=== PATIENT | male | born 1965 | race Caucasian/White ===

== ENCOUNTER 2019-02-26 11:35 | Inpatient (IN) | payer MEDICAID ==
[2019-02-26 14:38] LABS: ABS Basophils 0.1 10^3/ul (0-0.2); ABS Lymphocytes 0.2 10^3/ul (1.0-4.8); ABS Monocytes 0.3 10^3/ul (0-0.8); ABS Neutrophils 17.6 10^3/ul (1.5-7.7); Eosinophil % 0.1 %; Hematocrit 50 % (42-52); Hemoglobin 16.7 g/dL (14.0-18.0); Mean Corpuscular HGB Conc 33 g/dL (31-36); Mean Corpuscular Hemoglobin 31 pg (27-31); Mean Corpuscular Volume 92 fL (80-94); Mean Platelet Volume 8.4 fL (7.4-10.4); Platelet Count 423 10^3/uL (150-450); Red Blood Count 5.45 10^6 /uL (4.18-5.48); Red Cell Distribution Width 14 % (10-15); White Blood Count 18.1 10^3/uL (3.5-10.8)
--- NOTE | 2019-02-26 14:52 | ED ---
Complex/Multi-Sys Presentation - HPI Summary HPI Summary: 53 year old M presenting to [facility] accompanied by female friend with a chief complaint of thrush and epigastric pain for several weeks. The patient rates the pain 8/10 in severity. Symptoms aggravated by food. Symptoms alleviated by marijuana. Patient reports recent weight loss and decreased food intake. Patient denies chest pain, shortness of breath. Reports hx HIV for which patient has not taken medications for 1 year. Patient states that the last time he had HIV checks was 2 years ago. Patient used to live in [place] where he was being seen at a clinic then he moved to [place] where he was prescribed sativa but patient states it makes him feel depressed. Patient states he now lives in a tent in [facility]. Female friend states that she received a text from patient saying "I'm dying" so female friend booked a motel room for patient. Patient uses marijuana, which relieves his pain, last used a few days ago. - History Of Current Complaint Chief Complaint: EDGeneral Hx Obtained From: Patient, Other: - female friend Onset/Duration: Lasting Weeks, Still Present Timing: Constant Severity Currently: Severe Aggravating Factor(s): food intake Alleviating Factor(s): marijuana Associated Signs And Symptoms: Positive: Other - recent weight loss and decreased food intake; NEGATIVE: chest pain, shortness of breath - Allergies/Home Medications Allergies/Adverse Reactions: Allergies Allergy/AdvReac Type Severity Reaction Status Date / Time No Known Allergies Allergy Verified 02/26/19 11:46 Home Medications: Home Medications Efavirenz/Emtricitab/Tenof(NF) [Atripla(NF)] 1 tab PO DAILY 02/26/19 [History Confirmed 02/26/19] PMH/Surg Hx/FS Hx/Imm Hx Previously Healthy: No Respiratory History: Reports: Hx Pneumonia - Surgical History Surgery Procedure, Year, and Place: n/a Infectious Disease History: Yes Infectious Disease History: Reports: Hx Human Immunodeficiency Virus (HIV) Denies: Traveled Outside the [place] in Last 30 Days - Social History Alcohol Use: None Hx Substance Use: Yes Substance Use Type: Reports: Marijuana Hx Tobacco Use: No Smoking Status (MU): Never Smoked Tobacco Review of Systems Positive: Other - thrush Negative: Chest Pain Negative: Shortness Of Breath Positive: Other - epigastric pain, recent weight loss, decreased food intake All Other Systems Reviewed And Are Negative: Yes Physical Exam - Summary Physical Exam Summary: GENERAL: Patient is a well-developed and nourished M who is lying comfortable in the stretcher. Patient is not in any acute respiratory distress. HEAD AND FACE: Normocephalic EYES: PERRLA, EOMI x 2. EARS: Hearing grossly intact. MOUTH: Thrush on his tongue that is erythematous NECK: Supple, trachea is midline, no adenopathy, no JVD, no carotid bruit. CHEST: Symmetric, no tenderness at palpation LUNGS: Rhonchi bilaterally CVS: Regular rate and rhythm, S1 and S2 present, no murmurs or gallops appreciated. ABDOMEN: Soft, non-tender. Bowel sounds are normal. No abnormal abdominal pulsations. EXTREMITIES: Full ROM in all major joints, no edema, no cyanosis or clubbing. NEURO: Alert and oriented x 3. No acute neurological deficits. Speech is normal and follows commands. SKIN: Dry and warm Triage Information Reviewed: Yes Vital Signs On Initial Exam: Initial Vitals Temp Pulse Resp BP Pulse Ox 98.1 F 110 16 117/80 97 02/26/19 11:42 02/26/19 11:42 02/26/19 11:42 02/26/19 11:42 02/26/19 11:42 Vital Signs Reviewed: Yes Diagnostics - Vital Signs Vital Signs Temp Pulse Resp BP Pulse Ox 02/26/19 13:47 98.4 F 87 24 119/82 98 02/26/19 11:42 98.1 F 110 16 117/80 97 - Laboratory Lab Results: Lab Results 02/26/19 Range/Units 14:22 WBC 18.1 H (3.5-10.8) 10^3/uL RBC 5.45 (4.18-5.48) 10^6 /uL Hgb 16.7 (14.0-18.0) g/dL Hct 50 (42-52) % MCV 92 (80-94) fL MCH 31 (27-31) pg MCHC 33 (31-36) g/dL RDW 14 (10-15) % Plt Count 423 (150-450) 10^3/uL MPV 8.4 (7.4-10.4) fL Neut % (Auto) 97.0 % Lymph % (Auto) 1.0 % Eagle % (Auto) 1.4 % Eos % (Auto) 0.1 % Baso % (Auto) 0.5 % Absolute Neuts (auto) 17.6 H (1.5-7.7) 10^3/ul Absolute Lymphs (auto) 0.2 L (1.0-4.8) 10^3/ul Absolute Monos (auto) 0.3 (0-0.8) 10^3/ul Absolute Eos (auto) 0.0 (0-0.6) 10^3/ul Absolute Basos (auto) 0.1 (0-0.2) 10^3/ul Absolute Nucleated RBC 0.0 10^3/ul Nucleated RBC % 0.0 Result Diagrams: 02/28/19 05:21 02/28/19 05:21 Lab Statement: Any lab studies that have been ordered have been reviewed, and results considered in the medical decision making process. - Radiology CXR Radiology Interpretation Completed By: Radiologist Summary of Radiographic Findings: NO ACTIVE CARDIOPULMONARY DISEASE IS NOTED. ED physician has reviewed this report. - EKG 1504 Cardiac Rate: NL - 88 BPM EKG Rhythm: Sinus Rhythm Summary of EKG Findings: Normal sinus rhythm 88 BPM, normal axis, normal intervals. Complex Multi-Symp Course/Dx Course Of Treatment: 53 year old M presenting to [facility] accompanied by female friend with a chief complaint of thrush, epigastric pain, recent weight loss, decreased food intake for several weeks. Reports hx HIV for which patient has not taken medications for 1 year. PE findings: rhonchi bilaterally, thrush on his tongue that is erythematous. Labs without any significant abnormalities except for 18.1, absolute neuts 176., absolute lymphs 0.2, sodium 134, carbon dioxide 18, anion gap 12, BUN 48, creatinine 1.27, BUN/Creatinine ratio 37.8, glucose 122, alkaline phosphatase 121, INR 1.10, APTT 40.9, B-natriuretic peptide 181, troponin 0.08, c-reactive protein 136.41. EKG shows normal sinus rhythm 88 BPM, normal axis, normal intervals. CXR shows, per radiologist: NO ACTIVE CARDIOPULMONARY DISEASE IS NOTED. In ED course, patient was given 1 L normal saline IV fluids, GI cocktail, Zofran 4 mg IV. Case discussed with hospitalist, Dr. Yanez, who agrees to admit patient. I discussed results with patient. The patient agrees with this plan. - Diagnoses Provider Diagnoses: Tongue thrust, Chest pain - Physician Notifications Discussed Care Of Patient With: Francia Yanez Time Discussed With Above Provider: 15:50 Instructed by Provider To: Other - Dr. Yanez, hospitalist, agrees to admit patient. Discharge - Sign-Out/Discharge Documenting (check all that apply): Patient Departure - Admit Patient Received Moderate/Deep Sedation with Procedure: No - Discharge Plan Condition: Stable Disposition: ADMITTED TO [facility] - Billing Disposition and Condition Condition: STABLE Disposition: Admitted to [facility] - Attestation Statements Document Initiated by Scribe: Yes Documenting Scribe: Bella Wei Provider For Whom Scribe is Documenting (Include Credential): Breanna House MD Scribe Attestation: Bella Nolan, edithed for Breanna House MD on 02/28/19 at 0808. Scribe Documentation Reviewed: Yes Provider Attestation: The documentation as recorded by the scribBella bermudez accurately reflects the service I personally performed and the decisions made by Breanna tuttle MD Status of Scribe Document: Viewed
[2019-02-26] MEDS ORDERED: Nystatin SUSPENSION* 100000 UNITS/ML 5 ML UDC PO ONE (14:59)
[2019-02-26] MEDS ORDERED: NS 0.9% 1000 ML** 1,000 ML IV ONE (14:59)
[2019-02-26] MEDS ORDERED: Ondansetron INJ* 2 MG/ML VIAL IV ONE (15:00)
[2019-02-26 15:03] LABS: ALT 31 U/L (7-52); AST 22 U/L (13-39); Albumin 3.8 g/dL (3.2-5.2); Albumin/Globulin Ratio 1.1 (1-3); Alkaline Phosphatase 121 U/L (34-104); Anion Gap 12 mmol/L (2-11); BUN/Creatinine Ratio 37.8 (8-20); Blood Urea Nitrogen 48 mg/dL (6-24); CO2 Carbon Dioxide 18 mmol/L (22-32); Calcium 9.3 mg/dL (8.6-10.3); Chloride 104 mmol/L (101-111); EGFR African American 71.8 (>60); EGFR Non-African American 59.3 (>60); Globulin 3.4 g/dL (2-4); Glucose 122 mg/dL (70-100); Sodium 134 mmol/L (135-145); Total Protein 7.2 g/dL (6.4-8.9)
[2019-02-26] MEDS ORDERED: Lidocaine 2% VISCOUS* 15 ML UDC PO ONE (15:05)
[2019-02-26] MEDS ORDERED: Al Hydrox/Mg Hydrox/Simet LIQ* 30 ML UDC PO ONE (15:07)
[2019-02-26 15:36] LABS: Activated Partial Thrombo Time 40.9 seconds (26.0-38.0); INR 1.1 (0.82-1.09)
[2019-02-26 15:52] LABS: Troponin I 0.08 ng/mL (<0.04)
[2019-02-26 16:26] LABS: CRP High Sensitivity 136.41 mg/L (<2.00)
[2019-02-26] MEDS ORDERED: Loperamide LIQ* 2 MG/10 ML UDC PO ONE (17:13)
[2019-02-26] MEDS ORDERED: Fluconazole 400 MG IVPREMIX(*) 400 MG/200 ML BAG IVPB ONE (18:02)
--- NOTE | 2019-02-26 18:30 | HP ---
<Audrey Peralta - Last Filed: 02/26/19 18:51> History of Present Illness - History of Present Illness Reason for Visit: Extreme pain on mouth and stomach History of Present Illness: 53 M with history of HIV, Cryptococcus meningitis s/p MISSILE MECHANIC shunt, presented to ED with severe oral and stomach pain. Patient is a poor historian and refused to talk too much due to lack of energy. He was diagnosed as HIV at 2009, receiving treatment from [facility] till 2017, he stopped all his HIV medication 1.5 years ago because he didn't have car to go to clinic. He started to have severe oral and stomach pain 2 weeks ago, he had difficulty eating solid food due to this severe pain. Also he had watery diarrhea around same time, he needs to go to restroom every 5-10 mins, he complained of burning pain on his rectal area. He lost 30 pounds in the past 2 weeks. He was staying in a tent in a friend's property, a female friend sent him to ED today as he called and said "he is going to soon." He denied fever and chills, denied cough, denied abdominal pain. - Past Medical History Past Medical History: HIV diagnosed in 2009, history of cryptococcus meningitis s/p MISSILE MECHANIC shunt. - Past Surgical History Past Surgical History: NA - Past Family History Past Family History: Mother has diabetes.Lost contact with family. - Past Social History Past Social History: Patient stayed in [place] for 1.5 years, he stayed in a tent since then. He claimed he lost his car so he couldn't go to clinic, he refused to talk more about himself. No smoker, uses marijuana, no alcohol use, no substance use. Review of Systems - Review of Systems Constitutional: Positive: Weakness, Malaise, Other - weight loss 30 pounds in the past 2 weeks Eyes: Negative: Pain, Vision Change, Conjunctivae Inflammation, Eyelid Inflammation, Redness, Other ENT: Positive: Mouth Pain, Throat Pain, Other - oral thrush Respiratory: Negative: Cough, Dry, Shortness of Breath, Hemoptysis, SOB with Excertion, Pleuritic Pain, Sputum, Wheezing Cardiovascular: Negative: Chest Pain, Palpitations, Orthopnea, Paroxysmal Noc. Dyspnea, Edema, Light Headedness, Other Gastrointestinal: Positive: Diarrhea Genitourinary: Negative: Dysuria, Frequency, Incontinence, Hematuria, Retention , Other Musculoskeletal: Negative: Neck Pain, Shoulder Pain, Arm Pain, Back Pain, Hand Pain, Leg Pain, Foot Pain, Other Skin: Positive: Rash - noted scattered erythematous patches over all body Neurological: Positive: Weakness - Medications/Allergies Allergies/Adverse Reactions: Allergies Allergy/AdvReac Type Severity Reaction Status Date / Time No Known Allergies Allergy Verified 02/26/19 11:46 Medications: Current Medications Not taking any medication Exam Vital Signs: Vital Signs (72 hours) 02/26/19 02/26/19 02/26/19 11:42 13:47 14:42 Temperature 98.1 F 98.4 F Pulse Rate 110 87 82 Respiratory 16 24 Rate Blood Pressure 117/80 119/82 126/89 (mmHg) O2 Sat by Pulse 97 98 97 Oximetry 02/26/19 14:43 Temperature Pulse Rate 95 Respiratory Rate Blood Pressure (mmHg) O2 Sat by Pulse 96 Oximetry Exam: Cachexic looking Skin: macular erythematous rashes over whole body HEENT: oral thrush and ulcers with background erythema over the whole mouth Lung: rhonchis bilaterally Abdomen: soft, non tender Extremity: full ROM Neuro: alert, oriented x3, no neurological deficit noted Assessment/Plan - Assessment/Plan Assessment: This is a 53 y/o M with history of AIDS and prev cryptococcus meningitis s/p MISSILE MECHANIC shunt, presented to ED with severe oral and esophageal pain, and severe watery diarrhea after stopping HIV med for 1.5 years. Esophagitis due to joseph is top consideration, CMV, HSV is also highly likely. Diarrhea in the setting of untreated AIDS could be parasite infection such as cryptosporidum, microsporidium, also C.diff, CMV, common enteric bacterias are all possible. He also had severe malnutrition and mild MARY due to poor oral intake. Plan: 1. Stomatitis and Esophagitis - definitely joseph with oral thrush present - still need to look for other pathogen such as HSV, CMV - bld cs, fungal cs - start IV fluconazole due to severe oral ulcer and thrush, 400mg first dose, 200mg daily subsequently - lidocaine for pain control, nystatin tropical - consider endoscopy to get diagnosis when symptoms improve 2. Diarrhea - in the setting of untreated HIV with watery diarrhea, parasitic causes such as cryposporidium is most likely, C.diff and other bacterial causes, viral also possibe - IV hydration - send stool c/s, c.diff, o&P, rotavirus, c.diff, cryptosporidium antigen - [facility] topical for anal pain 3. Severe Malnutrition - start feeding - watch electrolytes closely to avoid refeeding syndrome - put on telemetry 4. MARY with metabolic acidosis - due to poor oral intake and ongoing diarrhea - hydration for now 5. Mildly elevated trop I likely demand - ECG NSR - trend trop - CXR normal 6. AIDS - HIV CD4/CD8, RNA titer sent - consult ID for further treatment 7. DVT prophylaxis - ambulating, low risk - no need prophylaxis Attestation Documenting Resident: Audrey Peralta Supervising Physician: Araseli Godinez Attestation: This service has been performed in part by a resident under the direction of a teaching physician.I, Araseli Godinez, performed the service, or was physically present during the critical, or cooper portions of the service, furnished by the resident. I participated in the management of the patient. <Araseli Godinez - Last Filed: 02/26/19 21:32> History of Present Illness - History of Present Illness Reason for Visit: Extreme pain on mouth Review of Systems - Medications/Allergies Medications: Current Medications Sodium Chloride (Ns 0.9% 1000 Ml) 1,000 mls @ 125 mls/hr IV PER RATE [facility] Last Admin: 02/26/19 20:05 Dose: 125 mls/hr Fluconazole/Sodium Chloride (Diflucan 200 Mg Ivpremix(*)) 200 mg in 100 mls @ 100 mls/hr IVPB Q24H [facility] Lidocaine (Xylocaine 2% Viscous*) 15 ml SWISH SPIT Q4H PRN PRN Reason: SORE THROAT Last Admin: 02/26/19 18:58 Dose: 15 ml Loperamide HCl (Imodium Cap*) 2 mg PO .SEE DIRECTIONS PRN PRN Reason: DIARRHEA Nystatin (Nystatin Suspension*) 200,000 units PO QID [facility] Last Admin: 02/26/19 20:27 Dose: 200,000 units Exam Vital Signs: Vital Signs (72 hours) 02/26/19 02/26/19 02/26/19 11:42 13:47 14:42 Temperature 98.1 F 98.4 F Pulse Rate 110 87 82 Respiratory 16 24 Rate Blood Pressure 117/80 119/82 126/89 (mmHg) O2 Sat by Pulse 97 98 97 Oximetry 02/26/19 02/26/19 14:43 18:54 Temperature 98.1 F Pulse Rate 95 73 Respiratory 16 Rate Blood Pressure 120/71 (mmHg) O2 Sat by Pulse 96 95 Oximetry Attestation Attending/Supervising Physician Comment: Mr. 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 He explains that the virus was undetectable until 1.5 years ago, when he "lost everything" in [facility] and moved to [place] where a friend has allowed him to stay in a tent. He has been without a car and therefore without access to medications. He had been on truvada for a while and most recently atripla. He found an old bottle recently and started taking them six days ago. He presented to the ED in the care of his friend Becky with several weeks of mouth pain, inability to take food, and profuse diarrhea. Remainder of HPI as above. On exam, he is alert and nontoxic appearing but chronically very ill appearing with profound temporal wasting and ribs visible through his chest. His oral mucosa is covered in ulcerations and plaques, as is his palate and pharynx. He has no lymphadenopathy. Lungs are clear. RRR, no murmurs. Abd is soft, nontender, nondistended, normal bowel sounds. He has a faint blanching macular rash all over that he attributes to bug bites. Labs, EKG, and xray personally reviewed by me. # Stomatitis/esophagitis joseph vs. hsv. vs. cmv vs. aphthous start fluconazole IV topical lidocaine may need endocsopy if not responding quickly advance diet as tolerated check fungal blood cultures # Diarrhea prone to any type of bacterial, viral, parasitic diarrhea send stool culture, o/p, cmv, cryptosporidium volume/electrolyte replacement # HIV/AIDS he has not had a cd4 checked in 1.5 years and does not remember what it was then will check cd4 and consult [facility] for recommendations about resuming HAART may also need cmv/pcp ppx pending cd4 # MARY the differential for this is broad in HIV, but given his profuse diarrhea and inability to tolerate po I am suspicious for prerenal IVF # nstemi ekg without ishcemia; no chest pain trend trops, tele # homelessness this places him at greater risk for opportunistic infections will consult social work
[2019-02-26] MEDS: Lidocaine 2% VISCOUS* 15 ML UDC SWISH SPIT PRN (18:58)
[2019-02-26] MEDS ORDERED: Witch Hazel PAD* JAR TOPICAL ONE (19:19)
[2019-02-26] MEDS: NS 0.9% 1000 ML** 1,000 ML IV SCH (20:05)
[2019-02-26 20:10] LABS: HIV 4th Generation Reflexed (Negative)
[2019-02-26] MEDS: Nystatin SUSPENSION* 100000 UNITS/ML 5 ML UDC PO SCH (20:27)
[2019-02-26] MEDS: Loperamide CAP* 2 MG PO PRN (22:05)
[2019-02-27] MEDS: Lidocaine 2% VISCOUS* 15 ML UDC SWISH SPIT PRN ×5 (03:36→21:10)
[2019-02-27] MEDS: Loperamide CAP* 2 MG PO PRN ×4 (03:37→23:53)
[2019-02-27 06:01] LABS: ABS Lymphocytes 0.2 10^3/ul (1.0-4.8); ABS Monocytes 0.3 10^3/ul (0-0.8); ABS Neutrophils 15.9 10^3/ul (1.5-7.7); Hematocrit 41 % (42-52); Hemoglobin 13.7 g/dL (14.0-18.0); Mean Corpuscular HGB Conc 33 g/dL (31-36); Mean Corpuscular Hemoglobin 30 pg (27-31); Mean Corpuscular Volume 91 fL (80-94); Mean Platelet Volume 8.6 fL (7.4-10.4); Platelet Count 330 10^3/uL (150-450); Red Cell Distribution Width 14 % (10-15); White Blood Count 16.4 10^3/uL (3.5-10.8)
[2019-02-27 06:24] LABS: Albumin 2.8 g/dL (3.2-5.2); Calcium 8.2 mg/dL (8.6-10.3); EGFR African American 61.1 (>60); EGFR Non-African American 50.5 (>60); Globulin 2.8 g/dL (2-4); Potassium 3.7 mmol/L (3.5-5.0); Total Bilirubin 0.2 mg/dL (0.2-1.0); Total Protein 5.6 g/dL (6.4-8.9)
[2019-02-27] MEDS ORDERED: Sodium Bicarbonate (ANTACID)* 650 MG TAB PO ONE (07:28)
--- NOTE | 2019-02-27 07:30 | PN ---
<Audrey Peralta - Last Filed: 02/27/19 14:17> Subjective Date of Service: 02/27/19 Interval History: Pt felt his pain is improving, and his diarrhea better now. Labs: metabolic acidosis with bicarb 13. Objective Active Medications: Sodium Chloride (Ns 0.9% 1000 Ml) 1,000 mls @ 125 mls/hr IV PER RATE [facility] Last Admin: 02/26/19 20:05 Dose: 125 mls/hr Fluconazole/Sodium Chloride (Diflucan 200 Mg Ivpremix(*)) 200 mg in 100 mls @ 100 mls/hr IVPB Q24H [facility] Lidocaine (Xylocaine 2% Viscous*) 15 ml SWISH SPIT Q4H PRN PRN Reason: SORE THROAT Last Admin: 02/27/19 03:36 Dose: 15 ml Loperamide HCl (Imodium Cap*) 2 mg PO Q3H PRN PRN Reason: DIARRHEA Last Admin: 02/27/19 03:37 Dose: 2 mg Nystatin (Nystatin Suspension*) 200,000 units PO QID [facility] Last Admin: 02/26/19 20:27 Dose: 200,000 units Sodium Bicarbonate (Sodium Bicarbonate (Antacid)*) 1,300 mg PO ONCE ONE Stop: 02/27/19 07:29 Vital Signs - 8 hr 02/27/19 02/27/19 02/27/19 03:25 03:37 06:12 Temperature 97.8 F Pulse Rate 63 Respiratory 22 16 16 Rate Blood Pressure 122/74 (mmHg) O2 Sat by Pulse 98 Oximetry Oxygen Devices in Use Now: None Exam: Well, not in distress Skin: rashes on upper arms, abdomen; [employer] shunt seen on abdomen Heart: S1S2 normal. Lung: clear Abdomen: soft non tender LL: no swelling Result Diagrams: 02/27/19 05:28 02/27/19 05:28 Additional Lab and Data: Lab Results 02/26/19 Range/Units 14:22 WBC 18.1 H (3.5-10.8) 10^3/uL RBC 5.45 (4.18-5.48) 10^6 /uL Hgb 16.7 (14.0-18.0) g/dL Hct 50 (42-52) % MCV 92 (80-94) fL MCH 31 (27-31) pg MCHC 33 (31-36) g/dL RDW 14 (10-15) % Plt Count 423 (150-450) 10^3/uL MPV 8.4 (7.4-10.4) fL Neut % (Auto) 97.0 % Lymph % (Auto) 1.0 % Barron % (Auto) 1.4 % Eos % (Auto) 0.1 % Baso % (Auto) 0.5 % Absolute Neuts (auto) 17.6 H (1.5-7.7) 10^3/ul Absolute Lymphs (auto) 0.2 L (1.0-4.8) 10^3/ul Absolute Monos (auto) 0.3 (0-0.8) 10^3/ul Absolute Eos (auto) 0.0 (0-0.6) 10^3/ul Absolute Basos (auto) 0.1 (0-0.2) 10^3/ul Absolute Nucleated RBC 0.0 10^3/ul Nucleated RBC % 0.0 Assess/Plan/Problems-Billing Assessment: - Patient Problems (1) AIDS Current Visit: Yes Status: Acute Comment: Diagnosed with HIV 2000 Was on treatment, stopped HIV med 1.5 years old CD4 count pending ID consult today (2) Esophagitis Current Visit: Yes Status: Acute Code(s): K20.9 - ESOPHAGITIS, UNSPECIFIED SNOMED Code(s): 84904931 Comment: - etiology: joseph likely, HSV, CMV - start IV fluconazole, oral nystatin - IV morphine for pain control (3) Diarrhea Current Visit: Yes Status: Acute Code(s): R19.7 - DIARRHEA, UNSPECIFIED SNOMED Code(s): 88254477 Comment: - possible etiology: cyrptosporidum, microsporidium, bacterial - a/w metabolic acidosis - start Iv hydration (4) Malnutrition Current Visit: Yes Status: Acute Code(s): E46 - UNSPECIFIED PROTEIN-CALORIE MALNUTRITION SNOMED Code(s): 66387557 Comment: - poor oral intake due to esophagitis - start liquid diet, watch electrolyte disturbance Status and Disposition: Inpatient Medicine Attestation Documenting Resident: Audrey Peralta Supervising Physician: Araseli Godinez Attestation: This service has been performed in part by a resident under the direction of a teaching physician.I, Araseli Godinez, performed the service, or was physically present during the critical, or cooper portions of the service, furnished by the resident. I participated in the management of the patient. <Araseli Godinez - Last Filed: 02/27/19 17:47> Objective Active Medications: Acetaminophen (Tylenol Adult Liq*) 650 mg PO Q6H PRN PRN Reason: PAIN - MODERATE Emtricitabine/Tenofovir (Truvada 200/300 Mg*) 1 tab PO DAILY@1800 [facility]; Protocol Last Admin: 02/27/19 17:34 Dose: 1 tab Hydromorphone HCl (Dilaudid Inj*) 0.5 mg IV SLOW PU Q6H PRN PRN Reason: PAIN - MODERATE Sodium Chloride (Ns 0.9% 1000 Ml) 1,000 mls @ 125 mls/hr IV PER RATE [facility] Last Admin: 02/27/19 11:16 Dose: 125 mls/hr Fluconazole/Sodium Chloride (Diflucan 200 Mg Ivpremix(*)) 200 mg in 100 mls @ 100 mls/hr IVPB Q24H [facility] Lidocaine (Xylocaine 2% Viscous*) 15 ml SWISH SPIT Q4H PRN PRN Reason: SORE THROAT Last Admin: 02/27/19 17:35 Dose: 15 ml Loperamide HCl (Imodium Cap*) 2 mg PO Q3H PRN PRN Reason: DIARRHEA Last Admin: 02/27/19 17:34 Dose: 2 mg Nystatin (Nystatin Suspension*) 200,000 units PO QID [facility] Last Admin: 02/27/19 16:19 Dose: 200,000 units Raltegravir (Isentress*) 400 mg PO BID [facility]; Protocol Trimethoprim/Sulfamethoxazole (Bactrim Ss 400/80 Tab*) 1 tab PO DAILY [facility] Witch Destiny (Tucks*) 1 pad TOPICAL DAILY [facility] Last Admin: 02/27/19 12:42 Dose: Not Given Vital Signs - 8 hr 02/27/19 02/27/19 02/27/19 10:09 11:30 12:40 Temperature Pulse Rate Respiratory 18 16 16 Rate Blood Pressure (mmHg) O2 Sat by Pulse Oximetry 02/27/19 02/27/19 02/27/19 14:46 17:34 17:35 Temperature 97.7 F Pulse Rate 74 Respiratory 18 18 18 Rate Blood Pressure 117/62 (mmHg) O2 Sat by Pulse 100 Oximetry - Nutrition: Malnutrition Diagnosis/Plan Malnutrition Assessment by Registered Dietitian: Malnutrition Assessment Clinical Characteristics Chronic,Severe Malnutrition Assessment: Severe muscle wasting - Temporal muscle Criteria Severe fat pad wasting - Orbital fat pad, Buccal fat pad Inadequate Oral Intake - Limited access to food x1.5 mos. - Anticipate meeting <75% nutrient needs >1 mo. Unintentional Wt Loss - Reported noticeable wt loss x1.5 mos. - Wt hx limited; Anticipate >5% wt loss x1 mo. Malnutrition Assessment: Nutritional Supplementals/Nourishments - Per pt Interventions request, will send [place] Ensure Enlive ( 350kcal, 20g prot) x2 at B, X3 at L, and X2 at D to optimize kcal/prot intake for wt gain; will continue to monitor acceptance. Anticipate pt intake will improve w/ resolution of painful chewing/swallowing; will adjust Ensure provisions as indicated. GI Related - Recommend continuing antidiarrheals PRN; will monitor GI s/sx for impact on intake. Malnutrition Assessment: Goals 1) Pt will tolerate least restrictive diet textures w/o difficulty chewing/swallowing 2) Adequate po intake to replete lean body mass and hydration status 3) Improve fluid/electrolyte balance w/ adequate po intake 4) Maintain bowel regularity w/ adequate po intake w/o exacerbation of diarrhea or development of constipation Result Diagrams: 02/27/19 05:28 02/27/19 05:28 Assess/Plan/Problems-Billing Assessment: Attestation Attending/Supervising Physician Comment: 53 yo man with AIDS off of HAART for 1.5 years presenting with diarrhea, throat pain, odynophagia. #esophagitis most likely joseph; ddx includes hsv, cmv improving on iv fluconazole encourage po as tolerated #diarrhea differential is broad; work up sent may be viremia vs. opportunistic infection #AIDS/HIV truvada started today by dr. dozier #rash check lyme/tick panel today #MARY continue IVF resuscitation
[2019-02-27] MEDS: Nystatin SUSPENSION* 100000 UNITS/ML 5 ML UDC PO SCH ×4 (08:10→21:10)
[2019-02-27] MEDS ORDERED: Witch Hazel PAD* JAR TOPICAL SCH (09:00)
[2019-02-27] MEDS ORDERED: Acetaminophen ADULT LIQ* 650 MG/20.3 ML UDC PO PRN (09:17)
[2019-02-27] MEDS ORDERED: Morphine 4 MG/ML VIAL (1 ml) 4 MG/ML VIAL IV PRN (10:44)
[2019-02-27] MEDS: NS 0.9% 1000 ML** 1,000 ML IV SCH ×2 (11:16→19:20)
[2019-02-27] MEDS: Witch Hazel PAD* JAR TOPICAL SCH (12:42)
[2019-02-27] MEDS ORDERED: Sulfamethox/Trimethoprim SS 400/80* TAB PO ONE (13:41)
[2019-02-27] MEDS ORDERED: diPHENhydraMINE IV* 50 MG/ML 1 ml VIAL (BENADRYL) SLOW PUSH ONE (16:26)
--- NOTE | 2019-02-27 16:31 | CONS ---
CONSULTATION REPORT: DATE OF CONSULT: 02/27/19 REQUESTING PHYSICIAN: Dr. Yanez. CONSULTING SERVICE: Infectious Disease. REASON FOR CONSULTATION: AIDS, diarrhea, thrush. IMPRESSION: 1. Longstanding HIV, off of medications for about 2 years, now with 30-pound weight loss, profuse diarrhea, thrush, esophageal candidiasis. His workup for diarrhea is pending including cryptosporidium, Giardia negative. Stool culture is pending. CMV colitis is possibility. As noted in Dr. Yanez's note, uncontrolled HIV viremia is also on the differential. 2. Oral and esophageal candidiasis. 3. Longstanding HIV, off of antivirals. 4. Elevated creatinine, do not have his baseline, but he is prerenal and likely has an acute kidney injury given his minuscule muscle mass. 5. Non-gap acidosis could be due to diarrhea. 6. History of cryptococcal meningitis, hydrocephalus and a SLIMER shunt. 7. History of Pneumocystis pneumonia. RECOMMENDATIONS: Continue fluconazole 200 mg IV daily, we will change it to p.o. once his GI symptoms have decreased a bit. We will add Bactrim single strength tablet daily for Pneumocystis prophylaxis. We will send a HIV genotype and start Truvada and raltegravir while awaiting those results. We will send a CMV PCR from the blood. We will send an acid-fast blood culture for disseminated mycobacterial infection due to MAC. HISTORY OF PRESENT ILLNESS: This is a 53-year-old male with longstanding HIV who has been out of the area and back to the area, has been homeless, staying with a friend. 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 Has had thrush but not shingles. He had been on treatment over the years including Combivir and Sustiva and then Truvada and Sustiva and then took Truvada by itself a while as he could not tolerate Sustiva with no psychiatric side effects. He has been off treatment for about 2 plus years for various reasons. He was doing okay until few months ago, started to have weight loss which accelerated over the last couple of months. He started to have profuse watery diarrhea up to couple times an hour in the last few days without abdominal pain. He has had thrush and pain with swallowing which is progressed to the point that he cannot eat anything. He came to the hospital yesterday with a white count of 18,000, creatinine 1.2, CRP 136. He has had no fevers here. He had a Giardia and cryptosporidium antigen that were negative. Stool culture was pending. A C. diff test was negative. He has had some rash on his legs and arms which he attributes to living in a tent. It is not itchy or painful. It has been there a couple of months. PAST MEDICAL HISTORY: 1. HIV. 2. Pneumocystis pneumonia. 3. Cryptococcal meningitis, SLIMER shunt. MEDICATIONS: 1. Tylenol. 2. Fluconazole 200 mg IV daily. 3. Viscous lidocaine. 4. Nystatin swish and spit. 5. Witch-pushpa. ALLERGIES: No known drug allergies. FAMILY HISTORY: No recurrent infections he knows of. SOCIAL HISTORY: He has been homeless, lived in [facility]. Currently nonsmoker. Not using injection drugs. REVIEW OF SYSTEMS: All negative except as noted above to the 14-point review. PHYSICAL EXAM: Vital Signs: Temperature 36.3, heart rate 70, respiratory rate 20, blood pressure 115/70, oxygen saturation 100% on room air. In general, he is awake, not in distress. Neurologic: He is oriented x3. Follows all commands. Moves all extremities. HEENT: There is no conjunctival hemorrhage. Oropharynx without lesions. Neck is supple without mass. Heart is regular rate and rhythm without murmurs, rubs, or gallops. Lungs: There are no decreased breath sounds or wheeze, rale, or rhonchi. Abdomen: Soft, nontender , nondistended. There is a SLIMER shunt from the abdomen up through the neck and cranium is without erythema or tenderness. Skin: There are a number of round erythematous blanching patches on his upper and lower extremities. Musculoskeletal: There is no spine tenderness to palpation, no joint synovitis. There is cachexia. DIAGNOSTIC STUDIES/LAB DATA: White blood cell count 16, hemoglobin 13, MCV 90, platelets 330. Creatinine 1.4, potassium 3.7, protein 5.6. Please see impression and recommendations as outlined above. Thank you for asking me to see Mr. Mcrae in consultation. [id number]/[facility] #: [id number] PABLO
[2019-02-27 16:54] LABS: 4/8 H/S Ratio 0.3 (>=0.9); CD3 135 cells/mcL (550-2202); CD4 31 cells/mcL (365-1437); CD8 110 cells/mcL (117-846)
[2019-02-27] MEDS: Tenofovir/Emtricitab 200/300 * TAB PO SCH (17:34)
[2019-02-27] MEDS ORDERED: HYDROmorphone INJ1* 1 MG/ML SYRINGE IV SLOW PU PRN (17:41)
[2019-02-27] MEDS ORDERED: Meperidine SYRINGE* 50 MG/ML IV SCH (18:00)
[2019-02-27] MEDS: Raltegravir* 400 MG TAB PO SCH (21:10)
[2019-02-27] MEDS: Fluconazole 200 MG IVPREMIX(*) 200 MG/100 ML BAG IVPB SCH (21:10)
[2019-02-28 06:49] LABS: ABS Lymphocytes 0.1 10^3/ul (1.0-4.8); ABS Monocytes 0.2 10^3/ul (0-0.8); ABS Neutrophils 12.9 10^3/ul (1.5-7.7); Eosinophil % 0.1 %; Hematocrit 38 % (42-52); Hemoglobin 13.2 g/dL (14.0-18.0); Lymphocyte % 1.1 %; Mean Corpuscular HGB Conc 35 g/dL (31-36); Mean Corpuscular Hemoglobin 31 pg (27-31); Mean Corpuscular Volume 90 fL (80-94); Mean Platelet Volume 8.8 fL (7.4-10.4); Nucleated Red Blood Cells % 0.1; Platelet Count 267 10^3/uL (150-450); Red Blood Count 4.22 10^6 /uL (4.18-5.48); Red Cell Distribution Width 14 % (10-15); White Blood Count 13.3 10^3/uL (3.5-10.8)
[2019-02-28 06:53] LABS: Calcium 7.9 mg/dL (8.6-10.3); EGFR African American 122.4 (>60); EGFR Non-African American 101.1 (>60); Magnesium 1.8 mg/dL (1.9-2.7); Potassium 3.4 mmol/L (3.5-5.0)
--- NOTE | 2019-02-28 07:00 | PN ---
<Audrey Peralta - Last Filed: 02/28/19 11:46> Subjective Date of Service: 02/28/19 Interval History: No events overnight. No fever, odynophagia and diarrhea sx improved. Able to take liquid ensure. Noted pt refused to talk to social security specialist for enrolling in AIDS program. Will leave disposition issue to Saturday. Objective Active Medications: Acetaminophen (Tylenol Adult Liq*) 650 mg PO Q6H PRN PRN Reason: PAIN - MODERATE Emtricitabine/Tenofovir (Truvada 200/300 Mg*) 1 tab PO DAILY@1800 [facility]; Protocol Last Admin: 02/27/19 17:34 Dose: 1 tab Hydromorphone HCl (Dilaudid Inj1s*) 0.5 mg IV SLOW PU Q6H PRN PRN Reason: PAIN - MODERATE Last Admin: 02/27/19 18:07 Dose: 0.5 mg Fluconazole/Sodium Chloride (Diflucan 200 Mg Ivpremix(*)) 200 mg in 100 mls @ 100 mls/hr IVPB Q24H [facility] Last Admin: 02/27/19 21:10 Dose: 100 mls/hr Sodium Chloride (Ns 0.9% 1000 Ml) 1,000 mls @ 175 mls/hr IV PER RATE [facility] Last Admin: 02/27/19 19:20 Dose: 175 mls/hr Lidocaine (Xylocaine 2% Viscous*) 15 ml SWISH SPIT Q4H PRN PRN Reason: SORE THROAT Last Admin: 02/27/19 21:10 Dose: 15 ml Loperamide HCl (Imodium Cap*) 2 mg PO Q3H PRN PRN Reason: DIARRHEA Last Admin: 02/27/19 23:53 Dose: 2 mg Nystatin (Nystatin Suspension*) 200,000 units PO QID [facility] Last Admin: 02/27/19 21:10 Dose: 200,000 units Raltegravir (Isentress*) 400 mg PO BID [facility]; Protocol Last Admin: 02/27/19 21:10 Dose: 400 mg Trimethoprim/Sulfamethoxazole (Bactrim Ss 400/80 Tab*) 1 tab PO DAILY [facility] Witch Destiny (Tucks*) 1 pad TOPICAL DAILY [facility] Last Admin: 02/27/19 12:42 Dose: Not Given Vital Signs - 8 hr 02/27/19 02/27/19 02/28/19 23:15 23:53 03:15 Temperature 98.3 F 98.3 F Pulse Rate 80 89 Respiratory 22 16 20 Rate Blood Pressure 114/58 113/60 (mmHg) O2 Sat by Pulse 99 97 Oximetry 02/28/19 06:14 Temperature Pulse Rate Respiratory 14 Rate Blood Pressure (mmHg) O2 Sat by Pulse Oximetry Oxygen Devices in Use Now: None Exam: Cachexic looking Skin: Erythematous Rashes over whole body subsiding Heart: normal S1S2 Lung: clear Abdomen: soft non tender LL: no swelling. - Nutrition: Malnutrition Diagnosis/Plan Malnutrition Assessment by Registered Dietitian: Malnutrition Assessment Clinical Characteristics Chronic,Severe Malnutrition Assessment: Severe muscle wasting - Temporal muscle Criteria Severe fat pad wasting - Orbital fat pad, Buccal fat pad Inadequate Oral Intake - Limited access to food x1.5 mos. - Anticipate meeting <75% nutrient needs >1 mo. Unintentional Wt Loss - Reported noticeable wt loss x1.5 mos. - Wt hx limited; Anticipate >5% wt loss x1 mo. Malnutrition Assessment: Nutritional Supplementals/Nourishments - Per pt Interventions request, will send [place] Ensure Enlive ( 350kcal, 20g prot) x2 at B, X3 at L, and X2 at D to optimize kcal/prot intake for wt gain; will continue to monitor acceptance. Anticipate pt intake will improve w/ resolution of painful chewing/swallowing; will adjust Ensure provisions as indicated. GI Related - Recommend continuing antidiarrheals PRN; will monitor GI s/sx for impact on intake. Malnutrition Assessment: Goals 1) Pt will tolerate least restrictive diet textures w/o difficulty chewing/swallowing 2) Adequate po intake to replete lean body mass and hydration status 3) Improve fluid/electrolyte balance w/ adequate po intake 4) Maintain bowel regularity w/ adequate po intake w/o exacerbation of diarrhea or development of constipation Result Diagrams: 02/28/19 05:21 02/28/19 05:21 Additional Lab and Data: Lab Results 02/26/19 Range/Units 14:22 WBC 18.1 H (3.5-10.8) 10^3/uL RBC 5.45 (4.18-5.48) 10^6 /uL Hgb 16.7 (14.0-18.0) g/dL Hct 50 (42-52) % MCV 92 (80-94) fL MCH 31 (27-31) pg MCHC 33 (31-36) g/dL RDW 14 (10-15) % Plt Count 423 (150-450) 10^3/uL MPV 8.4 (7.4-10.4) fL Neut % (Auto) 97.0 % Lymph % (Auto) 1.0 % Ray % (Auto) 1.4 % Eos % (Auto) 0.1 % Baso % (Auto) 0.5 % Absolute Neuts (auto) 17.6 H (1.5-7.7) 10^3/ul Absolute Lymphs (auto) 0.2 L (1.0-4.8) 10^3/ul Absolute Monos (auto) 0.3 (0-0.8) 10^3/ul Absolute Eos (auto) 0.0 (0-0.6) 10^3/ul Absolute Basos (auto) 0.1 (0-0.2) 10^3/ul Absolute Nucleated RBC 0.0 10^3/ul Nucleated RBC % 0.0 Assess/Plan/Problems-Billing Assessment: 53 yo man with AIDS off of HAART for 1.5 years presenting with diarrhea, mouth pain, odynophagia. - Patient Problems (1) AIDS Current Visit: Yes Status: Acute Comment: Diagnosed with HIV 2000, off HAART 1.5 years ago CD4 count 31 started raltegravir, tenofovir/emtricitab for treatment after ID consult, also bactrim for prophylaxis pending HIV genotype (2) Esophagitis Current Visit: Yes Status: Acute Code(s): K20.9 - ESOPHAGITIS, UNSPECIFIED SNOMED Code(s): 06580178 Comment: - etiology: joseph likely, HSV, CMV - start IV fluconazole, oral nystatin - IV dilaudid, oxycodone for pain control - consider OGD if sx not better next week (3) Diarrhea Current Visit: Yes Status: Acute Code(s): R19.7 - DIARRHEA, UNSPECIFIED SNOMED Code(s): 09369605 Comment: - can be HIV replication related symptoms, possible infective etiology: cyrptosporidum, microsporidium, bacterial with pending results - a/w metabolic acidosis, resolving - start Iv hydration - watch sx over weekend, if not improving, refer GI for colonoscopy next week (4) Malnutrition Current Visit: Yes Status: Acute Code(s): E46 - UNSPECIFIED PROTEIN-CALORIE MALNUTRITION SNOMED Code(s): 52160864 Comment: - poor oral intake for 1 month due to esophagitis - start liquid diet, watch electrolyte disturbance - referred to systems spec, suggested ensure for now Status and Disposition: Inpatient Medicine Dispo issue: homeless. aged or disabled care worker will work on it on Saturday. Attestation Documenting Resident: Audrey Peralta Supervising Physician: Araseli Godinez Attestation: This service has been performed in part by a resident under the direction of a teaching physician.I, Araseli Godinez, performed the service, or was physically present during the critical, or cooper portions of the service, furnished by the resident. I participated in the management of the patient. <Araseli Godinez - Last Filed: 02/28/19 14:49> Objective Active Medications: Acetaminophen (Tylenol Adult Liq*) 650 mg PO Q6H PRN PRN Reason: PAIN - MODERATE Emtricitabine/Tenofovir (Truvada 200/300 Mg*) 1 tab PO DAILY@1800 [facility]; Protocol Last Admin: 02/27/19 17:34 Dose: 1 tab Fluconazole/Sodium Chloride (Diflucan 200 Mg Ivpremix(*)) 200 mg in 100 mls @ 100 mls/hr IVPB Q24H [facility] Last Admin: 02/27/19 21:10 Dose: 100 mls/hr Sodium Chloride (Ns 0.9% 1000 Ml) 1,000 mls @ 175 mls/hr IV PER RATE [facility] Last Admin: 02/27/19 19:20 Dose: 175 mls/hr Lidocaine (Xylocaine 2% Viscous*) 15 ml SWISH SPIT Q4H PRN PRN Reason: SORE THROAT Last Admin: 02/28/19 08:24 Dose: 15 ml Loperamide HCl (Imodium Cap*) 2 mg PO Q3H PRN PRN Reason: DIARRHEA Last Admin: 02/28/19 13:43 Dose: 2 mg Nystatin (Nystatin Suspension*) 200,000 units PO QID [facility] Last Admin: 02/28/19 13:43 Dose: 200,000 units Oxycodone HCl (Roxycodone Tab*) 5 mg PO Q6H PRN PRN Reason: PAIN - SEVERE Last Admin: 02/28/19 10:27 Dose: 5 mg Raltegravir (Isentress*) 400 mg PO BID [facility]; Protocol Last Admin: 02/28/19 08:23 Dose: 400 mg Trimethoprim/Sulfamethoxazole (Bactrim Ss 400/80 Tab*) 1 tab PO DAILY [facility] Last Admin: 02/28/19 08:23 Dose: 1 tab Witch Destiny (Tucks*) 1 pad TOPICAL DAILY [facility] Last Admin: 02/28/19 08:28 Dose: Not Given Vital Signs - 8 hr 02/28/19 02/28/19 02/28/19 07:15 08:00 08:23 Temperature 97.9 F Pulse Rate 80 Respiratory 16 16 18 Rate Blood Pressure 106/65 (mmHg) O2 Sat by Pulse 99 Oximetry 02/28/19 02/28/19 02/28/19 10:23 10:27 11:25 Temperature 97.8 F Pulse Rate 106 Respiratory 18 18 16 Rate Blood Pressure 107/72 (mmHg) O2 Sat by Pulse 100 Oximetry 02/28/19 02/28/19 12:27 13:43 Temperature Pulse Rate Respiratory 18 18 Rate Blood Pressure (mmHg) O2 Sat by Pulse Oximetry - Nutrition: Malnutrition Diagnosis/Plan Malnutrition Assessment by Registered Dietitian: Malnutrition Assessment Clinical Characteristics Chronic,Severe Malnutrition Assessment: Severe muscle wasting - Temporal muscle Criteria Severe fat pad wasting - Orbital fat pad, Buccal fat pad Inadequate Oral Intake - Limited access to food x1.5 mos. - Anticipate meeting <75% nutrient needs >1 mo. Unintentional Wt Loss - Reported noticeable wt loss x1.5 mos. - Wt hx limited; Anticipate >5% wt loss x1 mo. Malnutrition Assessment: Nutritional Supplementals/Nourishments - Per pt Interventions request, will send [place] Ensure Enlive ( 350kcal, 20g prot) x2 at B, X3 at L, and X2 at D to optimize kcal/prot intake for wt gain; will continue to monitor acceptance. Anticipate pt intake will improve w/ resolution of painful chewing/swallowing; will adjust Ensure provisions as indicated. GI Related - Recommend continuing antidiarrheals PRN; will monitor GI s/sx for impact on intake. Malnutrition Assessment: Goals 1) Pt will tolerate least restrictive diet textures w/o difficulty chewing/swallowing 2) Adequate po intake to replete lean body mass and hydration status 3) Improve fluid/electrolyte balance w/ adequate po intake 4) Maintain bowel regularity w/ adequate po intake w/o exacerbation of diarrhea or development of constipation Result Diagrams: 02/28/19 05:21 02/28/19 05:21 Assess/Plan/Problems-Billing Assessment: Attestation Attending/Supervising Physician Comment: Mr. Mcrae has more energy than he has recently and he is pleased with that, but has a towel over his head when I enter the room and complains that there are mosquitos in his room. On exam, I agree with Dr. Peralta's exam with the addition of his oral mucosa which has white patches and is erythematous. A/P This is a 53 year old man with history of HIV/AIDS who has been off HAART x 1.5 years and presented with inability to swallow # esophagitis, improving on iv fluconazole is taking some other pills, may be able to convert to PO soon no indication for EGD at this time # diarrhea stool studies are unremarkable thus far; a few still pending may be related to hiv viremia lytes okay; hydration status improving # MARY improved after aggressive hydration # malnutrition nutrition following # HIV/AIDS started on truvada/raltegravir + tmp/smx yesterday # homelessness social work met with him and discussed options for him but he declined talking with her will need a plan for discharge; he has a friend Becky who is helping him he has somewhat grandiose plans hoping to purchase a truck and drive to [place] but it is unclear to me whether this is realistic for him
[2019-02-28] MEDS: Loperamide CAP* 2 MG PO PRN ×3 (08:23→18:50)
[2019-02-28] MEDS: Sulfamethox/Trimethoprim SS 400/80* TAB PO SCH (08:23)
[2019-02-28] MEDS: Raltegravir* 400 MG TAB PO SCH ×2 (08:23→20:03)
[2019-02-28] MEDS: Nystatin SUSPENSION* 100000 UNITS/ML 5 ML UDC PO SCH ×4 (08:24→20:02)
[2019-02-28] MEDS: Lidocaine 2% VISCOUS* 15 ML UDC SWISH SPIT PRN (08:24)
[2019-02-28] MEDS: Witch Hazel PAD* JAR TOPICAL SCH (08:28)
[2019-02-28] MEDS ORDERED: Potassium Chloride* LIQUID 20 MEQ/15 ML UDC PO ONE (10:04)
[2019-02-28] MEDS: oxyCODONE TAB* 5 MG TAB PO PRN (10:27)
[2019-02-28] MEDS ORDERED: Magnesium Oxide TAB* 400 MG PO ONE (18:02)
[2019-02-28] MEDS: Tenofovir/Emtricitab 200/300 * TAB PO SCH (18:50)
[2019-02-28] MEDS: NS 0.9% 1000 ML** 1,000 ML IV SCH (18:53)
[2019-02-28] MEDS: Fluconazole 200 MG IVPREMIX(*) 200 MG/100 ML BAG IVPB SCH (20:04)
[2019-03-01] MEDS: Loperamide CAP* 2 MG PO PRN (01:26)
[2019-03-01] MEDS: oxyCODONE TAB* 5 MG TAB PO PRN ×2 (01:26→13:26)
[2019-03-01] MEDS: Lidocaine 2% VISCOUS* 15 ML UDC SWISH SPIT PRN (06:44)
[2019-03-01 07:04] LABS: BUN/Creatinine Ratio 39.3 (8-20); Calcium 7.9 mg/dL (8.6-10.3); EGFR African American 115.7 (>60); EGFR Non-African American 95.6 (>60); Magnesium 1.9 mg/dL (1.9-2.7); Phosphorus 2.9 mg/dL (2.5-5.0); Potassium 3.8 mmol/L (3.5-5.0)
[2019-03-01 07:28] LABS: ABS Lymphocytes 0.1 10^3/ul (1.0-4.8); ABS Monocytes 0.1 10^3/ul (0-0.8); ABS Neutrophils 7.8 10^3/ul (1.5-7.7); Eosinophil % 0.4 %; Hematocrit 36 % (42-52); Hemoglobin 12.4 g/dL (14.0-18.0); Lymphocyte % 1.8 %; Mean Corpuscular HGB Conc 35 g/dL (31-36); Mean Corpuscular Hemoglobin 32 pg (27-31); Mean Corpuscular Volume 91 fL (80-94); Mean Platelet Volume 8.8 fL (7.4-10.4); Nucleated Red Blood Cells % 0.1; Platelet Count 231 10^3/uL (150-450); Red Blood Count 3.92 10^6 /uL (4.18-5.48); Red Cell Distribution Width 14 % (10-15); White Blood Count 8.1 10^3/uL (3.5-10.8)
[2019-03-01] MEDS: NS 0.9% 1000 ML** 1,000 ML IV SCH (08:16)
[2019-03-01] MEDS: Raltegravir* 400 MG TAB PO SCH ×2 (08:17→20:45)
[2019-03-01] MEDS: Sulfamethox/Trimethoprim SS 400/80* TAB PO SCH (08:17)
[2019-03-01] MEDS: Nystatin SUSPENSION* 100000 UNITS/ML 5 ML UDC PO SCH ×4 (08:17→20:45)
[2019-03-01] MEDS: Witch Hazel PAD* JAR TOPICAL SCH (08:21)
--- NOTE | 2019-03-01 10:47 | PN ---
Subjective Date of Service: 03/01/19 Interval History: Mustapha is feeling good today. He still has odynophagia and hasn't been able to eat solid foods. He is doing well with shakes, soups, drinks, etc. He has no other complaints. Overall he feels he is getting much better. Objective Active Medications: Acetaminophen (Tylenol Adult Liq*) 650 mg PO Q6H PRN PRN Reason: PAIN - MODERATE Emtricitabine/Tenofovir (Truvada 200/300 Mg*) 1 tab PO DAILY@1800 [facility]; Protocol Last Admin: 02/28/19 18:50 Dose: 1 tab Fluconazole/Sodium Chloride (Diflucan 200 Mg Ivpremix(*)) 200 mg in 100 mls @ 100 mls/hr IVPB Q24H [facility] Last Admin: 02/28/19 20:04 Dose: 100 mls/hr Sodium Chloride (Ns 0.9% 1000 Ml) 1,000 mls @ 175 mls/hr IV PER RATE [facility] Last Admin: 03/01/19 08:16 Dose: 175 mls/hr Lidocaine (Xylocaine 2% Viscous*) 15 ml SWISH SPIT Q4H PRN PRN Reason: SORE THROAT Last Admin: 03/01/19 06:44 Dose: 15 ml Loperamide HCl (Imodium Cap*) 2 mg PO Q3H PRN PRN Reason: DIARRHEA Last Admin: 03/01/19 01:26 Dose: 2 mg Nystatin (Nystatin Suspension*) 200,000 units PO QID [facility] Last Admin: 03/01/19 08:17 Dose: 200,000 units Oxycodone HCl (Roxycodone Tab*) 5 mg PO Q6H PRN PRN Reason: PAIN - SEVERE Last Admin: 03/01/19 01:26 Dose: 5 mg Raltegravir (Isentress*) 400 mg PO BID [facility]; Protocol Last Admin: 03/01/19 08:17 Dose: 400 mg Trimethoprim/Sulfamethoxazole (Bactrim Ss 400/80 Tab*) 1 tab PO DAILY [facility] Last Admin: 03/01/19 08:17 Dose: 1 tab Witch Destiny (Tucks*) 1 pad TOPICAL DAILY [facility] Last Admin: 03/01/19 08:21 Dose: Not Given Vital Signs - 8 hr 03/01/19 03/01/19 03/01/19 03:15 03:24 07:12 Temperature 98.0 F Pulse Rate 74 Respiratory 15 15 18 Rate Blood Pressure 99/50 (mmHg) O2 Sat by Pulse 97 Oximetry 03/01/19 07:15 Temperature Pulse Rate 82 Respiratory 16 Rate Blood Pressure 90/44 (mmHg) O2 Sat by Pulse 98 Oximetry Oxygen Devices in Use Now: None Appearance: alert, thin, nontoxic Eyes: No Scleral Icterus Ears/Nose/Mouth/Throat: - - erythematous tongue, palate, and pharynx with white patches Neck: NL Appearance and Movements; NL JVP Respiratory: Symmetrical Chest Expansion and Respiratory Effort, Clear to Auscultation Cardiovascular: NL Sounds; No Murmurs; No JVD, RRR Abdominal: NL Sounds; No Tenderness; No Distention Lymphatic: No Cervical Adenopathy Extremities: No Edema Skin: - - TIN ASSORTER shunt is palpable over chest and abdomen Neurological: Alert and Oriented x 3 - Nutrition: Malnutrition Diagnosis/Plan Malnutrition Assessment by Registered Dietitian: Malnutrition Assessment Clinical Characteristics Chronic,Severe Malnutrition Assessment: Severe muscle wasting - Temporal muscle Criteria Severe fat pad wasting - Orbital fat pad, Buccal fat pad Inadequate Oral Intake - Limited access to food x1.5 mos. - Anticipate meeting <75% nutrient needs >1 mo. Unintentional Wt Loss - Reported noticeable wt loss x1.5 mos. - Wt hx limited; Anticipate >5% wt loss x1 mo. Malnutrition Assessment: Nutritional Supplementals/Nourishments - Per pt Interventions request, will send [place] Ensure Enlive ( 350kcal, 20g prot) x2 at B, X3 at L, and X2 at D to optimize kcal/prot intake for wt gain; will continue to monitor acceptance. Anticipate pt intake will improve w/ resolution of painful chewing/swallowing; will adjust Ensure provisions as indicated. GI Related - Recommend continuing antidiarrheals PRN; will monitor GI s/sx for impact on intake. Malnutrition Assessment: Goals 1) Pt will tolerate least restrictive diet textures w/o difficulty chewing/swallowing 2) Adequate po intake to replete lean body mass and hydration status 3) Improve fluid/electrolyte balance w/ adequate po intake 4) Maintain bowel regularity w/ adequate po intake w/o exacerbation of diarrhea or development of constipation Result Diagrams: 03/01/19 06:17 03/01/19 06:17 Additional Lab and Data: Lab Results 02/26/19 Range/Units 14:22 WBC 18.1 H (3.5-10.8) 10^3/uL RBC 5.45 (4.18-5.48) 10^6 /uL Hgb 16.7 (14.0-18.0) g/dL Hct 50 (42-52) % MCV 92 (80-94) fL MCH 31 (27-31) pg MCHC 33 (31-36) g/dL RDW 14 (10-15) % Plt Count 423 (150-450) 10^3/uL MPV 8.4 (7.4-10.4) fL Neut % (Auto) 97.0 % Lymph % (Auto) 1.0 % [place] % (Auto) 1.4 % Eos % (Auto) 0.1 % Baso % (Auto) 0.5 % Absolute Neuts (auto) 17.6 H (1.5-7.7) 10^3/ul Absolute Lymphs (auto) 0.2 L (1.0-4.8) 10^3/ul Absolute Monos (auto) 0.3 (0-0.8) 10^3/ul Absolute Eos (auto) 0.0 (0-0.6) 10^3/ul Absolute Basos (auto) 0.1 (0-0.2) 10^3/ul Absolute Nucleated RBC 0.0 10^3/ul Nucleated RBC % 0.0 Microbiology and Other Data: Microbiology 02/26/19 16:55 Aerobic Blood Culture - Preliminary Blood Venous No Growth Day 2 Anaerobic Blood Culture - Preliminary No Growth Day 2 02/26/19 15:16 Aerobic Blood Culture - Preliminary Blood Venous No Growth Day 2 Anaerobic Blood Culture - Preliminary No Growth Day 2 02/26/19 17:36 Stool Culture - Final Stool Stool Gross Appearance - Final Shiga Toxin I & II - Final Negative Shiga Toxin 1 & 2 C. difficile DNA Amplification - Final 027 Presumptive NEGATIVE Toxigenic C.diff NEGATIVE Cryptosporidium/Giardia - Final Neg Cryptosporidium/Giardia Rotavirus Antigen - Final Negative Rotavirus Assess/Plan/Problems-Billing Assessment: Mr. Mcrae is 53 year old man with history of HIV/AIDS (h/o cryptococcal meningitis and also pcp pneumonia remotely) who presented to the ED with inability to eat on 02/26 after being off HAART for 1.5 years and is found to have stomatitis and presumed esophagitis - Patient Problems (1) Esophagitis Current Visit: Yes Status: Acute Code(s): K20.9 - ESOPHAGITIS, UNSPECIFIED SNOMED Code(s): 48039750 Comment: most likely joseph and improving on IV fluconazole, though still unable to tolerate solid foods ddx also includes hsv, cmv and could consider EGD but will hold off for now since he continues to improve daily on fluconazole pain control with lidocaine will DC IVF today to be sure he can maintain adequate PO hydration in anticipation of discharge soon (2) MARY (acute kidney injury) Current Visit: Yes Status: Acute Code(s): N17.9 - ACUTE KIDNEY FAILURE, UNSPECIFIED SNOMED Code(s): 97862798 Comment: resolved with IVF (3) AIDS Current Visit: Yes Status: Acute Comment: Diagnosed with HIV 2000, off HAART 1.5 years ago CD4 count 31 started raltegravir, tenofovir/emtricitab for treatment after ID consult, also bactrim for PCP prophylaxis pending HIV genotype will need ID follow up; he is not sure where he is going after discharge ([facility]?) (4) Diarrhea Current Visit: Yes Status: Acute Code(s): R19.7 - DIARRHEA, UNSPECIFIED SNOMED Code(s): 16249907 Comment: improving and stool studies are negative thus far may have been hiv viremia (5) Malnutrition Current Visit: Yes Status: Acute Code(s): E46 - UNSPECIFIED PROTEIN-CALORIE MALNUTRITION SNOMED Code(s): 07997633 Comment: nutrition consulted; tolerating ensure well follow lytes Status and Disposition: Social work attempted to discuss plans with him on Saturday but he did not want to talk at that time His friend Becky is helping him. He is not sure where he will go when he leaves, nor whether he will be able to afford his medicines He tells me various plans including purchasing a truck and driving to [place] , going back to [place] though he has nowhere to stay there, etc; and I am not clear which of these plans are most realistic for him, but we will await SW input tomorrow and also his friend Becky is coming back from [place] tomorrow and will assist.
[2019-03-01] MEDS: Tenofovir/Emtricitab 200/300 * TAB PO SCH (17:34)
[2019-03-01] MEDS: Fluconazole 200 MG IVPREMIX(*) 200 MG/100 ML BAG IVPB SCH (20:45)
[2019-03-02 06:07] LABS: ABS Lymphocytes 0.2 10^3/ul (1.0-4.8); ABS Monocytes 0.2 10^3/ul (0-0.8); ABS Neutrophils 8.6 10^3/ul (1.5-7.7); Eosinophil % 0.2 %; Hematocrit 40 % (42-52); Hemoglobin 13.4 g/dL (14.0-18.0); Lymphocyte % 1.7 %; Mean Corpuscular HGB Conc 33 g/dL (31-36); Mean Corpuscular Hemoglobin 31 pg (27-31); Mean Corpuscular Volume 92 fL (80-94); Mean Platelet Volume 9.1 fL (7.4-10.4); Platelet Count 237 10^3/uL (150-450); Red Blood Count 4.34 10^6 /uL (4.18-5.48); Red Cell Distribution Width 15 % (10-15)
[2019-03-02 06:32] LABS: Calcium 8.4 mg/dL (8.6-10.3); EGFR African American 83.8 (>60); EGFR Non-African American 69.3 (>60); Potassium 4.3 mmol/L (3.5-5.0)
[2019-03-02] MEDS: Lidocaine 2% VISCOUS* 15 ML UDC SWISH SPIT PRN (08:37)
[2019-03-02] MEDS: Sulfamethox/Trimethoprim SS 400/80* TAB PO SCH (08:39)
[2019-03-02] MEDS: Raltegravir* 400 MG TAB PO SCH ×2 (08:40→20:55)
[2019-03-02] MEDS: Nystatin SUSPENSION* 100000 UNITS/ML 5 ML UDC PO SCH ×4 (08:40→20:54)
[2019-03-02] MEDS ORDERED: NS 0.9% 1000 ML** 1,000 ML IV SCH (09:00)
[2019-03-02] MEDS: Witch Hazel PAD* JAR TOPICAL SCH (12:17)
[2019-03-02 12:23] LABS: HIV-1 Ab Differentiation,P Positive (Negative); HIV-2 Ab Differentiation,P Negative (Negative)
--- NOTE | 2019-03-02 16:05 | PN ---
<Jc Harris - Last Filed: 03/02/19 16:15> Subjective Date of Service: 03/02/19 Interval History: Patient feels his symptom are improving now. He still has pain during swallowing but is tolerating liquid diet like ensure and yogurt. His bowel movement is improving and is less frequent than yesterday. No any lightheadedness, feeling of passing out. His blood pressure was in the range of 80-90/45-55 mm Hg. Objective Active Medications: Acetaminophen (Tylenol Adult Liq*) 650 mg PO Q6H PRN PRN Reason: PAIN - MODERATE Emtricitabine/Tenofovir (Truvada 200/300 Mg*) 1 tab PO DAILY@1800 ON LICENSE OF [facility]; Protocol Last Admin: 03/01/19 17:34 Dose: 1 tab Fluconazole/Sodium Chloride (Diflucan 200 Mg Ivpremix(*)) 200 mg in 100 mls @ 100 mls/hr IVPB Q24H ON LICENSE OF [facility] Last Admin: 03/01/19 20:45 Dose: 100 mls/hr Sodium Chloride (Ns 0.9% 1000 Ml) 1,000 mls @ 175 mls/hr IV PER RATE ON LICENSE OF [facility] Last Admin: 03/02/19 10:21 Dose: 175 mls/hr Lidocaine (Xylocaine 2% Viscous*) 15 ml SWISH SPIT Q4H PRN PRN Reason: SORE THROAT Last Admin: 03/02/19 08:37 Dose: 15 ml Loperamide HCl (Imodium Cap*) 2 mg PO Q3H PRN PRN Reason: DIARRHEA Last Admin: 03/01/19 01:26 Dose: 2 mg Nystatin (Nystatin Suspension*) 200,000 units PO QID ON LICENSE OF [facility] Last Admin: 03/02/19 08:40 Dose: 200,000 units Oxycodone HCl (Roxycodone Tab*) 5 mg PO Q6H PRN PRN Reason: PAIN - SEVERE Last Admin: 03/01/19 13:26 Dose: 5 mg Raltegravir (Isentress*) 400 mg PO BID ON LICENSE OF [facility]; Protocol Last Admin: 03/02/19 08:40 Dose: 400 mg Trimethoprim/Sulfamethoxazole (Bactrim Ss 400/80 Tab*) 1 tab PO DAILY ON LICENSE OF [facility] Last Admin: 03/02/19 08:39 Dose: 1 tab Witch Destiny (Tucks*) 1 pad TOPICAL DAILY ON LICENSE OF [facility] Last Admin: 03/02/19 12:17 Dose: Not Given Vital Signs - 8 hr 03/02/19 03/02/19 08:36 11:05 Temperature 97.7 F Pulse Rate 74 Respiratory 20 Rate Blood Pressure 80/50 80/48 (mmHg) O2 Sat by Pulse 97 Oximetry Oxygen Devices in Use Now: None Exam: Patient is lying on a bed. HEENT: Oral ulcers present on soft palate and posterior pharynx. Chest: Clear Heart: Normal S1/S2 heard Abdomen: Scaphoid in shape, nontender. Normal bowel sound heard. Extremity: No any swelling and wounds Neuro: alert, conscious and oriented - Nutrition: Malnutrition Diagnosis/Plan Malnutrition Assessment by Registered Dietitian: Malnutrition Assessment Clinical Characteristics Chronic,Severe Malnutrition Assessment: Severe muscle wasting - Temporal muscle Criteria Severe fat pad wasting - Orbital fat pad, Buccal fat pad Inadequate Oral Intake - Limited access to food x1.5 mos. - Anticipate meeting <75% nutrient needs >1 mo. Unintentional Wt Loss - Reported noticeable wt loss x1.5 mos. - Wt hx limited; Anticipate >5% wt loss x1 mo. Malnutrition Assessment: Nutritional Supplementals/Nourishments - Per pt Interventions request, will send [place] Ensure Enlive ( 350kcal, 20g prot) x2 at B, X3 at L, and X2 at D to optimize kcal/prot intake for wt gain; will continue to monitor acceptance. Anticipate pt intake will improve w/ resolution of painful chewing/swallowing; will adjust Ensure provisions as indicated. GI Related - Recommend continuing antidiarrheals PRN; will monitor GI s/sx for impact on intake. Malnutrition Assessment: Goals 1) Pt will tolerate least restrictive diet textures w/o difficulty chewing/swallowing 2) Adequate po intake to replete lean body mass and hydration status 3) Improve fluid/electrolyte balance w/ adequate po intake 4) Maintain bowel regularity w/ adequate po intake w/o exacerbation of diarrhea or development of constipation Result Diagrams: 03/02/19 05:29 03/02/19 05:29 Additional Lab and Data: Lab Results 02/26/19 Range/Units 14:22 WBC 18.1 H (3.5-10.8) 10^3/uL RBC 5.45 (4.18-5.48) 10^6 /uL Hgb 16.7 (14.0-18.0) g/dL Hct 50 (42-52) % MCV 92 (80-94) fL MCH 31 (27-31) pg MCHC 33 (31-36) g/dL RDW 14 (10-15) % Plt Count 423 (150-450) 10^3/uL MPV 8.4 (7.4-10.4) fL Neut % (Auto) 97.0 % Lymph % (Auto) 1.0 % [place] % (Auto) 1.4 % Eos % (Auto) 0.1 % Baso % (Auto) 0.5 % Absolute Neuts (auto) 17.6 H (1.5-7.7) 10^3/ul Absolute Lymphs (auto) 0.2 L (1.0-4.8) 10^3/ul Absolute Monos (auto) 0.3 (0-0.8) 10^3/ul Absolute Eos (auto) 0.0 (0-0.6) 10^3/ul Absolute Basos (auto) 0.1 (0-0.2) 10^3/ul Absolute Nucleated RBC 0.0 10^3/ul Nucleated RBC % 0.0 Microbiology and Other Data: Microbiology 02/26/19 16:55 Aerobic Blood Culture - Preliminary Blood Venous No Growth Day 2 Anaerobic Blood Culture - Preliminary No Growth Day 2 02/26/19 15:16 Aerobic Blood Culture - Preliminary Blood Venous No Growth Day 2 Anaerobic Blood Culture - Preliminary No Growth Day 2 02/26/19 17:36 Stool Culture - Final Stool Stool Gross Appearance - Final Shiga Toxin I & II - Final Negative Shiga Toxin 1 & 2 C. difficile DNA Amplification - Final 027 Presumptive NEGATIVE Toxigenic C.diff NEGATIVE Cryptosporidium/Giardia - Final Neg Cryptosporidium/Giardia Rotavirus Antigen - Final Negative Rotavirus Assess/Plan/Problems-Billing Assessment: Mr. Mcrae is 53 year old man with history of HIV/AIDS (h/o cryptococcal meningitis and also pcp pneumonia remotely) who presented to the ED with diarrhea and inability to eat on 02/26 after being off HAART for 1.5 years and is found to have stomatitis and presumed esophagitis - Patient Problems (1) AIDS Current Visit: Yes Status: Acute Comment: Diagnosed with HIV 2000, off HAART 1.5 years ago CD4 count 31 started raltegravir, tenofovir/emtricitab for treatment after ID consult, also bactrim for PCP prophylaxis HIV 1 genotype will need ID follow up lay out worker working on disposition of patient (2) MARY (acute kidney injury) Current Visit: Yes Status: Acute Code(s): N17.9 - ACUTE KIDNEY FAILURE, UNSPECIFIED SNOMED Code(s): 61702254 Comment: resolved with IVF (3) Diarrhea Current Visit: Yes Status: Acute Code(s): R19.7 - DIARRHEA, UNSPECIFIED SNOMED Code(s): 55775589 Comment: improving and stool studies are negative thus far may have been hiv viremia (4) Hypotension Current Visit: Yes Status: Acute Comment: probabaly due to inadequate intake and dehydation. Started on iv fluids Monitor BP regularly (5) Esophagitis Current Visit: Yes Status: Acute Code(s): K20.9 - ESOPHAGITIS, UNSPECIFIED SNOMED Code(s): 52726966 Comment: most likely joseph and improving on IV fluconazole, though still unable to tolerate solid foods ddx also includes hsv, cmv and could consider EGD but will hold off for now since he continues to improve daily on fluconazole pain control with lidocaine (6) Malnutrition Current Visit: Yes Status: Acute Code(s): E46 - UNSPECIFIED PROTEIN-CALORIE MALNUTRITION SNOMED Code(s): 37375261 Comment: nutrition consulted; tolerating ensure well follow lytes (7) DVT prophylaxis Current Visit: Yes Status: Acute Code(s): Z29.9 - ENCOUNTER FOR PROPHYLACTIC MEASURES, UNSPECIFIED SNOMED Code(s): 849538908 Comment: encourage ambulation (8) Full code status Current Visit: Yes Status: Acute Code(s): Z78.9 - OTHER SPECIFIED HEALTH STATUS SNOMED Code(s): 221879351 Status and Disposition: lay out worker are figuring out on disposition of patient. His friend Becky is helping him. He is not sure where he will go when he leaves, nor whether he will be able to afford his medicines Working on insurance for medication. Attending: Mustapha Colmenares Attestation Documenting Resident: Jc Harris Supervising Physician: Mustapha Colmenares Attestation: This service has been performed in part by a resident under the direction of a teaching physician.I, Mustapha Colmenares, performed the service, or was physically present during the critical, or cooper portions of the service, furnished by the resident. I participated in the management of the patient. <Mustapha Colmenares - Last Filed: 03/02/19 18:09> Objective Active Medications: Acetaminophen (Tylenol Adult Liq*) 650 mg PO Q6H PRN PRN Reason: PAIN - MODERATE Emtricitabine/Tenofovir (Truvada 200/300 Mg*) 1 tab PO DAILY@1800 [facility]; Protocol Last Admin: 03/02/19 17:40 Dose: 1 tab Fluconazole/Sodium Chloride (Diflucan 200 Mg Ivpremix(*)) 200 mg in 100 mls @ 100 mls/hr IVPB Q24H ON LICENSE OF [facility] Last Admin: 03/01/19 20:45 Dose: 100 mls/hr Sodium Chloride (Ns 0.9% 1000 Ml) 1,000 mls @ 175 mls/hr IV PER RATE ON LICENSE OF [facility] Stop: 03/03/19 14:43 Last Admin: 03/02/19 10:21 Dose: 175 mls/hr Lidocaine (Xylocaine 2% Viscous*) 15 ml SWISH SPIT Q4H PRN PRN Reason: SORE THROAT Last Admin: 03/02/19 08:37 Dose: 15 ml Loperamide HCl (Imodium Cap*) 2 mg PO Q3H PRN PRN Reason: DIARRHEA Last Admin: 03/01/19 01:26 Dose: 2 mg Nystatin (Nystatin Suspension*) 200,000 units PO QID ON LICENSE OF [facility] Last Admin: 03/02/19 17:41 Dose: 200,000 units Oxycodone HCl (Roxycodone Tab*) 5 mg PO Q6H PRN PRN Reason: PAIN - SEVERE Last Admin: 03/01/19 13:26 Dose: 5 mg Raltegravir (Isentress*) 400 mg PO BID ON LICENSE OF [facility]; Protocol Last Admin: 03/02/19 08:40 Dose: 400 mg Trimethoprim/Sulfamethoxazole (Bactrim Ss 400/80 Tab*) 1 tab PO DAILY ON LICENSE OF [facility] Last Admin: 03/02/19 08:39 Dose: 1 tab Witch Destiny (Tucks*) 1 pad TOPICAL DAILY ON LICENSE OF [facility] Last Admin: 03/02/19 12:17 Dose: Not Given Vital Signs - 8 hr 03/02/19 03/02/19 11:05 15:15 Temperature 97.7 F 98.1 F Pulse Rate 74 80 Respiratory 20 18 Rate Blood Pressure 80/48 90/49 (mmHg) O2 Sat by Pulse 97 100 Oximetry - Nutrition: Malnutrition Diagnosis/Plan Malnutrition Assessment by Registered Dietitian: Malnutrition Assessment Clinical Characteristics Chronic,Severe Malnutrition Assessment: Severe muscle wasting - Temporal muscle Criteria Severe fat pad wasting - Orbital fat pad, Buccal fat pad Inadequate Oral Intake - Limited access to food x1.5 mos. - Anticipate meeting <75% nutrient needs >1 mo. Unintentional Wt Loss - Reported noticeable wt loss x1.5 mos. - Wt hx limited; Anticipate >5% wt loss x1 mo. Malnutrition Assessment: Nutritional Supplementals/Nourishments - Per pt Interventions request, will send [place] Ensure Enlive ( 350kcal, 20g prot) x2 at B, X3 at L, and X2 at D to optimize kcal/prot intake for wt gain; will continue to monitor acceptance. Anticipate pt intake will improve w/ resolution of painful chewing/swallowing; will adjust Ensure provisions as indicated. GI Related - Recommend continuing antidiarrheals PRN; will monitor GI s/sx for impact on intake. Malnutrition Assessment: Goals 1) Pt will tolerate least restrictive diet textures w/o difficulty chewing/swallowing 2) Adequate po intake to replete lean body mass and hydration status 3) Improve fluid/electrolyte balance w/ adequate po intake 4) Maintain bowel regularity w/ adequate po intake w/o exacerbation of diarrhea or development of constipation Result Diagrams: 03/02/19 05:29 03/02/19 05:29 Assess/Plan/Problems-Billing Assessment: Attestation Attending/Supervising Physician Comment: HIV/AIDS with suspected joseph esophagitis Now on HAART Improving on fluconazole Stool more formed Unclear where medications on discharge will come from. Working with SW to identify resources to help with adherence prior to discharge
[2019-03-02] MEDS: Tenofovir/Emtricitab 200/300 * TAB PO SCH (17:40)
[2019-03-02] MEDS: Fluconazole 200 MG IVPREMIX(*) 200 MG/100 ML BAG IVPB SCH (20:55)
[2019-03-03 06:14] LABS: ABS Lymphocytes 0.3 10^3/ul (1.0-4.8); ABS Monocytes 0.2 10^3/ul (0-0.8); ABS Neutrophils 8.4 10^3/ul (1.5-7.7); Eosinophil % 0.4 %; Hematocrit 34 % (42-52); Hemoglobin 11.7 g/dL (14.0-18.0); Lymphocyte % 3.1 %; Mean Corpuscular HGB Conc 34 g/dL (31-36); Mean Corpuscular Hemoglobin 31 pg (27-31); Mean Corpuscular Volume 91 fL (80-94); Nucleated Red Blood Cells % 0.2; Platelet Count 238 10^3/uL (150-450); Red Blood Count 3.78 10^6 /uL (4.18-5.48); Red Cell Distribution Width 15 % (10-15); White Blood Count 8.9 10^3/uL (3.5-10.8)
[2019-03-03 06:31] LABS: BUN/Creatinine Ratio 33.7 (8-20); Calcium 7.8 mg/dL (8.6-10.3); EGFR African American 104.1 (>60); EGFR Non-African American 86.1 (>60); Potassium 4.3 mmol/L (3.5-5.0)
[2019-03-03] MEDS: Witch Hazel PAD* JAR TOPICAL SCH (09:48)
[2019-03-03] MEDS: Lidocaine 2% VISCOUS* 15 ML UDC SWISH SPIT PRN ×2 (10:43→23:21)
[2019-03-03] MEDS: Sulfamethox/Trimethoprim SS 400/80* TAB PO SCH (10:44)
[2019-03-03] MEDS: Nystatin SUSPENSION* 100000 UNITS/ML 5 ML UDC PO SCH ×4 (10:44→23:10)
[2019-03-03] MEDS: Raltegravir* 400 MG TAB PO SCH ×2 (10:46→23:10)
[2019-03-03] MEDS: Ibuprofen TAB* 400 MG PO PRN ×2 (12:47→18:35)
[2019-03-03] MEDS: oxyCODONE TAB* 5 MG TAB PO PRN ×2 (12:47→19:41)
--- NOTE | 2019-03-03 17:15 | PN ---
Subjective Date of Service: 03/03/19 Interval History: Patient feels his throat pain is better today but still has some pain while swallowing. Had one episode of bowel movement, more formed than yesterday. Nurse noticed empty bottle of ibuprofen on his bedside. On inquiry patient reports of taking ibuprofen for his throat pain. Ibuprofen added as needed. Today is blood pressure is >90/60 mm Hg. Waiting for insurance approval and disposition decision. Objective Active Medications: Acetaminophen (Tylenol Adult Liq*) 650 mg PO Q6H PRN PRN Reason: PAIN - MODERATE Emtricitabine/Tenofovir (Truvada 200/300 Mg*) 1 tab PO DAILY@1800 [facility]; Protocol Last Admin: 03/02/19 17:40 Dose: 1 tab Fluconazole/Sodium Chloride (Diflucan 200 Mg Ivpremix(*)) 200 mg in 100 mls @ 100 mls/hr IVPB Q24H [facility] Last Admin: 03/02/19 20:55 Dose: 100 mls/hr Ibuprofen (Motrin Tab*) 400 mg PO Q6H PRN PRN Reason: PAIN - MODERATE Last Admin: 03/03/19 12:47 Dose: 400 mg Lidocaine (Xylocaine 2% Viscous*) 15 ml SWISH SPIT Q4H PRN PRN Reason: SORE THROAT Last Admin: 03/03/19 10:43 Dose: 15 ml Loperamide HCl (Imodium Cap*) 2 mg PO Q3H PRN PRN Reason: DIARRHEA Last Admin: 03/01/19 01:26 Dose: 2 mg Nystatin (Nystatin Suspension*) 200,000 units PO QID [facility] Last Admin: 03/03/19 16:12 Dose: Not Given Oxycodone HCl (Roxycodone Tab*) 5 mg PO Q6H PRN PRN Reason: PAIN - SEVERE Last Admin: 03/03/19 12:47 Dose: 5 mg Raltegravir (Isentress*) 400 mg PO BID [facility]; Protocol Last Admin: 03/03/19 10:46 Dose: 400 mg Trimethoprim/Sulfamethoxazole (Bactrim Ss 400/80 Tab*) 1 tab PO DAILY [facility] Last Admin: 03/03/19 10:44 Dose: 1 tab Witch Destiny (Tucks*) 1 pad TOPICAL DAILY [facility] Last Admin: 03/03/19 09:48 Dose: Not Given Vital Signs - 8 hr 03/03/19 03/03/19 03/03/19 11:10 12:47 14:47 Temperature 98.1 F Pulse Rate 69 Respiratory 16 16 Rate Blood Pressure 98/50 (mmHg) O2 Sat by Pulse 98 Oximetry Oxygen Devices in Use Now: None Exam: Patient is lying on a bed. HEENT: Oral ulcers present on soft palate and posterior pharynx. Chest: Clear Heart: Normal S1/S2 heard Abdomen: Scaphoid in shape, nontender. Normal bowel sound heard. Extremity: No any swelling and wounds Neuro: alert, conscious and oriented - Nutrition: Malnutrition Diagnosis/Plan Malnutrition Assessment by Registered Dietitian: Malnutrition Assessment Clinical Characteristics Chronic,Severe Malnutrition Assessment: Severe muscle wasting - Temporal muscle Criteria Severe fat pad wasting - Orbital fat pad, Buccal fat pad Inadequate Oral Intake - Limited access to food x1.5 mos. - Anticipate meeting <75% nutrient needs >1 mo. Unintentional Wt Loss - Reported noticeable wt loss x1.5 mos. - Wt hx limited; Anticipate >5% wt loss x1 mo. Malnutrition Assessment: Nutritional Supplementals/Nourishments - Per pt Interventions request, will send [place] Ensure Enlive ( 350kcal, 20g prot) x2 at B, X3 at L, and X2 at D to optimize kcal/prot intake for wt gain; will continue to monitor acceptance. Anticipate pt intake will improve w/ resolution of painful chewing/swallowing; will adjust Ensure provisions as indicated. GI Related - Recommend continuing antidiarrheals PRN; will monitor GI s/sx for impact on intake. Malnutrition Assessment: Goals 1) Pt will tolerate least restrictive diet textures w/o difficulty chewing/swallowing 2) Adequate po intake to replete lean body mass and hydration status 3) Improve fluid/electrolyte balance w/ adequate po intake 4) Maintain bowel regularity w/ adequate po intake w/o exacerbation of diarrhea or development of constipation Result Diagrams: 03/03/19 05:58 03/03/19 05:53 Additional Lab and Data: Lab Results 02/26/19 Range/Units 14:22 WBC 18.1 H (3.5-10.8) 10^3/uL RBC 5.45 (4.18-5.48) 10^6 /uL Hgb 16.7 (14.0-18.0) g/dL Hct 50 (42-52) % MCV 92 (80-94) fL MCH 31 (27-31) pg MCHC 33 (31-36) g/dL RDW 14 (10-15) % Plt Count 423 (150-450) 10^3/uL MPV 8.4 (7.4-10.4) fL Neut % (Auto) 97.0 % Lymph % (Auto) 1.0 % [place] % (Auto) 1.4 % Eos % (Auto) 0.1 % Baso % (Auto) 0.5 % Absolute Neuts (auto) 17.6 H (1.5-7.7) 10^3/ul Absolute Lymphs (auto) 0.2 L (1.0-4.8) 10^3/ul Absolute Monos (auto) 0.3 (0-0.8) 10^3/ul Absolute Eos (auto) 0.0 (0-0.6) 10^3/ul Absolute Basos (auto) 0.1 (0-0.2) 10^3/ul Absolute Nucleated RBC 0.0 10^3/ul Nucleated RBC % 0.0 Microbiology and Other Data: Microbiology 02/26/19 16:55 Aerobic Blood Culture - Preliminary Blood Venous No Growth Day 2 Anaerobic Blood Culture - Preliminary No Growth Day 2 02/26/19 15:16 Aerobic Blood Culture - Preliminary Blood Venous No Growth Day 2 Anaerobic Blood Culture - Preliminary No Growth Day 2 02/26/19 17:36 Stool Culture - Final Stool Stool Gross Appearance - Final Shiga Toxin I & II - Final Negative Shiga Toxin 1 & 2 C. difficile DNA Amplification - Final 027 Presumptive NEGATIVE Toxigenic C.diff NEGATIVE Cryptosporidium/Giardia - Final Neg Cryptosporidium/Giardia Rotavirus Antigen - Final Negative Rotavirus Assess/Plan/Problems-Billing Assessment: Mr. Mcrae is 53 year old man with history of HIV/AIDS (h/o cryptococcal meningitis and also pcp pneumonia remotely) who presented to the ED with diarrhea and inability to eat on 02/26 after being off HAART for 1.5 years and is found to have stomatitis and presumed candidal esophagitis; on iv fluconazole and on HAART. - Patient Problems (1) AIDS Current Visit: Yes Status: Acute Comment: Diagnosed with HIV 2000, off HAART 1.5 years ago CD4 count 31 started raltegravir, tenofovir/emtricitab for treatment after ID consult, also bactrim for PCP prophylaxis HIV 1 genotype will need ID follow up social contact worker working on disposition of patient (2) MARY (acute kidney injury) Current Visit: Yes Status: Acute Code(s): N17.9 - ACUTE KIDNEY FAILURE, UNSPECIFIED SNOMED Code(s): 40855399 Comment: resolved with IVF (3) Diarrhea Current Visit: Yes Status: Acute Code(s): R19.7 - DIARRHEA, UNSPECIFIED SNOMED Code(s): 57084300 Comment: improving and stool studies are negative thus far may have been hiv viremia (4) Hypotension Current Visit: Yes Status: Acute Comment: probabaly due to inadequate intake and dehydation. Started on iv fluids. today bp is normal. Monitor BP regularly (5) Esophagitis Current Visit: Yes Status: Acute Code(s): K20.9 - ESOPHAGITIS, UNSPECIFIED SNOMED Code(s): 30040703 Comment: most likely joseph and improving on IV fluconazole, though still unable to tolerate solid foods ddx also includes hsv, cmv and could consider EGD but will hold off for now since he continues to improve daily on fluconazole pain control with lidocaine (6) Malnutrition Current Visit: Yes Status: Acute Code(s): E46 - UNSPECIFIED PROTEIN-CALORIE MALNUTRITION SNOMED Code(s): 98143849 Comment: nutrition consulted; tolerating ensure well follow lytes (7) DVT prophylaxis Current Visit: Yes Status: Acute Code(s): Z29.9 - ENCOUNTER FOR PROPHYLACTIC MEASURES, UNSPECIFIED SNOMED Code(s): 290000007 Comment: encourage ambulation (8) Full code status Current Visit: Yes Status: Acute Code(s): Z78.9 - OTHER SPECIFIED HEALTH STATUS SNOMED Code(s): 246579006 Status and Disposition: social contact worker are figuring out on disposition of patient. His friend Becky is helping him. He is not sure where he will go when he leaves, nor whether he will be able to afford his medicines Working on insurance for medication. Attestation Documenting Resident: Jc Harris Supervising Physician: Mustapha Colmenares Attending/Supervising Physician Comment: Pain on swallowing continue to improve Tolerating grapes, chocolate, bananas today Mucositis in posterior pharynx still present Disposition still pending ability to secure medications as outpatient Medically stable likely in next 24-48 hrs Attestation: This service has been performed in part by a resident under the direction of a teaching physician.I, Mustapha Colmenares, performed the service, or was physically present during the critical, or cooper portions of the service, furnished by the resident. I participated in the management of the patient.
[2019-03-03] MEDS: Tenofovir/Emtricitab 200/300 * TAB PO SCH (18:35)
[2019-03-03] MEDS: Fluconazole 200 MG IVPREMIX(*) 200 MG/100 ML BAG IVPB SCH (20:46)
[2019-03-03] MEDS ORDERED: Fluconazole 100 MG TAB* TAB PO ONE (21:00)
[2019-03-04] MEDS ORDERED: Sodium Chloride TAB* 1 GM PO ONE (03:30)
[2019-03-04] MEDS: Ibuprofen TAB* 400 MG PO PRN ×2 (04:04→16:48)
[2019-03-04 06:52] LABS: BUN/Creatinine Ratio 46.3 (8-20); Calcium 7.9 mg/dL (8.6-10.3); EGFR African American 150.1 (>60); EGFR Non-African American 124.1 (>60)
[2019-03-04] MEDS: Lidocaine 2% VISCOUS* 15 ML UDC SWISH SPIT PRN (09:04)
[2019-03-04] MEDS: Nystatin SUSPENSION* 100000 UNITS/ML 5 ML UDC PO SCH ×4 (09:05→23:28)
[2019-03-04] MEDS: Raltegravir* 400 MG TAB PO SCH ×2 (09:05→23:28)
[2019-03-04] MEDS: Sulfamethox/Trimethoprim SS 400/80* TAB PO SCH (09:05)
[2019-03-04] MEDS: Witch Hazel PAD* JAR TOPICAL SCH (09:05)
--- NOTE | 2019-03-04 10:23 | PN ---
Progress Note - Progress Note Date of Service: 03/04/19 SOAP: Subjective: CC: AIDS, diarrhea, and thrush HPI: Mr. Mcrae is a 53 yo male with PMH significant for HIV, hx pneumocystis PNA, and hx cryptococcal meningitis; who presented to the hospital with complaints of difficulty swallowing. Denies fever, chills, nausea, vomiting, or diarrhea ( no BM for 1-2 days). Objective: Vital Signs - 8 hr 03/04/19 03/04/19 03/04/19 02:50 05:15 07:15 Temperature 98 F 98.3 F Pulse Rate 78 76 Respiratory 16 16 Rate Blood Pressure 80/48 120/97 88/50 (mmHg) O2 Sat by Pulse 96 96 Oximetry Physical Exam General: NAD, laying in bed Neurological: Alert and Oriented x3 HEENT: Ulcers in posterior pharynx Cardiovascular: Heart rate regular, no murmur Respiratory: Lung sounds clear bilateral Abdominal: Bowel sounds present; ABD soft, non tender and non distended Skin: No rash Laboratory Results - last 24 hr 02/28/19 03/04/19 05:21 06:18 Sodium 141 Potassium 4.0 Chloride 114 H Carbon Dioxide 24 Anion Gap 3 BUN 31 H Creatinine 0.67 Est GFR ( Amer) 150.1 Est GFR (Non-Af Amer) 124.1 BUN/Creatinine Ratio 46.3 H Glucose 102 H Calcium 7.9 L CMV Qnt PCR IU/mL Undetected Microbiology 02/26/19 16:55 Aerobic Blood Culture - Final Blood Venous No Growth Day 5 Anaerobic Blood Culture - Final No Growth Day 5 02/26/19 15:16 Aerobic Blood Culture - Final Blood Venous No Growth Day 5 Anaerobic Blood Culture - Final No Growth Day 5 02/26/19 17:36 Stool Culture - Final Stool Stool Gross Appearance - Final Shiga Toxin I & II - Final Negative Shiga Toxin 1 & 2 C. difficile DNA Amplification - Final 027 Presumptive NEGATIVE Toxigenic C.diff NEGATIVE Cryptosporidium/Giardia - Final Neg Cryptosporidium/Giardia Rotavirus Antigen - Final Negative Rotavirus Assessment: 1. HIV/AIDS. CD4 count is 31. Off medications for about 2 years. HIV genotype still pending. Acid fast blood culture to eval for disseminated mycobacterial infection d/t MAC pending. 2. Oral and esophageal candidiasis. Continues to have discomfort in his throat and is eating soft foods. Able to swallow pills ok. 3. Diarrhea. Resolved. Negative cryptosporidium/giardia. Negative rotavirus. C. diff negative. Negative shiga toxin 1&2. CMV negative. 4. MARY. Resolved 5. Hx cryptococcal meningitis. S/P PLAY WRITER shunt. 6. Hx pneumocystis PNA. Plan: Continue fluconazole 200 mg PO daily. Continue Bactrim SS once daily for pneumocystis prophylaxis. Continue Truvada and raltegravir. He can followup with ID outpatient for management of his AIDS.
[2019-03-04] MEDS ORDERED: NS 0.9% 1000 ML** 1,000 ML IV ONE (11:58)
[2019-03-04] MEDS ORDERED: NS 0.9% 1000 ML** 1,000 ML IV SCH (14:45)
[2019-03-04] MEDS: Tenofovir/Emtricitab 200/300 * TAB PO SCH (16:48)
--- NOTE | 2019-03-04 18:48 | PN ---
Progress Note - Progress Note Date of Service: 03/04/19 Note: This service has been performed in part by a resident under the direction of a teaching physician.I, Mustapha Colmenares, performed the service, or was physically present during the critical, or cooper portions of the service, furnished by the resident. I participated in the management of the patient. Agree with assessment and plan as outlined in Dr. Harris's note from today unless otherwise indicated here. Diarrhea and oodynophagia improving Was refusing IV placement and IVF but eventually agreed. Initiation of IVF notable for BP improvement Capacity eval by this author indicated pt with capacity to refuse recommended therapy at the time of his initial refusal. c/w fluconazole, bactrim ppx, and HAART Dispo pending identification of reliable source for outpatient medications
--- NOTE | 2019-03-04 19:30 | PN ---
Subjective Date of Service: 03/04/19 Interval History: Anita is improving today in terms of odynophagia and diarrhea. No any fresh complaint. 1 BM. BP low; 80/50; refused iv line initially but finally agreed. BP increased afte iv fluids. Continue iv fluid. Objective Active Medications: Acetaminophen (Tylenol Adult Liq*) 650 mg PO Q6H PRN PRN Reason: PAIN - MODERATE Emtricitabine/Tenofovir (Truvada 200/300 Mg*) 1 tab PO DAILY@1800 [facility]; Protocol Last Admin: 03/04/19 16:48 Dose: 1 tab Fluconazole/Sodium Chloride (Diflucan 200 Mg Ivpremix(*)) 200 mg in 100 mls @ 100 mls/hr IVPB Q24H [facility] Last Admin: 03/03/19 20:46 Dose: Not Given Sodium Chloride (Ns 0.9% 1000 Ml) 1,000 mls @ 250 mls/hr IV PER RATE [facility] Last Admin: 03/04/19 15:50 Dose: 250 mls/hr Ibuprofen (Motrin Tab*) 400 mg PO Q6H PRN PRN Reason: PAIN - MODERATE Last Admin: 03/04/19 16:48 Dose: 400 mg Lidocaine (Xylocaine 2% Viscous*) 15 ml SWISH SPIT Q4H PRN PRN Reason: SORE THROAT Last Admin: 03/04/19 09:04 Dose: 15 ml Loperamide HCl (Imodium Cap*) 2 mg PO Q3H PRN PRN Reason: DIARRHEA Last Admin: 03/01/19 01:26 Dose: 2 mg Nystatin (Nystatin Suspension*) 200,000 units PO QID [facility] Last Admin: 03/04/19 16:48 Dose: 200,000 units Oxycodone HCl (Roxycodone Tab*) 5 mg PO Q6H PRN PRN Reason: PAIN - SEVERE Last Admin: 03/03/19 19:41 Dose: 5 mg Raltegravir (Isentress*) 400 mg PO BID [facility]; Protocol Last Admin: 03/04/19 09:05 Dose: 400 mg Trimethoprim/Sulfamethoxazole (Bactrim Ss 400/80 Tab*) 1 tab PO DAILY [facility] Last Admin: 03/04/19 09:05 Dose: 1 tab Witch Destiny (Tucks*) 1 pad TOPICAL DAILY [facility] Last Admin: 03/04/19 09:05 Dose: Not Given Vital Signs - 8 hr 03/04/19 03/04/19 03/04/19 11:30 13:30 15:15 Pulse Rate 71 Blood Pressure 90/54 86/58 108/92 (mmHg) O2 Sat by Pulse 98 Oximetry Oxygen Devices in Use Now: None Exam: Patient is lying on a bed. HEENT: Oral ulcers present on soft palate and posterior pharynx. Chest: Clear Heart: Normal S1/S2 heard Abdomen: Scaphoid in shape, nontender. Normal bowel sound heard. Extremity: No any swelling and wounds Neuro: alert, conscious and oriented - Nutrition: Malnutrition Diagnosis/Plan Malnutrition Assessment by Registered Dietitian: Malnutrition Assessment Clinical Characteristics Chronic,Severe Malnutrition Assessment: Severe muscle wasting - Temporal muscle Criteria Severe fat pad wasting - Orbital fat pad, Buccal fat pad Inadequate Oral Intake - Limited access to food x1.5 mos. - Anticipate meeting <75% nutrient needs >1 mo. Unintentional Wt Loss - Reported noticeable wt loss x1.5 mos. - Wt hx limited; Anticipate >5% wt loss x1 mo. Malnutrition Assessment: Nutritional Supplementals/Nourishments - Per pt Interventions request, will send Quentin Ensure Enlive ( 350kcal, 20g prot) x2 at B, X3 at L, and X2 at D to optimize kcal/prot intake for wt gain; will continue to monitor acceptance. Anticipate pt intake will improve w/ resolution of painful chewing/swallowing; will adjust Ensure provisions as indicated. GI Related - Recommend continuing antidiarrheals PRN; will monitor GI s/sx for impact on intake. Malnutrition Assessment: Goals 1) Pt will tolerate least restrictive diet textures w/o difficulty chewing/swallowing 2) Adequate po intake to replete lean body mass and hydration status 3) Improve fluid/electrolyte balance w/ adequate po intake 4) Maintain bowel regularity w/ adequate po intake w/o exacerbation of diarrhea or development of constipation Result Diagrams: 03/03/19 05:58 03/05/19 06:53 Additional Lab and Data: Lab Results 02/26/19 Range/Units 14:22 WBC 18.1 H (3.5-10.8) 10^3/uL RBC 5.45 (4.18-5.48) 10^6 /uL Hgb 16.7 (14.0-18.0) g/dL Hct 50 (42-52) % MCV 92 (80-94) fL MCH 31 (27-31) pg MCHC 33 (31-36) g/dL RDW 14 (10-15) % Plt Count 423 (150-450) 10^3/uL MPV 8.4 (7.4-10.4) fL Neut % (Auto) 97.0 % Lymph % (Auto) 1.0 % [place] % (Auto) 1.4 % Eos % (Auto) 0.1 % Baso % (Auto) 0.5 % Absolute Neuts (auto) 17.6 H (1.5-7.7) 10^3/ul Absolute Lymphs (auto) 0.2 L (1.0-4.8) 10^3/ul Absolute Monos (auto) 0.3 (0-0.8) 10^3/ul Absolute Eos (auto) 0.0 (0-0.6) 10^3/ul Absolute Basos (auto) 0.1 (0-0.2) 10^3/ul Absolute Nucleated RBC 0.0 10^3/ul Nucleated RBC % 0.0 Microbiology and Other Data: Microbiology 02/26/19 16:55 Aerobic Blood Culture - Preliminary Blood Venous No Growth Day 2 Anaerobic Blood Culture - Preliminary No Growth Day 2 02/26/19 15:16 Aerobic Blood Culture - Preliminary Blood Venous No Growth Day 2 Anaerobic Blood Culture - Preliminary No Growth Day 2 02/26/19 17:36 Stool Culture - Final Stool Stool Gross Appearance - Final Shiga Toxin I & II - Final Negative Shiga Toxin 1 & 2 C. difficile DNA Amplification - Final 027 Presumptive NEGATIVE Toxigenic C.diff NEGATIVE Cryptosporidium/Giardia - Final Neg Cryptosporidium/Giardia Rotavirus Antigen - Final Negative Rotavirus Assess/Plan/Problems-Billing Assessment: Mr. Mcrae is 53 year old man with history of HIV/AIDS (h/o cryptococcal meningitis and also pcp pneumonia remotely) who presented to the ED with diarrhea and inability to eat on 02/26 after being off HAART for 1.5 years and is found to have stomatitis and presumed candidal esophagitis; on iv fluconazole and on HAART. Hypotensive; iv fluid given - Patient Problems (1) AIDS Current Visit: Yes Status: Acute Comment: Diagnosed with HIV 2000, off HAART 1.5 years ago CD4 count 31 started raltegravir, tenofovir/emtricitab for treatment after ID consult, also bactrim for PCP prophylaxis HIV 1 genotype will need ID follow up qualified for medicaid; will d/c saturday (2) MARY (acute kidney injury) Current Visit: Yes Status: Acute Code(s): N17.9 - ACUTE KIDNEY FAILURE, UNSPECIFIED SNOMED Code(s): 36464561 Comment: resolved with IVF (3) Diarrhea Current Visit: Yes Status: Acute Code(s): R19.7 - DIARRHEA, UNSPECIFIED SNOMED Code(s): 25676611 Comment: improving and stool studies are negative thus far may have been hiv viremia (4) Hypotension Current Visit: Yes Status: Acute Comment: probabaly due to inadequate intake and dehydation BP improved today. Emcourage oral intake Monitor BP regularly (5) Esophagitis Current Visit: Yes Status: Acute Code(s): K20.9 - ESOPHAGITIS, UNSPECIFIED SNOMED Code(s): 13216898 Comment: most likely joseph and improving on IV fluconazole, though still unable to tolerate solid foods ddx also includes hsv, cmv and could consider EGD but will hold off for now since he continues to improve daily on fluconazole (day 9) pain control with lidocaine (6) Malnutrition Current Visit: Yes Status: Acute Code(s): E46 - UNSPECIFIED PROTEIN-CALORIE MALNUTRITION SNOMED Code(s): 70912472 Comment: nutrition consulted; tolerating ensure well (7) DVT prophylaxis Current Visit: Yes Status: Acute Code(s): Z29.9 - ENCOUNTER FOR PROPHYLACTIC MEASURES, UNSPECIFIED SNOMED Code(s): 094940090 Comment: encourage ambulation (8) Full code status Current Visit: Yes Status: Acute Code(s): Z78.9 - OTHER SPECIFIED HEALTH STATUS SNOMED Code(s): 970993780 Status and Disposition: 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 His friend Becky is helping him. He is not sure where he will go when he leaves, nor whether he will be able to afford his medicines Working on insurance for medication. Attending: Mustapha Colmenares Attestation Documenting Resident: Jc Harris Supervising Physician: Mustapha Colmenares Attending/Supervising Physician Comment: Please see the additional note from today by this author for additional details and corrections to this documentation Attestation: This service has been performed in part by a resident under the direction of a teaching physician.I, Mustapha Colmenares, performed the service, or was physically present during the critical, or cooper portions of the service, furnished by the resident. I participated in the management of the patient.
[2019-03-04] MEDS: Fluconazole 200 MG IVPREMIX(*) 200 MG/100 ML BAG IVPB SCH (23:29)
[2019-03-04] MEDS ORDERED: Fluconazole 100 MG TAB* TAB PO ONE (23:30)
[2019-03-04] MEDS: oxyCODONE TAB* 5 MG TAB PO PRN (23:39)
[2019-03-05 07:32] LABS: BUN/Creatinine Ratio 43.3 (8-20); Calcium 7.3 mg/dL (8.6-10.3); EGFR African American 170.5 (>60); EGFR Non-African American 140.9 (>60)
[2019-03-05] MEDS: Nystatin SUSPENSION* 100000 UNITS/ML 5 ML UDC PO SCH ×4 (11:29→20:08)
[2019-03-05] MEDS: Raltegravir* 400 MG TAB PO SCH ×2 (11:29→20:12)
[2019-03-05] MEDS: Sulfamethox/Trimethoprim SS 400/80* TAB PO SCH (11:29)
[2019-03-05] MEDS: Witch Hazel PAD* JAR TOPICAL SCH (11:32)
[2019-03-05 13:13] LABS: Atazanavir w/Ritonavir SUSC; Darunavir w/Ritonavir SUSC; Fosamprenavir w/Ritonavir SUSC; HIV-1 Genotype Drug Resistance INTERP; Indinavir w/Ritonavir SUSC; Lopinavir w/Ritonavir SUSC; Saquinavir w/Ritonavir SUSC; Tipranavir w/Ritonavir SUSC
[2019-03-05] MEDS: Lidocaine 2% VISCOUS* 15 ML UDC SWISH SPIT PRN ×2 (13:28→20:09)
--- NOTE | 2019-03-05 17:20 | PN ---
Subjective Date of Service: 03/05/19 Interval History: Patient is unable to tolerate solid food but tolerating soft food like banana. Feels improving. Diarrhea improving. Says he want to leave from here. BP 90/60; encouraged po intake. If bp <90/60 needs IVF. Waiting for approval from insurance and for place to go. Objective Active Medications: Acetaminophen (Tylenol Adult Liq*) 650 mg PO Q6H PRN PRN Reason: PAIN - MODERATE Emtricitabine/Tenofovir (Truvada 200/300 Mg*) 1 tab PO DAILY@1800 [facility]; Protocol Last Admin: 03/04/19 16:48 Dose: 1 tab Fluconazole/Sodium Chloride (Diflucan 200 Mg Ivpremix(*)) 200 mg in 100 mls @ 100 mls/hr IVPB Q24H [facility] Last Admin: 03/04/19 23:29 Dose: Not Given Sodium Chloride (Ns 0.9% 1000 Ml) 1,000 mls @ 250 mls/hr IV PER RATE [facility] Last Admin: 03/04/19 15:50 Dose: 250 mls/hr Ibuprofen (Motrin Tab*) 400 mg PO Q6H PRN PRN Reason: PAIN - MODERATE Last Admin: 03/04/19 16:48 Dose: 400 mg Lidocaine (Xylocaine 2% Viscous*) 15 ml SWISH SPIT Q4H PRN PRN Reason: SORE THROAT Last Admin: 03/05/19 13:28 Dose: 15 ml Loperamide HCl (Imodium Cap*) 2 mg PO Q3H PRN PRN Reason: DIARRHEA Last Admin: 03/01/19 01:26 Dose: 2 mg Nystatin (Nystatin Suspension*) 200,000 units PO QID [facility] Last Admin: 03/05/19 13:27 Dose: 200,000 units Oxycodone HCl (Roxycodone Tab*) 5 mg PO Q6H PRN PRN Reason: PAIN - SEVERE Last Admin: 03/04/19 23:39 Dose: 5 mg Raltegravir (Isentress*) 400 mg PO BID [facility]; Protocol Last Admin: 03/05/19 11:29 Dose: 400 mg Trimethoprim/Sulfamethoxazole (Bactrim Ss 400/80 Tab*) 1 tab PO DAILY [facility] Last Admin: 03/05/19 11:29 Dose: 1 tab Witch Destiny (Tucks*) 1 pad TOPICAL DAILY [facility] Last Admin: 03/05/19 11:32 Dose: Not Given Vital Signs - 8 hr 03/05/19 12:12 Temperature 97.2 F Pulse Rate 71 Respiratory 16 Rate Blood Pressure 91/55 (mmHg) O2 Sat by Pulse 98 Oximetry Oxygen Devices in Use Now: None Exam: Patient is lying on a bed. HEENT: Oral ulcers present on soft palate and posterior pharynx. Chest: Clear Heart: Normal S1/S2 heard Abdomen: Scaphoid in shape, nontender. Normal bowel sound heard. Extremity: No any swelling and wounds Neuro: alert, conscious and oriented - Nutrition: Malnutrition Diagnosis/Plan Malnutrition Assessment by Registered Dietitian: Malnutrition Assessment Clinical Characteristics Chronic,Severe Malnutrition Assessment: Severe muscle wasting - Temporal muscle Criteria Severe fat pad wasting - Orbital fat pad, Buccal fat pad Inadequate Oral Intake - Limited access to food x1.5 mos. - Anticipate meeting <75% nutrient needs >1 mo. Unintentional Wt Loss - Reported noticeable wt loss x1.5 mos. - Wt hx limited; Anticipate >5% wt loss x1 mo. Malnutrition Assessment: Nutritional Supplementals/Nourishments - Per pt Interventions request, will send [place] Ensure Enlive ( 350kcal, 20g prot) x2 at B, X3 at L, and X2 at D to optimize kcal/prot intake for wt gain; will continue to monitor acceptance. Anticipate pt intake will improve w/ resolution of painful chewing/swallowing; will adjust Ensure provisions as indicated. GI Related - Recommend continuing antidiarrheals PRN; will monitor GI s/sx for impact on intake. Malnutrition Assessment: Goals 1) Pt will tolerate least restrictive diet textures w/o difficulty chewing/swallowing 2) Adequate po intake to replete lean body mass and hydration status 3) Improve fluid/electrolyte balance w/ adequate po intake 4) Maintain bowel regularity w/ adequate po intake w/o exacerbation of diarrhea or development of constipation Result Diagrams: 03/03/19 05:58 03/05/19 06:53 Additional Lab and Data: Lab Results 02/26/19 Range/Units 14:22 WBC 18.1 H (3.5-10.8) 10^3/uL RBC 5.45 (4.18-5.48) 10^6 /uL Hgb 16.7 (14.0-18.0) g/dL Hct 50 (42-52) % MCV 92 (80-94) fL MCH 31 (27-31) pg MCHC 33 (31-36) g/dL RDW 14 (10-15) % Plt Count 423 (150-450) 10^3/uL MPV 8.4 (7.4-10.4) fL Neut % (Auto) 97.0 % Lymph % (Auto) 1.0 % [place] % (Auto) 1.4 % Eos % (Auto) 0.1 % Baso % (Auto) 0.5 % Absolute Neuts (auto) 17.6 H (1.5-7.7) 10^3/ul Absolute Lymphs (auto) 0.2 L (1.0-4.8) 10^3/ul Absolute Monos (auto) 0.3 (0-0.8) 10^3/ul Absolute Eos (auto) 0.0 (0-0.6) 10^3/ul Absolute Basos (auto) 0.1 (0-0.2) 10^3/ul Absolute Nucleated RBC 0.0 10^3/ul Nucleated RBC % 0.0 Microbiology and Other Data: Microbiology 02/26/19 16:55 Aerobic Blood Culture - Preliminary Blood Venous No Growth Day 2 Anaerobic Blood Culture - Preliminary No Growth Day 2 02/26/19 15:16 Aerobic Blood Culture - Preliminary Blood Venous No Growth Day 2 Anaerobic Blood Culture - Preliminary No Growth Day 2 02/26/19 17:36 Stool Culture - Final Stool Stool Gross Appearance - Final Shiga Toxin I & II - Final Negative Shiga Toxin 1 & 2 C. difficile DNA Amplification - Final 027 Presumptive NEGATIVE Toxigenic C.diff NEGATIVE Cryptosporidium/Giardia - Final Neg Cryptosporidium/Giardia Rotavirus Antigen - Final Negative Rotavirus Assess/Plan/Problems-Billing Assessment: Mr. Mcrae is 53 year old man with history of HIV/AIDS (h/o cryptococcal meningitis and also pcp pneumonia remotely) who presented to the ED with diarrhea and inability to eat on 02/26 after being off HAART for 1.5 years and is found to have stomatitis and presumed candidal esophagitis; on iv fluconazole and on HAART. 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 IV fluid given Monitor BP regularly (5) Esophagitis Current Visit: Yes Status: Acute Code(s): K20.9 - ESOPHAGITIS, UNSPECIFIED SNOMED Code(s): 02719857 Comment: most likely joseph and improving on IV fluconazole, though still unable to tolerate solid foods ddx also includes hsv, cmv and could consider EGD but will hold off for now since he continues to improve daily on fluconazole pain control with lidocaine (6) Malnutrition Current Visit: Yes Status: Acute Code(s): E46 - UNSPECIFIED PROTEIN-CALORIE MALNUTRITION SNOMED Code(s): 21829008 Comment: nutrition consulted; tolerating ensure well follow lytes (7) DVT prophylaxis Current Visit: Yes Status: Acute Code(s): Z29.9 - ENCOUNTER FOR PROPHYLACTIC MEASURES, UNSPECIFIED SNOMED Code(s): 872696016 Comment: encourage ambulation (8) Full code status Current Visit: Yes Status: Acute Code(s): Z78.9 - OTHER SPECIFIED HEALTH STATUS SNOMED Code(s): 283416315 Status and Disposition: 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 His friend Becky is helping him. Working on insurance for medication. Attending: Mustapha Colmenares Attestation Documenting Resident: Jc Harris Supervising Physician: Mustapha Colmenares Attending/Supervising Physician Comment: Agree with A&P as outlined here. Patiet declining interventions including IVF and IV medications He still retains capacity Many bottles of different drinks (ensure, water, smoothies) on table, tolerating foods and fluids well, diarrhea resolved Dispo pending insurance or source of outpatient medications including HAART and bactrim for ppx Attestation: This service has been performed in part by a resident under the direction of a teaching physician.I, Mustapha Colmenares, performed the service, or was physically present during the critical, or cooper portions of the service, furnished by the resident. I participated in the management of the patient.
[2019-03-05] MEDS: Tenofovir/Emtricitab 200/300 * TAB PO SCH (18:06)
[2019-03-05] MEDS: Fluconazole 200 MG IVPREMIX(*) 200 MG/100 ML BAG IVPB SCH (19:34)
[2019-03-05] MEDS: Ibuprofen TAB* 400 MG PO PRN (20:14)
[2019-03-05] MEDS: oxyCODONE TAB* 5 MG TAB PO PRN (20:14)
[2019-03-06] MEDS: Ibuprofen TAB* 400 MG PO PRN ×2 (04:40→18:25)
[2019-03-06] MEDS: oxyCODONE TAB* 5 MG TAB PO PRN ×3 (04:40→22:06)
[2019-03-06] MEDS: Lidocaine 2% VISCOUS* 15 ML UDC SWISH SPIT PRN ×2 (09:23→13:40)
[2019-03-06] MEDS: Raltegravir* 400 MG TAB PO SCH ×2 (09:23→22:06)
[2019-03-06] MEDS: Fluconazole 100 MG TAB* TAB PO SCH ×2 (09:23→09:27)
[2019-03-06] MEDS: Sulfamethox/Trimethoprim SS 400/80* TAB PO SCH (09:23)
[2019-03-06] MEDS: Nystatin SUSPENSION* 100000 UNITS/ML 5 ML UDC PO SCH ×4 (09:23→22:05)
[2019-03-06] MEDS: Witch Hazel PAD* JAR TOPICAL SCH (09:27)
--- NOTE | 2019-03-06 15:01 | PN ---
Subjective Date of Service: 03/06/19 Interval History: Patient feels that he is improving in terms of his pain and diarrhea. He is tolerating soft food because of the oral ulcers. Says he wants to go out from here. Refusing IV line. Fluconazole changed to oral. BP 122/55 today. Encouraged po intake. Qualified for medicaid. Objective Active Medications: Acetaminophen (Tylenol Adult Liq*) 650 mg PO Q6H PRN PRN Reason: PAIN - MODERATE Emtricitabine/Tenofovir (Truvada 200/300 Mg*) 1 tab PO DAILY@1800 [facility]; Protocol Last Admin: 03/05/19 18:06 Dose: 1 tab Fluconazole (Diflucan 100 Mg Tab*) 100 mg PO DAILY [facility] Last Admin: 03/06/19 09:27 Dose: Not Given Sodium Chloride (Ns 0.9% 1000 Ml) 1,000 mls @ 250 mls/hr IV PER RATE [facility] Last Admin: 03/04/19 15:50 Dose: 250 mls/hr Ibuprofen (Motrin Tab*) 400 mg PO Q6H PRN PRN Reason: PAIN - MODERATE Last Admin: 03/06/19 04:40 Dose: 400 mg Lidocaine (Xylocaine 2% Viscous*) 15 ml SWISH SPIT Q4H PRN PRN Reason: SORE THROAT Last Admin: 03/06/19 13:40 Dose: 15 ml Loperamide HCl (Imodium Cap*) 2 mg PO Q3H PRN PRN Reason: DIARRHEA Last Admin: 03/01/19 01:26 Dose: 2 mg Nystatin (Nystatin Suspension*) 200,000 units PO QID [facility] Last Admin: 03/06/19 13:40 Dose: 200,000 units Oxycodone HCl (Roxycodone Tab*) 5 mg PO Q6H PRN PRN Reason: PAIN - SEVERE Last Admin: 03/06/19 04:40 Dose: 5 mg Raltegravir (Isentress*) 400 mg PO BID [facility]; Protocol Last Admin: 03/06/19 09:23 Dose: 400 mg Trimethoprim/Sulfamethoxazole (Bactrim Ss 400/80 Tab*) 1 tab PO DAILY [facility] Last Admin: 03/06/19 09:23 Dose: 1 tab Witch Destiny (Tucks*) 1 pad TOPICAL DAILY [facility] Last Admin: 03/06/19 09:27 Dose: Not Given Vital Signs - 8 hr 03/06/19 03/06/19 03/06/19 07:14 07:50 08:00 Temperature 97.6 F Pulse Rate 76 Respiratory 18 16 16 Rate Blood Pressure 107/68 (mmHg) O2 Sat by Pulse 100 Oximetry Oxygen Devices in Use Now: None Exam: Patient is lying on a bed. HEENT: Oral ulcers present on soft palate and posterior pharynx. Chest: Clear Heart: Normal S1/S2 heard Abdomen: Scaphoid in shape, nontender. Normal bowel sound heard. Extremity: No any swelling and wounds Neuro: alert, conscious and oriented - Nutrition: Malnutrition Diagnosis/Plan Malnutrition Assessment by Registered Dietitian: Malnutrition Assessment Clinical Characteristics Chronic,Severe Malnutrition Assessment: Severe muscle wasting - Temporal muscle Criteria Severe fat pad wasting - Orbital fat pad, Buccal fat pad Inadequate Oral Intake - Limited access to food x1.5 mos. - Anticipate meeting <75% nutrient needs >1 mo. Unintentional Wt Loss - Reported noticeable wt loss x1.5 mos. - Wt hx limited; Anticipate >5% wt loss x1 mo. Malnutrition Assessment: Nutritional Supplementals/Nourishments - Per pt Interventions request, will send [place] Ensure Enlive ( 350kcal, 20g prot) x2 at B, X3 at L, and X2 at D to optimize kcal/prot intake for wt gain; will continue to monitor acceptance. Anticipate pt intake will improve w/ resolution of painful chewing/swallowing; will adjust Ensure provisions as indicated. GI Related - Recommend continuing antidiarrheals PRN; will monitor GI s/sx for impact on intake. Malnutrition Assessment: Goals 1) Pt will tolerate least restrictive diet textures w/o difficulty chewing/swallowing 2) Adequate po intake to replete lean body mass and hydration status 3) Improve fluid/electrolyte balance w/ adequate po intake 4) Maintain bowel regularity w/ adequate po intake w/o exacerbation of diarrhea or development of constipation Result Diagrams: 03/03/19 05:58 03/05/19 06:53 Additional Lab and Data: Lab Results 02/26/19 Range/Units 14:22 WBC 18.1 H (3.5-10.8) 10^3/uL RBC 5.45 (4.18-5.48) 10^6 /uL Hgb 16.7 (14.0-18.0) g/dL Hct 50 (42-52) % MCV 92 (80-94) fL MCH 31 (27-31) pg MCHC 33 (31-36) g/dL RDW 14 (10-15) % Plt Count 423 (150-450) 10^3/uL MPV 8.4 (7.4-10.4) fL Neut % (Auto) 97.0 % Lymph % (Auto) 1.0 % [place] % (Auto) 1.4 % Eos % (Auto) 0.1 % Baso % (Auto) 0.5 % Absolute Neuts (auto) 17.6 H (1.5-7.7) 10^3/ul Absolute Lymphs (auto) 0.2 L (1.0-4.8) 10^3/ul Absolute Monos (auto) 0.3 (0-0.8) 10^3/ul Absolute Eos (auto) 0.0 (0-0.6) 10^3/ul Absolute Basos (auto) 0.1 (0-0.2) 10^3/ul Absolute Nucleated RBC 0.0 10^3/ul Nucleated RBC % 0.0 Microbiology and Other Data: Microbiology 02/26/19 16:55 Aerobic Blood Culture - Preliminary Blood Venous No Growth Day 2 Anaerobic Blood Culture - Preliminary No Growth Day 2 02/26/19 15:16 Aerobic Blood Culture - Preliminary Blood Venous No Growth Day 2 Anaerobic Blood Culture - Preliminary No Growth Day 2 02/26/19 17:36 Stool Culture - Final Stool Stool Gross Appearance - Final Shiga Toxin I & II - Final Negative Shiga Toxin 1 & 2 C. difficile DNA Amplification - Final 027 Presumptive NEGATIVE Toxigenic C.diff NEGATIVE Cryptosporidium/Giardia - Final Neg Cryptosporidium/Giardia Rotavirus Antigen - Final Negative Rotavirus Assess/Plan/Problems-Billing Assessment: Mr. Mcrae is 53 year old man with history of HIV/AIDS (h/o cryptococcal meningitis and also pcp pneumonia remotely) who presented to the ED with diarrhea and inability to eat on 02/26 after being off HAART for 1.5 years and is found to have stomatitis and presumed candidal esophagitis; on oral fluconazole and on HAART. 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 Emcourage oral intake Monitor BP regularly (5) Esophagitis Current Visit: Yes Status: Acute Code(s): K20.9 - ESOPHAGITIS, UNSPECIFIED SNOMED Code(s): 16975406 Comment: most likely joseph and improving on IV fluconazole, though still unable to tolerate solid foods ddx also includes hsv, cmv and could consider EGD but will hold off for now since he continues to improve daily on fluconazole (day 8) pain control with lidocaine (6) Malnutrition Current Visit: Yes Status: Acute Code(s): E46 - UNSPECIFIED PROTEIN-CALORIE MALNUTRITION SNOMED Code(s): 51683986 Comment: nutrition consulted; tolerating ensure well follow lytes (7) DVT prophylaxis Current Visit: Yes Status: Acute Code(s): Z29.9 - ENCOUNTER FOR PROPHYLACTIC MEASURES, UNSPECIFIED SNOMED Code(s): 837744867 Comment: encourage ambulation (8) Full code status Current Visit: Yes Status: Acute Code(s): Z78.9 - OTHER SPECIFIED HEALTH STATUS SNOMED Code(s): 367362865 Status and Disposition: 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 His friend Becky is helping him. Qualified for medicaid. Waiting for placement. Attending: Mustapha Colmenares Attestation Documenting Resident: Jc Harris Supervising Physician: Mustapha Colmenares Attending/Supervising Physician Comment: Agree with note as outlined here by Dr. Harris Swallowing continues to improve. No plan for EGD Pharyngeal ulcers suspected in setting of viremia BP improved with previous fluids and oral intake IV fluconazole changed to PO as patient was refusing the IV He now has insurance but will require discharge to [facility] which cannot happen until Saturday Attestation: This service has been performed in part by a resident under the direction of a teaching physician.I, Mustapha Colmenares, performed the service, or was physically present during the critical, or cooper portions of the service, furnished by the resident. I participated in the management of the patient.
[2019-03-06] MEDS: Tenofovir/Emtricitab 200/300 * TAB PO SCH (18:22)
[2019-03-06] MEDS: Oxymetazoline 0.05% NASAL SPR* 15 ML BTL BOTH NARES SCH (22:26)
[2019-03-07] MEDS: oxyCODONE TAB* 5 MG TAB PO PRN (04:37)
[2019-03-07] MEDS: Ibuprofen TAB* 400 MG PO PRN ×3 (04:37→19:28)
[2019-03-07] MEDS: Sulfamethox/Trimethoprim SS 400/80* TAB PO SCH (10:45)
[2019-03-07] MEDS: Raltegravir* 400 MG TAB PO SCH ×2 (10:45→19:28)
[2019-03-07] MEDS: Oxymetazoline 0.05% NASAL SPR* 15 ML BTL BOTH NARES SCH ×3 (10:46→19:29)
[2019-03-07] MEDS: Fluconazole 100 MG TAB* TAB PO SCH (10:46)
[2019-03-07] MEDS: Nystatin SUSPENSION* 100000 UNITS/ML 5 ML UDC PO SCH ×4 (10:46→19:29)
[2019-03-07] MEDS: Witch Hazel PAD* JAR TOPICAL SCH (12:11)
--- NOTE | 2019-03-07 15:45 | PN ---
Subjective Date of Service: 03/07/19 Interval History: Patient feels that he is improving in terms of his pain and diarrhea. He is tolerating soft food because of the oral ulcers. tolerating oral pills BP today. Encouraged po intake. Qualified for medicaid. will be d/c saturday. Objective Active Medications: Acetaminophen (Tylenol Adult Liq*) 650 mg PO Q6H PRN PRN Reason: PAIN - MODERATE Emtricitabine/Tenofovir (Truvada 200/300 Mg*) 1 tab PO DAILY@1800 [facility]; Protocol Last Admin: 03/06/19 18:22 Dose: 1 tab Fluconazole (Diflucan 100 Mg Tab*) 100 mg PO DAILY [facility] Last Admin: 03/07/19 10:46 Dose: 100 mg Sodium Chloride (Ns 0.9% 1000 Ml) 1,000 mls @ 250 mls/hr IV PER RATE [facility] Last Admin: 03/04/19 15:50 Dose: 250 mls/hr Ibuprofen (Motrin Tab*) 400 mg PO Q6H PRN PRN Reason: PAIN - MODERATE Last Admin: 03/07/19 12:57 Dose: 400 mg Lidocaine (Xylocaine 2% Viscous*) 15 ml SWISH SPIT Q4H PRN PRN Reason: SORE THROAT Last Admin: 03/06/19 13:40 Dose: 15 ml Loperamide HCl (Imodium Cap*) 2 mg PO Q3H PRN PRN Reason: DIARRHEA Last Admin: 03/01/19 01:26 Dose: 2 mg Nystatin (Nystatin Suspension*) 200,000 units PO QID [facility] Last Admin: 03/07/19 12:56 Dose: 200,000 units Oxymetazoline HCl (Afrin 0.05% Nasal [place]*) 2 spray BOTH NARES BID [facility] Last Admin: 03/07/19 10:46 Dose: Not Given Raltegravir (Isentress*) 400 mg PO BID [facility]; Protocol Last Admin: 03/07/19 10:45 Dose: 400 mg Trimethoprim/Sulfamethoxazole (Bactrim Ss 400/80 Tab*) 1 tab PO DAILY [facility] Last Admin: 03/07/19 10:45 Dose: 1 tab Witch Destiny (Tucks*) 1 pad TOPICAL DAILY [facility] Last Admin: 03/07/19 12:11 Dose: Not Given Vital Signs - 8 hr 03/07/19 03/07/19 08:00 11:15 Temperature 97.7 F Pulse Rate 73 Respiratory 20 20 Rate Blood Pressure 96/68 (mmHg) O2 Sat by Pulse 98 Oximetry Oxygen Devices in Use Now: None Exam: Patient is lying on a bed. HEENT: Oral ulcers present on soft palate and posterior pharynx: improving Chest: Clear Heart: Normal S1/S2 heard Abdomen: Scaphoid in shape, soft, nontender. Normal bowel sound heard. Extremity: No any swelling and wounds Neuro: alert, conscious and oriented - Nutrition: Malnutrition Diagnosis/Plan Malnutrition Assessment by Registered Dietitian: Malnutrition Assessment Clinical Characteristics Chronic,Severe Malnutrition Assessment: Severe muscle wasting - Temporal muscle Criteria Severe fat pad wasting - Orbital fat pad, Buccal fat pad Inadequate Oral Intake - Limited access to food x1.5 mos. - Anticipate meeting <75% nutrient needs >1 mo. Unintentional Wt Loss - Reported noticeable wt loss x1.5 mos. - Wt hx limited; Anticipate >5% wt loss x1 mo. Malnutrition Assessment: Nutritional Supplementals/Nourishments - Per pt Interventions request, will send [place] Ensure Enlive ( 350kcal, 20g prot) x2 at B, X3 at L, and X2 at D to optimize kcal/prot intake for wt gain; will continue to monitor acceptance. Anticipate pt intake will improve w/ resolution of painful chewing/swallowing; will adjust Ensure provisions as indicated. GI Related - Recommend continuing antidiarrheals PRN; will monitor GI s/sx for impact on intake. Malnutrition Assessment: Goals 1) Pt will tolerate least restrictive diet textures w/o difficulty chewing/swallowing 2) Adequate po intake to replete lean body mass and hydration status 3) Improve fluid/electrolyte balance w/ adequate po intake 4) Maintain bowel regularity w/ adequate po intake w/o exacerbation of diarrhea or development of constipation Result Diagrams: 03/03/19 05:58 03/05/19 06:53 Additional Lab and Data: Lab Results 02/26/19 Range/Units 14:22 WBC 18.1 H (3.5-10.8) 10^3/uL RBC 5.45 (4.18-5.48) 10^6 /uL Hgb 16.7 (14.0-18.0) g/dL Hct 50 (42-52) % MCV 92 (80-94) fL MCH 31 (27-31) pg MCHC 33 (31-36) g/dL RDW 14 (10-15) % Plt Count 423 (150-450) 10^3/uL MPV 8.4 (7.4-10.4) fL Neut % (Auto) 97.0 % Lymph % (Auto) 1.0 % [place] % (Auto) 1.4 % Eos % (Auto) 0.1 % Baso % (Auto) 0.5 % Absolute Neuts (auto) 17.6 H (1.5-7.7) 10^3/ul Absolute Lymphs (auto) 0.2 L (1.0-4.8) 10^3/ul Absolute Monos (auto) 0.3 (0-0.8) 10^3/ul Absolute Eos (auto) 0.0 (0-0.6) 10^3/ul Absolute Basos (auto) 0.1 (0-0.2) 10^3/ul Absolute Nucleated RBC 0.0 10^3/ul Nucleated RBC % 0.0 Microbiology and Other Data: Microbiology 02/26/19 16:55 Aerobic Blood Culture - Preliminary Blood Venous No Growth Day 2 Anaerobic Blood Culture - Preliminary No Growth Day 2 02/26/19 15:16 Aerobic Blood Culture - Preliminary Blood Venous No Growth Day 2 Anaerobic Blood Culture - Preliminary No Growth Day 2 02/26/19 17:36 Stool Culture - Final Stool Stool Gross Appearance - Final Shiga Toxin I & II - Final Negative Shiga Toxin 1 & 2 C. difficile DNA Amplification - Final 027 Presumptive NEGATIVE Toxigenic C.diff NEGATIVE Cryptosporidium/Giardia - Final Neg Cryptosporidium/Giardia Rotavirus Antigen - Final Negative Rotavirus Assess/Plan/Problems-Billing Assessment: Mr. Mcrae is 53 year old man with history of HIV/AIDS (h/o cryptococcal meningitis and also pcp pneumonia remotely) who presented to the ED with diarrhea and inability to eat on 02/26 after being off HAART for 1.5 years and is found to have stomatitis and presumed candidal esophagitis; on oral fluconazole and on HAART. - Patient Problems (1) AIDS Current Visit: Yes Status: Acute Comment: Diagnosed with HIV 2000, off HAART 1.5 years ago CD4 count 31 started raltegravir, tenofovir/emtricitab for treatment after ID consult, also bactrim for PCP prophylaxis HIV 1 genotype will need ID follow up qualified for medicaid; will d/c saturday (2) MARY (acute kidney injury) Current Visit: Yes Status: Acute Code(s): N17.9 - ACUTE KIDNEY FAILURE, UNSPECIFIED SNOMED Code(s): 52162715 Comment: resolved with IVF (3) Diarrhea Current Visit: Yes Status: Acute Code(s): R19.7 - DIARRHEA, UNSPECIFIED SNOMED Code(s): 36692821 Comment: improving and stool studies are negative thus far may have been hiv viremia (4) Hypotension Current Visit: Yes Status: Acute Comment: probabaly due to inadequate intake and dehydation BP improved today. Emcourage oral intake Monitor BP regularly (5) Esophagitis Current Visit: Yes Status: Acute Code(s): K20.9 - ESOPHAGITIS, UNSPECIFIED SNOMED Code(s): 36161559 Comment: most likely joseph and improving on IV fluconazole, though still unable to tolerate solid foods ddx also includes hsv, cmv and could consider EGD but will hold off for now since he continues to improve daily on fluconazole (day 9) pain control with lidocaine (6) Malnutrition Current Visit: Yes Status: Acute Code(s): E46 - UNSPECIFIED PROTEIN-CALORIE MALNUTRITION SNOMED Code(s): 76342247 Comment: nutrition consulted; tolerating ensure well (7) DVT prophylaxis Current Visit: Yes Status: Acute Code(s): Z29.9 - ENCOUNTER FOR PROPHYLACTIC MEASURES, UNSPECIFIED SNOMED Code(s): 902867114 Comment: encourage ambulation (8) Full code status Current Visit: Yes Status: Acute Code(s): Z78.9 - OTHER SPECIFIED HEALTH STATUS SNOMED Code(s): 517239138 Status and Disposition: typing office worker are figuring out on disposition of patient. His friend Becky is helping him. Qualified for medicaid. D/C on saturday Attending: Mustapha Colmenares Attestation Documenting Resident: Jc Harris Supervising Physician: Mustapha Colmenares Attending/Supervising Physician Comment: Agree with assessment and plan as outlined in Dr. Harris's note from today BP 116 not 16 Continues to improve with discharge to [facility] planned for Saturday now that insurance for medications has been obtained. Attestation: This service has been performed in part by a resident under the direction of a teaching physician.I, Mustapha Colmenares, performed the service, or was physically present during the critical, or cooper portions of the service, furnished by the resident. I participated in the management of the patient.
[2019-03-07] MEDS: Tenofovir/Emtricitab 200/300 * TAB PO SCH (17:34)
[2019-03-07] MEDS: Lidocaine 2% VISCOUS* 15 ML UDC SWISH SPIT PRN (19:29)
[2019-03-07] MEDS ORDERED: Melatonin 3 MG TAB PO SCH (20:00)
[2019-03-08] MEDS: Ibuprofen TAB* 400 MG PO PRN ×3 (01:05→16:25)
[2019-03-08] MEDS: Nystatin SUSPENSION* 100000 UNITS/ML 5 ML UDC PO SCH ×2 (07:27→13:21)
[2019-03-08] MEDS: Fluconazole 100 MG TAB* TAB PO SCH (07:28)
[2019-03-08] MEDS: Sulfamethox/Trimethoprim SS 400/80* TAB PO SCH (07:28)
[2019-03-08] MEDS: Raltegravir* 400 MG TAB PO SCH ×2 (07:29→21:05)
[2019-03-08] MEDS: Oxymetazoline 0.05% NASAL SPR* 15 ML BTL BOTH NARES SCH ×2 (07:33→21:06)
[2019-03-08] MEDS: Witch Hazel PAD* JAR TOPICAL SCH (07:36)
[2019-03-08] MEDS: Loperamide CAP* 2 MG PO PRN (10:03)
[2019-03-08] MEDS: Tenofovir/Emtricitab 200/300 * TAB PO SCH (16:26)
[2019-03-08] MEDS ORDERED: Melatonin 3 MG TAB PO SCH (21:00)
--- NOTE | 2019-03-08 21:36 | DS ---
CC: Care [facility]* DISCHARGE SUMMARY: DATE OF ADMISSION: 02/26/19 DATE OF ANTICIPATED DISCHARGE: 03/09/19 PRIMARY CARE PROVIDER: None. DISPOSITION AT DISCHARGE: To [facility]. CONDITION ON DISCHARGE: Good. PRIMARY DIAGNOSES: 1. Esophageal candidiasis. 2. Acquired immune deficiency syndrome. SECONDARY DIAGNOSES: Include: 1. Acute kidney injury. 2. Diarrhea. 3. Severe malnutrition. 4. History of cryptococcal meningitis, status post ventriculoperitoneal shunt. MEDICATIONS AT DISCHARGE: Include: 1. Truvada 200/300 one tab daily. 2. Isentress 400 mg twice daily. 3. Fluconazole 200 mg daily for 10 additional days. 4. Bactrim single strength 1 tab daily for prophylaxis. PERTINENT LABORATORY DATA: HIV1 positive. RNA by PCR is 1070. CD4 count 18 on presentation. Creatinine on presentation peaked at 1.46, was 0.6 last checked on 03/06/19. White blood cell count 18,000 on presentation. CMV negative. Lyme undetected. HISTORY OF PRESENT ILLNESS AND HOSPITAL COURSE: A 53-year-old man, past medical history as outlined in the history of present illness on the day of admission including cryptococcal meningitis requiring past shunts, presented to the hospital with oral and stomach pain as well as dehydration and malnutrition. Carries a diagnosis of HIV since 2009. Stopped taking medications for approximately a year and a half ago because he had poor access to clinic with lack of a vehicle. He lost 30 pounds over the last 2 weeks, was identified with significant oropharyngeal ulcers in the setting of suspected viremia as well as esophageal candidiasis. He was treated with IV fluconazole with dramatic improvement in oropharyngeal pain as well as odynophagia. His diarrhea resolved, also cultures were negative including for Shiga, C. diff, cryptosporidium, giardia, and rotavirus. At the time of discharge, he was tolerating soft diet and multiple different foods at his bedside including chocolates and various foods including grapes which he was enjoying. There are no complications during the course of the hospital stay. His discharge was delayed in order to ensure he had access to medications upon his discharge given the advanced nature of his HIV infection. He did receive Medicaid prior to his discharge and will be able to fill his medications at [facility]. He will be discharged to [facility] on the morning of discharge. FOLLOWUP INSTRUCTIONS: At followup, please: 1. Ensure he follows up with Dr. Maldonado for further care of his advanced HIV. 2. Ensure complete resolution of odynophagia. If does not completely resolve, could consider EGD in the future. 3. No other specific labs or vitals need followup. Reasons to return to the hospital including, but not limited to, recurrent or worsening symptoms including difficulty swallowing, nausea, vomiting, chest pain , shortness of breath, loss of consciousness, near loss of consciousness, bleeding from any source, or inability to obtain or tolerate medications were discussed with the patient and he acknowledged understanding. TIME SPENT: Greater than 60 minutes was spent on the discharge of this patient , greater than half was spent [id number] with the patient. [id number]/[facility] #: [id number] PABLO
[2019-03-09] MEDS: Ibuprofen TAB* 400 MG PO PRN (03:10)
[2019-03-09] MEDS: Lidocaine 2% VISCOUS* 15 ML UDC SWISH SPIT PRN (03:16)
[2019-03-09] MEDS: Fluconazole 100 MG TAB* TAB PO SCH (07:29)
[2019-03-09] MEDS: Sulfamethox/Trimethoprim SS 400/80* TAB PO SCH (07:29)
[2019-03-09] MEDS: Raltegravir* 400 MG TAB PO SCH (07:29)
[2019-03-09] MEDS: Oxymetazoline 0.05% NASAL SPR* 15 ML BTL BOTH NARES SCH (07:29)
[2019-03-09 07:52] VITALS: BP 119/72
--- NOTE | 2019-03-09 08:55 | PN ---
Progress Note - Progress Note Date of Service: 03/09/19 SOAP: Subjective: CC: AIDS HPI: 53 year old man with HIV off treatment >1 yr with weight loss, diarrhea, pain with swallowing. Since the last time I saw him his diarrhea is less frequent, pain with swallowing is gone, no abd pain or fever. He is eating more. Feels tired. No rash. Objective: Vital Signs Temp 36.5 C 03/09/19 03:09 Pulse 78 03/09/19 07:15 Resp 18 03/09/19 07:51 BP 119/72 03/09/19 07:15 Pulse Ox 100 03/09/19 07:15 Intake & Output 03/08/19 03/09/19 03/09/19 18:59 06:59 18:59 Intake Total 237 640 Balance 237 640 Intake: Oral 237 640 Other: Estimated Void Large # Bowel Movements 0 # Voids 1 Gen:awake, no distress HEENT: thrush Heart:Regular no murmur Lungs:CTA BL Abd:+BS NTND soft Skin: no rash CD4 31 (18%) HIV VL 1500 CMV VL 0 Assessment: 1. AIDS, with low VL ?partial controller 2. Diarrhea, weight loss workup negative and improving on ART, probably due to HIV 3. Malnutrition 4. oral, esophageal candidiasis Plan: 1. continue fluconazole another week 2. continue truvada, raltegravir ; can change to TAF/FTC and Raltegravir for discharge, fu with me next week 3. continue bactrim SS daily; MAC cultures pending
--- NOTE | 2019-03-12 12:12 | DCNOTE ---
Subjective Date of Service: 03/08/19 Interval History: Addendum to discharge summary: Disposition on discharge: [place] [facility] Objective - Nutrition: Malnutrition Diagnosis/Plan Malnutrition Assessment by Registered Dietitian: Malnutrition Assessment Clinical Characteristics Chronic,Severe Malnutrition Assessment: Severe muscle wasting - Temporal muscle Criteria Severe fat pad wasting - Orbital fat pad, Buccal fat pad Inadequate Oral Intake - Limited access to food x1.5 mos. - Anticipate meeting <75% nutrient needs >1 mo. Unintentional Wt Loss - Reported noticeable wt loss x1.5 mos. - Wt hx limited; Anticipate >5% wt loss x1 mo. Malnutrition Assessment: Nutritional Supplementals/Nourishments - Per pt Interventions request, will send [place] Ensure Enlive ( 350kcal, 20g prot) x2 at B, X3 at L, and X2 at D to optimize kcal/prot intake for wt gain; will continue to monitor acceptance. Anticipate pt intake will improve w/ resolution of painful chewing/swallowing; will adjust Ensure provisions as indicated. GI Related - Recommend continuing antidiarrheals PRN; will monitor GI s/sx for impact on intake. Malnutrition Assessment: Goals 1) Pt will tolerate least restrictive diet textures w/o difficulty chewing/swallowing 2) Adequate po intake to replete lean body mass and hydration status 3) Improve fluid/electrolyte balance w/ adequate po intake 4) Maintain bowel regularity w/ adequate po intake w/o exacerbation of diarrhea or development of constipation Result Diagrams: 03/03/19 05:58 03/05/19 06:53 Additional Lab and Data: Microbiology and Other Data: Assess/Plan/Problems-Billing - Patient Problems (1) AIDS (2) MARY (acute kidney injury) (3) Diarrhea (4) Hypotension (5) Esophagitis (6) Malnutrition (7) DVT prophylaxis (8) Full code status
== END 2019-03-09 12:15 | disposition home or self-care (01) | DRG 892 ==
LOC: ED 11:35 → MEDTELE 17:57 → MED 03-01 17:25
PROVIDERS: ADMIT Internal Medicine; ATTEND Internal Medicine
DX: B20 Human immunodeficiency virus [HIV] disease (principal); E43 Unspecified severe protein-calorie malnutrition; B37.81 Candidal esophagitis; N17.9 Acute kidney failure, unspecified; B37.0 Candidal stomatitis; E87.2 Acidosis; Z68.1 Body mass index [BMI] 19.9 or less, adult; R19.7 Diarrhea, unspecified; E86.0 Dehydration; R74.8 Abnormal levels of other serum enzymes; R13.14 Dysphagia, pharyngoesophageal phase; Z59.0 Homelessness; Z83.3 Family history of diabetes mellitus; Z98.2 Presence of cerebrospinal fluid drainage device; Z87.01 Personal history of pneumonia (recurrent)
CPT/HCPCS: 36415; 71045; 80048; 80053; 83605; 83690; 83735; 83880; 84100; 84484; 85025; 85610; 85730; 86141; 86359; 86360; 86618; 86701; 86702; 87040; 87045; 87046; 87077; 87103; 87116; 87206; 87328; 87329; 87389; 87425; 87493; 87497; 87536; 87899; 87901; 93005; 99284; A9270-GY; J1170; J1200; J1450; J2270; J2405

== ENCOUNTER 2019-04-08 10:56 | Inpatient (IN) | payer MEDICAID, OTHER ==
--- OUTSIDE RECORDS SUMMARY | 2019-04-08 11:19 | XMS REPORT | Continuity of Care Document ---
:1965 External Reference #:[id number] Author Name Audrey Peralta MD (transmitted by agent of provider Elena Tamez) Address [address] [place] [address] Care Team Providers Name Role Phone Audrey Peralta MD - Student in an Care Team Information Leather Heel Breaster [phone] Organized Health Care Education/Training Program Problems Description No Information Available Social History Type Date Description Comments Sex Unknown Allergies, Adverse Reactions, Alerts Description No Information Available Medications Active Medications SIG Qnty Indications Ordering Provider Date Ergocalciferol once per week 8caps G61.1 Humaira Diop MD 03/11/2019 [id number] Capsules B-12 + Folic Acid one tablet per 30tabs G61.1 Humaira Diop MD 03/11/2019 day 2500-400mcg Tablets Dispers Ibuprofen one tablet 30tabs R52 Humaira Diop MD 03/11/2019 600mg Tablets every 6 hours History Medications Acetaminophen Extra 2 tab every 8 30tabs R52 Humaira Diop MD 03/11/2019 - Strength hours as needed 03/11/2019 500mg Tablets Immunizations Description No Information Available Vital Signs Date Vital Result Comment 03/11/2019 9:58am Weight 117.00 lb Heart Rate 79 /min BP Systolic 130 mmHg BP Diastolic 70 mmHg O2 % BldC Oximetry 97 % Results Description No Information Available Procedures Date Code Description Status 03/11/2019 94244 Admin Of Inj Completed Medical Devices Description No Information Available Encounters Type Date Location Provider Dx Diagnosis Office Visit 03/07/2019 [facility] Mustapha Holbrook, B20 Human immunodeficiency 10:11a perfecto Anderson M.D. virus [HIV] disease Hospitalists N17.9 Acute kidney failure, unspecified R19.7 Diarrhea, unspecified I95.9 Hypotension, unspecified K20.9 Esophagitis, unspecified E46 Unspecified protein-calorie malnutrition Office Visit 03/06/2019 [facility] Human immunodeficiency 10:11a perfecto Anderson M.D. virus [HIV] disease Hospitalists N17.9 Acute kidney failure, unspecified R19.7 Diarrhea, unspecified I95.9 Hypotension, unspecified K20.9 Esophagitis, unspecified E46 Unspecified protein-calorie malnutrition Office Visit 03/05/2019 [facility] Human immunodeficiency 10:10a perfecto Anderson M.D. virus [HIV] disease Hospitalists N17.9 Acute kidney failure, unspecified R19.7 Diarrhea, unspecified I95.9 Hypotension, unspecified K20.9 Esophagitis, unspecified E46 Unspecified protein-calorie malnutrition Office Visit 03/04/2019 [facility] Human immunodeficiency 10:10a perfecto Anderson M.D. virus [HIV] disease Hospitalists N17.9 Acute kidney failure, unspecified R19.7 Diarrhea, unspecified I95.9 Hypotension, unspecified K20.9 Esophagitis, unspecified E46 Unspecified protein-calorie malnutrition Office Visit 03/03/2019 [facility] Human immunodeficiency 10:10a perfecto Anderson M.D. virus [HIV] disease Hospitalists N17.9 Acute kidney failure, unspecified R19.7 Diarrhea, unspecified I95.9 Hypotension, unspecified K20.9 Esophagitis, unspecified E46 Unspecified protein-calorie malnutrition Office Visit 03/02/2019 [facility] Human immunodeficiency 10:09a perfecto Anderson M.D. virus [HIV] disease Hospitalists N17.9 Acute kidney failure, unspecified R19.7 Diarrhea, unspecified I95.9 Hypotension, unspecified K20.9 Esophagitis, unspecified E46 Unspecified protein-calorie malnutrition Office Visit 03/01/2019 10:09a [facility] Mustapha K20.9 Esophagitis, perfecto Anderson M.D. unspecified Hospitalists N17.9 Acute kidney failure, unspecified B20 Human immunodeficiency virus [HIV] disease R19.7 Diarrhea, unspecified E46 Unspecified protein-calorie malnutrition Office Visit 02/28/2019 [facility] B20 Human immunodeficiency 10:07a Assoc,perfecto Godinez DO virus [HIV] disease Hospitalists K20.9 Esophagitis, unspecified R19.7 Diarrhea, unspecified E46 Unspecified protein-calorie malnutrition Office Visit 02/27/2019 [facility] B20 Human immunodeficiency 10:06a Assoc,perfecto Godinez DO virus [HIV] disease Hospitalists K20.9 Esophagitis, unspecified R19.7 Diarrhea, unspecified E46 Unspecified protein-calorie malnutrition Office Visit 02/26/2019 10:05a [facility] K12.1 Other forms of Assoc,perfecto Godinez DO stomatitis Hospitalists K20.9 Esophagitis, unspecified R19.7 Diarrhea, unspecified E43 Unspecified severe protein-calorie malnutrition N17.9 Acute kidney failure, unspecified E87.2 Acidosis R79.89 Other specified abnormal findings of blood chemistry B20 Human immunodeficiency virus [HIV] disease Assessments Date Code Description Provider 03/11/2019 B37.81 Candidal esophagitis Audrey Peralta MD 03/11/2019 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 03/07/2019 N17.9 Acute kidney failure, unspecified Mustapha Colmenares M.D. 03/07/2019 R19.7 Diarrhea, unspecified Mustapha Colmenares M.D. 03/07/2019 I95.9 Hypotension, unspecified Mustapha Colmenares M.D. 03/07/2019 K20.9 Esophagitis, unspecified Mustapha Colmenares M.D. 03/07/2019 E46 Unspecified protein-calorie malnutrition Mustapha Colmenares M.D. 03/06/2019 B20 Human immunodeficiency virus [HIV] disease Mustapha Colmenares M.D. 03/06/2019 N17.9 Acute kidney failure, unspecified Mustapha Colmenares M.D. 03/06/2019 R19.7 Diarrhea, unspecified Mustapha Colmenares M.D. 03/06/2019 I95.9 Hypotension, unspecified Mustapha Colmenares M.D. 03/06/2019 K20.9 Esophagitis, unspecified Mustapha Colmenares M.D. 03/06/2019 E46 Unspecified protein-calorie malnutrition Mustapha Colmenares M.D. 03/05/2019 B20 Human immunodeficiency virus [HIV] disease Mustapha Colmenares M.D. 03/05/2019 N17.9 Acute kidney failure, unspecified Mustapha Colmenares M.D. 03/05/2019 R19.7 Diarrhea, unspecified Mustapha Colmenares M.D. 03/05/2019 I95.9 Hypotension, unspecified Mustapha Colmenares M.D. 03/05/2019 K20.9 Esophagitis, unspecified Mustapha Colmenares M.D. 03/05/2019 E46 Unspecified protein-calorie malnutrition Mustapha Colmenares M.D. 03/04/2019 B20 Human immunodeficiency virus [HIV] disease Mustapha Colmenares M.D. 03/04/2019 N17.9 Acute kidney failure, unspecified Mustapha Colmenares M.D. 03/04/2019 R19.7 Diarrhea, unspecified Mustapha Colmenares M.D. 03/04/2019 I95.9 Hypotension, unspecified Mustapha Colmenares M.D. 03/04/2019 K20.9 Esophagitis, unspecified Mustapha Colmenares M.D. 03/04/2019 E46 Unspecified protein-calorie malnutrition Mustapha Colmenares M.D. 03/03/2019 B20 Human immunodeficiency virus [HIV] disease Mustapha Colmenares M.D. 03/03/2019 N17.9 Acute kidney failure, unspecified Mustapha Colmenares M.D. 03/03/2019 R19.7 Diarrhea, unspecified Mustapha Colmenares M.D. 03/03/2019 I95.9 Hypotension, unspecified Mustapha Colmenares M.D. 03/03/2019 K20.9 Esophagitis, unspecified Mustapha Colmenares M.D. 03/03/2019 E46 Unspecified protein-calorie malnutrition Mustapha Colmenares M.D. 03/02/2019 B20 Human immunodeficiency virus [HIV] disease Mustapha Colmenares M.D. 03/02/2019 N17.9 Acute kidney failure, unspecified Mustapha Colmenares M.D. 03/02/2019 R19.7 Diarrhea, unspecified Mustapha Colmenares M.D. 03/02/2019 I95.9 Hypotension, unspecified Mustapha Colmenares M.D. 03/02/2019 K20.9 Esophagitis, unspecified Mustapha Colmenares M.D. 03/02/2019 E46 Unspecified protein-calorie malnutrition Mustapha Colmenares M.D. 03/01/2019 K20.9 Esophagitis, unspecified Mustapha Colmenares M.D. 03/01/2019 N17.9 Acute kidney failure, unspecified Mustapha Colmenares M.D. 03/01/2019 B20 Human immunodeficiency virus [HIV] disease Mustapha Colmenares M.D. 03/01/2019 R19.7 Diarrhea, unspecified Mustapha Colmenares M.D. 03/01/2019 E46 Unspecified protein-calorie malnutrition Mustapha Comlenares M.D. 02/28/2019 B20 Human immunodeficiency virus [HIV] disease Araseli Godinez, DO 02/28/2019 K20.9 Esophagitis, unspecified Araseli Jeradner, DO 02/28/2019 R19.7 Diarrhea, unspecified Araseli Herbert, DO 02/28/2019 E46 Unspecified protein-calorie malnutrition Araseli Godinez, DO 02/27/2019 B20 Human immunodeficiency virus [HIV] disease Araseli Godinez, DO 02/27/2019 K20.9 Esophagitis, unspecified Araseli Herbert, DO 02/27/2019 R19.7 Diarrhea, unspecified Araseli Senner, DO 02/27/2019 E46 Unspecified protein-calorie malnutrition Araseli Godinez, DO 02/26/2019 K12.1 Other forms of stomatitis Araseli Godinez, DO 02/26/2019 K20.9 Esophagitis, unspecified Araseli Senner, DO 02/26/2019 R19.7 Diarrhea, unspecified Araseli Senjuan, DO 02/26/2019 E43 Unspecified severe protein-calorie Araseli Godinez, DO malnutrition 02/26/2019 N17.9 Acute kidney failure, unspecified Araseli Herbert, DO 02/26/2019 E87.2 Acidosis Araseli Godinez, DO 02/26/2019 R79.89 Other specified abnormal findings of blood Araseli Godinez , chemistry 02/26/2019 B20 Human immunodeficiency virus [HIV] disease Araseli Godinez, Plan of Treatment Future Appointment(s):03/16/2019 2:40 pm - Gil Vides M.D. at [facility] Lhsmkvvr78/21/2019 - Audrey Peralta MDB37.81 Candidal esophagitisComments:Continue fluconazole as per IDG61.1 Serum neuropathyNew Medication:Ergocalciferol 89931 Unit - once per weekB-12 + Folic Acid 2500-400 mcg - one tablet per dayComments:Vitamin B12 given todayContinue oral vitb12, folate, VitDR52 Pain, unspecifiedNew Medication:Ibuprofen 600 mg - one tablet every 6 hoursAcetaminophen Extra Strength 500 mg - 2 tab every 8 hours as needed Functional Status Description No Information Available Mental Status Description No Information Available Referrals Description No Information Available
--- OUTSIDE RECORDS SUMMARY | 2019-04-08 11:19 | XMS REPORT | Continuity of Care Document ---
:1965 External Reference #:[id number] Author Name Gil Vides M.D. 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 [phone] Organized Health Care Education/Training Program Problems Active Problems Provider Date Human immunodeficiency virus infection Audrey Peralta MD Onset: 03/11/2019 AIDS Audrey Peralta MD Onset: 03/11/2019 Esophagitis Audrey Peralta MD Onset: 03/11/2019 Malnutrition of moderate degree (Charles: 60% to less Audrey Peralta MD Onset: 03/11 than 75% of standard weight) Social History Type Date Description Comments Sex Unknown ETOH Use Denies alcohol use Tobacco Use Start: Unknown Patient has never smoked Recreational Drug Use Denies Drug Use Smoking Status Reviewed: 04/06/19 Patient has never smoked Allergies, Adverse Reactions, Alerts Description No Known Drug Allergies Medications Active Medications SIG Qnty Indications Ordering Date Provider Descovy 1 by mouth every 30tabs Gil D. 04/01/2019 200-25mg day Bo Vides Tablets Isentress 1 by mouth twice a 60tabs Gil D. 04/01/2019 400mg Tablets day Bo Vides Pepcid take one daily as 30tabs Araseli Godinez, 03/30/2019 20mg Tablets needed for DO indigestion Acetaminophen Extra take 2 tablets 120tabs Araseli Godinez, 03/26/2019 Strength every 8 hour as DO 500mg Tablets needed. Advil PM 2 pills at night 60caps Humaira Diop MD 03/19/2019 200-25mg Capsules Ergocalciferol once per week 8caps G61.1 Humaira Diop MD 03/11/2019 [id number] Capsules B-12 + Folic Acid one tablet per day 30tabs G61.1 Humaira Diop MD 2018 2500-400mcg Tablets Dispers Truvada one tablet per day 30tabs Humaira Diop MD 200-300mg Tablets Fluconazole one tab daily Unknown 200mg Tablets Bactrim one tab daily Unknown 400-80mg Tablets History Medications Acetaminophen Extra 2 tab every 8 30tabs R52 Humaira Diop MD 03/11/2019 - Strength hours as needed 03/11/2019 500mg Tablets Ibuprofen one tablet every 30tabs R52 Humaira Diop MD 03/11/2019 - 600mg Tablets 6 hours 03/26/2019 Medications Administered in Office Medication SIG Qnty Indications Ordering Provider Date B-12 Injection Audrey Peralta MD 03/11/2019 Injection Immunizations Description No Information Available Vital Signs Date Vital Result Comment 04/06/2019 4:36pm Height 71 inches 5'11" Weight 96.38 lb Heart Rate 106 /min BP Systolic Sitting 92 mmHg BP Diastolic Sitting 60 mmHg Respiratory Rate 14 /min Body Temperature 98.1 F O2 % BldC Oximetry 97 % BMI (Body Mass Index) 13.4 kg/m2 03/16/2019 2:51pm Height 71 inches 5'11" Weight 117.00 lb Heart Rate 120 /min BP Systolic Sitting 108 mmHg BP Diastolic Sitting 70 mmHg Respiratory Rate 14 /min Body Temperature 97.6 F BMI (Body Mass Index) 16.3 kg/m2 Results Description No Information Available Procedures Date Code Description Status 03/11/2019 28843 Admin Of Inj Completed 03/11/2019 74769 Admin Of Inj Completed Medical Devices Description No Information Available Encounters Type Date Location Provider Dx Diagnosis Office Visit 03/16/2019 [facility] Gil Ruano [id number] Human immunodeficiency 2:40p Infectious Bo Vides virus [HIV] disease Diseases R63.4 Abnormal weight loss Office Visit 03/09/2019 [facility] Gil Pimentel Human immunodeficiency 6:23a For Fabio Vides M.D. virus [HIV] disease Diseases B37.81 Candidal esophagitis B37.0 Candidal stomatitis E46 Unspecified protein-calorie malnutrition Office Visit 03/08/2019 10:11a [facility] B37.81 Candidal Assocperfecto M.D. esophagitis Hospitalists B20 Human immunodeficiency virus [HIV] disease N17.9 Acute kidney failure, unspecified R19.7 Diarrhea, unspecified E43 Unspecified severe protein-calorie malnutrition Z86.61 Personal history of infections of the central nervous system Office Visit 03/07/2019 [place] [id number] Human immunodeficiency 10:11a Assocperfecto M.D. virus [HIV] disease Hospitalists N17.9 Acute kidney failure, unspecified R19.7 Diarrhea, unspecified I95.9 Hypotension, unspecified K20.9 Esophagitis, unspecified E46 Unspecified protein-calorie malnutrition Office Visit 03/06/2019 [place] [address] Human immunodeficiency 10:11a Assperfecto carias M.D. virus [HIV] disease Hospitalists N17.9 Acute kidney failure, unspecified R19.7 Diarrhea, unspecified I95.9 Hypotension, unspecified K20.9 Esophagitis, unspecified E46 Unspecified protein-calorie malnutrition Office Visit 03/05/2019 [place] [address] Human immunodeficiency 10:10a Assperfecto carias M.D. virus [HIV] disease Hospitalists N17.9 Acute kidney failure, unspecified R19.7 Diarrhea, unspecified I95.9 Hypotension, unspecified K20.9 Esophagitis, unspecified E46 Unspecified protein-calorie malnutrition Office Visit 03/04/2019 [facility] [place] [address] Human 9:24a For Infectious Barrett, MOTOR OPERATOR immunodeficiency Diseases virus [HIV] disease B37.81 Candidal esophagitis B37.0 Candidal stomatitis Office Visit 03/04/2019 [place] [address] Human immunodeficiency 10:10a Assperfecto carias M.D. virus [HIV] disease Hospitalists N17.9 Acute kidney failure, unspecified R19.7 Diarrhea, unspecified I95.9 Hypotension, unspecified K20.9 Esophagitis, unspecified E46 Unspecified protein-calorie malnutrition Office Visit 03/03/2019 [place] [address] Human immunodeficiency 10:10a Assperfecto carias M.D. virus [HIV] disease Hospitalists N17.9 Acute kidney failure, unspecified R19.7 Diarrhea, unspecified I95.9 Hypotension, unspecified K20.9 Esophagitis, unspecified E46 Unspecified protein-calorie malnutrition Office Visit 03/02/2019 [facility] B20 Human immunodeficiency 10:09a perfecto Anderson M.D. virus [HIV] disease Hospitalists N17.9 Acute kidney failure, unspecified R19.7 Diarrhea, unspecified I95.9 Hypotension, unspecified K20.9 Esophagitis, unspecified E46 Unspecified protein-calorie malnutrition Office Visit 03/01/2019 10:09a [facility] Mustapha K20.9 Esophagitis, Assperfecto carias M.D. unspecified Hospitalists N17.9 Acute kidney failure, unspecified B20 Human immunodeficiency virus [HIV] disease R19.7 Diarrhea, unspecified E46 Unspecified protein-calorie malnutrition Office Visit 02/28/2019 [facility] B20 Human immunodeficiency 10:07a perfecto Anderson DO virus [HIV] disease Hospitalists K20.9 Esophagitis, unspecified R19.7 Diarrhea, unspecified E46 Unspecified protein-calorie malnutrition [facility] immunodeficiency 8:49a For Fabio Vides M.D. virus [HIV] disease Diseases R63.4 Abnormal weight loss R19.7 Diarrhea, unspecified B37.81 Candidal esophagitis B37.0 Candidal stomatitis R79.89 Other specified abnormal findings of blood chemistry E87.2 Acidosis Office Visit 02/27/2019 [facility] B20 Human immunodeficiency 10:06a perfecto Anderson DO virus [HIV] disease Hospitalists K20.9 Esophagitis, unspecified R19.7 Diarrhea, unspecified E46 Unspecified protein-calorie malnutrition Office Visit 02/26/2019 10:05a [facility] K12.1 Other forms of perfecto Anderson DO stomatitis Hospitalists K20.9 Esophagitis, unspecified R19.7 Diarrhea, unspecified E43 Unspecified severe protein-calorie malnutrition N17.9 Acute kidney failure, unspecified E87.2 Acidosis R79.89 Other specified abnormal findings of blood chemistry B20 Human immunodeficiency virus [HIV] disease Assessments Date Code Description Provider 04/06/2019 R19.7 Diarrhea, unspecified Gil Vides M.D. 04/06/2019 B37.81 Candidal esophagitis Gil Vides M.D. 04/06/2019 R63.4 Abnormal weight loss Gil Vides M.D. 04/06/2019 B20 Human immunodeficiency virus [HIV] Gil Vides M.D. disease 03/16/2019 B20 Human immunodeficiency virus [HIV] Gil Vides M.D. disease 03/16/2019 R63.4 Abnormal weight loss Gil Vides M.D. 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 disease 03/09/2019 B37.81 Candidal esophagitis Gil Vides M.D. 03/09/2019 B37.0 Candidal stomatitis Gil Vides M.D. 03/09/2019 E46 Unspecified protein-calorie Gil Vides M.D. malnutrition 03/08/2019 B37.81 Candidal esophagitis Mustapha Colmenares M.D. 03/08/2019 B20 Human immunodeficiency virus [HIV] Mustapha Colmenares M.D. disease 03/08/2019 N17.9 Acute kidney failure, unspecified Mustapha Colmenares M.D. 03/08/2019 R19.7 Diarrhea, unspecified Mustapha Colmenares M.D. 03/08/2019 E43 Unspecified severe protein-calorie Mustapha Colmenares M.D. malnutrition 03/08/2019 Z86.61 Personal history of infections of the Mustapha Colmenares M.D. central nervous system 03/07/2019 B20 Human immunodeficiency virus [HIV] Mustapha Colmenares M.D. disease 03/07/2019 N17.9 Acute kidney failure, reginaified Mustapha Colmenares M.D. 03/07/2019 R19.7 Diarrhea, drew Colmenares M.D. 03/07/2019 I95.9 Hypotension, unspecified Mustapha Colmenares M.D. 03/07/2019 K20.9 Esophagitis, unspecified Mustapha Colmenares M.D. 03/07/2019 E46 Unspecified proteinDonnycalorie Mustapha Colmenares M.D. malnutrition 03/06/2019 B20 Human immunodeficiency virus [HIV] Mustapha Colmenares M.D. disease 03/06/2019 N17.9 Acute kidney failure, unspecified Mustapha Colmenarse M.D. 03/06/2019 R19.7 Diarrhea, unspecified Mustapha Colmenares M.D. 03/06/2019 I95.9 Hypotension, unspecified Mustapha Colmenares M.D. 03/06/2019 K20.9 Esophagitis, unspecified Mustapha Colmenares M.D. 03/06/2019 E46 Unspecified proteinDonnycalorie Mustapha Colmenares M.D. malnutrition 03/05/2019 B20 Human immunodeficiency virus [HIV] Mustapha Colmenares M.D. disease 03/05/2019 N17.9 Acute kidney failure, unspecified Mustapha Colmenares M.D. 03/05/2019 R19.7 Diarrhea, reginaified Mustapha Colmenares M.D. 03/05/2019 I95.9 Hypotension, unspecified Mustapha Colmenares M.D. 03/05/2019 K20.9 Esophagitis, reginaified Mustapha Colmenares M.D. 03/05/2019 E46 Unspecified proteinDonnycalorie Mustapha Colmenares M.D. malnutrition 03/04/2019 B20 Human immunodeficiency virus [HIV] Danita Barrett, ERLINDA disease 03/04/2019 B20 Human immunodeficiency virus [HIV] Mustapha Colmenares M.D. disease 03/04/2019 B37.81 Candidal esophagitis Danita Barrett, ERLINDA 03/04/2019 N17.9 Acute kidney failure, unspecified Mustapha Colmenares M.D. 03/04/2019 B37.0 Candidal stomatitis Danita Barrett, ERLINDA 03/04/2019 R19.7 Diarrhea, reginaified Mustapha Colmenares M.D. 03/04/2019 I95.9 Hypotension, unspecyesy Colmenares M.D. 03/04/2019 K20.9 Esophagitis, drew Colmenares M.D. 03/04/2019 E46 Unspecified proteinDonnycalorie Mustapha Colmenares M.D. malnutrition 03/03/2019 B20 Human immunodeficiency virus [HIV] Mustapha Colmenares M.D. disease 03/03/2019 N17.9 Acute kidney failure, unspecified Mustapha Colmenares M.D. 03/03/2019 R19.7 Diarrhea, unspecified Mustapha Colmenares M.D. 03/03/2019 I95.9 Hypotension, unspecified Mustapha Colmenares M.D. 03/03/2019 K20.9 Esophagitis, unspecified Mustapha Colmenares M.D. 03/03/2019 E46 Unspecified protein-calorie Mustapha Colmenares M.D. malnutrition 03/02/2019 B20 Human immunodeficiency virus [HIV] Mustapha Colmenares M.D. disease 03/02/2019 N17.9 Acute kidney failure, unspecified Mustapha Colmenares M.D. 03/02/2019 R19.7 Diarrhea, unspecified Mustapha Colmenares M.D. 03/02/2019 I95.9 Hypotension, unspecified Mustapha Colmenares M.D. 03/02/2019 K20.9 Esophagitis, unspecified Mustapha Colmenares M.D. 03/02/2019 E46 Unspecified protein-calorie Mustapha Colmenares M.D. malnutrition 03/01/2019 K20.9 Esophagitis, reginaified Mustapha Colmenares M.D. 03/01/2019 N17.9 Acute kidney failure, unspecified Mustapha Colmenares M.D. 03/01/2019 B20 Human immunodeficiency virus [HIV] Mustapha Colmenares M.D. disease 03/01/2019 R19.7 Diarrhea, unspecified Mustapha Colmenares M.D. 03/01/2019 E46 Unspecified proteinDonnycalorie Mustapha Colmenares M.D. malnutrition 02/28/2019 B20 Human immunodeficiency virus [HIV] Araseli Godinez, DO disease 02/28/2019 K20.9 Esophagitis, unspecified Araseli Godinez, DO 02/28/2019 R19.7 Diarrhea, unspecified Araseli Godinez, DO 02/28/2019 E46 Unspecified protein-calorie Araseli Godinez, DO malnutrition 02/27/2019 B20 Human immunodeficiency virus [HIV] Gil Vides M.D. disease 02/27/2019 B20 Human immunodeficiency virus [HIV] Araseli Godinez, DO disease 02/27/2019 R63.4 Abnormal weight loss Gil Vides M.D. 02/27/2019 K20.9 Esophagitis, unspecified Araseli Senner, DO 02/27/2019 R19.7 Diarrhea, unspecified Gil Vides M.D. 02/27/2019 R19.7 Diarrhea, unspecified Araseli Senner, DO 02/27/2019 B37.81 Candidal esophagitis Gil Vides M.D. 02/27/2019 E46 Unspecified protein-calorie Araseli Senner, DO malnutrition 02/27/2019 B37.0 Candidal stomatitis Gil Vides M.D. 02/27/2019 R79.89 Other specified abnormal findings of Gil Vides M.D. blood chemistry 02/27/2019 E87.2 Acidosis Gil Vides M.D. 02/26/2019 K12.1 Other forms of stomatitis Araseli Godinez, DO 02/26/2019 K20.9 Esophagitis, unspecified Araseli Senner, DO 02/26/2019 R19.7 Diarrhea, unspecified Araseli Senner, DO 02/26/2019 E43 Unspecified severe protein-calorie Araseli Senner, DO malnutrition 02/26/2019 N17.9 Acute kidney failure, unspecified Araseli Senner, DO 02/26/2019 E87.2 Acidosis Araseli Senner, DO 02/26/2019 R79.89 Other specified abnormal findings of Araseli Godinez, DO blood chemistry 02/26/2019 B20 Human immunodeficiency virus [HIV] Araseli Godinez, disease Plan of Treatment Future Appointment(s):04/08/2019 10:00 am - Audrey Peralta MD at [facility] - [address]/06/2019 - Gil Vides M.D.R19.7 Diarrhea, looxwzaxlwzU46.81 Candidal sahixzcqywgM44.4 Abnormal weight lossB20 Human immunodeficiency virus [HIV] disease Functional Status Description No Information Available Mental Status Description No Information Available Referrals Description No Information Available
[2019-04-08] MEDS ORDERED: NS 0.9% 1000 ML** 2,000 ML IV ONE (11:23)
--- NOTE | 2019-04-08 11:42 | ED ---
Complex/Multi-Sys Presentation - HPI Summary HPI Summary: 53-year-old male w/ PMH of AIDs presents with inability eat past couple weeks. He states that his thrush has been getting worse. He states he stopped his antifungal medication as he ran out. He states that he is not able to eat anything. Has been trying taking ensure. He states that his weight has been dropping especially over the past 2 weeks. He is complaining of increasing back pain. He states that pain is on his tailbone as he has no body fat to protect his spine. He states has been taking ibuprofen for the pain which has not helped. He states is unsure if wants hospice or not. he was admits on 02/26 last month for similar symptoms. he claims he is taking his antiviral meds. no chest pain or SOB currently. no abdominal pain. no urinary symptoms. - History Of Current Complaint Chief Complaint: EDGeneral Time Seen by Provider: 04/08/19 11:02 - Allergies/Home Medications Allergies/Adverse Reactions: Allergies Allergy/AdvReac Type Severity Reaction Status Date / Time No Known Allergies Allergy Verified 04/08/19 11:03 PMH/Surg Hx/FS Hx/Imm Hx Endocrine/Hematology History: Reports: Other Endocrine/Hematological Disorders - hiv Denies: Hx Anticoagulant Therapy Cardiovascular History: Denies: Hx Hypertension Respiratory History: Reports: Hx Pneumonia Sensory History: Denies: Hx Contacts or Glasses, Hx Hearing Aid Opthamlomology History: Denies: Hx Contacts or Glasses - Surgical History Surgery Procedure, Year, and Place: n/a Infectious Disease History: Yes Infectious Disease History: Reports: Hx Human Immunodeficiency Virus (HIV) Denies: Traveled Outside the [place] in Last 30 Days - Family History Known Family History: Positive: Non-Contributory - Social History Alcohol Use: None Hx Substance Use: Yes Substance Use Type: Reports: Marijuana Hx Tobacco Use: No Smoking Status (MU): Never Smoked Tobacco Review of Systems Negative: Fever Positive: Other - throat pain Negative: Chest Pain Negative: Shortness Of Breath Positive: Myalgia - back pain All Other Systems Reviewed And Are Negative: Yes Physical Exam Triage Information Reviewed: Yes Vital Signs On Initial Exam: Initial Vitals Temp Pulse Resp BP Pulse Ox 97.7 F 99 16 110/68 98 04/08/19 10:58 04/08/19 10:58 04/08/19 10:58 04/08/19 10:58 04/08/19 10:58 Vital Signs Reviewed: Yes Appearance: Positive: Thin - malnourished Skin: Positive: Warm, Dry Head/Face: Positive: Normal Head/Face Inspection Eyes: Positive: Normal, EOMI, ARMAND, Conjunctiva Clear ENT: Positive: TMs normal, Other - thrush present in mouth Neck: Positive: Supple, Nontender, No Lymphadenopathy Respiratory/Lung Sounds: Positive: Clear to Auscultation, Breath Sounds Present Cardiovascular: Positive: Normal, RRR Abdomen Description: Positive: Nontender, Soft Bowel Sounds: Positive: Present Musculoskeletal: Positive: Strength/ROM Intact - back, Other - tenderness over coccyx with small pressure sore present on area, neg SLR, good pulses, sensation grossly intact Neurological: Positive: Normal Psychiatric: Positive: Normal Diagnostics - Vital Signs Vital Signs Temp Pulse Resp BP Pulse Ox 04/08/19 10:58 97.7 F 99 16 110/68 98 - Laboratory Result Diagrams: 04/08/19 11:34 04/08/19 11:34 Lab Statement: Any lab studies that have been ordered have been reviewed, and results considered in the medical decision making process. Re-Evaluation - Re-Evaluation First Eval Re-Evaluation Time: 12:42 Comment: discussed results with patient Complex Multi-Symp Course/Dx Course Of Treatment: 52-year-old male presents with increasing weakness and inability to eat. He has thrush that has been getting worse. He claims he is taking his antiviral medications. He states that he is having increasing back pain due to the pressure on his back due to having no body fat due to the recent weight loss. No fevers. No chest pain or shortness of breath. On exam has start to a pressure ulcer on his coccyx. X-ray of back normal. Appears malnourished. White blood count slightly elevated. CRP elevated. Sodium and chloride are low. Gave fluids. thrush present in mouth. gave fluconzole IV. Case discussed with Dr. Vides who will see the patient on the floor. Dr. Grayson agrees to admit. - Diagnoses Differential Diagnoses/HQI/PQRI: Sepsis, Urinary Tract Infection, Other - malnutrition Provider Diagnoses: Malnutrition, AIDS, Oral thrush Discharge ED - Sign-Out/Discharge Documenting (check all that apply): Patient Departure - Discharge Plan Condition: Stable Disposition: ADMITTED TO [facility] Referrals: No Primary Care Phys,NOPCP [Primary Care Provider] - - Billing Disposition and Condition Condition: STABLE Disposition: Admitted to [facility]
[2019-04-08] MEDS ORDERED: Fluconazole 200 MG IVPREMIX(*) 200 MG/100 ML BAG IVPB ONE (11:43)
[2019-04-08] MEDS ORDERED: HYDROmorphone INJ* 0.5 MG/0.5 ML SYRINGE IV SLOW PU ONE (11:44)
[2019-04-08 11:46] LABS: ABS Lymphocytes 0.9 10^3/ul (1.0-4.8); ABS Monocytes 0.3 10^3/ul (0-0.8); Hematocrit 37 % (42-52); Hemoglobin 12.9 g/dL (14.0-18.0); Lymphocyte % 6.8 %; Mean Corpuscular HGB Conc 35 g/dL (31-36); Mean Corpuscular Hemoglobin 30 pg (27-31); Mean Corpuscular Volume 85 fL (80-94); Mean Platelet Volume 8.8 fL (7.4-10.4); Platelet Count 455 10^3/uL (150-450); Red Blood Count 4.36 10^6 /uL (4.18-5.48); Red Cell Distribution Width 15 % (10-15); White Blood Count 13.2 10^3/uL (3.5-10.8)
[2019-04-08 12:01] LABS: Albumin 2.6 g/dL (3.2-5.2); Albumin/Globulin Ratio 0.8 (1-3); BUN/Creatinine Ratio 50.7 (8-20); C Reactive Protein 48.95 mg/L (<8.01); EGFR African American 145.1 (>60); EGFR Non-African American 119.9 (>60); Globulin 3.1 g/dL (2-4); Magnesium 1.9 mg/dL (1.9-2.7); Potassium 3.9 mmol/L (3.5-5.0); Total Bilirubin 0.4 mg/dL (0.2-1.0); Total Protein 5.7 g/dL (6.4-8.9)
[2019-04-08] MEDS ORDERED: Lactated Ringers 1000 ML Bag* 1,000 ML IV SCH ×2 (13:00→15:00)
[2019-04-08] MEDS ORDERED: Ketorolac INJ* 30 MG/ML 1 ML VIAL IV PUSH ONE (13:43)
[2019-04-08 14:54] LABS: Phosphorus 3.6 mg/dL (2.5-5.0)
[2019-04-08] MEDS ORDERED: Tenofovir/Emtricitab 200/300 * TAB PO SCH (15:00)
[2019-04-08] MEDS ORDERED: HYDROmorphone INJ* 0.5 MG/0.5 ML SYRINGE IV SLOW PU PRN (16:42)
[2019-04-08 16:44] LABS: Urine Appearance Clear; Urine Bilirubin Negative (Negative); Urine Blood Negative (Negative); Urine Color Yellow; Urine Glucose Negative (Negative); Urine Ketones Negative (Negative); Urine Nitrite Negative (Negative); Urine Protein Negative (Negative); Urine Specific Gravity 1.018 (1.010-1.030); Urine Urobilinogen Negative (Negative)
[2019-04-08] MEDS ORDERED: Magic M W2 Ben/Maal/Nyst/Lido* 240 ML MOUTHWASH (alt formulation) SWISH SPIT SCH (17:00)
[2019-04-08] MEDS: HYDROmorphone INJ1* 1 MG/ML SYRINGE IV SLOW PU PRN ×2 (17:22→21:39)
[2019-04-08] MEDS: D5W NS 0.9% 40Meq KCL 1000 ML* 1,000 ML IV SCH (17:37)
--- NOTE | 2019-04-08 17:37 | HP ---
CC: Dr. Audrey Peralta; Dr. Gil Maldonado * ADMISSION HISTORY AND PHYSICAL: DATE OF ADMISSION: 04/08/19 PRIMARY CARE PROVIDER: Dr. Audrey Peralta. MY ATTENDING WHILE IN THE HOSPITAL: Dr. Luaren Grayson.* (DICTATED BY JESSI RIVER0 CONSULTING INFECTIOUS DISEASE SPECIALIST: Dr. Gil Maldonado. CHIEF COMPLAINT: Mouth pain, inability to maintain adequate oral intake. HISTORY OF PRESENT ILLNESS: Mr. 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 The patient was admitted to the hospital, started on fluconazole, and improved greatly. The patient was set up with Medicaid, housing, nutrition support, and was gaining weight and was sent home on 03/08/19. The patient at that time for approximately 2 weeks was doing well, gaining weight, swallowing well, but during that time he was not on his Truvada and Isentress which was prescribed for him outpatient, but was never picked up. The patient was then switched to Descovy and Isentress on 04/01/19, which he has been taking since then, but has been feeling progressively worse. The patient has been losing weight. The patient was taken off his fluconazole and since then feels that his thrush has been getting worse, and his gold frame assembler, who provides much of the history, states that even when he was on the fluconazole and his thrush improved, he was still having odynophagia and inability to swallow solid food. The patient has been taking an Ensure almost exclusively. He attempts to have 5 of them a day, but has not been able to do this particularly over the past week. The patient has not had any solid food in 6 weeks. The patient has never had endoscopy and is opposed to the idea. The patient states that he has been taking his Bactrim, but his gold frame assembler states that he is not. The patient denies fevers, chills, chest pain, shortness of breath, or cough. The patient is unable to walk more than 5 feet without feeling fatigued due to being "extremely out of shape." The patient yesterday went to the IV clinic in an attempt to get inpatient treatment for his malnutrition and states that it was just a waste of his time. The patient has followed up with Dr. Maldonado twice since he has been inpatient due to concern for severe malnutrition, recurrent thrush interfering with ability to take an adequate oral intake. We were asked to evaluate the patient for admission to the hospital. PAST MEDICAL HISTORY: HIV/AIDS, history of Pneumocystis jiroveci pneumonia, history of cryptococcal meningitis with hydrocephalus and shunting, esophageal and oral candidiasis, severe malnutrition. PAST SURGICAL HISTORY: Shunt placement. MEDICATIONS: 1. Descovy 200/25 one tab p.o. daily. 2. Raltegravir 400 mg p.o. b.i.d. 3. Pepcid 20 mg p.o. daily. 4. Tylenol 1000 mg p.o. q.8 hours as needed. 5. IBU PM 200/25 two tabs p.o. at bedtime. 6. Vitamin D 50,000 units p.o. weekly. 7. Vitamin B12/folate 2500/400 one tab p.o. daily. 8. Bactrim single strength 1 tablet p.o. daily. Of note, the patient has not been taking his Bactrim, B12, vitamin D, Tylenol, IBU PM, Pepcid. ALLERGIES: None. FAMILY HISTORY: The patient's mother with complications of diabetes. The patient's father of myocardial infarction. The patient has several estranged siblings. SOCIAL HISTORY: The patient denies smoking tobacco. The patient does not drink alcohol. The patient smokes marijuana frequently, though this has been trailing off as his appetite has been poor. The patient endorses smoking a type of marijuana called sativa, which he claims boosts his T4 count. 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 The patient endorses numerous episodes of unprotected sex with multiple women, which he believes is how he contracted HIV. The patient denies illicit drug use or any history of IV drug abuse. The patient is not and has no children. The patient's surrogate decision maker will be his friend, Becky Pena. REVIEW OF SYSTEMS: An 11-point review of systems was reviewed and was negative except as above in the HPI. PHYSICAL EXAMINATION GENERAL: The patient is a 53-year-old male who appears cachectic with severe muscle wasting and appears much older than stated age, who is sitting in the bed , in no acute distress. VITAL SIGNS: Temperature 97.7, pulse rate 99, respiratory rate 16, oxygen saturation 98% on room air, blood pressure 121/68. HEENT: Head: Normocephalic, atraumatic. Sclerae anicteric. No conjunctival injection. Nasal mucosa moist. Oral mucosa moist. No pharyngeal erythema, discharge, or exudate. NECK: Supple, nontender. No lymphadenopathy. No carotid bruits auscultated. No JVD. RESPIRATORY: Clear to auscultation bilaterally. No wheezes, rales, or rhonchi. Good air exchange bilaterally. CARDIAC: Regular rate and rhythm. No clicks, murmurs, gallops, or rubs. Pulses are 2+ in the dorsalis pedis, posterior tibialis, and radial areas. ABDOMEN: Soft, nontender, nondistended, scaphoid. Bowel sounds present and normoactive in all 4 quadrants. No hepatosplenomegaly. No abdominal bruits auscultated. No hepatojugular reflux. GENITOURINARY: No suprapubic or CVA tenderness. NEUROLOGIC: Cranial nerves II through XII intact. No focal deficits. Alert and oriented x3. PSYCHIATRIC: Pleasant and cooperative. SKIN: Clean, dry, and intact. No rash. DIAGNOSTIC STUDIES/LAB DATA: White blood cell count 13.2, hemoglobin 12.9, platelet count 455,000. Sodium 126, potassium 3.9, chloride 99, carbon dioxide 21, anion gap 6, BUN 35, creatinine 0.69, glucose 115, lactic acid 2.0, calcium 8.0. Bilirubin 0.4, AST 16, ALT 335. CRP 48.95, protein 5.7, albumin 2.6, globulin 3.1, lipase 82. Studies: Lumbar spine x-ray shows no acute fracture. ASSESSMENT AND PLAN: Impression: Mr. Mcrae is a 53-year-old male with past medical history significant for human immunodeficiency virus infection complicated by acquired immunodeficiency syndrome with a history of Pneumocystis jiroveci pneumonia and cryptococcal meningitis who was recently admitted with severe malnutrition related to oral and esophageal candidemia, who presents to the hospital with recurrent weight loss and oral esophageal candidiasis. The patient will be admitted to the hospital for nutritional support and treatment directed at controlling the complications of his acquired immunodeficiency syndrome. 1. Oral esophageal candidiasis. Start the patient on anidulafungin for this as the patient is only intermittently able to swallow related to this and has elevated liver enzymes which may be related to or exacerbated by fluconazole. The patient will be seen in consultation by Dr. Gil Maldonado who recommends considering an endoscopy in 1 to 2 days given the patient's continued odynophagia and dysphagia even when candidiasis is not significant problem. The patient may be transitioned to nystatin swish and swallow or back to fluconazole if other reason for elevated liver enzymes is identified. Gastroenterology consult may also be considered. 2. Acquired immunodeficiency syndrome. Appreciate Infectious Disease consult. Continue the patient on Truvada and assess while in the hospital. Repeat CD4 count. Hold the patient's Descovy at this time. The differential for the patient's symptoms per Dr. Maldonado may be acute immune reconstitution syndrome related to his being started on appropriate HAART finally. 3. Severe malnutrition. Encourage Ensure 5 times daily for 2000 calories, which the patient prefers as well as a full liquid diet. I will start the patient on D5 while in the hospital when phosphorus level is able to be obtained to avoid refeeding syndrome. Nutrition consult pending. Monitor weight intermittently. 4. Leukocytosis. The patient has no other signs of current disseminated infection. Check CMV levels, repeat in the morning. No need for empiric antibiotics at this time. Bactrim will be on hold. 5. DVT prophylaxis: Heparin subcu. 6. FEN: Encourage calorie rich foods and fluids as above. TIME SPENT: Approximately 60 minutes was spent on admission of this patient, 30 of which was spent [id number] with the patient obtaining history and physical and discussing treatment plan. This plan has been discussed with my attending, Dr. Lauren Grayson, and she is in agreement. JESSI RIVER [id number]/[facility] #: [id number] PABLO
[2019-04-08] MEDS: Heparin VIAL(*) 5000 UNITS/ML VIAL (FIVE THOUSAND) SUBCUT SCH ×2 (18:03→20:49)
[2019-04-08] MEDS: Magic M W2 Ben/Maal/Nyst/Lido* 240 ML MOUTHWASH (alt formulation) SWISH SWAL SCH (20:53)
[2019-04-08] MEDS: Tenofovir/Emtricitab 200/300 * TAB PO SCH (20:54)
[2019-04-08] MEDS: Raltegravir* 400 MG TAB PO SCH (20:54)
[2019-04-08] MEDS: Clotrimazole 1% CREAM* 45 GM TOPICAL SCH (21:40)
[2019-04-08] MEDS: Melatonin 3 MG TAB PO SCH (23:06)
[2019-04-09] MEDS: HYDROmorphone INJ1* 1 MG/ML SYRINGE IV SLOW PU PRN ×5 (03:17→21:55)
[2019-04-09] MEDS: D5W NS 0.9% 40Meq KCL 1000 ML* 1,000 ML IV SCH ×2 (04:20→15:10)
[2019-04-09] MEDS: Heparin VIAL(*) 5000 UNITS/ML VIAL (FIVE THOUSAND) SUBCUT SCH ×3 (05:31→21:08)
[2019-04-09 06:09] LABS: ABS Lymphocytes 0.7 10^3/ul (1.0-4.8); ABS Monocytes 0.2 10^3/ul (0-0.8); Hematocrit 33 % (42-52); Mean Corpuscular HGB Conc 34 g/dL (31-36); Mean Corpuscular Hemoglobin 29 pg (27-31); Mean Corpuscular Volume 86 fL (80-94); Mean Platelet Volume 8.7 fL (7.4-10.4); Platelet Count 421 10^3/uL (150-450); Red Blood Count 3.77 10^6 /uL (4.18-5.48); Red Cell Distribution Width 15 % (10-15)
[2019-04-09 06:34] LABS: Albumin 2.3 g/dL (3.2-5.2); Albumin/Globulin Ratio 0.9 (1-3); BUN/Creatinine Ratio 50.9 (8-20); Calcium 7.6 mg/dL (8.6-10.3); EGFR African American 180.9 (>60); EGFR Non-African American 149.5 (>60); Globulin 2.6 g/dL (2-4); Magnesium 1.9 mg/dL (1.9-2.7); Phosphorus 2.3 mg/dL (2.5-5.0); Total Bilirubin 0.3 mg/dL (0.2-1.0); Total Protein 4.9 g/dL (6.4-8.9)
[2019-04-09 06:37] LABS: Potassium 5.3 mmol/L (3.5-5.0)
[2019-04-09] MEDS ORDERED: Anidulafungin* 200 MG in NS 0.9% 250 ML* 200 ML IVPB SCH (09:00)
[2019-04-09] MEDS: Magic M W2 Ben/Maal/Nyst/Lido* 240 ML MOUTHWASH (alt formulation) SWISH SWAL SCH ×4 (09:03→21:52)
[2019-04-09] MEDS: Raltegravir* 400 MG TAB PO SCH ×2 (09:05→21:50)
[2019-04-09] MEDS: Clotrimazole 1% CREAM* 45 GM TOPICAL SCH ×2 (09:26→21:50)
--- NOTE | 2019-04-09 11:39 | CONS ---
CONSULTATION REPORT: DATE OF CONSULT: 04/09/19 REQUESTING PHYSICIAN: JESSI Fuentes. CONSULTING SERVICE: Infectious disease. REASON FOR CONSULTATION: AIDS. IMPRESSION: 1. Acquired immunodeficiency syndrome with wasting, severe oroesophageal thrush with some disruption in outpatient antiretroviral therapy since he left here about a month ago. I am not totally clear on what he was or was not taking , but he may have stopped taking the tenofovir containing drug and was just taking raltegravir by itself for about 2 weeks. 2. Transaminitis with normal liver and gallbladder imaging improving since he has been here with ALT was 379 yesterday and 289 today. Differential diagnosis includes drug-related including fluconazole, but to my understanding he had not been taking that for about 3 weeks; possible that he was, however. Other considerations of his suppressed T-cell count would be a cytomegalovirus hepatitis. 3. Diarrhea seemed to have recurred when he had disruption of his antiretroviral, could just be human immunodeficiency virus activity related. Stool culture from earlier in April 2018 was negative, as was crypto and Giardia. We can recheck those again. 4. Malnutrition and weight loss due to acquired immunodeficiency syndrome. RECOMMENDATION: 1. Truvada and Isentress, which we restarted last night. I will add an integrase inhibitor genotype along with viral load. 2. Some of his symptoms if he was still taking all his human immunodeficiency virus medicines may have been an immune reconstitution inflammatory syndrome ( IRIS); however, it seems a little bit early for that to have happened. We will keep an eye as we restart all his medications here to see if symptoms improve or worsen. If he is not improving after we get this thrush and esophageal candidiasis treated, we will consider an EGD and colonoscopy. HISTORY OF PRESENT ILLNESS: This is a 53-year-old male with longstanding HIV whom I met in early February 2019, when he was admitted here with weight loss, diarrhea, severe thrush and esophageal candidiasis that improved on fluconazole. He was started on Truvada and Isentress. He was discharged home. He was staying with a friend and then apparently became homeless for a couple of weeks and then maybe was staying at a correction, it sounds, and when I saw him in about 3 weeks ago, he was continuing to gain weight, was only able to use Ensure, which we were providing him, but was gaining weight and his diarrhea had resolved. Then when I saw him last week, his diarrhea had returned. He had stopped eating for 2 weeks. He had only been taking Isentress per his report. I had recommended he be admitted to the hospital that day, which he declined to do. He was then in [facility] 2 days ago and declined admission there. His support person convinced him to come into the hospital here yesterday. He was afebrile, hypotensive. Sodium of 126, creatinine was 0.6, ALT 379, alk phos 335. White count was 13, hemoglobin 12, platelets 455. Urinalysis unremarkable. I discussed the case with JESSI Fuentes, last night and he obtained a liver ultrasound, which was unremarkable. I recommended he restart Truvada and Isentress, which he did. There was some discussion with the patient and his support person, Becky, that they wanted a hospice evaluation. 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 They may be interested in palliative options and what other social supports there are for him in getting his medications and living situation when he leaves here. PAST MEDICAL HISTORY: 1. HIV and now AIDS. His last T-cell was 31 (18%). He had had a genotype at that time which was caba susceptible and a CMV PCR that was negative as well. 2. History of Pneumocystis pneumonia. 3. History of cryptococcal meningitis, complicated by hydrocephalus, status post [employer] shunt. ALLERGIES: No known drug allergies. MEDICATIONS: 1. Tylenol 2. Clotrimazole topical 3. Anidulafungin 200 g IV daily. 4. Heparin subcutaneous injection. 5. Melatonin. 6. Zofran. 7. Raltegravir 400 mg one-half twice a day. 8. Truvada once a day. SOCIAL HISTORY: He lives in the [facility], recently in a correction. Had lived in [place] and [place]. He is a nonsmoker. Does smoke marijuana. He has sex with women. FAMILY HISTORY: Mother is from diabetes complication. Father is from [place]. REVIEW OF SYSTEMS: All negative, except as noted above to a 14-point review. PHYSICAL EXAM: Vital Signs: Temperature 36.3, heart rate 100, respiratory rate 20, blood pressure 90/58, oxygen saturation 99% on room air. General: He is awake, not in distress. He is cachectic. Neurologic: He is oriented x3, follows all commands, moves all extremities. HEENT: There is severe thrush. Neck: Supple without mass. Lymph Nodes: There is no cervical, supraclavicular , inguinal, axillary or epitrochlear lymphadenopathy. Heart: Regular rate and rhythm without murmurs, rubs, or gallops. Lungs: Clear to auscultation bilaterally. Abdomen: Soft, nontender, nondistended. There are bowel sounds present. Skin: There is no rash or splinter hemorrhage. Musculoskeletal: No spine tenderness to palpation or joint synovitis. LAB DATA: White blood cell count 12, hemoglobin 11, platelets 421. Creatinine 0.5, AST 181, bilirubin 0.3, ALT 289, alk phos 266. Albumin 2.3. Please see impressions and recommendations outlined above. Thank you for asking me to see Mr. Mcrae in consultation. [id number]/[facility] #: [id number] MTDD
[2019-04-09] MEDS: Dronabinol CAP* 2.5 MG PO SCH ×2 (13:05→17:59)
[2019-04-09] MEDS: Pantoprazole IV* 40 MG IV SCH (13:06)
[2019-04-09 14:30] LABS: Hepatitis B Surface Antigen Negative (Negative)
[2019-04-09 14:47] LABS: Hepatitis C Antibody Negative (Negative)
--- NOTE | 2019-04-09 16:55 | CONSULT ---
Palliative / Hospice Consult Ordering Provider: Lauren Grayson - PCP-[facility] Referal Reason: Goals of care discussion/no bowel med b/c diarrhea/dilaudid - Subjective Code Status: DNR Advance Directives Location: No Advance Directives MOLST Part A Completed: Yes - on chart MOLST Part E Completed:: Yes - on chart - History or Present Illness History or Present Illness: 53yo male with HIV presents to ER with pain on swallowing and diarrhea. PMH is significant for HIV diagnosed in 1998 and cryptococcus meningitis s/p [employer] shunt. He is a non tobacco user, no etoh and uses marijuana, moved here from [facility]. Pt has no family in the area but has a friend who lives in [facility] who is helping him to coordinate his care. Studies showed L/S spine-neg, liver U/S-negative, H/H 12.9/37, BUN/Cr 35/.69, egfr 119.9, Ca 8, ast 216, alt 379 and alb 2.6. Last hospitalization 02/26-. All history is from pt, his friend Chyna and medical record. Pt is currently admitted for IV fluids, IV fluconazole for candidiasis and continuation of HIV therapy. Lab Values: Abnormal Lab Results 04/09/19 04/09/19 05:28 05:28 WBC 12.0 H RBC 3.77 L Hgb 11.0 L Hct 33 L MCV 86 MCH 29 MCHC 34 RDW 15 Plt Count 421 MPV 8.7 Neut % (Auto) 92.0 Lymph % (Auto) 6.0 [place]gs % (Auto) 2.0 Eos % (Auto) 0.0 Baso % (Auto) 0.0 Absolute Neuts (auto) 11.0 H Absolute Lymphs (auto) 0.7 L Absolute Monos (auto) 0.2 Absolute Eos (auto) 0.0 Absolute Basos (auto) 0.0 Absolute Nucleated RBC 0.0 Nucleated RBC % 0.0 Sodium 132 L Potassium 5.3 H Chloride 108 Carbon Dioxide 20 L Anion Gap 4 BUN 29 H Creatinine 0.57 L Est GFR ( Amer) 180.9 Est GFR (Non-Af Amer) 149.5 BUN/Creatinine Ratio 50.9 H Glucose 103 H Calcium 7.6 L Phosphorus 2.3 L Magnesium 1.9 Total Bilirubin 0.30 AST 181 H ALT 289 H Alkaline Phosphatase 266 H Total Protein 4.9 L Albumin 2.3 L Globulin 2.6 Albumin/Globulin Ratio 0.9 L Laboratory Last Values WBC 12.0 10^3/uL (3.5-10.8) H 04/09/19 05:28 RBC 3.77 10^6 /uL (4.18-5.48) L 04/09/19 05:28 Hgb 11.0 g/dL (14.0-18.0) L 04/09/19 05:28 Hct 33 % (42-52) L 04/09/19 05:28 MCV 86 fL (80-94) 04/09/19 05:28 MCH 29 pg (27-31) 04/09/19 05:28 MCHC 34 g/dL (31-36) 04/09/19 05:28 RDW 15 % (10-15) 04/09/19 05:28 Plt Count 421 10^3/uL (150-450) 04/09/19 05:28 MPV 8.7 fL (7.4-10.4) 04/09/19 05:28 Neut % (Auto) 92.0 % 04/09/19 05:28 Lymph % (Auto) 6.0 % 04/09/19 05:28 [place]gs % (Auto) 2.0 % 04/09/19 05:28 Eos % (Auto) 0.0 % 04/09/19 05:28 Baso % (Auto) 0.0 % 04/09/19 05:28 Absolute Neuts (auto) 11.0 10^3/ul (1.5-7.7) H 04/09/19 05:28 Absolute Lymphs (auto) 0.7 10^3/ul (1.0-4.8) L 04/09/19 05:28 Absolute Monos (auto) 0.2 10^3/ul (0-0.8) 04/09/19 05:28 Absolute Eos (auto) 0.0 10^3/ul (0-0.6) 04/09/19 05:28 Absolute Basos (auto) 0.0 10^3/ul (0-0.2) 04/09/19 05:28 Absolute Nucleated RBC 0.0 10^3/ul 04/09/19 05:28 Nucleated RBC % 0.0 04/09/19 05:28 Sodium 132 mmol/L (135-145) L 04/09/19 05:28 Potassium 5.3 mmol/L (3.5-5.0) H 04/09/19 05:28 Chloride 108 mmol/L (101-111) 04/09/19 05:28 Carbon Dioxide 20 mmol/L (22-32) L 04/09/19 05:28 Anion Gap 4 mmol/L (2-11) 04/09/19 05:28 BUN 29 mg/dL (6-24) H 04/09/19 05:28 Creatinine 0.57 mg/dL (0.67-1.17) L 04/09/19 05:28 Est GFR ( Amer) 180.9 (>60) 04/09/19 05:28 Est GFR (Non-Af Amer) 149.5 (>60) 04/09/19 05:28 BUN/Creatinine Ratio 50.9 (8-20) H 04/09/19 05:28 Glucose 103 mg/dL (70-100) H 04/09/19 05:28 Lactic Acid 2.0 mmol/L (0.5-2.0) 04/08/19 11:34 Calcium 7.6 mg/dL (8.6-10.3) L 04/09/19 05:28 Phosphorus 2.3 mg/dL (2.5-5.0) L 04/09/19 05:28 Magnesium 1.9 mg/dL (1.9-2.7) 04/09/19 05:28 Total Bilirubin 0.30 mg/dL (0.2-1.0) 04/09/19 05:28 AST 181 U/L (13-39) H 04/09/19 05:28 ALT 289 U/L (7-52) H 04/09/19 05:28 Alkaline Phosphatase 266 U/L (34-104) H 04/09/19 05:28 C-Reactive Protein 48.95 mg/L (<8.01) H 04/08/19 11:34 Total Protein 4.9 g/dL (6.4-8.9) L 04/09/19 05:28 Albumin 2.3 g/dL (3.2-5.2) L 04/09/19 05:28 Globulin 2.6 g/dL (2-4) 04/09/19 05:28 Albumin/Globulin Ratio 0.9 (1-3) L 04/09/19 05:28 Lipase 82 U/L (11.0-82.0) 04/08/19 11:34 Urine Color Yellow 04/08/19 16:25 Urine Appearance Clear 04/08/19 16:25 Urine pH 6.0 (5-9) 04/08/19 16:25 Ur Specific [place] 1.018 (1.010-1.030) 04/08/19 16:25 Urine Protein Negative (Negative) 04/08/19 16:25 Urine Ketones Negative (Negative) 04/08/19 16:25 Urine Blood Negative (Negative) 04/08/19 16:25 Urine Nitrate Negative (Negative) 04/08/19 16:25 Urine Bilirubin Negative (Negative) 04/08/19 16:25 Urine Urobilinogen Negative (Negative) 04/08/19 16:25 Ur Leukocyte Esterase Negative (Negative) 04/08/19 16:25 Urine Glucose Negative (Negative) 04/08/19 16:25 - Objective Active Medications: Acetaminophen (Tylenol Tab*) 650 mg PO Q6H PRN PRN Reason: MILD PAIN or TEMP > 100.4 Clotrimazole (Clotrimazole 1%*) 1 applic TOPICAL BID [facility] Last Admin: 04/09/19 09:26 Dose: 1 applic Diphenoxylate HCl/Atropine (Lomotil Tab*) 1 tab PO BID PRN PRN Reason: DIARRHEA Dronabinol (Marinol Cap*) 5 mg PO TID [facility] Last Admin: 04/09/19 13:05 Dose: 5 mg Emtricitabine/Tenofovir (Truvada 200/300 Mg*) 1 tab PO BEDTIME [facility]; Protocol Last Admin: 04/08/19 20:54 Dose: 1 tab Heparin Sodium (Porcine) (Heparin Vial(*)) 5,000 units SUBCUT Q8HR [facility] Last Admin: 04/09/19 13:17 Dose: Not Given Hydromorphone HCl (Dilaudid Inj1s*) 0.5 mg IV SLOW PU Q4H PRN PRN Reason: PAIN - SEVERE Last Admin: 04/09/19 13:04 Dose: 0.5 mg Potassium Chloride/Dextrose (D5w Ns 0.9% 40meq Kcl 1000 Ml*) 1,000 mls @ 100 mls/hr IV PER RATE [facility] Last Admin: 04/09/19 15:10 Dose: 100 mls/hr Anidulafungin 100 mg/ Sodium (Chloride) 130 mls @ 65 mls/hr IVPB Q24H [facility] Melatonin (Melatonin) 3 mg PO BEDTIME [facility] Last Admin: 04/08/19 23:06 Dose: Not Given Multi-Ingredient Mouthwash/Gargle (Magic M W2 Tarik/Maal/Nyst/Lido*) 5 ml SWISH SWAL QID [facility] Last Admin: 04/09/19 09:03 Dose: 5 ml Ondansetron HCl (Zofran Inj*) 4 mg IV Q6H PRN PRN Reason: NAUSEA Pantoprazole Sodium (Protonix Iv*) 40 mg IV DAILY [facility] Last Admin: 04/09/19 13:06 Dose: 40 mg Raltegravir (Isentress*) 400 mg PO BID [facility]; Protocol Last Admin: 04/09/19 09:05 Dose: 400 mg Vital Signs: Vital Signs: Temp Pulse Resp BP Pulse Ox 97.7 F 102 20 91/61 100 04/09/19 11:15 04/09/19 11:15 04/09/19 13:05 04/09/19 11:15 04/09/19 11:15 Patient Weight: Weight 45.178 kg Intake and Output: Intake & Output 04/07/19 04/08/19 04/09/19 04/10/19 06:59 06:59 06:59 06:59 Intake Total 3352 1357 Output Total 340 Balance 3012 1357 Weight 45.178 kg Intake: IV Fluids 2872 D5W NS 40 meq KCL 1022 Oral 480 1357 Output: Urine 340 Other: # Bowel Movements 1 1 Estimated Stool Amount Medium # Voids 0 ADLs: Meal Record Start: 04/08/19 14: 55 Freq: DAILY@0900,1400,1800 Status: Active Protocol: Created 04/08/19 14:55 System (Rec: 04/08/19 14:55 System [id number]) Document 04/08/19 18:00 [id number] (Rec: 04/08/19 21:16 [id number] MED-C13) Document 04/09/19 09:00 [id number] (Rec: 04/09/19 10:08 [id number] MED-C11) Document 04/09/19 14:00 [id number] (Rec: 04/09/19 15:11 [id number] MED-C09) Intake and Output Start: 04/08/19 11: 02 Freq: Status: Active Protocol: Created 04/08/19 11:02 System (Rec: 04/08/19 11:02 System [id number]) Intake and Output Start: 04/08/19 14: 55 Freq: DAILY@0600,1400,2200 Status: Active Protocol: Created 04/08/19 14:55 System (Rec: 04/08/19 14:55 System [id number]) Document 04/08/19 22:00 [id number] (Rec: 04/08/19 22:50 [id number] MED-C13) Document 04/09/19 05:28 [id number] (Rec: 04/09/19 05:29 [id number] MED-C09) Document 04/09/19 14:00 [id number] (Rec: 04/09/19 15:12 [id number] MED-C09) Head: Normal Eyes: No Scleral Icterus Neck: NL Appearance and Movements; NL JVP Cardiovascular: NL Sounds; No Murmurs; No JVD Respiratory: Clear to Auscultation Abdominal: NL Sounds; No Tenderness; No Distention Extremities: No Edema Neurological: Alert and Oriented x 3, - - Very emaciated - Assessment Assessment: 53yo male with HIV admitted with dehydration secondary to oral esophageal candidiasis, diarrhea and severe malnutrition - Plan Consult Plan (MU): Palliative Plan: Long discussion with pt and friend Chyna about goals of care. Pt wants to continue with therapy for HIV. He has had some social issues which have interfered with his therapy but things are improving. He is signed on with medicaid and has some place to live. We discussed multiple options such as going home with [facility] and [facility], [facility] for rehab or [place] [facility] which is not a good option because he would lose his apt. We also discussed hospice for down the road since he is not eligible unless he was to stop his medications. As of now the plan is to go to [facility] for rehab which was also discussed with psych social worker. Information about out patient palliative care was also given. Pt also will be followed by [facility] in [place]. KPS 60%, PPS 60% - Time On Unit Date of Evaluation: 04/09/19 Hospice Consult Time in: 13:30 Hospice Consult Time Out: 15:00 Hospice Consult Time Total: 90 > 50% of Time Spend In Counseling or Coordinating Care: Yes
--- NOTE | 2019-04-09 16:56 | PN ---
Subjective Date of Service: 04/09/19 Interval History: Patient seen and examined. Appears moderately distressed. Having diarrhea. No fever or chills. Still having difficulty swallowing and throat pain. Poor oral intake. Objective Active Medications: Acetaminophen (Tylenol Tab*) 650 mg PO Q6H PRN PRN Reason: MILD PAIN or TEMP > 100.4 Clotrimazole (Clotrimazole 1%*) 1 applic TOPICAL BID [facility] Last Admin: 04/09/19 09:26 Dose: 1 applic Diphenoxylate HCl/Atropine (Lomotil Tab*) 1 tab PO BID PRN PRN Reason: DIARRHEA Dronabinol (Marinol Cap*) 5 mg PO TID AC [facility] Last Admin: 04/09/19 13:05 Dose: 5 mg Emtricitabine/Tenofovir (Truvada 200/300 Mg*) 1 tab PO BEDTIME [facility]; Protocol Last Admin: 04/08/19 20:54 Dose: 1 tab Heparin Sodium (Porcine) (Heparin Vial(*)) 5,000 units SUBCUT Q8HR [facility] Last Admin: 04/09/19 13:17 Dose: Not Given Hydromorphone HCl (Dilaudid Inj1s*) 0.5 mg IV SLOW PU Q4H PRN PRN Reason: PAIN - SEVERE Last Admin: 04/09/19 13:04 Dose: 0.5 mg Potassium Chloride/Dextrose (D5w Ns 0.9% 40meq Kcl 1000 Ml*) 1,000 mls @ 100 mls/hr IV PER RATE [facility] Last Admin: 04/09/19 15:10 Dose: 100 mls/hr Anidulafungin 100 mg/ Sodium (Chloride) 130 mls @ 65 mls/hr IVPB Q24H [facility] Melatonin (Melatonin) 3 mg PO BEDTIME [facility] Last Admin: 04/08/19 23:06 Dose: Not Given Multi-Ingredient Mouthwash/Gargle (Magic M W2 Tarik/Maal/Nyst/Lido*) 5 ml SWISH SWAL QID [facility] Last Admin: 04/09/19 09:03 Dose: 5 ml Ondansetron HCl (Zofran Inj*) 4 mg IV Q6H PRN PRN Reason: NAUSEA Pantoprazole Sodium (Protonix Iv*) 40 mg IV DAILY [facility] Last Admin: 04/09/19 13:06 Dose: 40 mg Raltegravir (Isentress*) 400 mg PO BID [facility]; Protocol Last Admin: 04/09/19 09:05 Dose: 400 mg Vital Signs - 8 hr 04/09/19 04/09/19 04/09/19 09:02 11:15 13:04 Temperature 97.7 F Pulse Rate 102 Respiratory 18 18 20 Rate Blood Pressure 91/61 (mmHg) O2 Sat by Pulse 100 Oximetry 04/09/19 13:05 Temperature Pulse Rate Respiratory 20 Rate Blood Pressure (mmHg) O2 Sat by Pulse Oximetry Oxygen Devices in Use Now: None Appearance: alert, emaciated Eyes: No Scleral Icterus Ears/Nose/Mouth/Throat: - - dry oral mucosa Neck: Trachea Midline Respiratory: Symmetrical Chest Expansion and Respiratory Effort, Clear to Auscultation Cardiovascular: NL Sounds; No Murmurs; No JVD, RRR Abdominal: NL Sounds; No Tenderness; No Distention Extremities: No Edema, No Clubbing, Cyanosis Skin: No Rash or Ulcers Neurological: Alert and Oriented x 3 Nutrition: - - dysphagia, liquid intake only - Nutrition: Malnutrition Diagnosis/Plan Malnutrition Assessment by Registered Dietitian: Malnutrition Assessment Clinical Characteristics Chronic,Severe Malnutrition Assessment: Muscle Wasting - Temporal muscle wasting ( severe Criteria ) Fat Pad Wasting - Buccal fat pad wasting ( severe ) Inadequate Oral Intake - Pt reports poor appetite w/ odynophagia 2/2 thrush x1 mo - anticipate meeting <75% nutrient needs x1 mo Unintentional Weight Loss - Pt reports a 20lb wt loss x1 mo; current wt 99lb, prev wt 116lb x1 mo. ago - 14.6% loss x1 mo (severe) Underweight - BMI 13.9 Malnutrition Assessment: Nutritional Supplementals/Nourishments - Will Interventions continue to send [place] Ensure Enlive ( 350kcal, 20g prot/serv) x5 daily to optimize kcal/prot intake and promote wt gain; will monitor continued acceptance. GI Related - Will monitor GI s/sx for impact on intake. Labs - Will monitor labs closely given pt's risk for dumping/refeeding and make recommendations as indicated. Malnutrition Assessment: Goals 1) Pt will tolerate least restrictive dietary textures w/o further difficulty chewing/ swallowing w/ resolution of thrush 2) Adequate po intake to replete lean body mass , support wt gain and hydration status 3) Improve fluid/electrolyte balance w/ adequate po intake and repletion PRN w/o dumping/ refeeding 4) Maintain bowel regularity w/ adequate po intake and antidiarrheals PRN w/o exac of diarrhea/development of constipation Result Diagrams: 04/09/19 05:28 04/09/19 05:28 Assess/Plan/Problems-Billing Assessment: This is a 53 year old male with hx of PCP pneumocystis PNA, cryptococcus meningitis, HIV/AIDS and poor compliance with HAART therapy as an outpatient that presents with dysphagia, malnutrition and general weakness. - Patient Problems (1) Esophagitis Code(s): K20.9 - ESOPHAGITIS, UNSPECIFIED SNOMED Code(s): 23450385 Comment: - Recurrent oroesophageal thrush 2/2 progressing AIDS infection - ID consulted and following, will continue anidulafungin and antivirals (2) Severe protein-calorie malnutrition Code(s): E43 - UNSPECIFIED SEVERE PROTEIN-CALORIE MALNUTRITION SNOMED Code(s) : 342553112 Comment: - BMI 13 - Severe wasting and inability for oral intake and no solid foods 2/2 dysphagia and pain - Nutrition consulted, PT eval - GI consulted for potential EGD in a few days - Marinol ordered (3) Transaminitis Code(s): R74.0 - NONSPEC ELEV OF LEVELS OF TRANSAMNS & LACTIC ACID DEHYDRGNSE SNOMED Code(s): 147792177 Comment: - Etiology unclear - Differentials include starvation-induced hepatocyte autophagy given profound malnourished state, medication related 2/2 diflucan, or CMV infection - US liver normal - Trend LFTs (4) AIDS Comment: - Restarted on truvada and isentress - Pending Cd4 counts, HIV1 genotype - ID following (5) Diarrhea Code(s): R19.7 - DIARRHEA, UNSPECIFIED SNOMED Code(s): 15423727 Comment: - Follow stool studies, continue IVF - Recurrent, similar presentation from last month with no infective etiologies found, concern for HIV replication (6) DVT prophylaxis Code(s): Z29.9 - ENCOUNTER FOR PROPHYLACTIC MEASURES, UNSPECIFIED SNOMED Code( s): 026911129 Comment: - HSQ (7) DNR (do not resuscitate) Comment: - Palliative care and SW consults placed Status and Disposition: Inpatient. Guarded.
[2019-04-09] MEDS: Diphenoxylat/Atrop 2.5-0.025M* 1 TAB PO PRN (17:52)
[2019-04-09] MEDS: D5W 1/2 NS 1000 ML BAG* 1,000 ML IV SCH (18:56)
[2019-04-09 20:36] LABS: 4/8 H/S Ratio 0.5 (>=0.9); CD3 729 cells/mcL (550-2202); CD4 277 cells/mcL (365-1437); CD8 508 cells/mcL (117-846)
[2019-04-09] MEDS: Tenofovir/Emtricitab 200/300 * TAB PO SCH (21:49)
[2019-04-09] MEDS: Melatonin 3 MG TAB PO SCH (21:52)
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
[2019-04-10] MEDS: HYDROmorphone INJ1* 1 MG/ML SYRINGE IV SLOW PU PRN ×5 (02:22→22:48)
[2019-04-10] MEDS: Diphenoxylat/Atrop 2.5-0.025M* 1 TAB PO PRN (02:28)
[2019-04-10 04:48] LABS: INR 1.16 (0.82-1.09)
[2019-04-10 04:49] LABS: ABS Lymphocytes 0.7 10^3/ul (1.0-4.8); ABS Monocytes 0.3 10^3/ul (0-0.8); ABS Neutrophils 8.9 10^3/ul (1.5-7.7); Eosinophil % 0.1 %; Hematocrit 28 % (42-52); Hemoglobin 9.8 g/dL (14.0-18.0); Lymphocyte % 7.2 %; Mean Corpuscular HGB Conc 35 g/dL (31-36); Mean Corpuscular Hemoglobin 30 pg (27-31); Mean Corpuscular Volume 87 fL (80-94); Mean Platelet Volume 8.3 fL (7.4-10.4); Nucleated Red Blood Cells % 0.1; Platelet Count 368 10^3/uL (150-450); Red Blood Count 3.28 10^6 /uL (4.18-5.48); Red Cell Distribution Width 15 % (10-15); White Blood Count 9.9 10^3/uL (3.5-10.8)
[2019-04-10] MEDS: D5W 1/2 NS 1000 ML BAG* 1,000 ML IV SCH ×2 (04:51→16:58)
[2019-04-10] MEDS: Heparin VIAL(*) 5000 UNITS/ML VIAL (FIVE THOUSAND) SUBCUT SCH ×3 (04:58→22:19)
[2019-04-10 05:02] LABS: Albumin/Globulin Ratio 0.8 (1-3); BUN/Creatinine Ratio 37.8 (8-20); Calcium 7.2 mg/dL (8.6-10.3); EGFR African American 237.7 (>60); EGFR Non-African American 196.4 (>60); Globulin 2.5 g/dL (2-4); Potassium 3.5 mmol/L (3.5-5.0); Total Bilirubin 0.3 mg/dL (0.2-1.0); Total Protein 4.5 g/dL (6.4-8.9)
[2019-04-10] MEDS: Magic M W2 Ben/Maal/Nyst/Lido* 240 ML MOUTHWASH (alt formulation) SWISH SWAL SCH ×4 (07:33→21:54)
[2019-04-10] MEDS: Dronabinol CAP* 2.5 MG PO SCH ×3 (07:42→17:26)
[2019-04-10] MEDS: Pantoprazole IV* 40 MG IV SCH (07:42)
[2019-04-10] MEDS: Raltegravir* 400 MG TAB PO SCH ×2 (07:42→22:52)
[2019-04-10] MEDS: Clotrimazole 1% CREAM* 45 GM TOPICAL SCH ×2 (07:52→22:53)
[2019-04-10] MEDS: Anidulafungin* 100 MG in NS 0.9% 100 ML* 100 ML IVPB SCH (09:12)
--- NOTE | 2019-04-10 10:15 | PN ---
Progress Note - Progress Note Date of Service: 04/10/19 SOAP: Subjective: CC: Oroesophageal thrush and AIDS HPI: Mr. Mcrae is a 53 yo male with PMH significant for AIDS, hx pneumocystis PNA, and hx cryptococcal meningitis. States that he continues to feel unwell, reporting pain in his mouth and throat. He states that he has lost blood and is planning to have an endoscopy this AM. Objective: Vital Sign 04/09/19 23:20 Temperature 98.1 F Temperature Temporal Artery Source Scan Pulse Rate 94 Respiratory 18 Rate Blood Pressure 90/52 (mmHg) Blood Pressure 64 Mean O2 Sat by Pulse 99 Oximetry Patient on Room Yes Air Physical Exam: General: Ill appearing, laying in bed Neurological: Alert and Oriented HEENT: Oral thrush, moist MM Declined further physical assessment Laboratory Results - last 24 hr 04/08/19 04/08/19 04/10/19 11:34 11:34 04:27 WBC 9.9 RBC 3.28 L Hgb 9.8 L Hct 28 L MCV 87 MCH 30 MCHC 35 RDW 15 Plt Count 368 MPV 8.3 Neut % (Auto) 89.8 Lymph % (Auto) 7.2 [place] % (Auto) 2.8 Eos % (Auto) 0.1 Baso % (Auto) 0.1 Absolute Neuts (auto) 8.9 H Absolute Lymphs (auto) 0.7 L Absolute Monos (auto) 0.3 Absolute Eos (auto) 0.0 Absolute Basos (auto) 0.0 Absolute Nucleated RBC 0.0 Nucleated RBC % 0.1 Albumin/Globulin Ratio % CD3 Cells 92 H Absolute CD3 Count 729 % CD4 Cells 35 Absolute CD4 Count 277 L CD4/CD3 Ratio 0.5 L % CD8 Cells 64 H Absolute CD8 Count 508 Absolute CD45 Count 0.79 L Hepatitis A IgM Ab Negative Hep Bs Antigen Negative Hep B Core IgM Ab Nonreactive Hepatitis C Antibody Negative Hepatitis C Ab Index 0.07 04/10/19 04/10/19 04:27 04:27 INR (Anticoag Therapy) 1.16 H Sodium 132 L Potassium 3.5 D Chloride 111 Carbon Dioxide 19 L Anion Gap 2 BUN 17 Creatinine 0.45 L Est GFR ( Amer) 237.7 Est GFR (Non-Af Amer) 196.4 BUN/Creatinine Ratio 37.8 H Glucose 99 Calcium 7.2 L Total Bilirubin 0.30 AST 156 H ALT 251 H Alkaline Phosphatase 217 H Total Protein 4.5 L Albumin 2.0 L Globulin 2.5 Albumin/Globulin Ratio 0.8 L Assessment: 1. AIDs with wasting. CD4 count is 277, up from 31 last month. Integrase inhibitor genotype and HIV viral load pending. 2. Oroesophageal thrush. Plans for an EGD today. 3. Transaminitis. Normal imaging. 4. Severe malnutrition. Secondary to AIDs Plan: Continue Truvada and Isentress. Continue anidulafungin for now.
--- NOTE | 2019-04-10 10:48 | PN ---
Subjective Date of Service: 04/10/19 Interval History: Patient seen and examined. No acute overnight events. Patient feeling about the same. States "that's a terrible question to ask a man in my position" when asked how he is feeling today. Otherwise denies acute SOB, no chest pain, no fevers or chills. Remains with frequent diarrhea and throat pain and difficulty swallowing. Objective Active Medications: Acetaminophen (Tylenol Tab*) 650 mg PO Q6H PRN PRN Reason: MILD PAIN or TEMP > 100.4 Clotrimazole (Clotrimazole 1%*) 1 applic TOPICAL BID [facility] Last Admin: 04/10/19 07:52 Dose: Not Given Diphenoxylate HCl/Atropine (Lomotil Tab*) 1 tab PO BID PRN PRN Reason: DIARRHEA Last Admin: 04/10/19 02:28 Dose: 1 tab Dronabinol (Marinol Cap*) 5 mg PO TID AC [facility] Last Admin: 04/10/19 07:42 Dose: 5 mg Emtricitabine/Tenofovir (Truvada 200/300 Mg*) 1 tab PO BEDTIME [facility]; Protocol Last Admin: 04/09/19 21:49 Dose: 1 tab Heparin Sodium (Porcine) (Heparin Vial(*)) 5,000 units SUBCUT Q8HR [facility] Last Admin: 04/10/19 04:58 Dose: Not Given Hydromorphone HCl (Dilaudid Inj1s*) 0.5 mg IV SLOW PU Q4H PRN PRN Reason: PAIN - SEVERE Last Admin: 04/10/19 07:42 Dose: 0.5 mg Anidulafungin 100 mg/ Sodium (Chloride) 130 mls @ 65 mls/hr IVPB Q24H [facility] Last Admin: 04/10/19 09:12 Dose: 65 mls/hr Dextrose/Sodium Chloride (D5w 1/2 Ns 1000 Ml Bag*) 1,000 mls @ 100 mls/hr IV PER RATE [facility] Last Admin: 04/10/19 04:51 Dose: 100 mls/hr Melatonin (Melatonin) 3 mg PO BEDTIME [facility] Last Admin: 04/09/19 21:52 Dose: Not Given Multi-Ingredient Mouthwash/Gargle (Magic M W2 Tarik/Maal/Nyst/Lido*) 5 ml SWISH SWAL QID [facility] Last Admin: 04/10/19 07:33 Dose: 5 ml Ondansetron HCl (Zofran Inj*) 4 mg IV Q6H PRN PRN Reason: NAUSEA Pantoprazole Sodium (Protonix Iv*) 40 mg IV DAILY [facility] Last Admin: 04/10/19 07:42 Dose: 40 mg Raltegravir (Isentress*) 400 mg PO BID [facility]; Protocol Last Admin: 04/10/19 07:42 Dose: 400 mg Vital Signs - 8 hr 04/10/19 04/10/19 04/10/19 03:11 04:43 07:42 Respiratory 16 18 16 Rate Oxygen Devices in Use Now: None Appearance: alert, emaciated Eyes: PERRLA Ears/Nose/Mouth/Throat: - - dry oral mucosa Neck: NL Appearance and Movements; NL JVP, Trachea Midline Respiratory: Symmetrical Chest Expansion and Respiratory Effort, Clear to Auscultation Cardiovascular: NL Sounds; No Murmurs; No JVD, RRR Abdominal: NL Sounds; No Tenderness; No Distention Extremities: No Edema, No Clubbing, Cyanosis Skin: - - reddened sacrum Nutrition: - - tolerating liquids only, poor intake - Nutrition: Malnutrition Diagnosis/Plan Malnutrition Assessment by Registered Dietitian: Malnutrition Assessment Clinical Characteristics Chronic,Severe Malnutrition Assessment: Muscle Wasting - Temporal muscle wasting ( severe Criteria ) Fat Pad Wasting - Buccal fat pad wasting ( severe ) Inadequate Oral Intake - Pt reports poor appetite w/ odynophagia 2/2 thrush x1 mo - anticipate meeting <75% nutrient needs x1 mo Unintentional Weight Loss - Pt reports a 20lb wt loss x1 mo; current wt 99lb, prev wt 116lb x1 mo. ago - 14.6% loss x1 mo (severe) Underweight - BMI 13.9 Malnutrition Assessment: Nutritional Supplementals/Nourishments - Will Interventions continue to send [place] Ensure Enlive ( 350kcal, 20g prot/serv) x5 daily to optimize kcal/prot intake and promote wt gain; will monitor continued acceptance. GI Related - Will monitor GI s/sx for impact on intake. Labs - Will monitor labs closely given pt's risk for dumping/refeeding and make recommendations as indicated. Malnutrition Assessment: Goals 1) Pt will tolerate least restrictive dietary textures w/o further difficulty chewing/ swallowing w/ resolution of thrush 2) Adequate po intake to replete lean body mass , support wt gain and hydration status 3) Improve fluid/electrolyte balance w/ adequate po intake and repletion PRN w/o dumping/ refeeding 4) Maintain bowel regularity w/ adequate po intake and antidiarrheals PRN w/o exac of diarrhea/development of constipation Result Diagrams: 04/10/19 04:27 04/10/19 04:27 Assess/Plan/Problems-Billing Assessment: This is a 53 year old male with hx of PCP pneumocystis PNA, cryptococcus meningitis, HIV/AIDS and poor compliance with HAART therapy as an outpatient that presents with dysphagia, malnutrition and general weakness. - Patient Problems (1) Esophagitis Code(s): K20.9 - ESOPHAGITIS, UNSPECIFIED SNOMED Code(s): 28400937 Comment: - Recurrent oroesophageal thrush 2/2 progressing AIDS infection - ID consulted and following, will continue anidulafungin and antivirals - GI consulted, plan for EGD today (2) Severe protein-calorie malnutrition Code(s): E43 - UNSPECIFIED SEVERE PROTEIN-CALORIE MALNUTRITION SNOMED Code(s) : 657128619 Comment: - BMI 13 - Severe wasting and inability for oral intake and no solid foods 2/2 dysphagia and pain - Nutrition consulted, PT eval - Continue Marinol (3) Transaminitis Code(s): R74.0 - NONSPEC ELEV OF LEVELS OF TRANSAMNS & LACTIC ACID DEHYDRGNSE SNOMED Code(s): 901034198 Comment: - Etiology unclear - Differentials include starvation-induced hepatocyte autophagy given profound malnourished state, medication related 2/2 diflucan, or CMV infection - US liver normal - Trend LFTs - GI following (4) AIDS Comment: - Restarted on truvada and isentress - Pending HIV1 genotype, CD4 count 35 - ID following (5) Anemia Code(s): D64.9 - ANEMIA, UNSPECIFIED SNOMED Code(s): 238107197 Comment: - Drop in H&H from yesterday with NSAIDS prior to admission - Plan for EGD today - Continue to monitor H&H (6) Diarrhea Code(s): R19.7 - DIARRHEA, UNSPECIFIED SNOMED Code(s): 32213329 Comment: - Follow stool studies, continue IVF - Recurrent, similar presentation from last month with no infective etiologies found, concern for HIV replication (7) DVT prophylaxis Code(s): Z29.9 - ENCOUNTER FOR PROPHYLACTIC MEASURES, UNSPECIFIED SNOMED Code( s): 259663988 Comment: - HSQ (8) DNR (do not resuscitate) Comment: - Palliative care and SW consults placed Status and Disposition: Inpatient. Guarded.
[2019-04-10] MEDS ORDERED: Midazolam* 1 MG/ML 5 ML VIAL (5 MG) ONE (14:10)
[2019-04-10] MEDS ORDERED: fentaNYL* 50 MCG/ML 2 ML VIAL (100 MCG VIAL) ONE (14:10)
[2019-04-10] MEDS ORDERED: Dexamethasone IV* 4 MG/ML 1 ML (4 MG) ONE (14:11)
[2019-04-10] MEDS ORDERED: Ondansetron INJ* 2 MG/ML VIAL ONE (14:11)
[2019-04-10] MEDS ORDERED: Lidocaine 2% PF * 5 ML VIAL ONE (14:11)
[2019-04-10] MEDS ORDERED: Succinylcholine* 20 MG/ML 10 ML VIAL ONE (14:11)
[2019-04-10] MEDS ORDERED: Propofol* 10 MG/ML 20 ML BTL ONE (14:11)
[2019-04-10] MEDS ORDERED: Lactated Ringers 1000 ML Bag* 1,000 ML IV ONE (14:31)
--- NOTE | 2019-04-10 15:30 | PN ---
Progress Note - Progress Note Date of Service: 04/10/19 Note: GI Brief Note: Oropharynx, thrush on tonue Esophagus: proximal 2/3 nml no visible thrush. Distal 1/3 with erosive esophagitis and sloughing. No fresh or old blood. Bx mid and distal to r/o CMV , HSV and joseph among other things Gastric: clean based ulcer in pyloric channel, bx to r/o opportunistic conditions. Endoclip placed with good effect. Duodenum: scant blunting bx to r/o opportunistic conditions Rec: Advance diet as tolerated to full liquids, ok for soft on 04/11 if hgb stable. Monitor Hgb, Change to PPI drip given ulcer x72 hours Await bx results Transaminases improving slowly await serology for further w/u. If not improving would get liver bx +/- MRCP Femi Guajardo DO 04/10/19 [id number]
[2019-04-10] MEDS: Pantoprazole* 80 mg IN NS 80 MG/250 ML BAG IV SCH (20:29)
[2019-04-10] MEDS ORDERED: Lidocaine 2% VISCOUS* 15 ML UDC PO ONE (22:15)
[2019-04-10] MEDS: Melatonin 3 MG TAB PO SCH (22:52)
[2019-04-10] MEDS: Tenofovir/Emtricitab 200/300 * TAB PO SCH (22:52)
[2019-04-11] MEDS: HYDROmorphone INJ1* 1 MG/ML SYRINGE IV SLOW PU PRN ×5 (02:46→21:29)
--- NOTE | 2019-04-11 02:58 | PRO ---
CC: Dr. Maldonado * EGD REPORT: DATE OF PROCEDURE: 04/10/19 - ROOM #403 INDICATION FOR PROCEDURE: AIDS, acute blood loss anemia, dysphagia. PROCEDURE PERFORMED: Complete esophagogastroduodenoscopy with biopsies. MEDICATIONS GIVEN: Please see anesthesia record. DESCRIPTION OF PROCEDURE: After the EGD procedure including the risks, benefits , and alternatives with the risks not limited to perforation, surgery, missed lesions, and/or were explained to the patient, written informed consent was obtained, IV medication was given, and a bite block was placed between the teeth. The adult Olympus gastroscope was then inserted into the patient's oropharynx and into the tubular esophagus. A close inspection of the oropharynx did reveal some thrush on his tongue; however, the proximal two- thirds of the esophagus was grossly normal in appearance without any evidence of thrush or abnormality. The distal one- third had pretty severe erosive esophagitis with sloughing, definitely LA-C esophagitis. There may have been some superimposed thrush in this area. I did take biopsies of both the mid and distal esophagus to rule out joseph, CMV, and HSV among other things. The scope was advanced through the lower esophageal sphincter into the stomach. In the stomach, there was a clean-based ulcer in the pyloric channel. I placed an endoclip over this area and biopsied it with good effect. No active bleeding post. On retroflexion, a small sliding hiatal hernia was appreciated. I took a biopsy of the gastric mucosa to rule out opportunistic infections. The scope was then advanced through a widely patent pylorus into the duodenal bulb, C loop , distal duodenum. The villi were slightly blunted in the duodenum. I did take a biopsy of this again to rule out opportunistic conditions. The scope was then removed from the patient. He tolerated the procedure well. He returned to the recovery room in stable condition. IMPRESSION: 1. Complete esophagogastroduodenoscopy with biopsies. 2. 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 3. Severe erosive esophagitis in the distal esophagus with sloughing. I biopsied mid and distal to rule out CMV, HSV, and joseph. The proximal two- thirds appear to be unaffected. 4. Oral thrush. 5. Scant blunting in the duodenum, biopsied. RECOMMENDATIONS: Advance diet to full liquids. He is okay for a soft diet on 04/11/19 if hemoglobin is stable. We will place him on a PPI drip for a total of 72 hours, monitor the hemoglobin every 6 hours. Await results of biopsies. In terms of his transaminases, they are improving slowly. If they continue to improve and serology for both CMV and HSV is negative, I would not get any further workup; however, if not improving, we will get a liver biopsy plus or minus MRCP to rule out AIDS cholangiopathy among other conditions. [id number]/[facility] #: [id number] [facility] HOSPITALMohini
[2019-04-11] MEDS: Pantoprazole* 80 mg IN NS 80 MG/250 ML BAG IV SCH ×2 (04:25→16:10)
[2019-04-11] MEDS: Heparin VIAL(*) 5000 UNITS/ML VIAL (FIVE THOUSAND) SUBCUT SCH ×3 (05:40→21:31)
[2019-04-11 05:51] LABS: ABS Monocytes 0.3 10^3/ul (0-0.8); ABS Neutrophils 10.4 10^3/ul (1.5-7.7); Hematocrit 30 % (42-52); Hemoglobin 9.8 g/dL (14.0-18.0); Lymphocyte % 8.7 %; Mean Corpuscular HGB Conc 33 g/dL (31-36); Mean Corpuscular Hemoglobin 29 pg (27-31); Mean Corpuscular Volume 87 fL (80-94); Mean Platelet Volume 8.4 fL (7.4-10.4); Nucleated Red Blood Cells % 0.1; Platelet Count 381 10^3/uL (150-450); Red Blood Count 3.38 10^6 /uL (4.18-5.48); Red Cell Distribution Width 15 % (10-15); White Blood Count 11.8 10^3/uL (3.5-10.8)
[2019-04-11 06:06] LABS: Albumin/Globulin Ratio 0.7 (1-3); BUN/Creatinine Ratio 33.3 (8-20); Calcium 7.2 mg/dL (8.6-10.3); EGFR African American 220.6 (>60); EGFR Non-African American 182.3 (>60); Globulin 2.7 g/dL (2-4); Potassium 3.5 mmol/L (3.5-5.0); Total Bilirubin 0.3 mg/dL (0.2-1.0); Total Protein 4.7 g/dL (6.4-8.9)
[2019-04-11] MEDS: Dronabinol CAP* 2.5 MG PO SCH ×3 (08:09→17:08)
[2019-04-11] MEDS: Magic M W2 Ben/Maal/Nyst/Lido* 240 ML MOUTHWASH (alt formulation) SWISH SWAL SCH ×4 (09:00→21:30)
[2019-04-11] MEDS: Raltegravir* 400 MG TAB PO SCH ×2 (09:07→21:30)
[2019-04-11] MEDS: Anidulafungin* 100 MG in NS 0.9% 100 ML* 100 ML IVPB SCH (09:21)
[2019-04-11] MEDS: Clotrimazole 1% CREAM* 45 GM TOPICAL SCH ×2 (10:17→21:31)
[2019-04-11 12:07] LABS: Hematocrit 30 % (42-52); Hemoglobin 9.8 g/dL (14.0-18.0)
[2019-04-11] MEDS: D5W 1/2 NS 1000 ML BAG* 1,000 ML IV SCH (14:35)
[2019-04-11 15:00] LABS: Herpes Simplex Virus I IgG AB Positive (Negative); Herpes Simplex Virus II IgG AB Negative (Negative)
[2019-04-11 16:26] LABS: Hematocrit 29 % (42-52); Hemoglobin 9.8 g/dL (14.0-18.0)
--- NOTE | 2019-04-11 16:32 | PN ---
Subjective Date of Service: 04/11/19 Interval History: Mr. Mcrae is feeling a bit better today. He was able to eat breakfast and had some sherbert without any additional pain or discomfort. He is requesting more Dilaudid. His pain at this point is mostly in his mouth where he has multiple ulcers. Denies CP, SOB, N/V. Nursing reports he is frequently asking for Dilaudid. Family History: Unchanged from Admission Social History: Unchanged from Admission Past Medical History: Unchanged from Admission Objective Active Medications: Acetaminophen (Tylenol Tab*) 650 mg PO Q6H PRN MILD PAIN or TEMP > 100.4 Clotrimazole (Clotrimazole 1%*) 1 applic TOPICAL BID [facility] Diphenoxylate HCl/Atropine (Lomotil Tab*) 1 tab PO BID PRN DI[facility] Dronabinol (Marinol Cap*) 5 mg PO TID AC [facility] Emtricitabine/Tenofovir (Truvada 200/300 Mg*) 1 tab PO BEDTIME [facility]; Protocol Heparin Sodium (Porcine) (Heparin Vial(*)) 5,000 units SUBCUT Q8HR [facility] Hydromorphone HCl (Dilaudid Inj1s*) 0.5 mg IV SLOW PU Q4H PRN PAIN - SEVERE Anidulafungin 100 mg/ Sodium (Chloride) 130 mls @ 65 mls/hr IVPB Q24H [facility] Dextrose/Sodium Chloride (D5w 1/2 Ns 1000 Ml Bag*) 1,000 mls @ 100 mls/hr IV PER RATE [facility] Pantoprazole Sodium (Protonix Iv Bag*) 80 mg in 250 mls @ 25 mls/hr IV Q10H [facility] Melatonin (Melatonin) 3 mg PO BEDTIME [facility] Multi-Ingredient Mouthwash/Gargle (Magic M W2 Tarik/Maal/Nyst/Lido*) 5 ml SWISH SWAL QID [facility] Ondansetron HCl (Zofran Inj*) 4 mg IV Q6H PRN NAUSEA Raltegravir (Isentress*) 400 mg PO BID [facility]; Protocol Vital Signs - 8 hr 04/11/19 04/11/19 04/11/19 09:28 10:17 10:35 Temperature Pulse Rate Respiratory Rate Blood Pressure (mmHg) O2 Sat by Pulse Oximetry 04/11/19 04/11/19 04/11/19 11:15 11:52 12:51 Temperature 97.4 F Pulse Rate 91 Respiratory 18 19 17 Rate Blood Pressure 86/52 (mmHg) O2 Sat by Pulse 100 Oximetry Oxygen Devices in Use Now: None Appearance: Middle-aged cachectic male laying in bed in NAD Ears/Nose/Mouth/Throat: Mucous Membranes Moist, - - Multiple oral ulcers Neck: NL Appearance and Movements; NL JVP Respiratory: Symmetrical Chest Expansion and Respiratory Effort, Clear to Auscultation Cardiovascular: NL Sounds; No Murmurs; No JVD, RRR Abdominal: NL Sounds; No Tenderness; No Distention Extremities: No Edema Neurological: Alert and Oriented x 3 Lines/Tubes/Other Access: Clean, Dry and Intact Peripheral IV Nutrition: Taking PO's - Nutrition: Malnutrition Diagnosis/Plan Malnutrition Assessment by Registered Dietitian: Malnutrition Assessment Clinical Characteristics Chronic,Severe Malnutrition Assessment: Muscle Wasting - Temporal muscle wasting ( severe Criteria ) Fat Pad Wasting - Buccal fat pad wasting ( severe ) Inadequate Oral Intake - Pt reports poor appetite w/ odynophagia 2/2 thrush x1 mo - anticipate meeting <75% nutrient needs x1 mo Unintentional Weight Loss - Pt reports a 20lb wt loss x1 mo; current wt 99lb, prev wt 116lb x1 mo. ago - 14.6% loss x1 mo (severe) Underweight - BMI 13.9 Malnutrition Assessment: Nutritional Supplementals/Nourishments - Will Interventions continue to send [place] Ensure Enlive ( 350kcal, 20g prot/serv) x5 daily to optimize kcal/prot intake and promote wt gain; will monitor continued acceptance. GI Related - Will monitor GI s/sx for impact on intake. Labs - Will monitor labs closely given pt's risk for dumping/refeeding and make recommendations as indicated. Malnutrition Assessment: Goals 1) Pt will tolerate least restrictive dietary textures w/o further difficulty chewing/ swallowing w/ resolution of thrush 2) Adequate po intake to replete lean body mass , support wt gain and hydration status 3) Improve fluid/electrolyte balance w/ adequate po intake and repletion PRN w/o dumping/ refeeding 4) Maintain bowel regularity w/ adequate po intake and antidiarrheals PRN w/o exac of diarrhea/development of constipation Result Diagrams: 04/11/19 11:58 04/11/19 05:24 Assess/Plan/Problems-Billing Assessment: Mr. Mcrae is a 53 yo M with PMH of PCP pneumocystis PNA, cryptococcus meningitis , HIV/AIDS and poor compliance with HAART therapy as an outpatient; that presented with dysphagia, malnutrition and general weakness. - Patient Problems (1) Esophagitis Code(s): K20.9 - ESOPHAGITIS, UNSPECIFIED Comment: - Recurrent oroesophageal thrush 2/2 progressing AIDS - Appreciate GI consult; EGD yesterday showing severe errosive esophagitis and gastric ulcer - Advance to soft diet today - Continue pantoprazole (2) Transaminitis Code(s): R74.0 - NONSPEC ELEV OF LEVELS OF TRANSAMNS & LACTIC ACID DEHYDRGNSE Comment: - Slowly trending down - Etiology unclear; differentials include starvation-induced hepatocyte autophagy given profound malnourished state, medication related 2/2 diflucan, or CMV infection - US liver normal - Appreciate GI consult; if LFTs not improving or worsening, will need liver biopsy - Continue to trend (3) Severe protein-calorie malnutrition Code(s): E43 - UNSPECIFIED SEVERE PROTEIN-CALORIE MALNUTRITION Comment: - BMI 13 - Severe wasting and inability for oral intake and no solid foods 2/2 dysphagia and pain - Nutrition consulted - Continue Marinol (4) Anemia Code(s): D64.9 - ANEMIA, UNSPECIFIED Comment: - In the setting of recent NSAID use and esophagitis - Hgb remains stable at 9 - Serial H&H (5) AIDS Comment: - CD4 count 35 - Pending HIV1 genotype - Appreciate ID consult - Continue Truvada, Isentress (6) Diarrhea Code(s): R19.7 - DIARRHEA, UNSPECIFIED Comment: - Recurrent, similar presentation from last month with no infective etiologies found; concern for HIV replication - Pending stool studies - Continue IVF (7) DVT prophylaxis Code(s): Z29.9 - ENCOUNTER FOR PROPHYLACTIC MEASURES, UNSPECIFIED Comment: - Heparin SQ (8) DNR (do not resuscitate) Comment: Status and Disposition: Inpatient for anemia and severe esophagitis. Anticipate d/c home when medically stable. Attending: Sofia Peterson
[2019-04-11] MEDS: Diphenoxylat/Atrop 2.5-0.025M* 1 TAB PO PRN (19:56)
[2019-04-11] MEDS: Tenofovir/Emtricitab 200/300 * TAB PO SCH (21:31)
[2019-04-11] MEDS: Melatonin 3 MG TAB PO SCH (21:31)
[2019-04-11] MEDS: Acetaminophen TAB* 325 MG PO PRN (23:18)
[2019-04-12 00:50] LABS: Hematocrit 27 % (42-52); Hemoglobin 9.2 g/dL (14.0-18.0)
[2019-04-12] MEDS: HYDROmorphone INJ1* 1 MG/ML SYRINGE IV SLOW PU PRN ×6 (01:41→22:35)
[2019-04-12] MEDS: Pantoprazole* 80 mg IN NS 80 MG/250 ML BAG IV SCH ×3 (01:41→22:38)
[2019-04-12] MEDS: D5W 1/2 NS 1000 ML BAG* 1,000 ML IV SCH ×2 (01:47→14:25)
[2019-04-12] MEDS: Heparin VIAL(*) 5000 UNITS/ML VIAL (FIVE THOUSAND) SUBCUT SCH ×3 (04:31→22:51)
[2019-04-12 07:16] LABS: Hematocrit 27 % (42-52); Hemoglobin 9.1 g/dL (14.0-18.0)
[2019-04-12 07:26] LABS: Albumin 1.7 g/dL (3.2-5.2); Albumin/Globulin Ratio 0.8 (1-3); BUN/Creatinine Ratio 23.8 (8-20); Calcium 6.8 mg/dL (8.6-10.3); EGFR African American 257.4 (>60); EGFR Non-African American 212.7 (>60); Globulin 2.2 g/dL (2-4); Potassium 3.1 mmol/L (3.5-5.0); Total Bilirubin 0.4 mg/dL (0.2-1.0); Total Protein 3.9 g/dL (6.4-8.9)
[2019-04-12] MEDS: Acetaminophen TAB* 325 MG PO PRN ×2 (07:36→16:39)
[2019-04-12] MEDS: Dronabinol CAP* 2.5 MG PO SCH ×3 (07:36→16:38)
[2019-04-12] MEDS: Raltegravir* 400 MG TAB PO SCH ×2 (07:43→20:26)
[2019-04-12] MEDS: Magic M W2 Ben/Maal/Nyst/Lido* 240 ML MOUTHWASH (alt formulation) SWISH SWAL SCH ×4 (07:43→20:25)
[2019-04-12] MEDS: Clotrimazole 1% CREAM* 45 GM TOPICAL SCH ×2 (07:44→22:50)
[2019-04-12] MEDS: Anidulafungin* 100 MG in NS 0.9% 100 ML* 100 ML IVPB SCH (09:21)
[2019-04-12 12:14] LABS: Hematocrit 27 % (42-52); Hemoglobin 9.2 g/dL (14.0-18.0)
--- NOTE | 2019-04-12 14:08 | PN ---
Subjective Date of Service: 04/12/19 Interval History: Mr. Mcrae is feeling fine today. He continues to c/o constant pain, mostly oral. He has been able to drink Ensure, but has not been eating anything else. Magic mouth wash is helpful for only short periods of time. Denies CP, SOB, N/V. Nursing called this morning to report patient was requesting additional pain medication. Family History: Unchanged from Admission Social History: Unchanged from Admission Past Medical History: Unchanged from Admission Objective Active Medications: Acetaminophen (Tylenol Tab*) 650 mg PO Q6H PRN MILD PAIN or TEMP > 100.4 Clotrimazole (Clotrimazole 1%*) 1 applic TOPICAL BID [facility] Diphenoxylate HCl/Atropine (Lomotil Tab*) 1 tab PO BID PRN [facility] Dronabinol (Marinol Cap*) 5 mg PO TID AC [facility] Emtricitabine/Tenofovir (Truvada 200/300 Mg*) 1 tab PO BEDTIME [facility]; Protocol Heparin Sodium (Porcine) (Heparin Vial(*)) 5,000 units SUBCUT Q8HR [facility] Hydromorphone HCl (Dilaudid Inj1s*) 1 mg IV SLOW PU Q4H PRN PAIN - SEVERE Anidulafungin 100 mg/ Sodium (Chloride) 130 mls @ 65 mls/hr IVPB Q24H [facility] Dextrose/Sodium Chloride (D5w 1/2 Ns 1000 Ml Bag*) 1,000 mls @ 100 mls/hr IV PER RATE [facility] Pantoprazole Sodium (Protonix Iv Bag*) 80 mg in 250 mls @ 25 mls/hr IV Q10H [facility] Melatonin (Melatonin) 3 mg PO BEDTIME [facility] Multi-Ingredient Mouthwash/Gargle (Magic M W2 Tarik/Maal/Nyst/Lido*) 5 ml SWISH SWAL QID [facility] Ondansetron HCl (Zofran Inj*) 4 mg IV Q6H PRN NAUSEA Raltegravir (Isentress*) 400 mg PO BID [facility]; Protocol Vital Signs - 8 hr 04/12/19 04/12/19 04/12/19 06:09 07:36 08:00 Temperature 98.3 F Pulse Rate 88 Respiratory 24 18 18 Rate Blood Pressure 89/58 (mmHg) O2 Sat by Pulse 98 Oximetry 04/12/19 04/12/19 04/12/19 10:17 11:25 11:41 Temperature 98.3 F Pulse Rate 86 Respiratory 18 16 18 Rate Blood Pressure 87/53 (mmHg) O2 Sat by Pulse 99 Oximetry Oxygen Devices in Use Now: None Appearance: Middle-aged cachectic male laying in bed in NAD Ears/Nose/Mouth/Throat: Mucous Membranes Moist Neck: NL Appearance and Movements; NL JVP, Trachea Midline Respiratory: Symmetrical Chest Expansion and Respiratory Effort, Clear to Auscultation Cardiovascular: NL Sounds; No Murmurs; No JVD, RRR Abdominal: NL Sounds; No Tenderness; No Distention Extremities: No Edema Neurological: Alert and Oriented x 3 Lines/Tubes/Other Access: Clean, Dry and Intact Peripheral IV Nutrition: Taking PO's - Nutrition: Malnutrition Diagnosis/Plan Malnutrition Assessment by Registered Dietitian: Malnutrition Assessment Clinical Characteristics Chronic,Severe Malnutrition Assessment: Muscle Wasting - Temporal muscle wasting ( severe Criteria ) Fat Pad Wasting - Buccal fat pad wasting ( severe ) Inadequate Oral Intake - Pt reports poor appetite w/ odynophagia 2/2 thrush x1 mo - anticipate meeting <75% nutrient needs x1 mo Unintentional Weight Loss - Pt reports a 20lb wt loss x1 mo; current wt 99lb, prev wt 116lb x1 mo. ago - 14.6% loss x1 mo (severe) Underweight - BMI 13.9 Malnutrition Assessment: Nutritional Supplementals/Nourishments - Will Interventions continue to send [place] Ensure Enlive ( 350kcal, 20g prot/serv) x5 daily to optimize kcal/prot intake and promote wt gain; will monitor continued acceptance. GI Related - Will monitor GI s/sx for impact on intake. Labs - Will monitor labs closely given pt's risk for dumping/refeeding and make recommendations as indicated. Malnutrition Assessment: Goals 1) Pt will tolerate least restrictive dietary textures w/o further difficulty chewing/ swallowing w/ resolution of thrush 2) Adequate po intake to replete lean body mass , support wt gain and hydration status 3) Improve fluid/electrolyte balance w/ adequate po intake and repletion PRN w/o dumping/ refeeding 4) Maintain bowel regularity w/ adequate po intake and antidiarrheals PRN w/o exac of diarrhea/development of constipation Result Diagrams: 04/12/19 12:00 04/12/19 06:45 Assess/Plan/Problems-Billing Assessment: Mr. Mcrae is a 53 yo M with PMH of PCP pneumocystis PNA, cryptococcus meningitis , HIV/AIDS and poor compliance with HAART therapy as an outpatient; that presented with dysphagia, malnutrition and general weakness. - Patient Problems (1) Esophagitis Code(s): K20.9 - ESOPHAGITIS, UNSPECIFIED Comment: - Recurrent oroesophageal thrush 2/2 progressing AIDS - Appreciate GI consult; EGD yesterday showing severe errosive esophagitis and gastric ulcer - Soft diet as tolerated - Continue pantoprazole (2) Transaminitis Code(s): R74.0 - NONSPEC ELEV OF LEVELS OF TRANSAMNS & LACTIC ACID DEHYDRGNSE Comment: - Slowly trending down - Etiology unclear; differentials include starvation-induced hepatocyte autophagy given profound malnourished state, medication related 2/2 diflucan, or CMV infection - US liver normal - Appreciate GI consult; if LFTs not improving or worsening, will need liver biopsy - Continue to trend (3) Severe protein-calorie malnutrition Code(s): E43 - UNSPECIFIED SEVERE PROTEIN-CALORIE MALNUTRITION Comment: - BMI 13 - Severe wasting and inability for oral intake and no solid foods 2/2 dysphagia and pain - Nutrition consulted - Continue Marinol (4) Anemia Code(s): D64.9 - ANEMIA, UNSPECIFIED Comment: - In the setting of recent NSAID use and esophagitis - Hgb remains stable at 9 - Serial H&H (5) AIDS Comment: - CD4 count 277, up from 31 last month since restarting medication - Pending HIV1 genotype - Appreciate ID consult - Continue Truvjarred Isentress (6) Diarrhea Code(s): R19.7 - DIARRHEA, UNSPECIFIED Comment: - Recurrent, similar presentation from last month with no infective etiologies found; concern for HIV replication - Pending stool studies - Continue IVF (7) DVT prophylaxis Code(s): Z29.9 - ENCOUNTER FOR PROPHYLACTIC MEASURES, UNSPECIFIED Comment: - Heparin SQ (8) DNR (do not resuscitate) Comment: Status and Disposition: Inpatient for anemia and severe esophagitis. Anticipate d/c home when medically stable. Attending: Francia Yanez
[2019-04-12] MEDS: KCL 20 MEQ/100 ML IVPREMIX* 20 MEQ/100 ML BAG IV SCH ×2 (14:25→16:38)
[2019-04-12 16:31] LABS: Herpes Simplex IgM Screen Reactive (Negative)
[2019-04-12 18:24] LABS: Hematocrit 26 % (42-52)
[2019-04-12] MEDS: Tenofovir/Emtricitab 200/300 * TAB PO SCH (20:26)
[2019-04-12] MEDS: Melatonin 3 MG TAB PO SCH (22:50)
[2019-04-13] MEDS: Acetaminophen TAB* 325 MG PO PRN ×2 (01:21→09:21)
[2019-04-13] MEDS: D5W 1/2 NS 1000 ML BAG* 1,000 ML IV SCH ×3 (01:22→22:10)
[2019-04-13] MEDS ORDERED: HYDROmorphone INJ1* 1 MG/ML SYRINGE IV SLOW PU ONE (01:41)
[2019-04-13] MEDS: Heparin VIAL(*) 5000 UNITS/ML VIAL (FIVE THOUSAND) SUBCUT SCH ×3 (04:25→21:05)
[2019-04-13] MEDS: HYDROmorphone INJ1* 1 MG/ML SYRINGE IV SLOW PU PRN ×6 (06:08→22:50)
[2019-04-13 06:34] LABS: ABS Lymphocytes 1.1 10^3/ul (1.0-4.8); ABS Monocytes 0.3 10^3/ul (0-0.8); ABS Neutrophils 6.5 10^3/ul (1.5-7.7); Eosinophil % 0.4 %; Hematocrit 26 % (42-52); Lymphocyte % 13.8 %; Mean Corpuscular HGB Conc 34 g/dL (31-36); Mean Corpuscular Hemoglobin 30 pg (27-31); Mean Corpuscular Volume 86 fL (80-94); Mean Platelet Volume 8.3 fL (7.4-10.4); Platelet Count 355 10^3/uL (150-450); Red Blood Count 3.03 10^6 /uL (4.18-5.48); Red Cell Distribution Width 15 % (10-15)
[2019-04-13 06:54] LABS: Albumin 1.7 g/dL (3.2-5.2); Albumin/Globulin Ratio 0.7 (1-3); BUN/Creatinine Ratio 33.3 (8-20); Calcium 6.8 mg/dL (8.6-10.3); Globulin 2.4 g/dL (2-4); Potassium 3.4 mmol/L (3.5-5.0); Total Bilirubin 0.3 mg/dL (0.2-1.0); Total Protein 4.1 g/dL (6.4-8.9)
[2019-04-13] MEDS: Magic M W2 Ben/Maal/Nyst/Lido* 240 ML MOUTHWASH (alt formulation) SWISH SWAL SCH ×4 (07:42→22:12)
[2019-04-13] MEDS: Dronabinol CAP* 2.5 MG PO SCH ×3 (07:42→16:54)
[2019-04-13] MEDS: Raltegravir* 400 MG TAB PO SCH ×2 (07:42→22:11)
[2019-04-13] MEDS ORDERED: KCL 20 MEQ/100 ML IVPREMIX* 20 MEQ/100 ML BAG IV ONE (08:33)
[2019-04-13] MEDS: Anidulafungin* 100 MG in NS 0.9% 100 ML* 100 ML IVPB SCH (09:17)
[2019-04-13] MEDS: Pantoprazole* 80 mg IN NS 80 MG/250 ML BAG IV SCH ×2 (10:25→22:09)
--- NOTE | 2019-04-13 13:34 | PN ---
Subjective Date of Service: 04/13/19 Interval History: Mr. Mcrae is feeling poor today. He is having back and oral pain. He thinks the oral pain is somewhat improved. The Dilaudid is helping, but is only lasting for about 3 hours. He has been able to drink Ensure, but not tolerating other PO intake. Denies CP, SOB, N/V. No concerns from nursing. Family History: Unchanged from Admission Social History: Unchanged from Admission Past Medical History: Unchanged from Admission Objective Active Medications: Acetaminophen (Tylenol Tab*) 650 mg PO Q6H PRN MILD PAIN or TEMP > 100.4 Clotrimazole (Clotrimazole 1%*) 1 applic TOPICAL BID [facility] Diphenoxylate HCl/Atropine (Lomotil Tab*) 1 tab PO BID PRN DIARRHEA Dronabinol (Marinol Cap*) 5 mg PO TID AC [facility] Emtricitabine/Tenofovir (Truvada 200/300 Mg*) 1 tab PO BEDTIME [facility]; Protocol Heparin Sodium (Porcine) (Heparin Vial(*)) 5,000 units SUBCUT Q8HR [facility] Hydromorphone HCl (Dilaudid Inj1s*) 1 mg IV SLOW PU Q3H PRN PAIN - SEVERE Anidulafungin 100 mg/ Sodium (Chloride) 130 mls @ 65 mls/hr IVPB Q24H [facility] Dextrose/Sodium Chloride (D5w 1/2 Ns 1000 Ml Bag*) 1,000 mls @ 100 mls/hr IV PER RATE [facility] Pantoprazole Sodium (Protonix Iv Bag*) 80 mg in 250 mls @ 25 mls/hr IV Q10H [facility] Melatonin (Melatonin) 3 mg PO BEDTIME [facility] Multi-Ingredient Mouthwash/Gargle (Magic M W2 Tarik/Maal/Nyst/Lido*) 5 ml SWISH SWAL QID [facility] Ondansetron HCl (Zofran Inj*) 4 mg IV Q6H PRN NAUSEA Raltegravir (Isentress*) 400 mg PO BID [facility]; Protocol Vital Signs - 8 hr 04/13/19 04/13/19 04/13/19 06:08 07:30 07:42 Temperature 98.1 F Pulse Rate 89 Respiratory 18 16 18 Rate Blood Pressure 85/57 (mmHg) O2 Sat by Pulse 99 Oximetry Oxygen Devices in Use Now: None Appearance: Middle-aged cachectic male laying in bed in NAD Ears/Nose/Mouth/Throat: Mucous Membranes Moist Neck: NL Appearance and Movements; NL JVP Respiratory: Symmetrical Chest Expansion and Respiratory Effort, Clear to Auscultation Cardiovascular: NL Sounds; No Murmurs; No JVD, RRR Abdominal: NL Sounds; No Tenderness; No Distention Extremities: No Edema Neurological: Alert and Oriented x 3 Lines/Tubes/Other Access: Clean, Dry and Intact Peripheral IV Nutrition: Taking PO's - Nutrition: Malnutrition Diagnosis/Plan Malnutrition Assessment by Registered Dietitian: Malnutrition Assessment Clinical Characteristics Chronic,Severe Malnutrition Assessment: Muscle Wasting - Temporal muscle wasting ( severe Criteria ) Fat Pad Wasting - Buccal fat pad wasting ( severe ) Inadequate Oral Intake - Pt reports poor appetite w/ odynophagia 2/2 thrush x1 mo - anticipate meeting <75% nutrient needs x1 mo Unintentional Weight Loss - Pt reports a 20lb wt loss x1 mo; current wt 99lb, prev wt 116lb x1 mo. ago - 14.6% loss x1 mo (severe) Underweight - BMI 13.9 Malnutrition Assessment: Nutritional Supplementals/Nourishments - Will Interventions continue to send [place] Ensure Enlive ( 350kcal, 20g prot/serv) x5 daily to optimize kcal/prot intake and promote wt gain; will monitor continued acceptance. GI Related - Will monitor GI s/sx for impact on intake. Labs - Will monitor labs closely given pt's risk for dumping/refeeding and make recommendations as indicated. Malnutrition Assessment: Goals 1) Pt will tolerate least restrictive dietary textures w/o further difficulty chewing/ swallowing w/ resolution of thrush 2) Adequate po intake to replete lean body mass , support wt gain and hydration status 3) Improve fluid/electrolyte balance w/ adequate po intake and repletion PRN w/o dumping/ refeeding 4) Maintain bowel regularity w/ adequate po intake and antidiarrheals PRN w/o exac of diarrhea/development of constipation Result Diagrams: 04/13/19 06:17 04/13/19 06:17 Assess/Plan/Problems-Billing Assessment: Mr. Mcrae is a 53 yo M with PMH of PCP pneumocystis PNA, cryptococcus meningitis , HIV/AIDS and poor compliance with HAART therapy as an outpatient; that presented with dysphagia, malnutrition and general weakness. - Patient Problems (1) Esophagitis Code(s): K20.9 - ESOPHAGITIS, UNSPECIFIED Comment: - Recurrent oroesophageal thrush 2/2 progressing AIDS and opportunistic infection - Appreciate GI consult; EGD showing severe errosive esophagitis and gastric ulcer - Appreciate ID consult; recommends continuing antifungal until biopsies are resulted - Biopsies pending, but differentials are Deb vs HSV - Soft diet as tolerated - Continue pantoprazole, anidulafungin (2) Transaminitis Code(s): R74.0 - NONSPEC ELEV OF LEVELS OF TRANSAMNS & LACTIC ACID DEHYDRGNSE Comment: - Slowly trending down - Etiology unclear; differentials include starvation-induced hepatocyte autophagy given profound malnourished state, medication related 2/2 diflucan, or CMV infection - US liver normal - Appreciate GI consult; if LFTs not improving or worsening, will need liver biopsy - Continue to trend (3) Severe protein-calorie malnutrition Code(s): E43 - UNSPECIFIED SEVERE PROTEIN-CALORIE MALNUTRITION Comment: - BMI 13 - Severe wasting and inability for oral intake and no solid foods 2/2 dysphagia and pain - Nutrition consulted - Continue Marinol (4) Anemia Code(s): D64.9 - ANEMIA, UNSPECIFIED Comment: - In the setting of recent NSAID use and esophagitis - Hgb remains stable at 9 - Serial H&H (5) AIDS Comment: - CD4 count 277, up from 31 last month since restarting medication - Pending HIV1 genotype - Appreciate ID consult - Continue Truvada, Isentress (6) Diarrhea Code(s): R19.7 - DIARRHEA, UNSPECIFIED Comment: - Recurrent, similar presentation from last month with no infective etiologies found; concern for HIV replication - Pending stool studies - Continue IVF (7) DVT prophylaxis Code(s): Z29.9 - ENCOUNTER FOR PROPHYLACTIC MEASURES, UNSPECIFIED Comment: - Heparin SQ (8) DNR (do not resuscitate) Comment: Status and Disposition: Inpatient for anemia and severe esophagitis. Would likely benefit from palliative care consult. Anticipate d/c home when medically stable. Attending: Ulysses Bill
[2019-04-13] MEDS: Clotrimazole 1% CREAM* 45 GM TOPICAL SCH ×2 (14:01→21:03)
[2019-04-13 16:02] LABS: Herpes Simplex IgM IFA Negative (Negative)
[2019-04-13 16:15] LABS: HIV-1 RNA (PCR) 36 copies/mL (Undetected)
[2019-04-13] MEDS: Tenofovir/Emtricitab 200/300 * TAB PO SCH (22:11)
[2019-04-13] MEDS: Melatonin 3 MG TAB PO SCH (22:20)
[2019-04-14] MEDS: Acetaminophen TAB* 325 MG PO PRN ×3 (01:12→19:49)
[2019-04-14] MEDS: HYDROmorphone INJ1* 1 MG/ML SYRINGE IV SLOW PU PRN ×8 (01:59→23:23)
[2019-04-14] MEDS: Heparin VIAL(*) 5000 UNITS/ML VIAL (FIVE THOUSAND) SUBCUT SCH ×3 (04:31→22:10)
[2019-04-14 06:56] LABS: ABS Monocytes 0.3 10^3/ul (0-0.8); ABS Neutrophils 6.6 10^3/ul (1.5-7.7); Eosinophil % 0.5 %; Hematocrit 26 % (42-52); Lymphocyte % 12.9 %; Mean Corpuscular HGB Conc 35 g/dL (31-36); Mean Corpuscular Hemoglobin 30 pg (27-31); Mean Corpuscular Volume 86 fL (80-94); Mean Platelet Volume 8.9 fL (7.4-10.4); Platelet Count 330 10^3/uL (150-450); Red Blood Count 3.01 10^6 /uL (4.18-5.48); Red Cell Distribution Width 16 % (10-15)
[2019-04-14 07:22] LABS: ALT 189 U/L (7-52); AST 127 U/L (13-39); Albumin 1.7 g/dL (3.2-5.2); Albumin/Globulin Ratio 0.7 (1-3); Alkaline Phosphatase 200 U/L (34-104); Anion Gap 3 mmol/L (2-11); Blood Urea Nitrogen 9 mg/dL (6-24); CO2 Carbon Dioxide 29 mmol/L (22-32); Calcium 6.7 mg/dL (8.6-10.3); Chloride 104 mmol/L (101-111); EGFR African American 379.5 (>60); EGFR Non-African American 313.6 (>60); Globulin 2.3 g/dL (2-4); Glucose 107 mg/dL (70-100); Potassium 3.3 mmol/L (3.5-5.0); Sodium 136 mmol/L (135-145)
[2019-04-14] MEDS: Dronabinol CAP* 2.5 MG PO SCH ×3 (07:53→16:39)
[2019-04-14] MEDS: Magic M W2 Ben/Maal/Nyst/Lido* 240 ML MOUTHWASH (alt formulation) SWISH SWAL SCH ×4 (07:54→22:02)
[2019-04-14] MEDS: Raltegravir* 400 MG TAB PO SCH ×2 (07:54→22:01)
[2019-04-14] MEDS: Pantoprazole* 80 mg IN NS 80 MG/250 ML BAG IV SCH ×3 (10:14→22:08)
[2019-04-14] MEDS: Clotrimazole 1% CREAM* 45 GM TOPICAL SCH ×2 (10:15→21:56)
[2019-04-14] MEDS ORDERED: Pantoprazole* 80 mg IN NS 80 MG/250 ML BAG IV SCH (10:30)
[2019-04-14] MEDS: Anidulafungin* 100 MG in NS 0.9% 100 ML* 100 ML IVPB SCH (10:58)
--- NOTE | 2019-04-14 12:33 | PN ---
Progress Note - Progress Note Date of Service: 04/14/19 SOAP: Subjective: CC: Oroesophageal thrush and HIV HPI: Mr. Mcrae is a 53 yo male with PMH significant for AIDS/HIV, hx pneumocystis PNA, and hx cryptococcal meningitis. States that he is starting to feel better and the pain in his mouth and throat is slowly improving. He is eating, and [facility] [place] [facility] staff report he is gaining weight (I am suspicious that all the weights are not accurate, because he is reported to have gained 24 pounds since admission). Denies fever, chills, nausea, vomiting, or diarrhea. He had his first normal BM this AM in 3 months. Objective: Vital Signs - 8 hr 04/14/19 04/14/19 04/14/19 11:06 11:15 11:24 Temperature 98.1 F Pulse Rate 93 Respiratory 18 18 18 Rate Blood Pressure 110/52 (mmHg) O2 Sat by Pulse 99 Oximetry Physical Exam: General: NAD, chronically ill appearing, laying in bed Neurological: Alert and Oriented x4 HEENT: Moist MM, thrush noted to the tongue Cardiovascular: Heart rate regular Respiratory: Lung sounds clear bilatera Abdominal: Bowel sounds present; ABD soft, non tender and non distended Skin: No rash Laboratory Results - last 24 hr 04/09/19 04/10/19 04/14/19 05:26 04:27 06:04 WBC 8.0 RBC 3.01 L Hgb 9.0 L Hct 26 L MCV 86 MCH 30 MCHC 35 RDW 16 H Plt Count 330 MPV 8.9 Neut % (Auto) 82.5 Lymph % (Auto) 12.9 [place] % (Auto) 3.8 Eos % (Auto) 0.5 Baso % (Auto) 0.3 Absolute Neuts (auto) 6.6 Absolute Lymphs (auto) 1.0 Absolute Monos (auto) 0.3 Absolute Eos (auto) 0.0 Absolute Basos (auto) 0.0 Absolute Nucleated RBC 0.0 Nucleated RBC % 0.0 Alkaline Phosphatase HSV IgM Ab Screen Reactive HSV IgM Ab (IFA) Negative HIV-1 RNA (PCR) 36 A HIV-1 Int Raltegravir Not Reportable HIV-1 Int Elvitegravir Not Reportable HIV Dolutegravir Resist Not Reportable HIV-1 Last Viral Load Dt Not Reportable HIV-1 Last Viral Load TNP 04/14/19 06:04 Sodium 136 Potassium 3.3 L Chloride 104 Carbon Dioxide 29 Anion Gap 3 BUN 9 Creatinine < 0.30 L Est GFR ( Amer) 379.5 Est GFR (Non-Af Amer) 313.6 BUN/Creatinine Ratio 30.0 H Glucose 107 H Calcium 6.7 L Total Bilirubin 0.30 AST 127 H ALT 189 H Alkaline Phosphatase 200 H Total Protein 4.0 L Albumin 1.7 L Globulin 2.3 Albumin/Globulin Ratio 0.7 L Assessment: 1. AIDs with wasting. CD4 count is 277, up from 31 last month. HIV viral load 36. Integrase inhibitor genotypes testing not run as viral load is below 500. 2. Oroesophageal thrush. EGD showed ulcer 3. Transaminitis. Normal imaging, improving slowly 4. Severe malnutrition. Secondary to AIDs Plan: Continue Truvada and Isentress. Continue anidulafungin for now.
[2019-04-14] MEDS: D5W 1/2 NS 1000 ML BAG* 1,000 ML IV SCH ×2 (14:13→22:19)
--- NOTE | 2019-04-14 15:15 | PN ---
Subjective Date of Service: 04/14/19 Interval History: Mr. Mcrae is feeling overall better today. Pain is improved. Oral ulcers are improving, but still present toward the back of his mouth. Drinking Ensure. Denies CP, SOB, N/V. Had a solid BM today. He was very happy to hear about his increased CD4 count. He admits that he made a bad decision by not taking his HIV medications. No concerns from nursing. Family History: Unchanged from Admission Social History: Unchanged from Admission Past Medical History: Unchanged from Admission Objective Active Medications: Acetaminophen (Tylenol Tab*) 650 mg PO Q6H PRN MILD PAIN or TEMP > 100.4 Clotrimazole (Clotrimazole 1%*) 1 applic TOPICAL BID [facility] Diphenoxylate HCl/Atropine (Lomotil Tab*) 1 tab PO BID PRN DIARRHEA Dronabinol (Marinol Cap*) 5 mg PO TID AC [facility] Emtricitabine/Tenofovir (Truvada 200/300 Mg*) 1 tab PO BEDTIME [facility]; Protocol Heparin Sodium (Porcine) (Heparin Vial(*)) 5,000 units SUBCUT Q8HR [facility] Hydromorphone HCl (Dilaudid Inj1s*) 1 mg IV SLOW PU Q3H PRN PAIN - SEVERE Anidulafungin 100 mg/ Sodium (Chloride) 130 mls @ 65 mls/hr IVPB Q24H [facility] Dextrose/Sodium Chloride (D5w 1/2 Ns 1000 Ml Bag*) 1,000 mls @ 100 mls/hr IV PER RATE [facility] Pantoprazole Sodium (Protonix Iv Bag*) 80 mg in 250 mls @ 25 mls/hr IV Q10H [facility] Melatonin (Melatonin) 3 mg PO BEDTIME [facility] Multi-Ingredient Mouthwash/Gargle (Magic M W2 Tarik/Maal/Nyst/Lido*) 5 ml SWISH SWAL QID [facility] Ondansetron HCl (Zofran Inj*) 4 mg IV Q6H PRN NAUSEA Raltegravir (Isentress*) 400 mg PO BID [facility]; Protocol Vital Signs - 8 hr 04/14/19 04/14/19 04/14/19 07:53 08:00 08:07 Temperature Pulse Rate Respiratory 20 18 20 Rate Blood Pressure (mmHg) O2 Sat by Pulse Oximetry 04/14/19 04/14/19 04/14/19 09:07 09:53 11:06 Temperature Pulse Rate Respiratory 18 18 18 Rate Blood Pressure (mmHg) O2 Sat by Pulse Oximetry 04/14/19 04/14/19 04/14/19 11:15 11:24 12:06 Temperature 98.1 F Pulse Rate 93 Respiratory 18 18 18 Rate Blood Pressure 110/52 (mmHg) O2 Sat by Pulse 99 Oximetry Oxygen Devices in Use Now: None Appearance: Middle-aged cachectic male laying in bed in NAD Ears/Nose/Mouth/Throat: Mucous Membranes Moist Neck: NL Appearance and Movements; NL JVP, Trachea Midline Respiratory: Symmetrical Chest Expansion and Respiratory Effort, Clear to Auscultation Cardiovascular: NL Sounds; No Murmurs; No JVD, RRR Abdominal: NL Sounds; No Tenderness; No Distention Extremities: No Edema Neurological: Alert and Oriented x 3 Lines/Tubes/Other Access: Clean, Dry and Intact Peripheral IV Nutrition: Taking PO's - Nutrition: Malnutrition Diagnosis/Plan Malnutrition Assessment by Registered Dietitian: Malnutrition Assessment Clinical Characteristics Chronic,Severe Malnutrition Assessment: Muscle Wasting - Temporal muscle wasting ( severe Criteria ) Fat Pad Wasting - Buccal fat pad wasting ( severe ) Inadequate Oral Intake - Pt reports poor appetite w/ odynophagia 2/2 thrush x1 mo - anticipate meeting <75% nutrient needs x1 mo Unintentional Weight Loss - Pt reports a 20lb wt loss x1 mo; current wt 99lb, prev wt 116lb x1 mo. ago - 14.6% loss x1 mo (severe) Underweight - BMI 13.9 Malnutrition Assessment: Nutritional Supplementals/Nourishments - Will Interventions continue to send [place] Ensure Enlive ( 350kcal, 20g prot/serv) x5 daily to optimize kcal/prot intake and promote wt gain; will monitor continued acceptance. GI Related - Will monitor GI s/sx for impact on intake. Labs - Will monitor labs closely given pt's risk for dumping/refeeding and make recommendations as indicated. Malnutrition Assessment: Goals 1) Pt will tolerate least restrictive dietary textures w/o further difficulty chewing/ swallowing w/ resolution of thrush 2) Adequate po intake to replete lean body mass , support wt gain and hydration status 3) Improve fluid/electrolyte balance w/ adequate po intake and repletion PRN w/o dumping/ refeeding 4) Maintain bowel regularity w/ adequate po intake and antidiarrheals PRN w/o exac of diarrhea/development of constipation Result Diagrams: 04/14/19 06:04 04/14/19 06:04 Assess/Plan/Problems-Billing Assessment: Mr. Mcrae is a 53 yo M with PMH of PCP pneumocystis PNA, cryptococcus meningitis , HIV/AIDS and poor compliance with HAART therapy as an outpatient; that presented with dysphagia, malnutrition and general weakness. - Patient Problems (1) Esophagitis Code(s): K20.9 - ESOPHAGITIS, UNSPECIFIED Comment: - Recurrent oroesophageal thrush 2/2 progressing AIDS and opportunistic infection - Appreciate GI consult; EGD showing severe errosive esophagitis and gastric ulcer - Appreciate ID consult; recommends continuing antifungal until biopsies are resulted - Biopsies without any evidence of viral or fungal organisms - Soft diet as tolerated - Continue pantoprazole, anidulafungin (2) Transaminitis Code(s): R74.0 - NONSPEC ELEV OF LEVELS OF TRANSAMNS & LACTIC ACID DEHYDRGNSE Comment: - Slowly trending down - Etiology unclear; differentials include starvation-induced hepatocyte autophagy given profound malnourished state, medication related 2/2 diflucan, or CMV infection - US liver normal - Appreciate GI consult; if LFTs not improving or worsening, will need liver biopsy - Continue to trend (3) Severe protein-calorie malnutrition Code(s): E43 - UNSPECIFIED SEVERE PROTEIN-CALORIE MALNUTRITION Comment: - BMI 13 - Severe wasting and inability for oral intake and no solid foods 2/2 dysphagia and pain - Nutrition consulted - Continue Marinol (4) Anemia Code(s): D64.9 - ANEMIA, UNSPECIFIED Comment: - In the setting of recent NSAID use and esophagitis - Hgb remains stable at 9 - Serial H&H (5) AIDS Comment: - CD4 count 277, up from 31 last month since restarting medication - Pending HIV1 genotype - Appreciate ID consult - Continue Truvjarred Isentress (6) Diarrhea Code(s): R19.7 - DIARRHEA, UNSPECIFIED Comment: - Recurrent, similar presentation from last month with no infective etiologies found; concern for HIV replication - Pending stool studies - Continue IVF (7) DVT prophylaxis Code(s): Z29.9 - ENCOUNTER FOR PROPHYLACTIC MEASURES, UNSPECIFIED Comment: - Heparin SQ (8) DNR (do not resuscitate) Comment: Status and Disposition: Inpatient for anemia and severe esophagitis. Anticipate d/c home when medically stable, but he is homeless. Attending: Dona Feng
[2019-04-14] MEDS ORDERED: KCL 20 MEQ/100 ML IVPREMIX* 20 MEQ/100 ML BAG IV ONE (15:30)
[2019-04-14] MEDS: Tenofovir/Emtricitab 200/300 * TAB PO SCH (22:01)
[2019-04-14] MEDS: Melatonin 3 MG TAB PO SCH (22:03)
[2019-04-14] MEDS: Diphenoxylat/Atrop 2.5-0.025M* 1 TAB PO PRN (22:17)
[2019-04-15] MEDS: HYDROmorphone INJ1* 1 MG/ML SYRINGE IV SLOW PU PRN ×8 (02:23→23:37)
[2019-04-15] MEDS: Ondansetron INJ* 2 MG/ML VIAL IV PRN ×2 (02:31→17:58)
[2019-04-15] MEDS: Acetaminophen TAB* 325 MG PO PRN ×2 (04:25→10:41)
[2019-04-15] MEDS: Heparin VIAL(*) 5000 UNITS/ML VIAL (FIVE THOUSAND) SUBCUT SCH ×3 (05:40→20:59)
[2019-04-15 06:14] LABS: ABS Lymphocytes 0.9 10^3/ul (1.0-4.8); ABS Monocytes 0.3 10^3/ul (0-0.8); ABS Neutrophils 6.4 10^3/ul (1.5-7.7); Eosinophil % 0.5 %; Hematocrit 26 % (42-52); Hemoglobin 8.7 g/dL (14.0-18.0); Lymphocyte % 11.5 %; Mean Corpuscular HGB Conc 34 g/dL (31-36); Mean Corpuscular Hemoglobin 29 pg (27-31); Mean Corpuscular Volume 87 fL (80-94); Mean Platelet Volume 9.1 fL (7.4-10.4); Platelet Count 318 10^3/uL (150-450); Red Blood Count 2.95 10^6 /uL (4.18-5.48); Red Cell Distribution Width 16 % (10-15); White Blood Count 7.7 10^3/uL (3.5-10.8)
[2019-04-15 06:29] LABS: ALT 180 U/L (7-52); AST 122 U/L (13-39); Albumin 1.7 g/dL (3.2-5.2); Albumin/Globulin Ratio 0.7 (1-3); Alkaline Phosphatase 215 U/L (34-104); Anion Gap 2 mmol/L (2-11); Blood Urea Nitrogen 10 mg/dL (6-24); CO2 Carbon Dioxide 30 mmol/L (22-32); Calcium 6.8 mg/dL (8.6-10.3); Chloride 102 mmol/L (101-111); EGFR African American 379.5 (>60); EGFR Non-African American 313.6 (>60); Globulin 2.6 g/dL (2-4); Glucose 108 mg/dL (70-100); Magnesium 1.3 mg/dL (1.9-2.7); Potassium 3.2 mmol/L (3.5-5.0); Sodium 134 mmol/L (135-145); Total Protein 4.3 g/dL (6.4-8.9)
[2019-04-15] MEDS: Magic M W2 Ben/Maal/Nyst/Lido* 240 ML MOUTHWASH (alt formulation) SWISH SWAL SCH ×4 (08:44→20:56)
[2019-04-15] MEDS: Raltegravir* 400 MG TAB PO SCH ×2 (08:45→20:51)
[2019-04-15] MEDS: Dronabinol CAP* 2.5 MG PO SCH ×3 (08:45→17:19)
[2019-04-15] MEDS: Clotrimazole 1% CREAM* 45 GM TOPICAL SCH ×2 (10:05→20:58)
[2019-04-15] MEDS: Anidulafungin* 100 MG in NS 0.9% 100 ML* 100 ML IVPB SCH (10:19)
[2019-04-15] MEDS: Pantoprazole* 80 mg IN NS 80 MG/250 ML BAG IV SCH ×2 (10:19→21:18)
[2019-04-15] MEDS: Diphenoxylat/Atrop 2.5-0.025M* 1 TAB PO PRN (10:29)
--- NOTE | 2019-04-15 15:29 | PN ---
Subjective Date of Service: 04/15/19 Interval History: Patient seen and examined. No acute overnight events. Patient had a formed BM, denies fever or chills. Complaining still of throat pain and difficulty swallowing. States he still feels like he will have difficulty with solid food. No further complaints. Family History: Unchanged from Admission Social History: Unchanged from Admission Past Medical History: Unchanged from Admission Objective Active Medications: Acetaminophen (Tylenol Tab*) 650 mg PO Q6H PRN PRN Reason: MILD PAIN or TEMP > 100.4 Last Admin: 04/15/19 10:41 Dose: 650 mg Clotrimazole (Clotrimazole 1%*) 1 applic TOPICAL BID [facility] Last Admin: 04/15/19 10:05 Dose: Not Given Diphenoxylate HCl/Atropine (Lomotil Tab*) 1 tab PO BID PRN PRN Reason: DIARRHEA Last Admin: 04/15/19 10:29 Dose: 1 tab Dronabinol (Marinol Cap*) 5 mg PO TID AC [facility] Last Admin: 04/15/19 11:50 Dose: 5 mg Emtricitabine/Tenofovir (Truvada 200/300 Mg*) 1 tab PO BEDTIME [facility]; Protocol Last Admin: 04/14/19 22:01 Dose: 1 tab Heparin Sodium (Porcine) (Heparin Vial(*)) 5,000 units SUBCUT Q8HR [facility] Last Admin: 04/15/19 14:43 Dose: Not Given Hydromorphone HCl (Dilaudid Inj1s*) 1 mg IV SLOW PU Q3H PRN PRN Reason: PAIN - SEVERE Last Admin: 04/15/19 14:51 Dose: 1 mg Anidulafungin 100 mg/ Sodium (Chloride) 130 mls @ 65 mls/hr IVPB Q24H [facility] Last Admin: 04/15/19 10:19 Dose: 65 mls/hr Pantoprazole Sodium (Protonix Iv Bag*) 80 mg in 250 mls @ 25 mls/hr IV Q10H [facility] Last Admin: 04/15/19 10:19 Dose: 25 mls/hr Dextrose/Sodium Chloride (D5w 1/2 Ns 1000 Ml Bag*) 1,000 mls @ 50 mls/hr IV PER RATE [facility] Last Admin: 04/14/19 22:19 Dose: 50 mls/hr Melatonin (Melatonin) 3 mg PO BEDTIME [facility] Last Admin: 04/14/19 22:03 Dose: Not Given Multi-Ingredient Mouthwash/Gargle (Magic M W2 Tarik/Maal/Nyst/Lido*) 5 ml SWISH SWAL QID [facility] Last Admin: 04/15/19 11:49 Dose: 5 ml Ondansetron HCl (Zofran Inj*) 4 mg IV Q6H PRN PRN Reason: NAUSEA Last Admin: 04/15/19 02:31 Dose: 4 mg Raltegravir (Isentress*) 400 mg PO BID [facility]; Protocol Last Admin: 04/15/19 08:45 Dose: 400 mg Vital Signs - 8 hr 04/15/19 04/15/19 04/15/19 08:00 08:45 09:45 Temperature Pulse Rate Respiratory 18 18 18 Rate Blood Pressure (mmHg) O2 Sat by Pulse Oximetry 04/15/19 04/15/19 04/15/19 10:29 10:45 11:04 Temperature 98.3 F Pulse Rate 95 Respiratory 20 20 20 Rate Blood Pressure 124/65 (mmHg) O2 Sat by Pulse 96 Oximetry 04/15/19 04/15/19 04/15/19 11:49 11:50 12:29 Temperature Pulse Rate Respiratory 18 18 18 Rate Blood Pressure (mmHg) O2 Sat by Pulse Oximetry 04/15/19 04/15/19 04/15/19 13:50 14:30 14:33 Temperature Pulse Rate Respiratory 18 18 18 Rate Blood Pressure (mmHg) O2 Sat by Pulse Oximetry 04/15/19 04/15/19 14:41 14:51 Temperature Pulse Rate Respiratory 18 18 Rate Blood Pressure (mmHg) O2 Sat by Pulse Oximetry Oxygen Devices in Use Now: None Appearance: alert, emaciated, NAD Eyes: No Scleral Icterus, PERRLA Ears/Nose/Mouth/Throat: Mucous Membranes Moist Neck: NL Appearance and Movements; NL JVP, Trachea Midline Respiratory: Symmetrical Chest Expansion and Respiratory Effort, Clear to Auscultation Cardiovascular: RRR Extremities: No Edema Skin: No Nodules or Sclerosis Neurological: Alert and Oriented x 3 Nutrition: - - tolerating ensure - Nutrition: Malnutrition Diagnosis/Plan Malnutrition Assessment by Registered Dietitian: Malnutrition Assessment Clinical Characteristics Chronic,Severe Malnutrition Assessment: Muscle Wasting - Temporal muscle wasting ( severe Criteria ) Fat Pad Wasting - Buccal fat pad wasting ( severe ) Inadequate Oral Intake - Pt reports poor appetite w/ odynophagia 2/2 thrush x1 mo - anticipate meeting <75% nutrient needs x1 mo Unintentional Weight Loss - Pt reports a 20lb wt loss x1 mo; current wt 99lb, prev wt 116lb x1 mo. ago - 14.6% loss x1 mo (severe) Underweight - BMI 13.9 Malnutrition Assessment: Nutritional Supplementals/Nourishments - Will Interventions continue to send [place] Ensure Enlive ( 350kcal, 20g prot/serv) x5 daily to optimize kcal/prot intake and promote wt gain; will monitor continued acceptance. GI Related - Will monitor GI s/sx for impact on intake. Labs - Will monitor labs closely given pt's risk for dumping/refeeding and make recommendations as indicated. Malnutrition Assessment: Goals 1) Pt will tolerate least restrictive dietary textures w/o further difficulty chewing/ swallowing w/ resolution of thrush 2) Adequate po intake to replete lean body mass , support wt gain and hydration status 3) Improve fluid/electrolyte balance w/ adequate po intake and repletion PRN w/o dumping/ refeeding 4) Maintain bowel regularity w/ adequate po intake and antidiarrheals PRN w/o exac of diarrhea/development of constipation Result Diagrams: 04/15/19 05:31 04/15/19 05:31 Assess/Plan/Problems-Billing Assessment: Mr. Mcrae is a 53 yo M with PMH of PCP pneumocystis PNA, cryptococcus meningitis , HIV/AIDS and poor compliance with HAART therapy as an outpatient; that presented with dysphagia, malnutrition and general weakness. - Patient Problems (1) Esophagitis Code(s): K20.9 - ESOPHAGITIS, UNSPECIFIED SNOMED Code(s): 25517593 Comment: - Recurrent oroesophageal thrush 2/2 progressing AIDS and opportunistic infection - Appreciate GI consult; EGD showing severe errosive esophagitis and gastric ulcer - Biopsies without any evidence of viral or fungal organisms - Soft diet if tolerated - Continue pantoprazole, anidulafungin (2) Severe protein-calorie malnutrition Code(s): E43 - UNSPECIFIED SEVERE PROTEIN-CALORIE MALNUTRITION SNOMED Code(s) : 222701258 Comment: - BMI 13 at admission, question if increase to 16 is correct. Requested daily weights to be recorded accurately, discussed with primary RN - Severe wasting and inability for oral intake and no solid foods 2/2 dysphagia and pain - Nutrition consulted - Continue Marinol (3) Transaminitis Code(s): R74.0 - NONSPEC ELEV OF LEVELS OF TRANSAMNS & LACTIC ACID DEHYDRGNSE SNOMED Code(s): 345625208 Comment: - Slowly trending down - Etiology unclear; differentials include starvation-induced hepatocyte autophagy given profound malnourished state, medication related 2/2 diflucan, or CMV infection - CMV was detected, however level was <35, not likely CMV infection - US liver normal - Appreciate GI consult; if LFTs not improving or worsening, will need liver biopsy - Continue to trend (4) AIDS Comment: - CD4 count 277, up from 31 last month since restarting medication - Pending HIV1 genotype - ID following closely - Continue Truvjarred Isentress (5) Anemia Code(s): D64.9 - ANEMIA, UNSPECIFIED SNOMED Code(s): 321937211 Comment: - In the setting of recent NSAID use and esophagitis - Hgb remains stable at high 8 to 9 range - Continue protonix (6) Diarrhea Code(s): R19.7 - DIARRHEA, UNSPECIFIED SNOMED Code(s): 28313243 Comment: - Recurrent, similar presentation from last month with no infective etiologies found; concern for HIV replication - Formed stool yesterday and today, continue to monitor - Stool studies negative (7) DVT prophylaxis Code(s): Z29.9 - ENCOUNTER FOR PROPHYLACTIC MEASURES, UNSPECIFIED SNOMED Code( s): 637577792 Comment: - Heparin SQ (8) DNR (do not resuscitate) Comment: Status and Disposition: Inpatient for continued care. Dispo TBD, case management and SW following.
[2019-04-15] MEDS: D5W 1/2 NS 1000 ML BAG* 1,000 ML IV SCH (20:37)
[2019-04-15] MEDS: Melatonin 3 MG TAB PO SCH (20:39)
[2019-04-15] MEDS: Tenofovir/Emtricitab 200/300 * TAB PO SCH (20:51)
[2019-04-16] MEDS: Acetaminophen TAB* 325 MG PO PRN ×3 (01:41→08:32)
[2019-04-16] MEDS: Pantoprazole* 80 mg IN NS 80 MG/250 ML BAG IV SCH ×3 (01:43→22:18)
[2019-04-16] MEDS: HYDROmorphone INJ1* 1 MG/ML SYRINGE IV SLOW PU PRN ×6 (02:30→21:56)
[2019-04-16] MEDS: Ondansetron INJ* 2 MG/ML VIAL IV PRN ×3 (02:33→20:21)
[2019-04-16] MEDS: Heparin VIAL(*) 5000 UNITS/ML VIAL (FIVE THOUSAND) SUBCUT SCH ×3 (05:25→20:20)
[2019-04-16 06:26] LABS: Hematocrit 30 % (42-52); Hemoglobin 9.9 g/dL (14.0-18.0); Mean Corpuscular HGB Conc 33 g/dL (31-36); Mean Corpuscular Hemoglobin 29 pg (27-31); Mean Corpuscular Volume 89 fL (80-94); Mean Platelet Volume 9.5 fL (7.4-10.4); Nucleated Red Blood Cells % 0.1; Platelet Count 295 10^3/uL (150-450); Red Cell Distribution Width 16 % (10-15); White Blood Count 6.3 10^3/uL (3.5-10.8)
[2019-04-16 06:42] LABS: ALT 171 U/L (7-52); AST 112 U/L (13-39); Albumin 1.7 g/dL (3.2-5.2); Albumin/Globulin Ratio 0.6 (1-3); Alkaline Phosphatase 236 U/L (34-104); Anion Gap 5 mmol/L (2-11); Blood Urea Nitrogen 9 mg/dL (6-24); CO2 Carbon Dioxide 29 mmol/L (22-32); Chloride 100 mmol/L (101-111); EGFR African American 379.5 (>60); EGFR Non-African American 313.6 (>60); Globulin 2.7 g/dL (2-4); Glucose 121 mg/dL (70-100); Potassium 3.7 mmol/L (3.5-5.0); Sodium 134 mmol/L (135-145); Total Protein 4.4 g/dL (6.4-8.9)
[2019-04-16 06:48] LABS: ABS Basophils 0.1 10^3/ul (0-0.2); ABS Lymphocytes 1.1 10^3/ul (1.0-4.8); ABS Monocytes 0.2 10^3/ul (0-0.8); ABS Neutrophils 4.9 10^3/ul (1.5-7.7)
[2019-04-16 06:51] LABS: Platelet Morphology Large
[2019-04-16] MEDS: Raltegravir* 400 MG TAB PO SCH ×2 (08:24→20:25)
[2019-04-16] MEDS: Magic M W2 Ben/Maal/Nyst/Lido* 240 ML MOUTHWASH (alt formulation) SWISH SWAL SCH ×4 (08:30→20:23)
[2019-04-16] MEDS: Dronabinol CAP* 2.5 MG PO SCH ×3 (08:33→16:29)
[2019-04-16] MEDS: Clotrimazole 1% CREAM* 45 GM TOPICAL SCH ×2 (08:54→20:20)
[2019-04-16] MEDS: Anidulafungin* 100 MG in NS 0.9% 100 ML* 100 ML IVPB SCH (09:16)
--- NOTE | 2019-04-16 17:29 | PN ---
Subjective Date of Service: 04/16/19 Interval History: Patient seen and examined. No acute overnight events. Patient states swallowing difficulty is improving but does not feel like he can swallow whole foods yet. Denies fevers or chills, no headaches. States he has back and tailbone pain and feels like the dilaudid doesn't always help. No further complaints. Family History: Unchanged from Admission Social History: Unchanged from Admission Past Medical History: Unchanged from Admission Objective Active Medications: Acetaminophen (Tylenol Tab*) 650 mg PO Q4H PRN PRN Reason: MILD PAIN or TEMP > 100.4 Last Admin: 04/16/19 08:32 Dose: 650 mg Clotrimazole (Clotrimazole 1%*) 1 applic TOPICAL BID [facility] Last Admin: 04/16/19 08:54 Dose: Not Given Diphenoxylate HCl/Atropine (Lomotil Tab*) 1 tab PO BID PRN PRN Reason: DIARRHEA Last Admin: 04/15/19 10:29 Dose: 1 tab Dronabinol (Marinol Cap*) 5 mg PO TID AC [facility] Last Admin: 04/16/19 16:29 Dose: 5 mg Emtricitabine/Tenofovir (Truvada 200/300 Mg*) 1 tab PO BEDTIME [facility]; Protocol Last Admin: 04/15/19 20:51 Dose: 1 tab Heparin Sodium (Porcine) (Heparin Vial(*)) 5,000 units SUBCUT Q8HR [facility] Last Admin: 04/16/19 13:14 Dose: Not Given Hydromorphone HCl (Dilaudid Inj1s*) 1 mg IV SLOW PU Q3H PRN PRN Reason: PAIN - SEVERE Last Admin: 04/16/19 14:46 Dose: 1 mg Anidulafungin 100 mg/ Sodium (Chloride) 130 mls @ 65 mls/hr IVPB Q24H [facility] Last Admin: 04/16/19 09:16 Dose: 65 mls/hr Pantoprazole Sodium (Protonix Iv Bag*) 80 mg in 250 mls @ 25 mls/hr IV Q10H [facility] Last Admin: 04/16/19 10:42 Dose: 25 mls/hr Dextrose/Sodium Chloride (D5w 1/2 Ns 1000 Ml Bag*) 1,000 mls @ 50 mls/hr IV PER RATE [facility] Last Admin: 04/15/19 20:37 Dose: 50 mls/hr Melatonin (Melatonin) 3 mg PO BEDTIME [facility] Last Admin: 04/15/19 20:39 Dose: Not Given Multi-Ingredient Mouthwash/Gargle (Magic M W2 Tarik/Maal/Nyst/Lido*) 5 ml SWISH SWAL QID [facility] Last Admin: 04/16/19 16:29 Dose: 5 ml Ondansetron HCl (Zofran Inj*) 4 mg IV Q6H PRN PRN Reason: NAUSEA Last Admin: 04/16/19 08:44 Dose: 4 mg Raltegravir (Isentress*) 400 mg PO BID [facility]; Protocol Last Admin: 04/16/19 08:24 Dose: 400 mg Vital Signs - 8 hr 04/16/19 04/16/19 04/16/19 09:30 10:46 11:15 Temperature 97.4 F Pulse Rate 87 Respiratory 16 16 16 Rate Blood Pressure 123/62 (mmHg) O2 Sat by Pulse 95 Oximetry 04/16/19 04/16/19 04/16/19 11:43 13:02 14:41 Temperature Pulse Rate Respiratory 18 18 18 Rate Blood Pressure (mmHg) O2 Sat by Pulse Oximetry 04/16/19 04/16/19 04/16/19 14:46 15:40 15:43 Temperature Pulse Rate Respiratory 16 18 16 Rate Blood Pressure (mmHg) O2 Sat by Pulse Oximetry 04/16/19 04/16/19 04/16/19 16:29 16:49 17:08 Temperature Pulse Rate Respiratory 16 16 16 Rate Blood Pressure (mmHg) O2 Sat by Pulse Oximetry Oxygen Devices in Use Now: None Appearance: alert, emaciated Eyes: PERRLA Ears/Nose/Mouth/Throat: Mucous Membranes Moist Neck: NL Appearance and Movements; NL JVP, Trachea Midline Respiratory: Symmetrical Chest Expansion and Respiratory Effort, Clear to Auscultation Cardiovascular: NL Sounds; No Murmurs; No JVD, RRR, No Edema Abdominal: NL Sounds; No Tenderness; No Distention Extremities: No Clubbing, Cyanosis Skin: No Rash or Ulcers Neurological: Alert and Oriented x 3 Nutrition: - - toelrating Ensure and clears - Nutrition: Malnutrition Diagnosis/Plan Malnutrition Assessment by Registered Dietitian: Malnutrition Assessment Clinical Characteristics Chronic,Severe Malnutrition Assessment: Muscle Wasting - Temporal muscle wasting ( severe Criteria ) Fat Pad Wasting - Buccal fat pad wasting ( severe ) Inadequate Oral Intake - Pt reports poor appetite w/ odynophagia 2/2 thrush x1 mo - anticipate meeting <75% nutrient needs x1 mo Unintentional Weight Loss - Pt reports a 20lb wt loss x1 mo; current wt 99lb, prev wt 116lb x1 mo. ago - 14.6% loss x1 mo (severe) Underweight - BMI 13.9 Malnutrition Assessment: Nutritional Supplementals/Nourishments - Will Interventions continue to send [place] Ensure Enlive ( 350kcal, 20g prot/serv) x5 daily to optimize kcal/prot intake and promote wt gain; will monitor continued acceptance. GI Related - Will monitor GI s/sx for impact on intake. Labs - Will monitor labs closely given pt's risk for dumping/refeeding and make recommendations as indicated. Malnutrition Assessment: Goals 1) Pt will tolerate least restrictive dietary textures w/o further difficulty chewing/ swallowing w/ resolution of thrush 2) Adequate po intake to replete lean body mass , support wt gain and hydration status 3) Improve fluid/electrolyte balance w/ adequate po intake and repletion PRN w/o dumping/ refeeding 4) Maintain bowel regularity w/ adequate po intake and antidiarrheals PRN w/o exac of diarrhea/development of constipation Result Diagrams: 04/16/19 05:21 04/16/19 05:21 Assess/Plan/Problems-Billing Assessment: Mr. Mcrae is a 53 yo M with PMH of PCP pneumocystis PNA, cryptococcus meningitis , HIV/AIDS and poor compliance with HAART therapy as an outpatient; that presented with dysphagia, malnutrition and general weakness. - Patient Problems (1) Esophagitis Code(s): K20.9 - ESOPHAGITIS, UNSPECIFIED SNOMED Code(s): 09352417 Comment: - Recurrent oroesophageal thrush 2/2 progressing AIDS and opportunistic infection - Appreciate GI consult; EGD showing severe errosive esophagitis and gastric ulcer - Biopsies without any evidence of viral or fungal organisms - Soft diet if tolerated, continue Ensures and comfort foods - Continue pantoprazole, anidulafungin (2) Severe protein-calorie malnutrition Code(s): E43 - UNSPECIFIED SEVERE PROTEIN-CALORIE MALNUTRITION SNOMED Code(s) : 750263808 Comment: - BMI 13 at admission, question if increase to 16 is correct. Requested daily weights to be recorded accurately, discussed with primary RN, suspect weight is around 118lbs at this time - Severe wasting and inability for oral intake and no solid foods 2/2 dysphagia and pain - Nutrition consulted and following - Continue Marinol (3) Transaminitis Code(s): R74.0 - NONSPEC ELEV OF LEVELS OF TRANSAMNS & LACTIC ACID DEHYDRGNSE SNOMED Code(s): 989519318 Comment: - Slowly trending down - Etiology unclear; differentials include starvation-induced hepatocyte autophagy given profound malnourished state, medication related 2/2 diflucan, or CMV infection - CMV was detected, however level was <35, not likely CMV infection - US liver normal (4) AIDS Comment: - CD4 count 277, up from 31 last month since restarting medication - Pending HIV1 genotype - ID following closely - Continue Truvada, Isentress (5) Anemia Code(s): D64.9 - ANEMIA, UNSPECIFIED SNOMED Code(s): 706783740 Comment: - In the setting of recent NSAID use and esophagitis - Hgb remains stable at high 8 to 9 range - Continue protonix (6) Diarrhea Code(s): R19.7 - DIARRHEA, UNSPECIFIED SNOMED Code(s): 93144757 Comment: - Recurrent, similar presentation from last month with no infective etiologies found; concern for HIV replication - Formed stool yesterday and today, continue to monitor - Stool studies negative (7) DVT prophylaxis Code(s): Z29.9 - ENCOUNTER FOR PROPHYLACTIC MEASURES, UNSPECIFIED SNOMED Code( s): 520238280 Comment: - Heparin SQ (8) DNR (do not resuscitate) Comment: Status and Disposition: Inpatient for continued care. Dispo TBD, case management and SW following. Slow progress. Highly recommend STR although patient does not want this. Will continue to discuss.
[2019-04-16] MEDS ORDERED: fentaNYL PATCH 25 MCG/HR TRANSDERM SCH (18:00)
[2019-04-16] MEDS: D5W 1/2 NS 1000 ML BAG* 1,000 ML IV SCH (19:00)
[2019-04-16] MEDS: fentaNYL Patch Check Q Shift 1 NOTE FOLLOW UP SCH (19:03)
[2019-04-16] MEDS: Melatonin 3 MG TAB PO SCH (20:20)
[2019-04-16] MEDS: Tenofovir/Emtricitab 200/300 * TAB PO SCH (20:25)
[2019-04-17] MEDS: HYDROmorphone INJ1* 1 MG/ML SYRINGE IV SLOW PU PRN ×6 (01:57→22:02)
[2019-04-17] MEDS: Ondansetron INJ* 2 MG/ML VIAL IV PRN ×4 (02:02→23:39)
[2019-04-17] MEDS: Heparin VIAL(*) 5000 UNITS/ML VIAL (FIVE THOUSAND) SUBCUT SCH ×3 (05:16→20:52)
[2019-04-17 05:26] LABS: ABS Basophils 0.1 10^3/ul (0-0.2); ABS Lymphocytes 0.8 10^3/ul (1.0-4.8); ABS Monocytes 0.4 10^3/ul (0-0.8); ABS Neutrophils 6.8 10^3/ul (1.5-7.7); Eosinophil % 0.6 %; Hematocrit 28 % (42-52); Hemoglobin 9.5 g/dL (14.0-18.0); Lymphocyte % 9.8 %; Mean Corpuscular HGB Conc 34 g/dL (31-36); Mean Corpuscular Hemoglobin 29 pg (27-31); Mean Corpuscular Volume 87 fL (80-94); Mean Platelet Volume 8.7 fL (7.4-10.4); Platelet Count 331 10^3/uL (150-450); Red Blood Count 3.24 10^6 /uL (4.18-5.48); Red Cell Distribution Width 16 % (10-15); White Blood Count 8.1 10^3/uL (3.5-10.8)
[2019-04-17 05:52] LABS: ALT 152 U/L (7-52); AST 92 U/L (13-39); Albumin 1.8 g/dL (3.2-5.2); Albumin/Globulin Ratio 0.7 (1-3); Alkaline Phosphatase 237 U/L (34-104); Anion Gap 3 mmol/L (2-11); Blood Urea Nitrogen 8 mg/dL (6-24); CO2 Carbon Dioxide 34 mmol/L (22-32); Calcium 6.8 mg/dL (8.6-10.3); Chloride 99 mmol/L (101-111); EGFR African American 379.5 (>60); EGFR Non-African American 313.6 (>60); Globulin 2.5 g/dL (2-4); Glucose 123 mg/dL (70-100); Potassium 3.2 mmol/L (3.5-5.0); Sodium 136 mmol/L (135-145); Total Protein 4.3 g/dL (6.4-8.9)
[2019-04-17] MEDS: fentaNYL Patch Check Q Shift 1 NOTE FOLLOW UP SCH ×2 (06:53→18:54)
[2019-04-17] MEDS: Magic M W2 Ben/Maal/Nyst/Lido* 240 ML MOUTHWASH (alt formulation) SWISH SWAL SCH ×4 (07:34→21:01)
[2019-04-17] MEDS: Raltegravir* 400 MG TAB PO SCH ×2 (07:35→21:01)
[2019-04-17] MEDS: Dronabinol CAP* 2.5 MG PO SCH ×3 (07:35→17:20)
[2019-04-17] MEDS: Pantoprazole* 80 mg IN NS 80 MG/250 ML BAG IV SCH (09:18)
[2019-04-17] MEDS: Anidulafungin* 100 MG in NS 0.9% 100 ML* 100 ML IVPB SCH (09:20)
[2019-04-17] MEDS: fentaNYL PATCH 50 MCG/HR TRANSDERM SCH (09:36)
[2019-04-17] MEDS: Clotrimazole 1% CREAM* 45 GM TOPICAL SCH ×2 (10:33→20:52)
--- NOTE | 2019-04-17 16:15 | PN ---
Subjective Date of Service: 04/17/19 Interval History: Mr. Mcrae had a difficult night last night and was unhappy with his dilaudid being changed from Q3h to Q4h with addition of fentanyl patch. Per nurses, patient was agitated and cursing at staff overnight. I discussed the pain regimen with him this morning, and he apologized for his outburst behavior. He states his swallowing is improving day by day and he ambulated with PT around the unit 2 times. He had diarrhea x2 which is also improved and denies any fevers or chills. States his pain is primarily in his back, tailbone, and some of the epigastric region. Family History: Unchanged from Admission Social History: Unchanged from Admission Past Medical History: Unchanged from Admission Objective Active Medications: Acetaminophen (Tylenol Tab*) 650 mg PO Q4H PRN PRN Reason: MILD PAIN or TEMP > 100.4 Last Admin: 04/16/19 08:32 Dose: 650 mg Clotrimazole (Clotrimazole 1%*) 1 applic TOPICAL BID [facility] Last Admin: 04/17/19 10:33 Dose: Not Given Diphenoxylate HCl/Atropine (Lomotil Tab*) 1 tab PO BID PRN PRN Reason: DIARRHEA Last Admin: 04/15/19 10:29 Dose: 1 tab Dronabinol (Marinol Cap*) 5 mg PO TID AC [facility] Last Admin: 04/17/19 11:33 Dose: 5 mg Emtricitabine/Tenofovir (Truvada 200/300 Mg*) 1 tab PO BEDTIME [facility]; Protocol Last Admin: 04/16/19 20:25 Dose: 1 tab Fentanyl (Duragesic Patch 50 Mcg/Hr*) 50 mcg TRANSDERM Q72H [facility] Last Admin: 04/17/19 09:36 Dose: 50 mcg Heparin Sodium (Porcine) (Heparin Vial(*)) 5,000 units SUBCUT Q8HR [facility] Last Admin: 04/17/19 13:43 Dose: Not Given Hydromorphone HCl (Dilaudid Inj1s*) 1 mg IV SLOW PU Q4H PRN PRN Reason: pain scale 7-10 Last Admin: 04/17/19 14:06 Dose: 1 mg Anidulafungin 100 mg/ Sodium (Chloride) 130 mls @ 65 mls/hr IVPB Q24H [facility] Last Admin: 04/17/19 09:20 Dose: 65 mls/hr Dextrose/Sodium Chloride (D5w 1/2 Ns 1000 Ml Bag*) 1,000 mls @ 50 mls/hr IV PER RATE [facility] Last Admin: 04/16/19 19:00 Dose: 50 mls/hr Melatonin (Melatonin) 3 mg PO BEDTIME [facility] Last Admin: 04/16/19 20:20 Dose: Not Given Multi-Ingredient Mouthwash/Gargle (Magic M W2 Tarik/Maal/Nyst/Lido*) 5 ml SWISH SWAL QID [facility] Last Admin: 04/17/19 13:12 Dose: 5 ml Ondansetron HCl (Zofran Inj*) 4 mg IV Q6H PRN PRN Reason: NAUSEA Last Admin: 04/17/19 07:39 Dose: 4 mg Pantoprazole Sodium (Protonix Tab*) 40 mg PO BID [facility] Pharmacy Profile Note (Fentanyl Patch Check Q Shift) 1 note FOLLOW UP 0700, 1900 [facility] Last Admin: 04/17/19 06:53 Dose: 1 note Raltegravir (Isentress*) 400 mg PO BID [facility]; Protocol Last Admin: 04/17/19 07:35 Dose: 400 mg Vital Signs - 8 hr 04/17/19 04/17/19 04/17/19 09:36 10:19 10:33 Temperature Pulse Rate Respiratory 17 16 16 Rate Blood Pressure (mmHg) O2 Sat by Pulse Oximetry 04/17/19 04/17/19 04/17/19 11:15 11:33 12:08 Temperature 97.6 F Pulse Rate 87 Respiratory 16 16 16 Rate Blood Pressure 125/72 (mmHg) O2 Sat by Pulse 97 Oximetry 04/17/19 04/17/19 04/17/19 13:47 14:06 15:51 Temperature Pulse Rate Respiratory 16 16 16 Rate Blood Pressure (mmHg) O2 Sat by Pulse Oximetry 04/17/19 15:52 Temperature Pulse Rate Respiratory 16 Rate Blood Pressure (mmHg) O2 Sat by Pulse Oximetry Oxygen Devices in Use Now: None Appearance: alert, NAD Eyes: No Scleral Icterus, PERRLA Ears/Nose/Mouth/Throat: Mucous Membranes Moist Neck: NL Appearance and Movements; NL JVP, Trachea Midline Respiratory: Symmetrical Chest Expansion and Respiratory Effort, Clear to Auscultation Cardiovascular: NL Sounds; No Murmurs; No JVD, RRR Abdominal: NL Sounds; No Tenderness; No Distention Extremities: No Clubbing, Cyanosis, - - trace bipedal edema Skin: - - stage 2 sacrum Neurological: Alert and Oriented x 3 Nutrition: - - full liquid to soft diet, calorie counts - Nutrition: Malnutrition Diagnosis/Plan Malnutrition Assessment by Registered Dietitian: Malnutrition Assessment Clinical Characteristics Chronic,Severe Malnutrition Assessment: Muscle Wasting - Temporal muscle wasting ( severe Criteria ) Fat Pad Wasting - Buccal fat pad wasting ( severe ) Inadequate Oral Intake - Pt reports poor appetite w/ odynophagia 2/2 thrush x1 mo - anticipate meeting <75% nutrient needs x1 mo Unintentional Weight Loss - Pt reports a 20lb wt loss x1 mo; current wt 99lb, prev wt 116lb x1 mo. ago - 14.6% loss x1 mo (severe) Underweight - BMI 13.9 Malnutrition Assessment: Nutritional Supplementals/Nourishments - Will Interventions continue to send [place] Ensure Enlive ( 350kcal, 20g prot/serv) x5 daily to optimize kcal/prot intake and promote wt gain; will monitor continued acceptance. GI Related - Will monitor GI s/sx for impact on intake. Labs - Will monitor labs closely given pt's risk for dumping/refeeding and make recommendations as indicated. Malnutrition Assessment: Goals 1) Pt will tolerate least restrictive dietary textures w/o further difficulty chewing/ swallowing w/ resolution of thrush 2) Adequate po intake to replete lean body mass , support wt gain and hydration status 3) Improve fluid/electrolyte balance w/ adequate po intake and repletion PRN w/o dumping/ refeeding 4) Maintain bowel regularity w/ adequate po intake and antidiarrheals PRN w/o exac of diarrhea/development of constipation Result Diagrams: 04/17/19 05:15 04/17/19 05:15 Assess/Plan/Problems-Billing Assessment: Mr. Mcrae is a 53 yo M with PMH of PCP pneumocystis PNA, cryptococcus meningitis , HIV/AIDS and poor compliance with HAART therapy as an outpatient; that presented with dysphagia, malnutrition and general weakness. - Patient Problems (1) Esophagitis Code(s): K20.9 - ESOPHAGITIS, UNSPECIFIED SNOMED Code(s): 87004921 Comment: - Recurrent oroesophageal thrush 2/2 progressing AIDS and opportunistic infection - Appreciate GI consult; EGD showing severe errosive esophagitis and gastric ulcer - Stop IV protonix drip today and change to oral BID, needs to continue for 90 days - Biopsies without any evidence of viral or fungal organisms - Soft diet if tolerated, continue Ensures and comfort foods - Continue anidulafungin, day 8, defer to ID for total treatment time (2) Severe protein-calorie malnutrition Code(s): E43 - UNSPECIFIED SEVERE PROTEIN-CALORIE MALNUTRITION SNOMED Code(s) : 793690585 Comment: - BMI 13 at admission, question if increase to 16 is correct. Requested daily weights to be recorded accurately, discussed with primary RN, suspect weight is around 118lbs at this time - Severe wasting and inability for oral intake and no solid foods 2/2 dysphagia and pain - Nutrition consulted and following - Continue Marinol - Seems to be clinically improving (3) Pain Code(s): R52 - PAIN, UNSPECIFIED SNOMED Code(s): 63677644 Comment: - Continue to wean off dilaudid in anticipation of discharge planning. Recommend taper over next 48 hours - Added fentanyl patch at increased dose (50mcg) today - Patient exhibiting med-seeking behaviors, continue to monitor closely (4) Transaminitis Code(s): R74.0 - NONSPEC ELEV OF LEVELS OF TRANSAMNS & LACTIC ACID DEHYDRGNSE SNOMED Code(s): 329879032 Comment: - LFTS continue to trend down - Etiology unclear; differentials include starvation-induced hepatocyte autophagy given profound malnourished state, medication related 2/2 diflucan; CMV was detected, however level was <35, not likely CMV infection - US liver normal (5) AIDS Comment: - CD4 count 277, up from 31 last month since restarting medication - Pending HIV1 genotype - ID following closely - Continue Truvada, Isentress (6) Anemia Code(s): D64.9 - ANEMIA, UNSPECIFIED SNOMED Code(s): 955098053 Comment: - In the setting of recent NSAID use and esophagitis - Hgb remains stable at high 8 to 9 range - Continue protonix BID (7) Diarrhea Code(s): R19.7 - DIARRHEA, UNSPECIFIED SNOMED Code(s): 57900411 Comment: - Recurrent, similar presentation from last month with no infective etiologies found; concern for HIV replication - Stool studies negative - Less diarrhea noted with some formed stools, lomotil PRN (8) DVT prophylaxis Code(s): Z29.9 - ENCOUNTER FOR PROPHYLACTIC MEASURES, UNSPECIFIED SNOMED Code( s): 782696797 Comment: - Heparin SQ (9) DNR (do not resuscitate) Comment: Status and Disposition: Inpatient for continued care. Dispo TBD, case management and SW following. Slow progress. Highly recommend STR although patient does not want this. Will continue to discuss. May need to be placed on swing status depending on length of treatment for IV antifungals.
[2019-04-17] MEDS: D5W 1/2 NS 1000 ML BAG* 1,000 ML IV SCH (17:21)
[2019-04-17] MEDS: Melatonin 3 MG TAB PO SCH (20:52)
[2019-04-17] MEDS: Tenofovir/Emtricitab 200/300 * TAB PO SCH (21:02)
[2019-04-17] MEDS: Pantoprazole TAB * 40 MG TAB PO SCH (21:02)
[2019-04-18] MEDS: HYDROmorphone INJ1* 1 MG/ML SYRINGE IV SLOW PU PRN ×4 (03:56→21:48)
[2019-04-18] MEDS: Heparin VIAL(*) 5000 UNITS/ML VIAL (FIVE THOUSAND) SUBCUT SCH (05:19)
[2019-04-18] MEDS: fentaNYL Patch Check Q Shift 1 NOTE FOLLOW UP SCH ×2 (07:21→18:52)
[2019-04-18] MEDS: Dronabinol CAP* 2.5 MG PO SCH ×3 (07:51→15:52)
[2019-04-18] MEDS: Raltegravir* 400 MG TAB PO SCH ×2 (07:52→20:07)
[2019-04-18] MEDS: Pantoprazole TAB * 40 MG TAB PO SCH ×2 (07:52→20:07)
[2019-04-18] MEDS: Acetaminophen TAB* 325 MG PO PRN (07:52)
[2019-04-18] MEDS: Magic M W2 Ben/Maal/Nyst/Lido* 240 ML MOUTHWASH (alt formulation) SWISH SWAL SCH ×4 (07:57→20:11)
[2019-04-18] MEDS: Clotrimazole 1% CREAM* 45 GM TOPICAL SCH ×2 (07:57→20:20)
[2019-04-18 08:54] LABS: ABS Monocytes 0.4 10^3/ul (0-0.8); Eosinophil % 0.3 %; Hematocrit 26 % (42-52); Lymphocyte % 11.6 %; Mean Corpuscular HGB Conc 34 g/dL (31-36); Mean Corpuscular Hemoglobin 30 pg (27-31); Mean Corpuscular Volume 87 fL (80-94); Mean Platelet Volume 9.1 fL (7.4-10.4); Platelet Count 324 10^3/uL (150-450); Red Blood Count 3.03 10^6 /uL (4.18-5.48); Red Cell Distribution Width 16 % (10-15); White Blood Count 8.4 10^3/uL (3.5-10.8)
[2019-04-18 09:10] LABS: ALT 119 U/L (7-52); AST 65 U/L (13-39); Albumin 1.7 g/dL (3.2-5.2); Albumin/Globulin Ratio 0.7 (1-3); Alkaline Phosphatase 242 U/L (34-104); Anion Gap 3 mmol/L (2-11); Blood Urea Nitrogen 8 mg/dL (6-24); CO2 Carbon Dioxide 33 mmol/L (22-32); Chloride 98 mmol/L (101-111); EGFR African American 379.5 (>60); EGFR Non-African American 313.6 (>60); Globulin 2.5 g/dL (2-4); Glucose 116 mg/dL (70-100); Sodium 134 mmol/L (135-145); Total Protein 4.2 g/dL (6.4-8.9)
[2019-04-18] MEDS ORDERED: Loperamide LIQ* 2 MG/10 ML UDC PO ONE (09:19)
[2019-04-18] MEDS: Ondansetron INJ* 2 MG/ML VIAL IV PRN ×2 (10:07→21:52)
[2019-04-18] MEDS: Anidulafungin* 100 MG in NS 0.9% 100 ML* 100 ML IVPB SCH (10:15)
--- NOTE | 2019-04-18 12:36 | PN ---
Subjective Date of Service: 04/18/19 Interval History: Tells me about back pain and is requesting increased frequency of dilaudid. He tells me his back pain is going on because the bed in uncomfortable. Feels his swallowing is comfortable when swallowing soft diet and ensure. Does not want to try pureed food. Denies fever/chills, abd pain, chest pain, difficulty breathing. Later, nursing reports patient expressing weakness in his chewing. Family History: Unchanged from Admission Social History: Unchanged from Admission Past Medical History: Unchanged from Admission Objective Active Medications: Acetaminophen (Tylenol Tab*) 650 mg PO Q4H PRN PRN Reason: MILD PAIN or TEMP > 100.4 Last Admin: 04/18/19 07:52 Dose: 650 mg Clotrimazole (Clotrimazole 1%*) 1 applic TOPICAL BID [facility] Last Admin: 04/18/19 07:57 Dose: Not Given Diphenoxylate HCl/Atropine (Lomotil Tab*) 1 tab PO BID PRN PRN Reason: DIARRHEA Last Admin: 04/15/19 10:29 Dose: 1 tab Dronabinol (Marinol Cap*) 5 mg PO TID AC [facility] Last Admin: 04/18/19 11:58 Dose: 5 mg Emtricitabine/Tenofovir (Truvada 200/300 Mg*) 1 tab PO BEDTIME [facility]; Protocol Last Admin: 04/17/19 21:02 Dose: 1 tab Fentanyl (Duragesic Patch 50 Mcg/Hr*) 50 mcg TRANSDERM Q72H [facility] Last Admin: 04/17/19 09:36 Dose: 50 mcg Heparin Sodium (Porcine) (Heparin Vial(*)) 5,000 units SUBCUT Q8HR [facility] Last Admin: 04/18/19 05:19 Dose: Not Given Hydromorphone HCl (Dilaudid Inj1s*) 1 mg IV SLOW PU Q6H PRN PRN Reason: pain scale 7-10 Last Admin: 04/18/19 10:01 Dose: 1 mg Anidulafungin 100 mg/ Sodium (Chloride) 130 mls @ 65 mls/hr IVPB Q24H [facility] Last Admin: 04/18/19 10:15 Dose: 65 mls/hr Potassium Chloride (Potassium Chloride 20 Meq/100 Ml Ivpremix*) 20 meq in 100 mls @ 50 mls/hr IV Q2H [facility] Stop: 04/18/19 18:59 Ibuprofen (Motrin Liq Adult*) 600 mg PO QID PRN PRN Reason: MILD PAIN or TEMP > 100.4 Melatonin (Melatonin) 3 mg PO BEDTIME [facility] Last Admin: 04/17/19 20:52 Dose: Not Given Multi-Ingredient Mouthwash/Gargle (Magic M W2 Tarik/Maal/Nyst/Lido*) 5 ml SWISH SWAL QID [facility] Last Admin: 04/18/19 12:00 Dose: 5 ml Ondansetron HCl (Zofran Inj*) 4 mg IV Q6H PRN PRN Reason: NAUSEA Last Admin: 04/18/19 10:07 Dose: 4 mg Pantoprazole Sodium (Protonix Tab*) 40 mg PO BID [facility] Last Admin: 04/18/19 07:52 Dose: 40 mg Pharmacy Profile Note (Fentanyl Patch Check Q Shift) 1 note FOLLOW UP 0700, 1900 [facility] Last Admin: 04/18/19 07:21 Dose: 1 note Raltegravir (Isentress*) 400 mg PO BID [facility]; Protocol Last Admin: 04/18/19 07:52 Dose: 400 mg Vital Signs - 8 hr 04/18/19 04/18/19 04/18/19 05:19 07:15 07:51 Temperature 97.6 F Pulse Rate 87 Respiratory 16 18 18 Rate Blood Pressure 108/53 (mmHg) O2 Sat by Pulse 100 Oximetry 04/18/19 04/18/19 04/18/19 09:51 10:01 10:16 Temperature Pulse Rate Respiratory 18 18 18 Rate Blood Pressure (mmHg) O2 Sat by Pulse Oximetry 04/18/19 04/18/19 11:01 11:58 Temperature Pulse Rate Respiratory 18 18 Rate Blood Pressure (mmHg) O2 Sat by Pulse Oximetry Oxygen Devices in Use Now: None Appearance: Cachectic, white male, laying in bed, appearing in NAD Eyes: No Scleral Icterus, PERRLA Ears/Nose/Mouth/Throat: Mucous Membranes Moist, - - scattered white patches < 4mm in diameter on tongue Neck: Trachea Midline, - - thin neck Respiratory: Symmetrical Chest Expansion and Respiratory Effort, Clear to Auscultation Cardiovascular: NL Sounds; No Murmurs; No JVD, RRR Abdominal: - - abd soft, nontender, nondistended Extremities: No Edema, No Clubbing, Cyanosis, - - neg calf tenderness Skin: No Rash or Ulcers Neurological: Alert and Oriented x 3, NL Muscle Strength and Tone - Nutrition: Malnutrition Diagnosis/Plan Malnutrition Assessment by Registered Dietitian: Malnutrition Assessment Clinical Characteristics Chronic,Severe Malnutrition Assessment: Muscle Wasting - Temporal muscle wasting ( severe Criteria ) Fat Pad Wasting - Buccal fat pad wasting ( severe ) Inadequate Oral Intake - Pt reports poor appetite w/ odynophagia 2/2 thrush x1 mo - anticipate meeting <75% nutrient needs x1 mo Unintentional Weight Loss - Pt reports a 20lb wt loss x1 mo; current wt 99lb, prev wt 116lb x1 mo. ago - 14.6% loss x1 mo (severe) Underweight - BMI 13.9 Malnutrition Assessment: Nutritional Supplementals/Nourishments - Will Interventions continue to send Snow Ensure Enlive ( 350kcal, 20g prot/serv) x5 daily to optimize kcal/prot intake and promote wt gain; will monitor continued acceptance. GI Related - Will monitor GI s/sx for impact on intake. Labs - Will monitor labs closely given pt's risk for dumping/refeeding and make recommendations as indicated. Malnutrition Assessment: Goals 1) Pt will tolerate least restrictive dietary textures w/o further difficulty chewing/ swallowing w/ resolution of thrush 2) Adequate po intake to replete lean body mass , support wt gain and hydration status 3) Improve fluid/electrolyte balance w/ adequate po intake and repletion PRN w/o dumping/ refeeding 4) Maintain bowel regularity w/ adequate po intake and antidiarrheals PRN w/o exac of diarrhea/development of constipation Result Diagrams: 04/18/19 08:37 04/18/19 08:37 Assess/Plan/Problems-Billing Assessment: Mr. Mcrae is a 53 yo M with PMH of PCP pneumocystis PNA, cryptococcus meningitis , HIV/AIDS and poor compliance with HAART therapy as an outpatient; that presented with dysphagia, malnutrition, and general weakness. - Patient Problems (1) Esophagitis Current Visit: No Status: Acute Code(s): K20.9 - ESOPHAGITIS, UNSPECIFIED SNOMED Code(s): 18615219 Comment: - Recurrent oroesophageal thrush 2/2 progressing AIDS and opportunistic infection - EGD biopsies without any evidence of viral or fungal organisms - Soft diet if tolerated, continue Ensures and comfort foods - Continue anidulafungin, defer to ID for total treatment time - Consulted DOORMAKER for patient's c/o weakness in chewing (2) Back pain Current Visit: Yes Status: Acute Code(s): M54.9 - DORSALGIA, UNSPECIFIED SNOMED Code(s): 224361337 Comment: -patient has had dilaudid frequently during this hospital stay -started on fentanyl patch to help with weaning for discharge planning -patient had lumbar x-ray with no pathology. Unclear etiology of back pain aside from positioning discomfort in setting of low BMI. Lumbar and thoracic spine CTs without acute abnormalities. -continue q6h dilaudid and fentanyl patch. Starting liquid ibuprofen (3) Gastric ulcer Current Visit: Yes Status: Acute Code(s): K25.9 - GASTRIC ULCER, UNSP ACUTE OR CHRONIC, W/O HEMOR OR PERF SNOMED Code(s): 526301231 Comment: -found on EGD on 04/10, gastric ulcer endoclipped by Dr. Guajardo -Received 72h protonix drip. Now on po protonix BID (4) Transaminitis Current Visit: Yes Status: Acute Code(s): R74.0 - NONSPEC ELEV OF LEVELS OF TRANSAMNS & LACTIC ACID DEHYDRGNSE SNOMED Code(s): 621427823 Comment: - LFTS continue to trend down today - Etiology unclear; differentials include starvation-induced hepatocyte autophagy given profound malnourished state, medication related 2/2 diflucan; CMV was detected, however level was <35, not likely CMV infection - US liver normal (5) AIDS Current Visit: No Status: Acute Comment: - CD4 count 277, up from 31 last month since restarting medication - Pending HIV1 genotype - ID following closely - Continue Truvjarred Isentress - Seen by Dr. Golden during this hospitalization. Plans to continue medical therapy (6) Severe protein-calorie malnutrition Current Visit: Yes Status: Acute Code(s): E43 - UNSPECIFIED SEVERE PROTEIN- CALORIE MALNUTRITION SNOMED Code(s): 558292696 Comment: - BMI 13 at admission, question if increase to 16 is correct. Requested daily weights to be recorded accurately. Appears patient has had slow weight increase. - Severe wasting and inability for oral intake and no solid foods 2/2 dysphagia and pain - Nutrition consulted and following - Continue Marinol - Seems to be clinically improving (7) DVT prophylaxis Current Visit: No Status: Acute Code(s): Z29.9 - ENCOUNTER FOR PROPHYLACTIC MEASURES, UNSPECIFIED SNOMED Code(s): 332369146 Comment: - changing to lovenox (8) Full code status Current Visit: No Status: Acute Code(s): Z78.9 - OTHER SPECIFIED HEALTH STATUS SNOMED Code(s): 106969502 Status and Disposition: Inpatient for continued care. Dispo TBD, case management and SW following. Slow progress. Highly recommend STR although patient does not want this. Will continue to discuss. May need to be placed on swing status depending on length of treatment for IV antifungals.
[2019-04-18] MEDS: Ibuprofen ADULT LIQ* 600 MG/30 ML UDC PO PRN ×2 (14:07→20:08)
[2019-04-18] MEDS: KCL 20 MEQ/100 ML IVPREMIX* 20 MEQ/100 ML BAG IV SCH ×2 (14:08→21:10)
[2019-04-18] MEDS: Enoxaparin(*) 40 MG/0.4 ML SYR SUBCUT SCH (16:11)
[2019-04-18] MEDS: Tenofovir/Emtricitab 200/300 * TAB PO SCH (20:07)
[2019-04-18] MEDS: Melatonin 3 MG TAB PO SCH (20:20)
[2019-04-18 21:05] LABS: BUN/Creatinine Ratio 26.7 (8-20); Calcium 6.7 mg/dL (8.6-10.3); EGFR African American 379.5 (>60); EGFR Non-African American 313.6 (>60); Potassium 3.3 mmol/L (3.5-5.0)
[2019-04-18] MEDS ORDERED: KCL 20 MEQ/100 ML IVPREMIX* 20 MEQ/100 ML BAG IV SCH (22:00)
[2019-04-19] MEDS: KCL 20 MEQ/100 ML IVPREMIX* 20 MEQ/100 ML BAG IV SCH (01:26)
[2019-04-19] MEDS ORDERED: KCL 20 MEQ/100 ML IVPREMIX* 20 MEQ/100 ML BAG ONE (01:26)
[2019-04-19] MEDS: Ibuprofen ADULT LIQ* 600 MG/30 ML UDC PO PRN (02:05)
[2019-04-19] MEDS: HYDROmorphone INJ1* 1 MG/ML SYRINGE IV SLOW PU PRN ×4 (03:44→22:48)
[2019-04-19] MEDS: Ondansetron INJ* 2 MG/ML VIAL IV PRN ×3 (03:47→23:09)
[2019-04-19 06:11] LABS: Albumin 1.7 g/dL (3.2-5.2); Albumin/Globulin Ratio 0.7 (1-3); BUN/Creatinine Ratio 25.8 (8-20); Calcium 6.8 mg/dL (8.6-10.3); EGFR African American 365.4 (>60); Globulin 2.5 g/dL (2-4); Potassium 3.4 mmol/L (3.5-5.0); Total Bilirubin 0.3 mg/dL (0.2-1.0); Total Protein 4.2 g/dL (6.4-8.9)
[2019-04-19] MEDS: fentaNYL Patch Check Q Shift 1 NOTE FOLLOW UP SCH ×2 (07:09→19:49)
[2019-04-19] MEDS: Dronabinol CAP* 2.5 MG PO SCH ×3 (07:33→16:13)
[2019-04-19] MEDS: Raltegravir* 400 MG TAB PO SCH ×2 (07:33→20:47)
[2019-04-19] MEDS: Magic M W2 Ben/Maal/Nyst/Lido* 240 ML MOUTHWASH (alt formulation) SWISH SWAL SCH ×4 (07:34→20:48)
[2019-04-19] MEDS: Pantoprazole TAB * 40 MG TAB PO SCH ×2 (07:34→20:47)
[2019-04-19] MEDS ORDERED: Potassium Chloride* LIQUID 20 MEQ/15 ML UDC PO ONE (08:29)
[2019-04-19] MEDS: Cyclobenzaprine TAB* 10 MG PO PRN ×2 (08:45→11:46)
[2019-04-19] MEDS: Acetaminophen TAB* 325 MG PO PRN ×3 (10:29→23:09)
[2019-04-19] MEDS: Anidulafungin* 100 MG in NS 0.9% 100 ML* 100 ML IVPB SCH (10:32)
--- NOTE | 2019-04-19 11:21 | PN ---
Subjective Date of Service: 04/19/19 Interval History: Patient is feeling better today. Patient states hsi back pain has decreased. Patient still has weakness with chewing and difficulty swallowing. Patient has significant pain in his mouth. Patient states he gets extremely itchy when taking morphine. Patient is having "50/50" diarrhea at this point. Patient denies F/C, N/V, abdominal pain, diarrhea, CP, SOB, dysuria. Family History: Unchanged from Admission Social History: Unchanged from Admission Past Medical History: Unchanged from Admission Objective Active Medications: Acetaminophen (Tylenol Tab*) 650 mg PO Q4H PRN PRN Reason: MILD PAIN or TEMP > 100.4 Last Admin: 04/19/19 10:29 Dose: 650 mg Clotrimazole (Clotrimazole 1%*) 1 applic TOPICAL BID [facility] Last Admin: 04/18/19 20:20 Dose: Not Given Cyclobenzaprine HCl (Flexeril Tab*) 10 mg PO TID PRN PRN Reason: SPASMS - BACK Last Admin: 04/19/19 08:45 Dose: 10 mg Diphenoxylate HCl/Atropine (Lomotil Tab*) 1 tab PO BID PRN PRN Reason: DIARRHEA Last Admin: 04/15/19 10:29 Dose: 1 tab Dronabinol (Marinol Cap*) 5 mg PO TID AC [facility] Last Admin: 04/19/19 07:33 Dose: 5 mg Emtricitabine/Tenofovir (Truvada 200/300 Mg*) 1 tab PO BEDTIME [facility]; Protocol Last Admin: 04/18/19 20:07 Dose: 1 tab Enoxaparin Sodium (Lovenox(*)) 40 mg SUBCUT Q24H [facility] Last Admin: 04/18/19 16:11 Dose: Not Given Fentanyl (Duragesic Patch 50 Mcg/Hr*) 50 mcg TRANSDERM Q72H [facility] Last Admin: 04/17/19 09:36 Dose: 50 mcg Hydromorphone HCl (Dilaudid Inj1s*) 1 mg IV SLOW PU Q6H PRN PRN Reason: pain scale 7-10 Last Admin: 04/19/19 10:30 Dose: 1 mg Anidulafungin 100 mg/ Sodium (Chloride) 130 mls @ 65 mls/hr IVPB Q24H [facility] Last Admin: 04/19/19 10:32 Dose: 65 mls/hr Melatonin (Melatonin) 3 mg PO BEDTIME [facility] Last Admin: 04/18/19 20:20 Dose: Not Given Multi-Ingredient Mouthwash/Gargle (Magic M W2 Tarik/Maal/Nyst/Lido*) 5 ml SWISH SWAL QID [facility] Last Admin: 04/19/19 07:34 Dose: 5 ml Ondansetron HCl (Zofran Inj*) 4 mg IV Q6H PRN PRN Reason: NAUSEA Last Admin: 04/19/19 10:29 Dose: 4 mg Pantoprazole Sodium (Protonix Tab*) 40 mg PO BID [facility] Last Admin: 04/19/19 07:34 Dose: 40 mg Pharmacy Profile Note (Fentanyl Patch Check Q Shift) 1 note FOLLOW UP 0700, 1900 [facility] Last Admin: 04/19/19 07:09 Dose: 1 note Raltegravir (Isentress*) 400 mg PO BID [facility]; Protocol Last Admin: 04/19/19 07:33 Dose: 400 mg Vital Signs - 8 hr 04/19/19 04/19/19 04/19/19 03:44 05:10 07:33 Respiratory 22 18 18 Rate 04/19/19 04/19/19 04/19/19 08:00 08:45 10:30 Respiratory 16 18 18 Rate Oxygen Devices in Use Now: None Appearance: Patient is a 53yo male who is emaciated, appears much older than stated age and is sitting in the bed in [facility]. Eyes: No Scleral Icterus, PERRLA Ears/Nose/Mouth/Throat: NL Teeth, Lips, Gums, Mucous Membranes Moist, - - Erythema and erosions of mouth. Neck: NL Appearance and Movements; NL JVP, Trachea Midline Respiratory: Symmetrical Chest Expansion and Respiratory Effort, Clear to Auscultation Cardiovascular: NL Sounds; No Murmurs; No JVD, RRR, No Edema Abdominal: NL Sounds; No Tenderness; No Distention, No Hepatosplenomegaly Lymphatic: No Cervical Adenopathy Extremities: No Edema, No Clubbing, Cyanosis Skin: No Rash or Ulcers, No Nodules or Sclerosis Neurological: Alert and Oriented x 3, NL Sensation, NL Muscle Strength and Tone , - - CN II-XII intact. - Nutrition: Malnutrition Diagnosis/Plan Malnutrition Assessment by Registered Dietitian: Malnutrition Assessment Clinical Characteristics Chronic,Severe Malnutrition Assessment: Muscle Wasting - Temporal muscle wasting ( severe Criteria ) Fat Pad Wasting - Buccal fat pad wasting ( severe ) Inadequate Oral Intake - Pt reports poor appetite w/ odynophagia 2/2 thrush x1 mo - anticipate meeting <75% nutrient needs x1 mo Unintentional Weight Loss - Pt reports a 20lb wt loss x1 mo; current wt 99lb, prev wt 116lb x1 mo. ago - 14.6% loss x1 mo (severe) Underweight - BMI 13.9 Malnutrition Assessment: Nutritional Supplementals/Nourishments - Will Interventions continue to send Ezel Ensure Enlive ( 350kcal, 20g prot/serv) x5 daily to optimize kcal/prot intake and promote wt gain; will monitor continued acceptance. GI Related - Will monitor GI s/sx for impact on intake. Labs - Will monitor labs closely given pt's risk for dumping/refeeding and make recommendations as indicated. Malnutrition Assessment: Goals 1) Pt will tolerate least restrictive dietary textures w/o further difficulty chewing/ swallowing w/ resolution of thrush 2) Adequate po intake to replete lean body mass , support wt gain and hydration status 3) Improve fluid/electrolyte balance w/ adequate po intake and repletion PRN w/o dumping/ refeeding 4) Maintain bowel regularity w/ adequate po intake and antidiarrheals PRN w/o exac of diarrhea/development of constipation Result Diagrams: 04/18/19 08:37 04/19/19 05:24 Assess/Plan/Problems-Billing Assessment: Mr. Mcrae is a 53 yo M with PMH of PCP pneumocystis PNA, cryptococcus meningitis , HIV/AIDS and poor compliance with HAART therapy as an outpatient; that presented with dysphagia, malnutrition, and general weakness and is improving with antifungals, nutritional supplementation and supportive care. - Patient Problems (1) Severe protein-calorie malnutrition Current Visit: Yes Status: Acute Code(s): E43 - UNSPECIFIED SEVERE PROTEIN- CALORIE MALNUTRITION SNOMED Code(s): 096677803 Comment: - BMI 13 at admission, question if increase to 16 is correct. Requested daily weights to be recorded accurately. Appears patient has had slow weight increase. - Severe wasting and inability for oral intake and no solid foods 2/2 dysphagia and pain - Nutrition consulted and following - Continue Marinol - Seems to be clinically improving (2) Anemia Current Visit: Yes Status: Acute Code(s): D64.9 - ANEMIA, UNSPECIFIED SNOMED Code(s): 130664375 Comment: - In the setting of recent NSAID use and esophagitis - Hgb remains stable at high 8 to 9 range - Continue protonix BID - Avoid NSAIDs at this time (3) Back pain Current Visit: Yes Status: Acute Code(s): M54.9 - DORSALGIA, UNSPECIFIED SNOMED Code(s): 478387346 Comment: - Patient has had dilaudid frequently during this hospital stay - Started on fentanyl patch to help with weaning for discharge planning - Lumbar and thoracic spine CTs without acute abnormalities. - Continue q6h dilaudid and fentanyl patch. - Add on Flexeril in place of Ibuprofen. (4) Gastric ulcer Current Visit: Yes Status: Acute Code(s): K25.9 - GASTRIC ULCER, UNSP ACUTE OR CHRONIC, W/O HEMOR OR PERF SNOMED Code(s): 902268703 Comment: - Found on EGD on 04/10, gastric ulcer endoclipped by Dr. Guajardo - Received 72h protonix drip. Now on po protonix BID - Avoid NSAIDs (5) Transaminitis Current Visit: Yes Status: Acute Code(s): R74.0 - NONSPEC ELEV OF LEVELS OF TRANSAMNS & LACTIC ACID DEHYDRGNSE SNOMED Code(s): 086248892 Comment: - LFTS continue to trend down today - Etiology unclear; differentials include starvation-induced hepatocyte autophagy given profound malnourished state, medication related 2/2 diflucan; CMV was detected, however level was <35, not likely CMV infection - US liver normal - Trending down, no indication for MRCP for AIDS Cholangiopathy at this time. (6) AIDS Current Visit: No Status: Acute Comment: - CD4 count 277, up from 31 last month since restarting medication - Pending HIV1 genotype - ID following closely - Continue Norma Moses (7) Diarrhea Current Visit: No Status: Acute Code(s): R19.7 - DIARRHEA, UNSPECIFIED SNOMED Code(s): 03182256 Comment: - Recurrent, similar presentation from last month with no infective etiologies found; concern for HIV replication - Stool studies negative - Less diarrhea noted with some formed stools, lomotil PRN (8) Esophagitis Current Visit: No Status: Acute Code(s): K20.9 - ESOPHAGITIS, UNSPECIFIED SNOMED Code(s): 13849772 Comment: - Recurrent oroesophageal thrush 2/2 progressing AIDS and opportunistic infection - EGD biopsies without any evidence of viral or fungal organisms - Soft diet if tolerated, continue Ensures and comfort foods - Continue anidulafungin, defer to ID for total treatment time - Consulted MAGAZINE SUPERVISOR for patient's c/o weakness in chewing, likely due to muscle wasting (9) Full code status Current Visit: No Status: Acute Code(s): Z78.9 - OTHER SPECIFIED HEALTH STATUS SNOMED Code(s): 607290644 (10) DNR (do not resuscitate) Current Visit: Yes Status: Acute Comment: (11) DVT prophylaxis Current Visit: No Status: Acute Code(s): Z29.9 - ENCOUNTER FOR PROPHYLACTIC MEASURES, UNSPECIFIED SNOMED Code(s): 731936607 Comment: - Lovenox Status and Disposition: Inpatient for continued care. Dispo TBD, case management and SW following. Slow progress. Highly recommend STR although patient does not want this. Will continue to discuss. May need to be placed on swing status depending on length of treatment for IV antifungals.
[2019-04-19] MEDS: Clotrimazole 1% CREAM* 45 GM TOPICAL SCH ×2 (15:07→21:11)
[2019-04-19] MEDS: Enoxaparin(*) 40 MG/0.4 ML SYR SUBCUT SCH (15:09)
[2019-04-19] MEDS: Tenofovir/Emtricitab 200/300 * TAB PO SCH (20:47)
[2019-04-19] MEDS: Melatonin 3 MG TAB PO SCH (21:11)
[2019-04-20 05:53] LABS: ABS Lymphocytes 1.2 10^3/ul (1.0-4.8); ABS Monocytes 0.4 10^3/ul (0-0.8); ABS Neutrophils 6.7 10^3/ul (1.5-7.7); Eosinophil % 0.1 %; Hematocrit 25 % (42-52); Hemoglobin 8.3 g/dL (14.0-18.0); Lymphocyte % 14.3 %; Mean Corpuscular HGB Conc 33 g/dL (31-36); Mean Corpuscular Hemoglobin 29 pg (27-31); Mean Corpuscular Volume 87 fL (80-94); Mean Platelet Volume 9.2 fL (7.4-10.4); Platelet Count 302 10^3/uL (150-450); Red Blood Count 2.87 10^6 /uL (4.18-5.48); Red Cell Distribution Width 16 % (10-15); White Blood Count 8.3 10^3/uL (3.5-10.8)
[2019-04-20] MEDS ORDERED: NS 0.9% 500 ML* 500 ML IV ONE ×2 (06:00→22:35)
[2019-04-20 06:06] LABS: Albumin 1.7 g/dL (3.2-5.2); Albumin/Globulin Ratio 0.7 (1-3); EGFR African American 307.5 (>60); EGFR Non-African American 254.1 (>60); Globulin 2.5 g/dL (2-4); Magnesium 1.3 mg/dL (1.9-2.7); Potassium 3.5 mmol/L (3.5-5.0); Total Bilirubin 0.3 mg/dL (0.2-1.0); Total Protein 4.2 g/dL (6.4-8.9)
[2019-04-20] MEDS: HYDROmorphone INJ1* 1 MG/ML SYRINGE IV SLOW PU PRN ×3 (06:28→18:31)
[2019-04-20] MEDS: Ondansetron INJ* 2 MG/ML VIAL IV PRN (06:40)
[2019-04-20] MEDS: fentaNYL Patch Check Q Shift 1 NOTE FOLLOW UP SCH ×2 (07:00→18:36)
[2019-04-20] MEDS ORDERED: Magnesium Sulf 4 GM/100 ML IV* 4,000 MG/100 ML BAG IVPB ONE (07:30)
[2019-04-20] MEDS: Dronabinol CAP* 2.5 MG PO SCH ×3 (07:37→17:13)
[2019-04-20] MEDS: Raltegravir* 400 MG TAB PO SCH ×2 (07:37→21:42)
[2019-04-20] MEDS: Acetaminophen TAB* 325 MG PO PRN (07:38)
[2019-04-20] MEDS: Pantoprazole TAB * 40 MG TAB PO SCH ×2 (07:39→21:42)
[2019-04-20] MEDS: Magic M W2 Ben/Maal/Nyst/Lido* 240 ML MOUTHWASH (alt formulation) SWISH SWAL SCH ×4 (07:40→21:44)
[2019-04-20] MEDS: Clotrimazole 1% CREAM* 45 GM TOPICAL SCH ×2 (07:42→22:00)
[2019-04-20] MEDS: fentaNYL PATCH 50 MCG/HR TRANSDERM SCH (09:32)
[2019-04-20] MEDS: Anidulafungin* 100 MG in NS 0.9% 100 ML* 100 ML IVPB SCH (09:49)
--- NOTE | 2019-04-20 10:11 | PN ---
Progress Note - Progress Note Date of Service: 04/20/19 SOAP: Subjective: CC: AIDS HPI: 53 year old man with longstanding HIV, with weight loss and diarrhea, transaminitis. All are improving. He has less pain swallowing and eating. Appetite still decreased but eating a little more he thinks. Some loose stools , some semi formed stools. Objective: Vital Signs Temp 36.8 C 04/20/19 07:15 Pulse 93 04/20/19 07:15 Resp 16 04/20/19 09:32 BP 84/46 04/20/19 07:15 Pulse Ox 94 04/20/19 07:15 Intake & Output 04/19/19 04/20/19 04/20/19 18:59 06:59 18:59 Intake Total 980 0 Output Total 450 695 Balance 530 -695 Weight 136 lb 6.4 oz Intake: IV Fluids 280 Normal Saline 150 anidulafungin 130 Oral 700 0 Output: Urine 450 695 Other: Estimated Void Medium # Bowel Movements 0 # Voids 1 Gen:awake, no distress, cachectic HEENT: no mild mucositis Neck: no mass Heart:RRR no murmur Lungs:decr BS at bases Abd:+BS NTND soft Skin: no rash MSK: no spine tenderness Laboratory Results - last 24 hr 04/20/19 04/20/19 05:16 05:16 WBC 8.3 RBC 2.87 L Hgb 8.3 L Hct 25 L MCV 87 MCH 29 MCHC 33 RDW 16 H Plt Count 302 MPV 9.2 Neut % (Auto) 80.0 Lymph % (Auto) 14.3 [place] % (Auto) 5.2 Eos % (Auto) 0.1 Baso % (Auto) 0.4 Absolute Neuts (auto) 6.7 Absolute Lymphs (auto) 1.2 Absolute Monos (auto) 0.4 Absolute Eos (auto) 0.0 Absolute Basos (auto) 0.0 Absolute Nucleated RBC 0.0 Nucleated RBC % 0.0 Sodium 137 Potassium 3.5 Chloride 103 Carbon Dioxide 31 Anion Gap 3 BUN 9 Creatinine 0.36 L Est GFR ( Amer) 307.5 Est GFR (Non-Af Amer) 254.1 BUN/Creatinine Ratio 25.0 H Glucose 102 H Calcium 7.0 L Magnesium 1.3 L Total Bilirubin 0.30 AST 44 H ALT 85 H Alkaline Phosphatase 253 H Total Protein 4.2 L Albumin 1.7 L Globulin 2.5 Albumin/Globulin Ratio 0.7 L Mycobacterial blood culture Feb 2019 negative Assessment: 1. AIDS with diarrhea, workup negative, improving 2. oroesophageal candidiasis 3. malnutrition, hypoalbuminemia 4. gastric ulcers Plan: 1. continue truvada, raltegravir, anidalufungin 2. PPI 3. ensure and calorie counts 4. eventual SNF placement 35 minutes floor time >50% face to face in counseling and on speaker phone with his friend Becky discussing plans for longer term care
[2019-04-20] MEDS: Enoxaparin(*) 40 MG/0.4 ML SYR SUBCUT SCH (12:17)
--- NOTE | 2019-04-20 14:28 | PN ---
Subjective Date of Service: 04/20/19 Interval History: Patient has persistent but stable pain. Patient denies CP, SOB, Dizziness, F/C, N/V. Patient still has some residual pain in mouth with swallowing. Patient has been able to drink almost 2000 calories daily. Patient is amenable to [facility], but doesn't want to go too far from [place]. Family History: Unchanged from Admission Social History: Unchanged from Admission Past Medical History: Unchanged from Admission Objective Active Medications: Acetaminophen (Tylenol Tab*) 650 mg PO Q4H PRN PRN Reason: MILD PAIN or TEMP > 100.4 Last Admin: 04/20/19 07:38 Dose: 650 mg Clotrimazole (Clotrimazole 1%*) 1 applic TOPICAL BID [facility] Last Admin: 04/20/19 07:42 Dose: Not Given Cyclobenzaprine HCl (Flexeril Tab*) 10 mg PO TID PRN PRN Reason: SPASMS - BACK Last Admin: 04/19/19 11:46 Dose: 10 mg Diphenoxylate HCl/Atropine (Lomotil Tab*) 1 tab PO BID PRN PRN Reason: DIARRHEA Last Admin: 04/15/19 10:29 Dose: 1 tab Dronabinol (Marinol Cap*) 5 mg PO TID AC [facility] Last Admin: 04/20/19 12:10 Dose: 5 mg Emtricitabine/Tenofovir (Truvada 200/300 Mg*) 1 tab PO BEDTIME [facility]; Protocol Last Admin: 04/19/19 20:47 Dose: 1 tab Enoxaparin Sodium (Lovenox(*)) 40 mg SUBCUT Q24H [facility] Last Admin: 04/20/19 12:17 Dose: Not Given Fentanyl (Duragesic Patch 50 Mcg/Hr*) 50 mcg TRANSDERM Q72H [facility] Last Admin: 04/20/19 09:32 Dose: 50 mcg Hydromorphone HCl (Dilaudid Inj1s*) 1 mg IV SLOW PU Q6H PRN PRN Reason: pain scale 7-10 Last Admin: 04/20/19 12:11 Dose: 1 mg Anidulafungin 100 mg/ Sodium (Chloride) 130 mls @ 65 mls/hr IVPB Q24H [facility] Last Admin: 04/20/19 09:49 Dose: 65 mls/hr Melatonin (Melatonin) 3 mg PO BEDTIME [facility] Last Admin: 04/19/19 21:11 Dose: Not Given Multi-Ingredient Mouthwash/Gargle (Magic M W2 Tarik/Maal/Nyst/Lido*) 5 ml SWISH SWAL QID [facility] Last Admin: 04/20/19 12:13 Dose: 5 ml Ondansetron HCl (Zofran Inj*) 4 mg IV Q6H PRN PRN Reason: NAUSEA Last Admin: 04/20/19 06:40 Dose: 4 mg Pantoprazole Sodium (Protonix Tab*) 40 mg PO BID [facility] Last Admin: 04/20/19 07:39 Dose: 40 mg Pharmacy Profile Note (Fentanyl Patch Check Q Shift) 1 note FOLLOW UP 0700, 1900 [facility] Last Admin: 04/20/19 07:00 Dose: 1 note Raltegravir (Isentress*) 400 mg PO BID [facility]; Protocol Last Admin: 04/20/19 07:37 Dose: 400 mg Vital Signs - 8 hr 04/20/19 04/20/19 04/20/19 06:28 07:15 07:30 Temperature 98.2 F Pulse Rate 93 Respiratory 16 20 20 Rate Blood Pressure 84/46 (mmHg) O2 Sat by Pulse 94 Oximetry 04/20/19 04/20/19 04/20/19 07:37 08:00 09:32 Temperature Pulse Rate Respiratory 18 20 16 Rate Blood Pressure (mmHg) O2 Sat by Pulse Oximetry 04/20/19 04/20/19 04/20/19 10:18 12:10 12:11 Temperature Pulse Rate Respiratory 18 16 16 Rate Blood Pressure (mmHg) O2 Sat by Pulse Oximetry 04/20/19 13:28 Temperature Pulse Rate Respiratory 16 Rate Blood Pressure (mmHg) O2 Sat by Pulse Oximetry Oxygen Devices in Use Now: None Appearance: Patient is a 53yo male who appears much older than stated age and is sitting in the bed in [facility]. Eyes: No Scleral Icterus Ears/Nose/Mouth/Throat: NL Teeth, Lips, Gums, Clear Oropharnyx, Mucous Membranes Moist Neck: NL Appearance and Movements; NL JVP, Trachea Midline Respiratory: Symmetrical Chest Expansion and Respiratory Effort, Clear to Auscultation Cardiovascular: NL Sounds; No Murmurs; No JVD, RRR, - - 1+ B/L LE pitting edema. Abdominal: NL Sounds; No Tenderness; No Distention, No Hepatosplenomegaly Lymphatic: No Cervical Adenopathy Extremities: No Clubbing, Cyanosis Skin: No Rash or Ulcers, No Nodules or Sclerosis Neurological: Alert and Oriented x 3, NL Sensation, NL Muscle Strength and Tone , - - CN II-XII intact. - Nutrition: Malnutrition Diagnosis/Plan Malnutrition Assessment by Registered Dietitian: Malnutrition Assessment Clinical Characteristics Chronic,Severe Malnutrition Assessment: Muscle Wasting - Temporal muscle wasting ( severe Criteria ) Fat Pad Wasting - Buccal fat pad wasting ( severe ) Inadequate Oral Intake - Pt reports poor appetite w/ odynophagia 2/2 thrush x1 mo - anticipate meeting <75% nutrient needs x1 mo Unintentional Weight Loss - Pt reports a 20lb wt loss x1 mo; current wt 99lb, prev wt 116lb x1 mo. ago - 14.6% loss x1 mo (severe) Underweight - BMI 13.9 Malnutrition Assessment: Nutritional Supplementals/Nourishments - Will Interventions continue to send [place] Ensure Enlive ( 350kcal, 20g prot/serv) x5 daily to optimize kcal/prot intake and promote wt gain; will monitor continued acceptance. GI Related - Will monitor GI s/sx for impact on intake. Labs - Will monitor labs closely given pt's risk for dumping/refeeding and make recommendations as indicated. Malnutrition Assessment: Goals 1) Pt will tolerate least restrictive dietary textures w/o further difficulty chewing/ swallowing w/ resolution of thrush 2) Adequate po intake to replete lean body mass , support wt gain and hydration status 3) Improve fluid/electrolyte balance w/ adequate po intake and repletion PRN w/o dumping/ refeeding 4) Maintain bowel regularity w/ adequate po intake and antidiarrheals PRN w/o exac of diarrhea/development of constipation Result Diagrams: 04/20/19 05:16 04/20/19 05:16 Assess/Plan/Problems-Billing Assessment: Mr. Mcrae is a 53 yo M with PMH of PCP pneumocystis PNA, cryptococcus meningitis , HIV/AIDS and poor compliance with HAART therapy as an outpatient; that presented with dysphagia, malnutrition, and general weakness and is improving with antifungals, nutritional supplementation and supportive care. - Patient Problems (1) Severe protein-calorie malnutrition Current Visit: Yes Status: Acute Code(s): E43 - UNSPECIFIED SEVERE PROTEIN- CALORIE MALNUTRITION SNOMED Code(s): 995765895 Comment: - BMI 13 at admission, Slow improvement. - Severe wasting and inability for oral intake and no solid foods 2/2 dysphagia and pain - Nutrition consulted and following - Continue Marinol - Seems to be clinically improving - No indication for TPN at this time. (2) Anemia Current Visit: Yes Status: Acute Code(s): D64.9 - ANEMIA, UNSPECIFIED SNOMED Code(s): 023235071 Comment: - In the setting of recent NSAID use and esophagitis - Hgb remains stable at high 8 to 9 range - Continue protonix BID - Avoid NSAIDs at this time (3) Back pain Current Visit: Yes Status: Acute Code(s): M54.9 - DORSALGIA, UNSPECIFIED SNOMED Code(s): 461055246 Comment: - Patient has had dilaudid frequently during this hospital stay - Started on fentanyl patch to help with weaning for discharge planning - Lumbar and thoracic spine CTs without acute abnormalities. - Continue q6h dilaudid and fentanyl patch. - Add on Flexeril in place of Ibuprofen. (4) Gastric ulcer Current Visit: Yes Status: Acute Code(s): K25.9 - GASTRIC ULCER, UNSP ACUTE OR CHRONIC, W/O HEMOR OR PERF SNOMED Code(s): 910882101 Comment: - Found on EGD on 04/10, gastric ulcer endoclipped by Dr. Guajardo - Received 72h protonix drip. Now on po protonix BID - Avoid NSAIDs (5) Transaminitis Current Visit: Yes Status: Acute Code(s): R74.0 - NONSPEC ELEV OF LEVELS OF TRANSAMNS & LACTIC ACID DEHYDRGNSE SNOMED Code(s): 656039789 Comment: - LFTS continue to trend down today - Etiology unclear; differentials include starvation-induced hepatocyte autophagy given profound malnourished state, medication related 2/2 diflucan; CMV was detected, however level was <35, not likely CMV infection - US liver normal - Trending down, no indication for MRCP for AIDS Cholangiopathy at this time. (6) AIDS Current Visit: No Status: Acute Comment: - CD4 count 277, up from 31 last month since restarting medication - Viral load at 36, down from >1000 a month ago. - ID following closely - Continue Truvada, Isentress (7) Diarrhea Current Visit: No Status: Acute Code(s): R19.7 - DIARRHEA, UNSPECIFIED SNOMED Code(s): 87556172 Comment: - Recurrent, similar presentation from last month with no infective etiologies found; concern for HIV replication - Stool studies negative - Less diarrhea noted with some formed stools, lomotil PRN (8) Esophagitis Current Visit: No Status: Acute Code(s): K20.9 - ESOPHAGITIS, UNSPECIFIED SNOMED Code(s): 08035223 Comment: - Recurrent oroesophageal thrush 2/2 progressing AIDS and opportunistic infection - EGD biopsies without any evidence of viral or fungal organisms - Soft diet if tolerated, continue Ensures and comfort foods - Continue anidulafungin for 1 more week - Consulted ASSISTANT ADMINISTRATOR for patient's c/o weakness in chewing, likely due to muscle wasting (9) Full code status Current Visit: No Status: Acute Code(s): Z78.9 - OTHER SPECIFIED HEALTH STATUS SNOMED Code(s): 189364967 (10) DNR (do not resuscitate) Current Visit: Yes Status: Acute Comment: (11) DVT prophylaxis Current Visit: No Status: Acute Code(s): Z29.9 - ENCOUNTER FOR PROPHYLACTIC MEASURES, UNSPECIFIED SNOMED Code(s): 711760080 Comment: - Lovenox Status and Disposition: Inpatient for continued care. Dispo TBD, case management and SW following. Slow progress. Highly recommend STR although patient does not want this. Will continue to discuss. May need to be placed on swing status depending on length of treatment for IV antifungals.
[2019-04-20] MEDS: Tenofovir/Emtricitab 200/300 * TAB PO SCH (21:43)
[2019-04-20] MEDS: Melatonin 3 MG TAB PO SCH (22:00)
[2019-04-21] MEDS: HYDROmorphone INJ1* 1 MG/ML SYRINGE IV SLOW PU PRN ×4 (04:52→23:38)
[2019-04-21] MEDS: Ondansetron INJ* 2 MG/ML VIAL IV PRN ×2 (04:55→17:28)
[2019-04-21] MEDS: fentaNYL Patch Check Q Shift 1 NOTE FOLLOW UP SCH ×2 (07:30→19:18)
[2019-04-21 08:49] LABS: ABS Monocytes 0.5 10^3/ul (0-0.8); ABS Neutrophils 5.7 10^3/ul (1.5-7.7); Eosinophil % 0.5 %; Hematocrit 25 % (42-52); Hemoglobin 8.1 g/dL (14.0-18.0); Lymphocyte % 14.4 %; Mean Corpuscular HGB Conc 33 g/dL (31-36); Mean Corpuscular Hemoglobin 29 pg (27-31); Mean Corpuscular Volume 88 fL (80-94); Platelet Count 305 10^3/uL (150-450); Red Blood Count 2.79 10^6 /uL (4.18-5.48); Red Cell Distribution Width 17 % (10-15); White Blood Count 7.2 10^3/uL (3.5-10.8)
[2019-04-21] MEDS ORDERED: NS 0.9% 100 ML* 100 ML ONE (08:50)
[2019-04-21] MEDS: Raltegravir* 400 MG TAB PO SCH ×2 (08:59→22:06)
[2019-04-21] MEDS: Pantoprazole TAB * 40 MG TAB PO SCH ×2 (09:00→22:07)
[2019-04-21] MEDS: Dronabinol CAP* 2.5 MG PO SCH ×3 (09:00→16:12)
[2019-04-21] MEDS: Magic M W2 Ben/Maal/Nyst/Lido* 240 ML MOUTHWASH (alt formulation) SWISH SWAL SCH ×4 (09:02→22:09)
[2019-04-21] MEDS: Anidulafungin* 100 MG in NS 0.9% 100 ML* 100 ML IVPB SCH (09:07)
[2019-04-21 09:08] LABS: Albumin 1.7 g/dL (3.2-5.2); Albumin/Globulin Ratio 0.7 (1-3); BUN/Creatinine Ratio 41.9 (8-20); Calcium 6.9 mg/dL (8.6-10.3); EGFR African American 365.4 (>60); Globulin 2.5 g/dL (2-4); Magnesium 1.9 mg/dL (1.9-2.7); Potassium 3.6 mmol/L (3.5-5.0); Total Bilirubin 0.2 mg/dL (0.2-1.0); Total Protein 4.2 g/dL (6.4-8.9)
[2019-04-21] MEDS: Cyclobenzaprine TAB* 10 MG PO PRN ×2 (09:11→13:31)
[2019-04-21] MEDS: Clotrimazole 1% CREAM* 45 GM TOPICAL SCH ×2 (09:20→22:12)
[2019-04-21] MEDS: Enoxaparin(*) 40 MG/0.4 ML SYR SUBCUT SCH (13:26)
[2019-04-21] MEDS: Acetaminophen TAB* 325 MG PO PRN (13:30)
--- NOTE | 2019-04-21 16:09 | PN ---
Progress Note - Progress Note Date of Service: 04/21/19 SOAP: Subjective: CC: AIDS HPI: 53 year old man with longstanding HIV, with weight loss and diarrhea, transaminitis. He has less pain swallowing and eating. Still variable stools, no abd pain. No fever or rash. Objective: Vital Signs Temp 36.6 C 04/21/19 10:50 Pulse 92 04/21/19 10:50 Resp 16 04/21/19 13:31 BP 97/55 04/21/19 10:50 Pulse Ox 98 04/21/19 10:50 Intake & Output 04/20/19 04/21/19 04/21/19 18:59 06:59 18:59 Intake Total 930 630 600 Output Total 1440 960 Balance -510 630 -360 Weight 120 lb 121 lb 4.8 oz Intake: IV Fluids 630 Normal Saline 500 anidulafungin 130 IVPB 210 anidulafungin 110 magneium sulfate 100 Oral 720 0 600 Output: Urine 1440 960 Other: Date of Last Bowel [id number] Movement # Bowel Movements 2 0 Estimated Stool Amount Large # Voids 2 0 Gen:awake, no distress, cachectic HEENT: no thrush, mild diffuse erythema Neck: no mass Heart:RRR no murmur Lungs:decr BS at bases Abd:+BS NTND soft Skin: no rash MSK: no spine tenderness Laboratory Results - last 24 hr 04/21/19 04/21/19 08:27 08:27 WBC 7.2 RBC 2.79 L Hgb 8.1 L Hct 25 L MCV 88 MCH 29 MCHC 33 RDW 17 H Plt Count 305 MPV 9.0 Neut % (Auto) 78.2 Lymph % (Auto) 14.4 [place] % (Auto) 6.6 Eos % (Auto) 0.5 Baso % (Auto) 0.3 Absolute Neuts (auto) 5.7 Absolute Lymphs (auto) 1.0 Absolute Monos (auto) 0.5 Absolute Eos (auto) 0.0 Absolute Basos (auto) 0.0 Absolute Nucleated RBC 0.0 Nucleated RBC % 0.0 Sodium 138 Potassium 3.6 Chloride 104 Carbon Dioxide 31 Anion Gap 3 BUN 13 Creatinine 0.31 L Est GFR ( Amer) 365.4 Est GFR (Non-Af Amer) 302.0 BUN/Creatinine Ratio 41.9 H Glucose 117 H Calcium 6.9 L Magnesium 1.9 Total Bilirubin 0.20 AST 33 ALT 72 H Alkaline Phosphatase 212 H Total Protein 4.2 L Albumin 1.7 L Globulin 2.5 Albumin/Globulin Ratio 0.7 L Assessment: 1. AIDS with diarrhea, workup negative, improving 2. oroesophageal candidiasis, improving 3. malnutrition, hypoalbuminemia, volume overload 4. gastric ulcers 5. hypoalbuminemia Plan: 1. continue truvada, raltegravir, anidalufungin 2. PPI 3. ensure and calorie counts 4. eventual SNF placement
--- NOTE | 2019-04-21 17:28 | PN ---
Subjective Date of Service: 04/21/19 Interval History: Noted back pain and poor sleep otherwise improved swallowing but still only jello and ensure Stool is "mixed" Family History: Unchanged from Admission Social History: Unchanged from Admission Past Medical History: Unchanged from Admission Objective Active Medications: Acetaminophen (Tylenol Tab*) 650 mg PO Q4H PRN PRN Reason: MILD PAIN or TEMP > 100.4 Last Admin: 04/21/19 13:30 Dose: 650 mg Clotrimazole (Clotrimazole 1%*) 1 applic TOPICAL BID [facility] Last Admin: 04/21/19 09:20 Dose: Not Given Cyclobenzaprine HCl (Flexeril Tab*) 10 mg PO TID PRN PRN Reason: SPASMS - BACK Last Admin: 04/21/19 13:31 Dose: 10 mg Diphenoxylate HCl/Atropine (Lomotil Tab*) 1 tab PO BID PRN PRN Reason: DIARRHEA Last Admin: 04/15/19 10:29 Dose: 1 tab Dronabinol (Marinol Cap*) 5 mg PO TID AC [facility] Last Admin: 04/21/19 16:12 Dose: 5 mg Emtricitabine/Tenofovir (Truvada 200/300 Mg*) 1 tab PO BEDTIME [facility]; Protocol Last Admin: 04/20/19 21:43 Dose: 1 tab Enoxaparin Sodium (Lovenox(*)) 40 mg SUBCUT Q24H [facility] Last Admin: 04/21/19 13:26 Dose: Not Given Fentanyl (Duragesic Patch 50 Mcg/Hr*) 50 mcg TRANSDERM Q72H [facility] Last Admin: 04/20/19 09:32 Dose: 50 mcg Hydromorphone HCl (Dilaudid Inj1s*) 1 mg IV SLOW PU Q6H PRN PRN Reason: pain scale 7-10 Last Admin: 04/21/19 17:12 Dose: 1 mg Anidulafungin 100 mg/ Sodium (Chloride) 130 mls @ 65 mls/hr IVPB Q24H [facility] Last Admin: 04/21/19 09:07 Dose: 65 mls/hr Melatonin (Melatonin) 3 mg PO BEDTIME [facility] Last Admin: 04/20/19 22:00 Dose: Not Given Multi-Ingredient Mouthwash/Gargle (Magic M W2 Tarik/Maal/Nyst/Lido*) 5 ml SWISH SWAL QID [facility] Last Admin: 04/21/19 16:15 Dose: 5 ml Ondansetron HCl (Zofran Inj*) 4 mg IV Q6H PRN PRN Reason: NAUSEA Last Admin: 04/21/19 04:55 Dose: 4 mg Pantoprazole Sodium (Protonix Tab*) 40 mg PO BID [facility] Last Admin: 04/21/19 09:00 Dose: 40 mg Pharmacy Profile Note (Fentanyl Patch Check Q Shift) 1 note FOLLOW UP 0700, 1900 [facility] Last Admin: 04/21/19 07:30 Dose: 1 note Raltegravir (Isentress*) 400 mg PO BID [facility]; Protocol Last Admin: 04/21/19 08:59 Dose: 400 mg Vital Signs - 8 hr 04/21/19 04/21/19 04/21/19 10:50 11:02 11:32 Temperature 97.9 F Pulse Rate 92 Respiratory 22 22 Rate Blood Pressure 97/55 (mmHg) O2 Sat by Pulse 98 Oximetry 04/21/19 04/21/19 04/21/19 11:59 12:02 13:02 Temperature Pulse Rate Respiratory 22 22 22 Rate Blood Pressure (mmHg) O2 Sat by Pulse Oximetry 04/21/19 04/21/19 04/21/19 13:31 15:36 16:12 Temperature 96.6 F Pulse Rate 102 Respiratory 16 16 20 Rate Blood Pressure 94/46 (mmHg) O2 Sat by Pulse 94 Oximetry 04/21/19 17:12 Temperature Pulse Rate Respiratory 16 Rate Blood Pressure (mmHg) O2 Sat by Pulse Oximetry Oxygen Devices in Use Now: None Appearance: thin, NAD Eyes: No Scleral Icterus, PERRLA Ears/Nose/Mouth/Throat: NL Teeth, Lips, Gums, - - very small area of thrush in right lower mouth Neck: NL Appearance and Movements; NL JVP, Trachea Midline Respiratory: Symmetrical Chest Expansion and Respiratory Effort, Clear to Auscultation Cardiovascular: NL Sounds; No Murmurs; No JVD, RRR Abdominal: NL Sounds; No Tenderness; No Distention Lymphatic: No Cervical Adenopathy Extremities: No Edema Skin: No Rash or Ulcers Neurological: Alert and Oriented x 3 - Nutrition: Malnutrition Diagnosis/Plan Malnutrition Assessment by Registered Dietitian: Malnutrition Assessment Clinical Characteristics Chronic,Severe Malnutrition Assessment: Muscle Wasting - Temporal muscle wasting ( severe Criteria ) Fat Pad Wasting - Buccal fat pad wasting ( severe ) Inadequate Oral Intake - Pt reports poor appetite w/ odynophagia 2/2 thrush x1 mo - anticipate meeting <75% nutrient needs x1 mo Unintentional Weight Loss - Pt reports a 20lb wt loss x1 mo; current wt 99lb, prev wt 116lb x1 mo. ago - 14.6% loss x1 mo (severe) Underweight - BMI 13.9 Malnutrition Assessment: Nutritional Supplementals/Nourishments - Will Interventions continue to send [place] Ensure Enlive ( 350kcal, 20g prot/serv) x5 daily to optimize kcal/prot intake and promote wt gain; will monitor continued acceptance. GI Related - Will monitor GI s/sx for impact on intake. Labs - Will monitor labs closely given pt's risk for dumping/refeeding and make recommendations as indicated. Malnutrition Assessment: Goals 1) Pt will tolerate least restrictive dietary textures w/o further difficulty chewing/ swallowing w/ resolution of thrush 2) Adequate po intake to replete lean body mass , support wt gain and hydration status 3) Improve fluid/electrolyte balance w/ adequate po intake and repletion PRN w/o dumping/ refeeding 4) Maintain bowel regularity w/ adequate po intake and antidiarrheals PRN w/o exac of diarrhea/development of constipation Result Diagrams: 04/21/19 08:27 04/21/19 08:27 Assess/Plan/Problems-Billing Assessment: Mr. Mcrae is a 53 yo M with PMH of PCP pneumocystis PNA, cryptococcus meningitis , HIV/AIDS and poor compliance with HAART therapy as an outpatient; that presented with dysphagia, malnutrition, and general weakness and is improving with antifungals, nutritional supplementation and supportive care. 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 - Continue Truvada, Isentress (3) Anemia Comment: - In the setting, NSAID, known gastric ulcer and esophagitis - Hgb stable - Continue protonix BID - Avoid NSAIDs (4) Back pain Comment: - Patient has had dilaudid frequently (started) during this hospital stay and was started on fentanyl as transition to help with weaning for discharge planning. I am not sure this is the best poultry trimmer solution but now many days in and will require weaning and discussion with pt. - Lumbar and thoracic spine CTs without acute abnormalities. - Continue q6h dilaudid and fentanyl patch but discuss with patient - Add on Flexeril in place of Ibuprofen. (5) Diarrhea Comment: resolved (6) Gastric ulcer Comment: - Found on EGD on 04/10, gastric ulcer endoclipped by Dr. Guajardo (7) Severe protein-calorie malnutrition Comment: - BMI 13 at admission, Slow improvement. - Severe wasting and inability for oral intake and no solid foods 2/2 dysphagia and pain - Nutrition consulted and following - Continue Marinol - Seems to be clinically improving - No indication for TPN at this time. (8) Transaminitis Comment: - LFTS improving, unclear etiology (9) DVT prophylaxis Comment: - Lovenox Status and Disposition: Inpatient for continued care. Dispo TBD, case management and SW following. Slow progress. Highly recommend STR although patient does not want this. Will continue to discuss. May need to be placed on swing status depending on length of treatment for IV antifungals.
[2019-04-21] MEDS: Melatonin 3 MG TAB PO SCH (22:07)
[2019-04-21] MEDS: Tenofovir/Emtricitab 200/300 * TAB PO SCH (22:13)
[2019-04-22] MEDS: HYDROmorphone INJ1* 1 MG/ML SYRINGE IV SLOW PU PRN ×4 (04:32→23:09)
[2019-04-22] MEDS: fentaNYL Patch Check Q Shift 1 NOTE FOLLOW UP SCH ×2 (07:10→17:38)
[2019-04-22] MEDS: Dronabinol CAP* 2.5 MG PO SCH ×3 (07:15→21:11)
[2019-04-22] MEDS: Raltegravir* 400 MG TAB PO SCH ×2 (07:15→21:12)
[2019-04-22] MEDS: Magic M W2 Ben/Maal/Nyst/Lido* 240 ML MOUTHWASH (alt formulation) SWISH SWAL SCH ×4 (07:16→21:20)
[2019-04-22] MEDS: Pantoprazole TAB * 40 MG TAB PO SCH ×2 (07:16→21:11)
[2019-04-22] MEDS: Clotrimazole 1% CREAM* 45 GM TOPICAL SCH ×2 (07:16→21:48)
--- NOTE | 2019-04-22 09:17 | PN ---
Progress Note - Progress Note Date of Service: 04/22/19 SOAP: Subjective: CC: AIDS HPI: Ms. ruvalcaba is a 53 year old man with longstanding HIV, with weight loss and diarrhea, and transaminitis. He has less pain swallowing and eating, but is still having difficult eating due to pain. Reports intermittent diarrhea, but improved from admission, no abd pain. No fever, chills, nausea, or vomiting. He is reporting back pain. Objective: Vital Signs - 8 hr 04/22/19 04/22/19 04/22/19 04:32 06:49 07:15 Temperature 98.2 F Pulse Rate 81 Respiratory 20 18 18 Rate Blood Pressure 104/66 (mmHg) O2 Sat by Pulse 97 Oximetry Physical Exam: General: NAD, sitting up in bed Neurological: Alert and Oriented HEENT: Thrush noted on , moist MM Cardiovascular: Heart rate regular, no murmur Respiratory: Lung sounds clear bilateral Abdominal: Bowel sounds present; ABD soft, non tender, slightly distended Skin: No rash Laboratory Last Values WBC 7.2 10^3/uL (3.5-10.8) 04/21/19 08:27 RBC 2.79 10^6 /uL (4.18-5.48) L 04/21/19 08:27 Hgb 8.1 g/dL (14.0-18.0) L 04/21/19 08:27 Hct 25 % (42-52) L 04/21/19 08:27 MCV 88 fL (80-94) 04/21/19 08:27 MCH 29 pg (27-31) 04/21/19 08:27 MCHC 33 g/dL (31-36) 04/21/19 08:27 RDW 17 % (10-15) H 04/21/19 08:27 Plt Count 305 10^3/uL (150-450) 04/21/19 08:27 MPV 9.0 fL (7.4-10.4) 04/21/19 08:27 Neut % (Auto) 78.2 % 04/21/19 08:27 Lymph % (Auto) 14.4 % 04/21/19 08:27 [place] % (Auto) 6.6 % 04/21/19 08:27 Eos % (Auto) 0.5 % 04/21/19 08:27 Baso % (Auto) 0.3 % 04/21/19 08:27 Absolute Neuts (auto) 5.7 10^3/ul (1.5-7.7) 04/21/19 08:27 Absolute Lymphs (auto) 1.0 10^3/ul (1.0-4.8) 04/21/19 08:27 Absolute Monos (auto) 0.5 10^3/ul (0-0.8) 04/21/19 08:27 Absolute Eos (auto) 0.0 10^3/ul (0-0.6) 04/21/19 08:27 Absolute Basos (auto) 0.0 10^3/ul (0-0.2) 04/21/19 08:27 Absolute Nucleated RBC 0.0 10^3/ul 04/21/19 08:27 Neutrophils % 83.0 % 04/16/19 05:21 Lymphocytes % 14.0 % 04/16/19 05:21 Monocytes % 2.0 % 04/16/19 05:21 Eosinophils % 1.0 % 04/16/19 05:21 Nucleated RBC % 0.0 04/21/19 08:27 Platelet Morphology Large 04/16/19 05:21 Normal RBC Morphology Normal (Normal) 04/16/19 05:21 INR (Anticoag Therapy) 1.16 (0.82-1.09) H 04/10/19 04:27 Sodium 138 mmol/L (135-145) 04/21/19 08:27 Potassium 3.6 mmol/L (3.5-5.0) 04/21/19 08:27 Chloride 104 mmol/L (101-111) 04/21/19 08:27 Carbon Dioxide 31 mmol/L (22-32) 04/21/19 08:27 Anion Gap 3 mmol/L (2-11) 04/21/19 08:27 BUN 13 mg/dL (6-24) 04/21/19 08:27 Creatinine 0.31 mg/dL (0.67-1.17) L 04/21/19 08:27 Est GFR ( Amer) 365.4 (>60) 04/21/19 08:27 Est GFR (Non-Af Amer) 302.0 (>60) 04/21/19 08:27 BUN/Creatinine Ratio 41.9 (8-20) H 04/21/19 08:27 Glucose 117 mg/dL (70-100) H 04/21/19 08:27 POC Glucose (mg/dL) 117 mg/dL (70-100) H 04/10/19 14:16 Lactic Acid 2.0 mmol/L (0.5-2.0) 04/08/19 11:34 Calcium 6.9 mg/dL (8.6-10.3) L 04/21/19 08:27 Phosphorus 2.3 mg/dL (2.5-5.0) L 04/09/19 05:28 Magnesium 1.9 mg/dL (1.9-2.7) 04/21/19 08:27 Total Bilirubin 0.20 mg/dL (0.2-1.0) 04/21/19 08:27 AST 33 U/L (13-39) 04/21/19 08:27 ALT 72 U/L (7-52) H 04/21/19 08:27 Alkaline Phosphatase 212 U/L (34-104) H 04/21/19 08:27 C-Reactive Protein 48.95 mg/L (<8.01) H 04/08/19 11:34 Total Protein 4.2 g/dL (6.4-8.9) L 04/21/19 08:27 Albumin 1.7 g/dL (3.2-5.2) L 04/21/19 08:27 Globulin 2.5 g/dL (2-4) 04/21/19 08:27 Albumin/Globulin Ratio 0.7 (1-3) L 04/21/19 08:27 Lipase 82 U/L (11.0-82.0) 04/08/19 11:34 Urine Color Yellow 04/08/19 16:25 Urine Appearance Clear 04/08/19 16:25 Urine pH 6.0 (5-9) 04/08/19 16:25 Ur Specific [place] 1.018 (1.010-1.030) 04/08/19 16:25 Urine Protein Negative (Negative) 04/08/19 16:25 Urine Ketones Negative (Negative) 04/08/19 16:25 Urine Blood Negative (Negative) 04/08/19 16:25 Urine Nitrate Negative (Negative) 04/08/19 16:25 Urine Bilirubin Negative (Negative) 04/08/19 16:25 Urine Urobilinogen Negative (Negative) 04/08/19 16:25 Ur Leukocyte Esterase Negative (Negative) 04/08/19 16:25 Urine Glucose Negative (Negative) 04/08/19 16:25 % CD3 Cells 92 % (58-86) H 04/08/19 11:34 Absolute CD3 Count 729 cells/mcL (550-2202) 04/08/19 11:34 % CD4 Cells 35 % (32-64) 04/08/19 11:34 Absolute CD4 Count 277 cells/mcL (365-1437) L 04/08/19 11:34 CD4/CD3 Ratio 0.5 (>=0.9) L 04/08/19 11:34 % CD8 Cells 64 % (11-40) H 04/08/19 11:34 Absolute CD8 Count 508 cells/mcL (117-846) 04/08/19 11:34 Absolute CD45 Count 0.79 thou/mcL (0.82-2.84) L 04/08/19 11:34 CMV Qnt PCR IU/mL <35 IU/mL (Undetected) A 04/10/19 04:27 Hepatitis A IgM Ab Negative (Negative) 04/08/19 11:34 Hep Bs Antigen Negative (Negative) 04/08/19 11:34 Hep B Core IgM Ab Nonreactive (Nonreactive) 04/08/19 11:34 Hepatitis C Antibody Negative (Negative) 04/08/19 11:34 Hepatitis C Ab Index 0.07 s/c 04/08/19 11:34 HSV IgM Ab Screen Reactive (Negative) 04/09/19 05:26 HSV IgM Ab (IFA) Negative (Negative) 04/09/19 05:26 HSV I IgG Ab Positive (Negative) 04/09/19 05:26 HSV II IgG Negative (Negative) 04/09/19 05:26 HIV-1 RNA (PCR) 36 copies/mL (Undetected) A 04/10/19 04:27 HIV-1 Int Raltegravir Not Reportable 04/10/19 04:27 HIV-1 Int Elvitegravir Not Reportable 04/10/19 04:27 HIV Dolutegravir Resist Not Reportable 04/10/19 04:27 HIV-1 Last Viral Load Dt Not Reportable 04/10/19 04:27 HIV-1 Last Viral Load TNP 04/10/19 04:27 Assessment: 1. AIDS with diarrhea. Workup negative, improving. 2. Oroesophageal candidiasis. Improving, receiving antifungal. 3. Malnutrition. With hypoalbuminemia. Tolerating ensure. 4. Gastric ulcers. Seen on EGD. Plan: Continue truvada, raltegravir, and PPI. Continue anidalufungin for another week. Continue ensure and calorie counts.
[2019-04-22] MEDS: Anidulafungin* 100 MG in NS 0.9% 100 ML* 100 ML IVPB SCH (09:19)
[2019-04-22] MEDS: Cyclobenzaprine TAB* 10 MG PO PRN ×2 (09:21→21:19)
[2019-04-22] MEDS: Enoxaparin(*) 40 MG/0.4 ML SYR SUBCUT SCH (12:42)
--- NOTE | 2019-04-22 17:59 | PN ---
Subjective Date of Service: 04/22/19 Interval History: Diarrhea improved, still "50:50" Discussed decreasing pain meds which he indicates is needed now because his "nervous system is on fire" and he has tingling in fingers PO intake remains poor but tolerating ensure and liquids Family History: Unchanged from Admission Social History: Unchanged from Admission Past Medical History: Unchanged from Admission Objective Active Medications: Acetaminophen (Tylenol Tab*) 650 mg PO Q4H PRN PRN Reason: MILD PAIN or TEMP > 100.4 Last Admin: 04/21/19 13:30 Dose: 650 mg Clotrimazole (Clotrimazole 1%*) 1 applic TOPICAL BID [facility] Last Admin: 04/22/19 07:16 Dose: Not Given Cyclobenzaprine HCl (Flexeril Tab*) 10 mg PO TID PRN PRN Reason: SPASMS - BACK Last Admin: 04/22/19 09:21 Dose: 10 mg Diphenoxylate HCl/Atropine (Lomotil Tab*) 1 tab PO BID PRN PRN Reason: DIARRHEA Last Admin: 04/15/19 10:29 Dose: 1 tab Emtricitabine/Tenofovir (Truvada 200/300 Mg*) 1 tab PO BEDTIME [facility]; Protocol Last Admin: 04/21/19 22:13 Dose: 1 tab Enoxaparin Sodium (Lovenox(*)) 40 mg SUBCUT Q24H [facility] Last Admin: 04/22/19 12:42 Dose: Not Given Fentanyl (Duragesic Patch 50 Mcg/Hr*) 50 mcg TRANSDERM Q72H [facility] Last Admin: 04/20/19 09:32 Dose: 50 mcg Hydromorphone HCl (Dilaudid Inj1s*) 0.5 mg IV SLOW PU Q6H PRN PRN Reason: pain scale 7-10 Last Admin: 04/22/19 17:37 Dose: 0.5 mg Anidulafungin 100 mg/ Sodium (Chloride) 130 mls @ 65 mls/hr IVPB Q24H [facility] Last Admin: 04/22/19 09:19 Dose: 65 mls/hr Melatonin (Melatonin) 3 mg PO BEDTIME [facility] Last Admin: 04/21/19 22:07 Dose: Not Given Multi-Ingredient Mouthwash/Gargle (Magic M W2 Tarik/Maal/Nyst/Lido*) 5 ml SWISH SWAL QID [facility] Last Admin: 04/22/19 15:14 Dose: 5 ml Ondansetron HCl (Zofran Inj*) 4 mg IV Q6H PRN PRN Reason: NAUSEA Last Admin: 04/21/19 17:28 Dose: 4 mg Pantoprazole Sodium (Protonix Tab*) 40 mg PO BID [facility] Last Admin: 04/22/19 07:16 Dose: 40 mg Pharmacy Profile Note (Fentanyl Patch Check Q Shift) 1 note FOLLOW UP 0700, 1900 [facility] Last Admin: 04/22/19 17:38 Dose: 1 note Raltegravir (Isentress*) 400 mg PO BID [facility]; Protocol Last Admin: 04/22/19 07:15 Dose: 400 mg Vital Signs - 8 hr 04/22/19 04/22/19 04/22/19 11:15 11:42 11:57 Temperature Pulse Rate Respiratory 18 20 18 Rate Blood Pressure (mmHg) O2 Sat by Pulse Oximetry 04/22/19 04/22/19 04/22/19 12:00 12:44 13:34 Temperature 98.1 F Pulse Rate 74 Respiratory 18 18 16 Rate Blood Pressure 108/71 (mmHg) O2 Sat by Pulse 98 Oximetry 04/22/19 04/22/19 15:15 17:37 Temperature 97.9 F Pulse Rate 72 Respiratory 18 18 Rate Blood Pressure 104/66 (mmHg) O2 Sat by Pulse 98 Oximetry Oxygen Devices in Use Now: None Appearance: thin, NAD Eyes: No Scleral Icterus, PERRLA, - Ears/Nose/Mouth/Throat: NL Teeth, Lips, Gums, Clear Oropharnyx, - - clear OP Neck: NL Appearance and Movements; NL JVP, Trachea Midline Respiratory: Symmetrical Chest Expansion and Respiratory Effort, Clear to Auscultation Cardiovascular: RRR Abdominal: NL Sounds; No Tenderness; No Distention Lymphatic: No Cervical Adenopathy Extremities: No Edema Neurological: Alert and Oriented x 3 - Nutrition: Malnutrition Diagnosis/Plan Malnutrition Assessment by Registered Dietitian: Malnutrition Assessment Clinical Characteristics Chronic,Severe Malnutrition Assessment: Muscle Wasting - Temporal muscle wasting ( severe Criteria ) Fat Pad Wasting - Buccal fat pad wasting ( severe ) Inadequate Oral Intake - Pt reports poor appetite w/ odynophagia 2/2 thrush x1 mo - anticipate meeting <75% nutrient needs x1 mo Unintentional Weight Loss - Pt reports a 20lb wt loss x1 mo; current wt 99lb, prev wt 116lb x1 mo. ago - 14.6% loss x1 mo (severe) Underweight - BMI 13.9 Malnutrition Assessment: Nutritional Supplementals/Nourishments - Will Interventions continue to send [place] Ensure Enlive ( 350kcal, 20g prot/serv) x5 daily to optimize kcal/prot intake and promote wt gain; will monitor continued acceptance. GI Related - Will monitor GI s/sx for impact on intake. Labs - Will monitor labs closely given pt's risk for dumping/refeeding and make recommendations as indicated. Malnutrition Assessment: Goals 1) Pt will tolerate least restrictive dietary textures w/o further difficulty chewing/ swallowing w/ resolution of thrush 2) Adequate po intake to replete lean body mass , support wt gain and hydration status 3) Improve fluid/electrolyte balance w/ adequate po intake and repletion PRN w/o dumping/ refeeding 4) Maintain bowel regularity w/ adequate po intake and antidiarrheals PRN w/o exac of diarrhea/development of constipation Result Diagrams: 04/21/19 08:27 04/21/19 08:27 Assess/Plan/Problems-Billing Assessment: Mr. Mcrae is a 53 yo M with PMH of PCP pneumocystis PNA, cryptococcus meningitis , HIV/AIDS and poor compliance with HAART therapy as an outpatient; that presented with dysphagia, malnutrition, and general weakness and is improving with antifungals, nutritional supplementation and supportive care. - Patient Problems (1) Esophagitis Comment: - Recurrent oroesophageal thrush 2/2 progressing AIDS and opportunistic infection - EGD biopsies without any evidence of viral or fungal organisms - Soft diet if tolerated, continue Ensures and comfort foods - Continue anidulafungin - Consulted [employer] for patient's c/o weakness in chewing, likely due to muscle wasting (2) AIDS Comment: - CD4 improved to 277 from 31 after initiation of HAART - Viral load declined to 36 from >1000 a month ago. - Continue Truvada, Isentress (3) Anemia Comment: - In the setting, NSAID, known gastric ulcer and esophagitis - Hgb stable - Continue protonix BID - Avoid NSAIDs (4) Back pain Comment: - Decrease dialudid to 0.5. Discussed with pt prior - Lumbar and thoracic spine CTs without acute abnormalities. - Continue q6h dilaudid and fentanyl patch but discuss with patient - Add on Flexeril in place of Ibuprofen. (5) Diarrhea Comment: resolved (6) Gastric ulcer Comment: - Found on EGD on 04/10, gastric ulcer endoclipped by Dr. Guajardo (7) Severe protein-calorie malnutrition Comment: - BMI 13 at admission, Slow improvement. - Severe wasting and inability for oral intake and no solid foods 2/2 dysphagia and pain - Nutrition consulted and following - Continue Marinol - Seems to be clinically improving - No indication for TPN at this time. (8) Transaminitis Comment: - LFTS improving, unclear etiology (9) DVT prophylaxis Comment: - Lovenox Status and Disposition: Inpatient for continued care. Dispo TBD, case management and SW following. May have difficulty with [facility] based on insurance. Slow progress. Highly recommend STR although patient does not want this. Will continue to discuss. May need to be placed on swing status depending on length of treatment for IV antifungals.
[2019-04-22] MEDS: Tenofovir/Emtricitab 200/300 * TAB PO SCH (21:12)
[2019-04-22] MEDS: Melatonin 3 MG TAB PO SCH (21:48)
[2019-04-23] MEDS: HYDROmorphone INJ1* 1 MG/ML SYRINGE IV SLOW PU PRN ×3 (06:43→18:34)
[2019-04-23] MEDS: fentaNYL Patch Check Q Shift 1 NOTE FOLLOW UP SCH ×2 (06:50→19:15)
[2019-04-23] MEDS: Magic M W2 Ben/Maal/Nyst/Lido* 240 ML MOUTHWASH (alt formulation) SWISH SWAL SCH ×4 (09:53→22:20)
[2019-04-23] MEDS: Raltegravir* 400 MG TAB PO SCH ×2 (09:54→22:17)
[2019-04-23] MEDS: Dronabinol CAP* 2.5 MG PO SCH ×3 (09:54→22:17)
[2019-04-23] MEDS: Pantoprazole TAB * 40 MG TAB PO SCH ×2 (09:54→22:17)
[2019-04-23] MEDS: fentaNYL PATCH 50 MCG/HR TRANSDERM SCH (09:55)
[2019-04-23] MEDS: Clotrimazole 1% CREAM* 45 GM TOPICAL SCH ×2 (10:10→23:42)
[2019-04-23] MEDS: Anidulafungin* 100 MG in NS 0.9% 100 ML* 100 ML IVPB SCH (10:10)
[2019-04-23] MEDS: Enoxaparin(*) 40 MG/0.4 ML SYR SUBCUT SCH (15:46)
--- NOTE | 2019-04-23 17:30 | PN ---
Subjective Date of Service: 04/23/19 Interval History: feels "swallowing a little better" 1 "solid poop" todya but also reports diarrhea tolerating ensure Family History: Unchanged from Admission Social History: Unchanged from Admission Past Medical History: Unchanged from Admission Objective Active Medications: Acetaminophen (Tylenol Tab*) 650 mg PO Q4H PRN PRN Reason: MILD PAIN or TEMP > 100.4 Last Admin: 04/21/19 13:30 Dose: 650 mg Clotrimazole (Clotrimazole 1%*) 1 applic TOPICAL BID [facility] Last Admin: 04/23/19 10:10 Dose: Not Given Cyclobenzaprine HCl (Flexeril Tab*) 10 mg PO TID PRN PRN Reason: SPASMS - BACK Last Admin: 04/22/19 21:19 Dose: 10 mg Diphenoxylate HCl/Atropine (Lomotil Tab*) 1 tab PO BID PRN PRN Reason: DIARRHEA Last Admin: 04/15/19 10:29 Dose: 1 tab Dronabinol (Marinol Cap*) 5 mg PO TID [facility] Last Admin: 04/23/19 15:44 Dose: 5 mg Emtricitabine/Tenofovir (Truvada 200/300 Mg*) 1 tab PO BEDTIME [facility]; Protocol Last Admin: 04/22/19 21:12 Dose: 1 tab Enoxaparin Sodium (Lovenox(*)) 40 mg SUBCUT Q24H [facility] Last Admin: 04/23/19 15:46 Dose: Not Given Fentanyl (Duragesic Patch 50 Mcg/Hr*) 50 mcg TRANSDERM Q72H [facility] Last Admin: 04/23/19 09:55 Dose: 50 mcg Hydromorphone HCl (Dilaudid Inj1s*) 0.5 mg IV SLOW PU Q6H PRN PRN Reason: pain scale 7-10 Last Admin: 04/23/19 12:33 Dose: 0.5 mg Anidulafungin 100 mg/ Sodium (Chloride) 130 mls @ 65 mls/hr IVPB Q24H [facility] Last Admin: 04/23/19 10:10 Dose: 65 mls/hr Melatonin (Melatonin) 3 mg PO BEDTIME [facility] Last Admin: 04/22/19 21:48 Dose: Not Given Multi-Ingredient Mouthwash/Gargle (Magic M W2 Tarik/Maal/Nyst/Lido*) 5 ml SWISH SWAL QID [facility] Last Admin: 04/23/19 14:00 Dose: 5 ml Ondansetron HCl (Zofran Inj*) 4 mg IV Q6H PRN PRN Reason: NAUSEA Last Admin: 04/21/19 17:28 Dose: 4 mg Pantoprazole Sodium (Protonix Tab*) 40 mg PO BID [facility] Last Admin: 04/23/19 09:54 Dose: 40 mg Pharmacy Profile Note (Fentanyl Patch Check Q Shift) 1 note FOLLOW UP 0700, 1900 [facility] Last Admin: 04/23/19 06:50 Dose: 1 note Raltegravir (Isentress*) 400 mg PO BID [facility]; Protocol Last Admin: 04/23/19 09:54 Dose: 400 mg Vital Signs - 8 hr 04/23/19 04/23/19 04/23/19 09:54 09:55 11:54 Respiratory 16 16 16 Rate 04/23/19 04/23/19 04/23/19 12:33 13:33 15:44 Respiratory 16 16 16 Rate Oxygen Devices in Use Now: None Appearance: thin, NAD Eyes: No Scleral Icterus Ears/Nose/Mouth/Throat: NL Teeth, Lips, Gums, Clear Oropharnyx Neck: NL Appearance and Movements; NL JVP, Trachea Midline Respiratory: Symmetrical Chest Expansion and Respiratory Effort, Clear to Auscultation Cardiovascular: NL Sounds; No Murmurs; No JVD, RRR Abdominal: NL Sounds; No Tenderness; No Distention Lymphatic: No Cervical Adenopathy Extremities: No Edema Neurological: Alert and Oriented x 3 - Nutrition: Malnutrition Diagnosis/Plan Malnutrition Assessment by Registered Dietitian: Malnutrition Assessment Clinical Characteristics Chronic,Severe Malnutrition Assessment: Muscle Wasting - Temporal muscle wasting ( severe Criteria ) Fat Pad Wasting - Buccal fat pad wasting ( severe ) Inadequate Oral Intake - Pt reports poor appetite w/ odynophagia 2/2 thrush x1 mo - anticipate meeting <75% nutrient needs x1 mo Unintentional Weight Loss - Pt reports a 20lb wt loss x1 mo; current wt 99lb, prev wt 116lb x1 mo. ago - 14.6% loss x1 mo (severe) Underweight - BMI 13.9 Malnutrition Assessment: Nutritional Supplementals/Nourishments - Will Interventions continue to send [place] Ensure Enlive ( 350kcal, 20g prot/serv) x5 daily to optimize kcal/prot intake and promote wt gain; will monitor continued acceptance. GI Related - Will monitor GI s/sx for impact on intake. Labs - Will monitor labs closely given pt's risk for dumping/refeeding and make recommendations as indicated. Malnutrition Assessment: Goals 1) Pt will tolerate least restrictive dietary textures w/o further difficulty chewing/ swallowing w/ resolution of thrush 2) Adequate po intake to replete lean body mass , support wt gain and hydration status 3) Improve fluid/electrolyte balance w/ adequate po intake and repletion PRN w/o dumping/ refeeding 4) Maintain bowel regularity w/ adequate po intake and antidiarrheals PRN w/o exac of diarrhea/development of constipation Result Diagrams: 04/21/19 08:27 04/21/19 08:27 Assess/Plan/Problems-Billing Assessment: Mr. Mcrae is a 53 yo M with PMH of PCP pneumocystis PNA, cryptococcus meningitis , HIV/AIDS and poor compliance with HAART therapy as an outpatient; that presented with dysphagia, malnutrition, and general weakness and is improving with antifungals, nutritional supplementation and supportive care. - Patient Problems (1) Esophagitis Comment: - Recurrent oroesophageal thrush 2/2 progressing AIDS and opportunistic infection - EGD biopsies without any evidence of viral or fungal organisms - Soft diet if tolerated, continue Ensures and comfort foods - Continue anidulafungin x 1 week (last day next ) - Consulted [employer] for patient's c/o weakness in chewing, likely due to muscle wasting (2) AIDS Comment: - CD4 improved to 277 from 31 after initiation of HAART - Viral load declined to 36 from >1000 a month ago. - Continue Truvada, Isentress (3) Anemia Comment: - In the setting, NSAID, known gastric ulcer and esophagitis - Hgb stable - Continue protonix BID - Avoid NSAIDs (4) Back pain Comment: - Decreased dialudid to 0.5. Discussed with pt prior 04/22 - Lumbar and thoracic spine CTs without acute abnormalities. - Continue q6h dilaudid and fentanyl patch but discuss with patient - Add on Flexeril in place of Ibuprofen. (5) Diarrhea Comment: resolved (6) Gastric ulcer Comment: - Found on EGD on 04/10, gastric ulcer endoclipped by Dr. Guajardo (7) Severe protein-calorie malnutrition Comment: - BMI 13 at admission, Slow improvement. - Severe wasting and inability for oral intake and no solid foods 2/2 dysphagia and pain - Nutrition consulted and following - Continue Marinol - Seems to be clinically improving - No indication for TPN at this time. (8) Transaminitis Comment: - LFTS improving, unclear etiology (9) DVT prophylaxis Comment: - Lovenox Status and Disposition: Inpatient for continued care. Dispo TBD, case management and SW following. May have difficulty with [facility] based on insurance. Slow progress. Highly recommend STR although patient does not want this. Will continue to discuss. May need to be placed on swing status depending on length of treatment for IV antifungals.
[2019-04-23] MEDS ORDERED: Cyanocobalamin INJ * 1,000 MCG/ML VIAL 1 ML VIAL IM ONE (17:44)
[2019-04-23] MEDS: Melatonin 3 MG TAB PO SCH ×2 (22:17→22:24)
[2019-04-23] MEDS: Tenofovir/Emtricitab 200/300 * TAB PO SCH (22:17)
[2019-04-24] MEDS: HYDROmorphone INJ1* 1 MG/ML SYRINGE IV SLOW PU PRN ×3 (00:42→16:20)
[2019-04-24] MEDS ORDERED: HYDROmorphone INJ1* 1 MG/ML SYRINGE IV SLOW PU PRN (06:54)
[2019-04-24] MEDS: Pantoprazole TAB * 40 MG TAB PO SCH ×2 (08:28→21:27)
[2019-04-24] MEDS: Dronabinol CAP* 2.5 MG PO SCH ×3 (08:28→21:28)
[2019-04-24] MEDS: Raltegravir* 400 MG TAB PO SCH ×2 (08:28→21:27)
[2019-04-24] MEDS: Magic M W2 Ben/Maal/Nyst/Lido* 240 ML MOUTHWASH (alt formulation) SWISH SWAL SCH ×4 (08:29→21:28)
[2019-04-24 08:34] LABS: ABS Lymphocytes 0.9 10^3/ul (1.0-4.8); ABS Monocytes 0.4 10^3/ul (0-0.8); ABS Neutrophils 6.7 10^3/ul (1.5-7.7); Eosinophil % 0.2 %; Hematocrit 25 % (42-52); Hemoglobin 8.5 g/dL (14.0-18.0); Lymphocyte % 11.3 %; Mean Corpuscular HGB Conc 34 g/dL (31-36); Mean Corpuscular Hemoglobin 29 pg (27-31); Mean Corpuscular Volume 86 fL (80-94); Mean Platelet Volume 9.1 fL (7.4-10.4); Platelet Count 421 10^3/uL (150-450); Red Blood Count 2.93 10^6 /uL (4.18-5.48); Red Cell Distribution Width 16 % (10-15)
[2019-04-24] MEDS: Clotrimazole 1% CREAM* 45 GM TOPICAL SCH ×2 (08:34→21:28)
[2019-04-24 08:50] LABS: Albumin 1.7 g/dL (3.2-5.2); Albumin/Globulin Ratio 0.6 (1-3); BUN/Creatinine Ratio 38.9 (8-20); Calcium 7.4 mg/dL (8.6-10.3); EGFR African American 307.5 (>60); EGFR Non-African American 254.1 (>60); Globulin 2.8 g/dL (2-4); Indirect Bilirubin 0.2 mg/dL (0.3-1.0); Potassium 3.3 mmol/L (3.5-5.0); Total Bilirubin 0.4 mg/dL (0.2-1.0); Total Protein 4.5 g/dL (6.4-8.9)
[2019-04-24] MEDS: fentaNYL Patch Check Q Shift 1 NOTE FOLLOW UP SCH ×2 (09:26→19:01)
[2019-04-24] MEDS: Anidulafungin* 100 MG in NS 0.9% 100 ML* 100 ML IVPB SCH (09:27)
[2019-04-24] MEDS: Acetaminophen TAB* 325 MG PO PRN (11:55)
[2019-04-24] MEDS: Enoxaparin(*) 40 MG/0.4 ML SYR SUBCUT SCH (14:19)
[2019-04-24] MEDS ORDERED: fentaNYL PATCH 50 MCG/HR TRANSDERM SCH (15:00)
[2019-04-24] MEDS ORDERED: Saline NASAL SPRAY 0.65%* BTL BOTH NARES PRN (17:07)
--- NOTE | 2019-04-24 17:15 | PN ---
Subjective Date of Service: 04/24/19 Interval History: Generally feeling better Throat less painful but still only eating ensure OK with change from dilaudid Q6 to 8hrs today Stool solid yesterday but more liquid today Family History: Unchanged from Admission Social History: Unchanged from Admission Past Medical History: Unchanged from Admission Objective Active Medications: Acetaminophen (Tylenol Tab*) 650 mg PO Q4H PRN PRN Reason: MILD PAIN or TEMP > 100.4 Last Admin: 04/24/19 11:55 Dose: 650 mg Clotrimazole (Clotrimazole 1%*) 1 applic TOPICAL BID [facility] Last Admin: 04/24/19 08:34 Dose: Not Given Cyclobenzaprine HCl (Flexeril Tab*) 10 mg PO TID PRN PRN Reason: SPASMS - BACK Last Admin: 04/22/19 21:19 Dose: 10 mg Diphenoxylate HCl/Atropine (Lomotil Tab*) 1 tab PO BID PRN PRN Reason: DIARRHEA Last Admin: 04/15/19 10:29 Dose: 1 tab Dronabinol (Marinol Cap*) 5 mg PO TID [facility] Last Admin: 04/24/19 14:12 Dose: 5 mg Emtricitabine/Tenofovir (Truvada 200/300 Mg*) 1 tab PO BEDTIME [facility]; Protocol Last Admin: 04/23/19 22:17 Dose: 1 tab Enoxaparin Sodium (Lovenox(*)) 40 mg SUBCUT Q24H [facility] Last Admin: 04/24/19 14:19 Dose: Not Given Fentanyl (Duragesic Patch 50 Mcg/Hr*) 50 mcg TRANSDERM Q72H [facility] Hydromorphone HCl (Dilaudid Inj1s*) 0.5 mg IV SLOW PU Q8H PRN PRN Reason: pain scale 7-10 Last Admin: 04/24/19 16:20 Dose: 0.5 mg Anidulafungin 100 mg/ Sodium (Chloride) 130 mls @ 65 mls/hr IVPB Q24H [facility] Last Admin: 04/24/19 09:27 Dose: 65 mls/hr Melatonin (Melatonin) 3 mg PO BEDTIME [facility] Last Admin: 04/23/19 22:24 Dose: Not Given Multi-Ingredient Mouthwash/Gargle (Magic M W2 Tarik/Maal/Nyst/Lido*) 5 ml SWISH SWAL QID [facility] Last Admin: 04/24/19 14:16 Dose: 5 ml Ondansetron HCl (Zofran Inj*) 4 mg IV Q6H PRN PRN Reason: NAUSEA Last Admin: 04/21/19 17:28 Dose: 4 mg Pantoprazole Sodium (Protonix Tab*) 40 mg PO BID [facility] Last Admin: 04/24/19 08:28 Dose: 40 mg Pharmacy Profile Note (Fentanyl Patch Check Q Shift) 1 note FOLLOW UP 0700, 1900 [facility] Last Admin: 04/24/19 09:26 Dose: 1 note Raltegravir (Isentress*) 400 mg PO BID [facility]; Protocol Last Admin: 04/24/19 08:28 Dose: 400 mg Sodium Chloride (Sodium Chloride 0.65% Nasal [employer]*) 1 spray BOTH NARES Q4H PRN PRN Reason: CONGESTION Vital Signs - 8 hr 04/24/19 04/24/19 04/24/19 09:23 10:28 11:15 Temperature 98.2 F Pulse Rate 96 Respiratory 18 17 20 Rate Blood Pressure 111/61 (mmHg) O2 Sat by Pulse 97 Oximetry 04/24/19 04/24/19 04/24/19 14:12 14:51 16:20 Temperature 97.6 F Pulse Rate 96 Respiratory 18 20 16 Rate Blood Pressure 116/72 (mmHg) O2 Sat by Pulse 96 Oximetry Oxygen Devices in Use Now: None Appearance: thin, lying in bed, NAD Eyes: No Scleral Icterus, PERRLA Ears/Nose/Mouth/Throat: NL Teeth, Lips, Gums Neck: NL Appearance and Movements; NL JVP, Trachea Midline Respiratory: Symmetrical Chest Expansion and Respiratory Effort, Clear to Auscultation Cardiovascular: RRR Abdominal: NL Sounds; No Tenderness; No Distention, No Hepatosplenomegaly Lymphatic: No Cervical Adenopathy Extremities: No Edema Skin: No Rash or Ulcers Neurological: Alert and Oriented x 3 - Nutrition: Malnutrition Diagnosis/Plan Malnutrition Assessment by Registered Dietitian: Malnutrition Assessment Clinical Characteristics Chronic,Severe Malnutrition Assessment: Muscle Wasting - Temporal muscle wasting ( severe Criteria ) Fat Pad Wasting - Buccal fat pad wasting ( severe ) Inadequate Oral Intake - Pt reports poor appetite w/ odynophagia 2/2 thrush x1 mo - anticipate meeting <75% nutrient needs x1 mo Unintentional Weight Loss - Pt reports a 20lb wt loss x1 mo; current wt 99lb, prev wt 116lb x1 mo. ago - 14.6% loss x1 mo (severe) Underweight - BMI 13.9 Malnutrition Assessment: Nutritional Supplementals/Nourishments - Will Interventions continue to send [place] Ensure Enlive ( 350kcal, 20g prot/serv) x5 daily to optimize kcal/prot intake and promote wt gain; will monitor continued acceptance. GI Related - Will monitor GI s/sx for impact on intake. Labs - Will monitor labs closely given pt's risk for dumping/refeeding and make recommendations as indicated. Malnutrition Assessment: Goals 1) Pt will tolerate least restrictive dietary textures w/o further difficulty chewing/ swallowing w/ resolution of thrush 2) Adequate po intake to replete lean body mass , support wt gain and hydration status 3) Improve fluid/electrolyte balance w/ adequate po intake and repletion PRN w/o dumping/ refeeding 4) Maintain bowel regularity w/ adequate po intake and antidiarrheals PRN w/o exac of diarrhea/development of constipation Result Diagrams: 04/24/19 08:15 04/24/19 08:15 Assess/Plan/Problems-Billing Assessment: Mr. Mcrae is a 53 yo M with PMH of PCP pneumocystis PNA, cryptococcus meningitis , HIV/AIDS and poor compliance with HAART therapy as an outpatient; that presented with dysphagia, malnutrition, and general weakness and is improving with antifungals, nutritional supplementation and supportive care. - Patient Problems (1) Esophagitis Comment: - Recurrent oroesophageal thrush 2/2 progressing AIDS and opportunistic infection - EGD biopsies without any evidence of viral or fungal organisms - Soft diet if tolerated, continue Ensures and comfort foods - Continue anidulafungin x 1 week (last day to complete Saturday 04/28 then stop if improved) - Consulted EQUITY RESEARCH ANALYST for patient's c/o weakness in chewing, likely due to muscle wasting (2) AIDS Comment: - CD4 improved to 277 from 31 after initiation of HAART - Viral load declined to 36 from >1000 a month ago. - Continue Truvada, Isentress (3) Anemia Comment: - In the setting, NSAID, known gastric ulcer and esophagitis - Hgb stable - Continue protonix BID - Avoid NSAIDs (4) Back pain Comment: - Decreased dialudid to 0.5 q8hrs - Lumbar and thoracic spine CTs without acute abnormalities. - Continue fentanyl patch but plan to discontinue after next patch and as dilaudid decreased - Add on Flexeril in place of Ibuprofen. (5) Diarrhea Comment: monitor (6) Gastric ulcer Comment: - Found on EGD on 04/10, gastric ulcer endoclipped by Dr. Guajardo (7) Severe protein-calorie malnutrition Comment: - BMI 13 at admission, Slow improvement. - Severe wasting and inability for oral intake and no solid foods 2/2 dysphagia and pain - Nutrition consulted and following - Continue Marinol - Seems to be clinically improving - No indication for TPN at this time. (8) Transaminitis Comment: - LFTS improving, unclear etiology (9) DVT prophylaxis Comment: - Lovenox Status and Disposition: Inpatient for continued care. Dispo TBD, case management and SW following. Has section 8 housing and food stamps now. Was offered 3 weeks free respite care on discharge by [facility] which he is currently considering but has not yet accepted ([facility])
[2019-04-24] MEDS ORDERED: fentaNYL Patch Check Q Shift 1 NOTE SCH (19:00)
[2019-04-24] MEDS: Cyclobenzaprine TAB* 10 MG PO PRN (21:25)
[2019-04-24] MEDS: Diphenoxylat/Atrop 2.5-0.025M* 1 TAB PO PRN (21:26)
[2019-04-24] MEDS: Tenofovir/Emtricitab 200/300 * TAB PO SCH (21:27)
[2019-04-24] MEDS: Melatonin 3 MG TAB PO SCH (21:28)
[2019-04-25] MEDS: HYDROmorphone INJ1* 1 MG/ML SYRINGE IV SLOW PU PRN ×4 (00:39→23:59)
[2019-04-25] MEDS: Magic M W2 Ben/Maal/Nyst/Lido* 240 ML MOUTHWASH (alt formulation) SWISH SWAL SCH ×4 (08:09→20:55)
[2019-04-25] MEDS: fentaNYL Patch Check Q Shift 1 NOTE FOLLOW UP SCH ×2 (08:09→19:11)
[2019-04-25] MEDS: Dronabinol CAP* 2.5 MG PO SCH ×3 (08:09→20:56)
[2019-04-25] MEDS: Clotrimazole 1% CREAM* 45 GM TOPICAL SCH ×2 (08:10→19:44)
[2019-04-25] MEDS: Pantoprazole TAB * 40 MG TAB PO SCH ×2 (08:11→20:56)
[2019-04-25] MEDS: Raltegravir* 400 MG TAB PO SCH ×2 (08:43→20:55)
[2019-04-25] MEDS: Anidulafungin* 100 MG in NS 0.9% 100 ML* 100 ML IVPB SCH (08:43)
[2019-04-25] MEDS: Enoxaparin(*) 40 MG/0.4 ML SYR SUBCUT SCH (13:18)
[2019-04-25] MEDS: Cyclobenzaprine TAB* 10 MG PO PRN (13:31)
--- NOTE | 2019-04-25 14:56 | PN ---
Subjective Date of Service: 04/25/19 Interval History: Feels "much better" but feels mouth is very dry and had difficulty swallowing sticky bun because of dry mouth. Stool is "half and half" again pain well controlled Family History: Unchanged from Admission Social History: Unchanged from Admission Past Medical History: Unchanged from Admission Objective Active Medications: Acetaminophen (Tylenol Tab*) 650 mg PO Q4H PRN PRN Reason: MILD PAIN or TEMP > 100.4 Last Admin: 04/24/19 11:55 Dose: 650 mg Clotrimazole (Clotrimazole 1%*) 1 applic TOPICAL BID [facility] Last Admin: 04/25/19 08:10 Dose: Not Given Cyclobenzaprine HCl (Flexeril Tab*) 10 mg PO TID PRN PRN Reason: SPASMS - BACK Last Admin: 04/25/19 13:31 Dose: 10 mg Diphenoxylate HCl/Atropine (Lomotil Tab*) 1 tab PO BID PRN PRN Reason: DIARRHEA Last Admin: 04/24/19 21:26 Dose: 1 tab Dronabinol (Marinol Cap*) 5 mg PO TID [facility] Last Admin: 04/25/19 13:24 Dose: 5 mg Emtricitabine/Tenofovir (Truvada 200/300 Mg*) 1 tab PO BEDTIME [facility]; Protocol Last Admin: 04/24/19 21:27 Dose: 1 tab Enoxaparin Sodium (Lovenox(*)) 40 mg SUBCUT Q24H [facility] Last Admin: 04/25/19 13:18 Dose: Not Given Fentanyl (Duragesic Patch 50 Mcg/Hr*) 50 mcg TRANSDERM Q72H [facility] Last Admin: 04/24/19 19:02 Dose: 50 mcg Hydromorphone HCl (Dilaudid Inj1s*) 0.5 mg IV SLOW PU Q8H PRN PRN Reason: pain scale 7-10 Last Admin: 04/25/19 08:11 Dose: 0.5 mg Anidulafungin 100 mg/ Sodium (Chloride) 130 mls @ 65 mls/hr IVPB Q24H [facility] Last Admin: 04/25/19 08:43 Dose: 65 mls/hr Melatonin (Melatonin) 3 mg PO BEDTIME [facility] Last Admin: 04/24/19 21:28 Dose: Not Given Multi-Ingredient Mouthwash/Gargle (Magic M W2 Tarik/Maal/Nyst/Lido*) 5 ml SWISH SWAL QID [facility] Last Admin: 04/25/19 13:25 Dose: 5 ml Ondansetron HCl (Zofran Inj*) 4 mg IV Q6H PRN PRN Reason: NAUSEA Last Admin: 04/21/19 17:28 Dose: 4 mg Pantoprazole Sodium (Protonix Tab*) 40 mg PO BID [facility] Last Admin: 04/25/19 08:11 Dose: 40 mg Pharmacy Profile Note (Fentanyl Patch Check Q Shift) 1 note FOLLOW UP 0700, 1900 [facility] Last Admin: 04/25/19 08:09 Dose: 1 note Raltegravir (Isentress*) 400 mg PO BID [facility]; Protocol Last Admin: 04/25/19 08:43 Dose: 400 mg Sodium Chloride (Sodium Chloride 0.65% Nasal [place]*) 1 spray BOTH NARES Q4H PRN PRN Reason: CONGESTION Last Admin: 04/25/19 08:43 Dose: 1 spray Vital Signs - 8 hr 04/25/19 04/25/19 04/25/19 07:15 08:00 08:09 Temperature 97.9 F Pulse Rate 102 Respiratory 18 18 18 Rate Blood Pressure 119/62 (mmHg) O2 Sat by Pulse 94 Oximetry 04/25/19 04/25/19 04/25/19 08:11 09:11 13:24 Temperature Pulse Rate Respiratory 18 17 16 Rate Blood Pressure (mmHg) O2 Sat by Pulse Oximetry 04/25/19 13:31 Temperature Pulse Rate Respiratory 16 Rate Blood Pressure (mmHg) O2 Sat by Pulse Oximetry Oxygen Devices in Use Now: None Appearance: thin, NAD Eyes: No Scleral Icterus, PERRLA Ears/Nose/Mouth/Throat: NL Teeth, Lips, Gums, - - dry OP Neck: NL Appearance and Movements; NL JVP, Trachea Midline Respiratory: Symmetrical Chest Expansion and Respiratory Effort, Clear to Auscultation Cardiovascular: RRR Abdominal: NL Sounds; No Tenderness; No Distention, No Hepatosplenomegaly Lymphatic: No Cervical Adenopathy Extremities: No Edema Skin: No Rash or Ulcers Neurological: Alert and Oriented x 3 - Nutrition: Malnutrition Diagnosis/Plan Malnutrition Assessment by Registered Dietitian: Malnutrition Assessment Clinical Characteristics Chronic,Severe Malnutrition Assessment: Muscle Wasting - Temporal muscle wasting ( severe Criteria ) Fat Pad Wasting - Buccal fat pad wasting ( severe ) Inadequate Oral Intake - Pt reports poor appetite w/ odynophagia 2/2 thrush x1 mo - anticipate meeting <75% nutrient needs x1 mo Unintentional Weight Loss - Pt reports a 20lb wt loss x1 mo; current wt 99lb, prev wt 116lb x1 mo. ago - 14.6% loss x1 mo (severe) Underweight - BMI 13.9 Malnutrition Assessment: Nutritional Supplementals/Nourishments - Will Interventions continue to send [place] Ensure Enlive ( 350kcal, 20g prot/serv) x5 daily to optimize kcal/prot intake and promote wt gain; will monitor continued acceptance. GI Related - Will monitor GI s/sx for impact on intake. Labs - Will monitor labs closely given pt's risk for dumping/refeeding and make recommendations as indicated. Malnutrition Assessment: Goals 1) Pt will tolerate least restrictive dietary textures w/o further difficulty chewing/ swallowing w/ resolution of thrush 2) Adequate po intake to replete lean body mass , support wt gain and hydration status 3) Improve fluid/electrolyte balance w/ adequate po intake and repletion PRN w/o dumping/ refeeding 4) Maintain bowel regularity w/ adequate po intake and antidiarrheals PRN w/o exac of diarrhea/development of constipation Result Diagrams: 04/24/19 08:15 04/24/19 08:15 Assess/Plan/Problems-Billing Assessment: Mr. Mcrae is a 53 yo M with PMH of PCP pneumocystis PNA, cryptococcus meningitis , HIV/AIDS and poor compliance with HAART therapy as an outpatient; that presented with dysphagia, malnutrition, and general weakness and is improving with antifungals, nutritional supplementation and supportive care. - Patient Problems (1) Esophagitis Comment: - Recurrent oroesophageal thrush 2/2 progressing AIDS and opportunistic infection - EGD biopsies without any evidence of viral or fungal organisms - Soft diet if tolerated, continue Ensures and comfort foods - Continue anidulafungin x 1 week (last day to complete Saturday 04/28 then stop if improved) - Consulted CLAY TEMPERER for patient's c/o weakness in chewing, likely due to muscle wasting (2) AIDS Comment: - CD4 improved to 277 from 31 after initiation of HAART - Viral load declined to 36 from >1000 a month ago. - Continue Truvada, Isentress (3) Anemia Comment: - In the setting, NSAID, known gastric ulcer and esophagitis - Hgb stable - Continue protonix BID - Avoid NSAIDs (4) Back pain Comment: - Decreased dialudid from 1 q6hr to 0.5 q8hrs throughout the week - Lumbar and thoracic spine CTs without acute abnormalities. - Continue fentanyl patch but plan to discontinue after next patch and as dilaudid decreased - Add on Flexeril in place of Ibuprofen. (5) Diarrhea Comment: monitor (6) Gastric ulcer Comment: - Found on EGD on 04/10, gastric ulcer endoclipped by Dr. Guajardo (7) Severe protein-calorie malnutrition Comment: - BMI 13 at admission, Slow improvement. - Severe wasting and inability for oral intake and no solid foods 2/2 dysphagia and pain - Nutrition consulted and following - Continue Marinol - Seems to be clinically improving - No indication for TPN at this time. (8) Transaminitis Comment: - LFTS improving, unclear etiology (9) DVT prophylaxis Comment: - Lovenox Status and Disposition: Inpatient for continued care. Dispo TBD, case management and SW following. Has section 8 housing and food stamps now. Was offered 3 weeks free respite care on discharge by [facility] which he is currently considering but has not yet accepted ([facility])
[2019-04-25] MEDS: Acetaminophen TAB* 325 MG PO PRN (19:41)
[2019-04-25] MEDS: Tenofovir/Emtricitab 200/300 * TAB PO SCH (20:55)
[2019-04-25] MEDS: Melatonin 3 MG TAB PO SCH (20:56)
[2019-04-25] MEDS: Diphenoxylat/Atrop 2.5-0.025M* 1 TAB PO PRN (21:05)
[2019-04-26] MEDS: HYDROmorphone INJ1* 1 MG/ML SYRINGE IV SLOW PU PRN ×2 (07:57→17:05)
[2019-04-26] MEDS: Pantoprazole TAB * 40 MG TAB PO SCH ×2 (07:59→21:02)
[2019-04-26] MEDS: Raltegravir* 400 MG TAB PO SCH ×2 (07:59→21:03)
[2019-04-26] MEDS: Clotrimazole 1% CREAM* 45 GM TOPICAL SCH ×2 (07:59→21:24)
[2019-04-26] MEDS: Magic M W2 Ben/Maal/Nyst/Lido* 240 ML MOUTHWASH (alt formulation) SWISH SWAL SCH ×4 (07:59→21:02)
[2019-04-26] MEDS: Dronabinol CAP* 2.5 MG PO SCH ×3 (07:59→21:02)
[2019-04-26] MEDS: fentaNYL Patch Check Q Shift 1 NOTE FOLLOW UP SCH (08:00)
[2019-04-26] MEDS: Anidulafungin* 100 MG in NS 0.9% 100 ML* 100 ML IVPB SCH (09:34)
[2019-04-26] MEDS: Acetaminophen TAB* 325 MG PO PRN ×2 (12:37→21:01)
[2019-04-26] MEDS: Enoxaparin(*) 40 MG/0.4 ML SYR SUBCUT SCH (14:09)
--- NOTE | 2019-04-26 14:54 | PN ---
Subjective Date of Service: 04/26/19 Interval History: Reports he feels "a hell of a lot better" Dreaming about eating food Mostly still liquid/ensures Loose stool recorded 04/25 Had moment where he felt "normal" before he received meds this AM Mentioned he has hernia, not painful but was "curious about management" Family History: Unchanged from Admission Social History: Unchanged from Admission Past Medical History: Unchanged from Admission Objective Active Medications: Acetaminophen (Tylenol Tab*) 650 mg PO Q4H PRN PRN Reason: MILD PAIN or TEMP > 100.4 Last Admin: 04/26/19 12:37 Dose: 650 mg Clotrimazole (Clotrimazole 1%*) 1 applic TOPICAL BID [facility] Last Admin: 04/26/19 07:59 Dose: Not Given Cyclobenzaprine HCl (Flexeril Tab*) 10 mg PO TID PRN PRN Reason: SPASMS - BACK Last Admin: 04/25/19 13:31 Dose: 10 mg Diphenoxylate HCl/Atropine (Lomotil Tab*) 1 tab PO BID PRN PRN Reason: DIARRHEA Last Admin: 04/25/19 21:05 Dose: 1 tab Dronabinol (Marinol Cap*) 5 mg PO TID [facility] Last Admin: 04/26/19 14:09 Dose: 5 mg Emtricitabine/Tenofovir (Truvada 200/300 Mg*) 1 tab PO BEDTIME [facility]; Protocol Last Admin: 04/25/19 20:55 Dose: 1 tab Enoxaparin Sodium (Lovenox(*)) 40 mg SUBCUT Q24H [facility] Last Admin: 04/26/19 14:09 Dose: Not Given Hydromorphone HCl (Dilaudid Inj1s*) 0.5 mg IV SLOW PU Q8H PRN PRN Reason: pain scale 7-10 Last Admin: 04/26/19 07:57 Dose: 0.5 mg Anidulafungin 100 mg/ Sodium (Chloride) 130 mls @ 65 mls/hr IVPB Q24H [facility] Last Admin: 04/26/19 09:34 Dose: 65 mls/hr Melatonin (Melatonin) 3 mg PO BEDTIME [facility] Last Admin: 04/25/19 20:56 Dose: Not Given Multi-Ingredient Mouthwash/Gargle (Magic M W2 Tarik/Maal/Nyst/Lido*) 5 ml SWISH SWAL QID [facility] Last Admin: 04/26/19 14:08 Dose: 5 ml Ondansetron HCl (Zofran Inj*) 4 mg IV Q6H PRN PRN Reason: NAUSEA Last Admin: 04/21/19 17:28 Dose: 4 mg Pantoprazole Sodium (Protonix Tab*) 40 mg PO BID [facility] Last Admin: 04/26/19 07:59 Dose: 40 mg Raltegravir (Isentress*) 400 mg PO BID [facility]; Protocol Last Admin: 04/26/19 07:59 Dose: 400 mg Sodium Chloride (Sodium Chloride 0.65% Nasal [place]*) 1 spray BOTH NARES Q4H PRN PRN Reason: CONGESTION Last Admin: 04/25/19 08:43 Dose: 1 spray Vital Signs - 8 hr 04/26/19 04/26/19 04/26/19 07:15 07:57 07:59 Temperature 98.5 F Pulse Rate 98 Respiratory 18 17 17 Rate Blood Pressure 114/59 (mmHg) O2 Sat by Pulse 95 Oximetry 04/26/19 04/26/19 04/26/19 08:00 08:57 09:59 Temperature Pulse Rate Respiratory 17 18 18 Rate Blood Pressure (mmHg) O2 Sat by Pulse Oximetry 04/26/19 04/26/19 11:15 14:09 Temperature 97.7 F Pulse Rate 91 Respiratory 18 16 Rate Blood Pressure 112/66 (mmHg) O2 Sat by Pulse 94 Oximetry Oxygen Devices in Use Now: None Appearance: thin, NAD Eyes: No Scleral Icterus, PERRLA Ears/Nose/Mouth/Throat: NL Teeth, Lips, Gums, Clear Oropharnyx, - - no ulcers identified Neck: NL Appearance and Movements; NL JVP, Trachea Midline Respiratory: Symmetrical Chest Expansion and Respiratory Effort, Clear to Auscultation Cardiovascular: RRR Abdominal: NL Sounds; No Tenderness; No Distention, No Hepatosplenomegaly, - - moderate sized hernia in scrotum, NNTP but "sensative" Skin: No Rash or Ulcers Neurological: Alert and Oriented x 3 - Nutrition: Malnutrition Diagnosis/Plan Malnutrition Assessment by Registered Dietitian: Malnutrition Assessment Clinical Characteristics Chronic,Severe Malnutrition Assessment: Muscle Wasting - Temporal muscle wasting ( severe Criteria ) Fat Pad Wasting - Buccal fat pad wasting ( severe ) Inadequate Oral Intake - Pt reports poor appetite w/ odynophagia 2/2 thrush x1 mo - anticipate meeting <75% nutrient needs x1 mo Unintentional Weight Loss - Pt reports a 20lb wt loss x1 mo; current wt 99lb, prev wt 116lb x1 mo. ago - 14.6% loss x1 mo (severe) Underweight - BMI 13.9 Malnutrition Assessment: Nutritional Supplementals/Nourishments - Will Interventions continue to send [place] Ensure Enlive ( 350kcal, 20g prot/serv) x5 daily to optimize kcal/prot intake and promote wt gain; will monitor continued acceptance. GI Related - Will monitor GI s/sx for impact on intake. Labs - Will monitor labs closely given pt's risk for dumping/refeeding and make recommendations as indicated. Malnutrition Assessment: Goals 1) Pt will tolerate least restrictive dietary textures w/o further difficulty chewing/ swallowing w/ resolution of thrush 2) Adequate po intake to replete lean body mass , support wt gain and hydration status 3) Improve fluid/electrolyte balance w/ adequate po intake and repletion PRN w/o dumping/ refeeding 4) Maintain bowel regularity w/ adequate po intake and antidiarrheals PRN w/o exac of diarrhea/development of constipation Result Diagrams: 04/24/19 08:15 04/24/19 08:15 Assess/Plan/Problems-Billing Assessment: Mr. Mcrae is a 53 yo M with PMH of PCP pneumocystis PNA, cryptococcus meningitis , HIV/AIDS and poor compliance with HAART therapy as an outpatient; that presented with dysphagia, malnutrition, and general weakness and is improving with antifungals, nutritional supplementation and supportive care. - Patient Problems (1) Esophagitis Comment: - was treated inpatient, discharged then returned with worsening odynophagia - Recurrent oroesophageal thrush 2/2 progressing AIDS and opportunistic infection - EGD biopsies without any evidence of viral or fungal organisms - Soft diet if tolerated, continue Ensures and comfort foods - Continue anidulafungin x 1 week (last day to complete Saturday 04/28 then stop if improved) - ID service following - Consulted LIVESTOCK SHOWMAN for patient's c/o weakness in chewing, likely due to muscle wasting (2) AIDS Comment: - CD4 improved to 277 from 31 after initiation of HAART - Viral load declined to 36 from >1000 a month ago. - Continue Truvada, Isentress (3) Anemia Comment: - In the setting, NSAID, known gastric ulcer and esophagitis - Hgb stable - Continue protonix BID - Avoid NSAIDs (4) Back pain Comment: - Decreased dialudid from 1 q6hr to 0.5 q8hrs throughout the week - Stop fentanyl patch today (started this hospital stay) - pt in agreement - Lumbar and thoracic spine CTs without acute abnormalities. - Flexeril in place of Ibuprofen started this stay (5) Diarrhea Comment: monitor (6) Gastric ulcer Comment: - Found on EGD on 04/10, gastric ulcer endoclipped by Dr. Guajardo (7) Severe protein-calorie malnutrition Comment: - BMI 13 at admission, Slow improvement. - Severe wasting and inability for oral intake and no solid foods 2/2 dysphagia and pain - Nutrition consulted and following - Continue Marinol - Seems to be clinically improving - No indication for TPN at this time. (8) Transaminitis Comment: - LFTS improving, unclear etiology (9) DVT prophylaxis Comment: - Lovenox Status and Disposition: Inpatient for continued care. Dispo TBD, case management and SW following. Now has section 8 housing and food stamps. Was offered 3 weeks free respite care on discharge by [facility] organization which he is currently considering but has not yet accepted ([facility]). Discharge after course of IV antifungals
[2019-04-26] MEDS: Tenofovir/Emtricitab 200/300 * TAB PO SCH (21:03)
[2019-04-26] MEDS: Melatonin 3 MG TAB PO SCH (21:25)
[2019-04-27] MEDS: HYDROmorphone INJ1* 1 MG/ML SYRINGE IV SLOW PU PRN ×3 (01:41→17:49)
--- NOTE | 2019-04-27 07:25 | PN ---
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 Overnight, slid out of bed, no LOC no pain, VSS Labs: Last done on 04/24 This morning c/o vague pain "all over" and also in scrotum (has hernia, non incarcerated). Guarded on further HPI, repeatedly requests dilaudid and "marijuana." Reorient to goals-he discuss he wants to feel better, get out of the hospital and "get on with life" does endorse some depression. We discuss MSK pain best treated with no opiates and no further increase, we also discuss other modalites of chronic pain mgmt including SNRI and TCA which may help with depression. He seems agreeable. Tolerating ensure, reports some intermittent diarrhea still. Family History: Unchanged from Admission Social History: Unchanged from Admission Past Medical History: Unchanged from Admission Objective Active Medications: Acetaminophen (Tylenol Tab*) 650 mg PO Q4H PRN PRN Reason: MILD PAIN or TEMP > 100.4 Last Admin: 04/26/19 21:01 Dose: 650 mg Clotrimazole (Clotrimazole 1%*) 1 applic TOPICAL BID [facility] Last Admin: 04/26/19 21:24 Dose: Not Given Cyclobenzaprine HCl (Flexeril Tab*) 10 mg PO TID PRN PRN Reason: SPASMS - BACK Last Admin: 04/25/19 13:31 Dose: 10 mg Diphenoxylate HCl/Atropine (Lomotil Tab*) 1 tab PO BID PRN PRN Reason: DIARRHEA Last Admin: 04/25/19 21:05 Dose: 1 tab Dronabinol (Marinol Cap*) 5 mg PO TID [facility] Last Admin: 04/26/19 21:02 Dose: 5 mg Emtricitabine/Tenofovir (Truvada 200/300 Mg*) 1 tab PO BEDTIME [facility]; Protocol Last Admin: 04/26/19 21:03 Dose: 1 tab Enoxaparin Sodium (Lovenox(*)) 40 mg SUBCUT Q24H [facility] Last Admin: 04/26/19 14:09 Dose: Not Given Hydromorphone HCl (Dilaudid Inj1s*) 0.5 mg IV SLOW PU Q8H PRN PRN Reason: pain scale 7-10 Last Admin: 04/27/19 01:41 Dose: 0.5 mg Anidulafungin 100 mg/ Sodium (Chloride) 130 mls @ 65 mls/hr IVPB Q24H [facility] Last Admin: 04/26/19 09:34 Dose: 65 mls/hr Melatonin (Melatonin) 3 mg PO BEDTIME [facility] Last Admin: 04/26/19 21:25 Dose: Not Given Multi-Ingredient Mouthwash/Gargle (Magic M W2 Tarik/Maal/Nyst/Lido*) 5 ml SWISH SWAL QID [facility] Last Admin: 04/26/19 21:02 Dose: 5 ml Ondansetron HCl (Zofran Inj*) 4 mg IV Q6H PRN PRN Reason: NAUSEA Last Admin: 04/21/19 17:28 Dose: 4 mg Pantoprazole Sodium (Protonix Tab*) 40 mg PO BID [facility] Last Admin: 04/26/19 21:02 Dose: 40 mg Raltegravir (Isentress*) 400 mg PO BID [facility]; Protocol Last Admin: 04/26/19 21:03 Dose: 400 mg Sodium Chloride (Sodium Chloride 0.65% Nasal [place]*) 1 spray BOTH NARES Q4H PRN PRN Reason: CONGESTION Last Admin: 04/25/19 08:43 Dose: 1 spray Vital Signs - 8 hr 04/26/19 04/27/19 04/27/19 23:52 01:41 01:55 Temperature 98.5 F Pulse Rate 95 Respiratory 16 16 16 Rate Blood Pressure 112/68 (mmHg) O2 Sat by Pulse 98 Oximetry 04/27/19 04/27/19 02:19 03:25 Temperature 98.6 F Pulse Rate 89 Respiratory 16 16 Rate Blood Pressure 128/65 (mmHg) O2 Sat by Pulse 97 Oximetry Oxygen Devices in Use Now: None Appearance: Frail cachectic man with temporal wasting Eyes: No Scleral Icterus, PERRLA Ears/Nose/Mouth/Throat: NL Teeth, Lips, Gums, Mucous Membranes Moist Neck: Trachea Midline Respiratory: Clear to Auscultation, - - Palpable MARKETING UNDERWRITER shunt on R side of body Cardiovascular: RRR Abdominal: - Lymphatic: No Cervical Adenopathy Extremities: No Edema Skin: No Rash or Ulcers Neurological: Alert and Oriented x 3 - Nutrition: Malnutrition Diagnosis/Plan Malnutrition Assessment by Registered Dietitian: Malnutrition Assessment Clinical Characteristics Chronic,Severe Malnutrition Assessment: Muscle Wasting - Temporal muscle wasting ( severe Criteria ) Fat Pad Wasting - Buccal fat pad wasting ( severe ) Inadequate Oral Intake - Pt reports poor appetite w/ odynophagia 2/2 thrush x1 mo - anticipate meeting <75% nutrient needs x1 mo Unintentional Weight Loss - Pt reports a 20lb wt loss x1 mo; current wt 99lb, prev wt 116lb x1 mo. ago - 14.6% loss x1 mo (severe) Underweight - BMI 13.9 Malnutrition Assessment: Nutritional Supplementals/Nourishments - Will Interventions continue to send [place] Ensure Enlive ( 350kcal, 20g prot/serv) x5 daily to optimize kcal/prot intake and promote wt gain; will monitor continued acceptance. GI Related - Will monitor GI s/sx for impact on intake. Labs - Will monitor labs closely given pt's risk for dumping/refeeding and make recommendations as indicated. Malnutrition Assessment: Goals 1) Pt will tolerate least restrictive dietary textures w/o further difficulty chewing/ swallowing w/ resolution of thrush 2) Adequate po intake to replete lean body mass , support wt gain and hydration status 3) Improve fluid/electrolyte balance w/ adequate po intake and repletion PRN w/o dumping/ refeeding 4) Maintain bowel regularity w/ adequate po intake and antidiarrheals PRN w/o exac of diarrhea/development of constipation Result Diagrams: 04/24/19 08:15 04/27/19 10:52 Assess/Plan/Problems-Billing Assessment: 53 M PMH HIV c/b AIDS CD4 277 up from 31 after HAART initiation (VL 36) with PCP PNA, 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 - Patient Problems (1) Esophagitis Current Visit: Yes Status: Acute Code(s): K20.9 - ESOPHAGITIS, UNSPECIFIED SNOMED Code(s): 86794200 Comment: - was treated inpatient, discharged then returned with worsening odynophagia - Recurrent oroesophageal thrush 2/2 opportunistic infection - EGD biopsies without any evidence of viral or fungal organisms - Soft diet if tolerated, continue Ensures and comfort foods - Continue anidulafungin x 1 week (last day to complete Saturday 04/28 then stop if improved) - ID service following - Consulted LINE SERVICE SUPERVISOR for patient's c/o weakness in chewing, likely due to muscle wasting (2) AIDS Current Visit: Yes Status: Acute Comment: - CD4 improved to 277 from 31 after initiation of HAART - Viral load declined to 36 from >1000 a month ago. - Continue Truvada, Isentress (3) Anemia Current Visit: Yes Status: Acute Code(s): D64.9 - ANEMIA, UNSPECIFIED SNOMED Code(s): 389697940 Comment: - In the setting, NSAID, known gastric ulcer and esophagitis - Hgb stable - Continue protonix BID - Avoid NSAIDs (4) Back pain Current Visit: Yes Status: Acute Code(s): M54.9 - DORSALGIA, UNSPECIFIED SNOMED Code(s): 146444201 Comment: - Decreased dialudid from 1 q6hr to 0.5 q8hrs throughout the week, work towards trialing off, concern for some seeking behavior - Stop fentanyl patch - Lumbar and thoracic spine CTs without acute abnormalities. - Flexeril, trial low dose Duloxtine - Naproxen BID (5) Diarrhea Current Visit: Yes Status: Acute Code(s): R19.7 - DIARRHEA, UNSPECIFIED SNOMED Code(s): 03662059 Comment: -Though to be HIV related, neg OI on stool studies (6) Malnutrition Current Visit: No Status: Acute Code(s): E46 - UNSPECIFIED PROTEIN-CALORIE MALNUTRITION SNOMED Code(s): 48626141 Comment: - Nutrition consulted; tolerating ensure well (7) DVT prophylaxis Current Visit: Yes Status: Acute Code(s): Z29.9 - ENCOUNTER FOR PROPHYLACTIC MEASURES, UNSPECIFIED SNOMED Code(s): 013123954 Comment: - Lovenox (8) DNR (do not resuscitate) Current Visit: Yes Status: Acute Comment: Status and Disposition: Inpatient for continued care. Dispo TBD, case management and SW following. Now has section 8 housing and food stamps. Was offered 3 weeks free respite care on discharge by [facility] organization which he is currently considering but has not yet accepted ([facility]). Discharge after course of IV antifungals
[2019-04-27] MEDS: Dronabinol CAP* 2.5 MG PO SCH ×3 (09:33→20:32)
[2019-04-27] MEDS: Pantoprazole TAB * 40 MG TAB PO SCH ×2 (09:33→20:32)
[2019-04-27] MEDS: Raltegravir* 400 MG TAB PO SCH ×2 (09:34→20:32)
[2019-04-27] MEDS: Magic M W2 Ben/Maal/Nyst/Lido* 240 ML MOUTHWASH (alt formulation) SWISH SWAL SCH ×4 (09:34→20:32)
[2019-04-27] MEDS: Anidulafungin* 100 MG in NS 0.9% 100 ML* 100 ML IVPB SCH (09:34)
[2019-04-27] MEDS: Clotrimazole 1% CREAM* 45 GM TOPICAL SCH ×2 (09:39→20:33)
--- NOTE | 2019-04-27 09:59 | PN ---
Progress Note - Progress Note Date of Service: 04/27/19 SOAP: Subjective: CC: AIDS HPI: Ms. ruvalcaba is a 53 year old man with longstanding HIV. Denies fever, chills , nausea, vomiting, or pain when swallowing. States that he is having difficult with swallowing, because the back of his mouth/throat are dry. He is mostly taking in liquids because of this. Reports intermittent diarrhea, he feels like the Lomotil is causing the diarrhea, no abd pain. He reports "tail bone" pain, from laying in bed. He also reports a scrotal hernia, that has been present for awhile and he has been ignoring it. Denies pain at the area. Objective: Vital Signs - 8 hr 04/27/19 04/27/19 04/27/19 02:19 03:25 07:41 Temperature 98.6 F 97.3 F Pulse Rate 89 92 Respiratory 16 16 16 Rate Blood Pressure 128/65 121/79 (mmHg) O2 Sat by Pulse 97 97 Oximetry Physical Exam: General: NAD, laying in bed Neurological: Alert and Oriented x4 HEENT: Moist MM Cardiovascular: Heart rate regular Respiratory: Lung sounds clear Abdominal: Bowel sounds present Skin: No rash Laboratory Last Values WBC 8.0 10^3/uL (3.5-10.8) 04/24/19 08:15 RBC 2.93 10^6 /uL (4.18-5.48) L 04/24/19 08:15 Hgb 8.5 g/dL (14.0-18.0) L 04/24/19 08:15 Hct 25 % (42-52) L 04/24/19 08:15 MCV 86 fL (80-94) 04/24/19 08:15 MCH 29 pg (27-31) 04/24/19 08:15 MCHC 34 g/dL (31-36) 04/24/19 08:15 RDW 16 % (10-15) H 04/24/19 08:15 Plt Count 421 10^3/uL (150-450) 04/24/19 08:15 MPV 9.1 fL (7.4-10.4) 04/24/19 08:15 Neut % (Auto) 83.2 % 04/24/19 08:15 Lymph % (Auto) 11.3 % 04/24/19 08:15 [place] % (Auto) 5.0 % 04/24/19 08:15 Eos % (Auto) 0.2 % 04/24/19 08:15 Baso % (Auto) 0.3 % 04/24/19 08:15 Absolute Neuts (auto) 6.7 10^3/ul (1.5-7.7) 04/24/19 08:15 Absolute Lymphs (auto) 0.9 10^3/ul (1.0-4.8) L 04/24/19 08:15 Absolute Monos (auto) 0.4 10^3/ul (0-0.8) 04/24/19 08:15 Absolute Eos (auto) 0.0 10^3/ul (0-0.6) 04/24/19 08:15 Absolute Basos (auto) 0.0 10^3/ul (0-0.2) 04/24/19 08:15 Absolute Nucleated RBC 0.0 10^3/ul 04/24/19 08:15 Neutrophils % 83.0 % 04/16/19 05:21 Lymphocytes % 14.0 % 04/16/19 05:21 Monocytes % 2.0 % 04/16/19 05:21 Eosinophils % 1.0 % 04/16/19 05:21 Nucleated RBC % 0.0 04/24/19 08:15 Platelet Morphology Large 04/16/19 05:21 Normal RBC Morphology Normal (Normal) 04/16/19 05:21 INR (Anticoag Therapy) 1.16 (0.82-1.09) H 04/10/19 04:27 Sodium 135 mmol/L (135-145) 04/24/19 08:15 Potassium 3.3 mmol/L (3.5-5.0) L 04/24/19 08:15 Chloride 103 mmol/L (101-111) 04/24/19 08:15 Carbon Dioxide 29 mmol/L (22-32) 04/24/19 08:15 Anion Gap 3 mmol/L (2-11) 04/24/19 08:15 BUN 14 mg/dL (6-24) 04/24/19 08:15 Creatinine 0.36 mg/dL (0.67-1.17) L 04/24/19 08:15 Est GFR ( Amer) 307.5 (>60) 04/24/19 08:15 Est GFR (Non-Af Amer) 254.1 (>60) 04/24/19 08:15 BUN/Creatinine Ratio 38.9 (8-20) H 04/24/19 08:15 Glucose 84 mg/dL (70-100) 04/24/19 08:15 POC Glucose (mg/dL) 117 mg/dL (70-100) H 04/10/19 14:16 Lactic Acid 2.0 mmol/L (0.5-2.0) 04/08/19 11:34 Calcium 7.4 mg/dL (8.6-10.3) L 04/24/19 08:15 Phosphorus 2.3 mg/dL (2.5-5.0) L 04/09/19 05:28 Magnesium 1.9 mg/dL (1.9-2.7) 04/21/19 08:27 Total Bilirubin 0.40 mg/dL (0.2-1.0) 04/24/19 08:15 Direct Bilirubin 0.20 mg/dL (0.03-0.18) H 04/24/19 08:15 Indirect Bilirubin 0.2 mg/dL (0.3-1.0) L 04/24/19 08:15 AST 21 U/L (13-39) 04/24/19 08:15 ALT 41 U/L (7-52) 04/24/19 08:15 Alkaline Phosphatase 235 U/L (34-104) H 04/24/19 08:15 C-Reactive Protein 48.95 mg/L (<8.01) H 04/08/19 11:34 Total Protein 4.5 g/dL (6.4-8.9) L 04/24/19 08:15 Albumin 1.7 g/dL (3.2-5.2) L 04/24/19 08:15 Globulin 2.8 g/dL (2-4) 04/24/19 08:15 Albumin/Globulin Ratio 0.6 (1-3) L 04/24/19 08:15 Lipase 82 U/L (11.0-82.0) 04/08/19 11:34 % CD3 Cells 92 % (58-86) H 04/08/19 11:34 Absolute CD3 Count 729 cells/mcL (550-2202) 04/08/19 11:34 % CD4 Cells 35 % (32-64) 04/08/19 11:34 Absolute CD4 Count 277 cells/mcL (365-1437) L 04/08/19 11:34 CD4/CD3 Ratio 0.5 (>=0.9) L 04/08/19 11:34 % CD8 Cells 64 % (11-40) H 04/08/19 11:34 Absolute CD8 Count 508 cells/mcL (117-846) 04/08/19 11:34 Absolute CD45 Count 0.79 thou/mcL (0.82-2.84) L 04/08/19 11:34 CMV Qnt PCR IU/mL <35 IU/mL (Undetected) A 04/10/19 04:27 Hepatitis A IgM Ab Negative (Negative) 04/08/19 11:34 Hep Bs Antigen Negative (Negative) 04/08/19 11:34 Hep B Core IgM Ab Nonreactive (Nonreactive) 04/08/19 11:34 Hepatitis C Antibody Negative (Negative) 04/08/19 11:34 Hepatitis C Ab Index 0.07 s/c 04/08/19 11:34 HSV IgM Ab Screen Reactive (Negative) 04/09/19 05:26 HSV IgM Ab (IFA) Negative (Negative) 04/09/19 05:26 HSV I IgG Ab Positive (Negative) 04/09/19 05:26 HSV II IgG Negative (Negative) 04/09/19 05:26 HIV-1 RNA (PCR) 36 copies/mL (Undetected) A 04/10/19 04:27 HIV-1 Int Raltegravir Not Reportable 04/10/19 04:27 HIV-1 Int Elvitegravir Not Reportable 04/10/19 04:27 HIV Dolutegravir Resist Not Reportable 04/10/19 04:27 HIV-1 Last Viral Load Dt Not Reportable 04/10/19 04:27 HIV-1 Last Viral Load TNP 04/10/19 04:27 Assessment: 1. AIDS with diarrhea. Workup negative, improving. 04/08 - Viral load 36, and CD4 count 277. 2. Oroesophageal candidiasis. Improving, receiving IV antifungal and has almost completed a 3 week course. 3. Malnutrition with hypoalbuminemia. Tolerating ensure and liquids. 4. Gastric ulcers. Seen on EGD. Plan: Continue truvada, raltegravir, and PPI. Continue anidalufungin for a few more days, day 19/21. Continue ensure and calorie counts. Followup with ID outpatient after discharge.
[2019-04-27 11:37] LABS: BUN/Creatinine Ratio 40.6 (8-20); Calcium 7.1 mg/dL (8.6-10.3); EGFR African American 352.2 (>60); EGFR Non-African American 291.1 (>60); Potassium 3.4 mmol/L (3.5-5.0)
[2019-04-27] MEDS: Acetaminophen TAB* 325 MG PO PRN (13:15)
[2019-04-27] MEDS: DULoxetine DR CAP* 20 MG CAP.DR PO SCH (13:16)
[2019-04-27] MEDS: Enoxaparin(*) 40 MG/0.4 ML SYR SUBCUT SCH (13:17)
[2019-04-27] MEDS: Tenofovir/Emtricitab 200/300 * TAB PO SCH (20:31)
[2019-04-27] MEDS: Melatonin 3 MG TAB PO SCH (20:33)
[2019-04-28] MEDS: Acetaminophen TAB* 325 MG PO PRN (01:15)
[2019-04-28] MEDS: HYDROmorphone INJ1* 1 MG/ML SYRINGE IV SLOW PU PRN (02:03)
--- NOTE | 2019-04-28 06:54 | PN ---
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 Overnight, no acute events, VSS Labs: No acute new findings. This morning, again complaint of pain, in scrotum, tail bone, and then all over. Again asking for IV dilaudid freqeuntly, re oreint to expectations again, need to transition to orals, no indicatoin for chronic opiate pain medications for non cancer MSK pain, focus on multimodal approach to pain including SNRI trial, and changing to Tylenol 3 from IV dilaudid, re orient that the goal is function not total pain relief. He otherwise says he is thinking about discharge , considering respite care. Family History: Unchanged from Admission Social History: Unchanged from Admission Past Medical History: Unchanged from Admission Objective Active Medications: Acetaminophen (Tylenol Tab*) 650 mg PO Q4H PRN PRN Reason: MILD PAIN or TEMP > 100.4 Last Admin: 04/28/19 01:15 Dose: 650 mg Clotrimazole (Clotrimazole 1%*) 1 applic TOPICAL BID [facility] Last Admin: 04/27/19 20:33 Dose: Not Given Cyclobenzaprine HCl (Flexeril Tab*) 10 mg PO TID PRN PRN Reason: SPASMS - BACK Last Admin: 04/25/19 13:31 Dose: 10 mg Diphenoxylate HCl/Atropine (Lomotil Tab*) 1 tab PO BID PRN PRN Reason: DIARRHEA Last Admin: 04/25/19 21:05 Dose: 1 tab Dronabinol (Marinol Cap*) 5 mg PO TID [facility] Last Admin: 04/27/19 20:32 Dose: 5 mg Duloxetine HCl (Cymbalta Cap*) 20 mg PO DAILY [facility] Last Admin: 04/27/19 13:16 Dose: Not Given Emtricitabine/Tenofovir (Truvada 200/300 Mg*) 1 tab PO BEDTIME [facility]; Protocol Last Admin: 04/27/19 20:31 Dose: 1 tab Enoxaparin Sodium (Lovenox(*)) 40 mg SUBCUT Q24H [facility] Last Admin: 04/27/19 13:17 Dose: Not Given Hydromorphone HCl (Dilaudid Inj1s*) 0.5 mg IV SLOW PU Q8H PRN PRN Reason: pain scale 7-10 Last Admin: 04/28/19 02:03 Dose: 0.5 mg Anidulafungin 100 mg/ Sodium (Chloride) 130 mls @ 65 mls/hr IVPB Q24H [facility] Last Admin: 04/27/19 09:34 Dose: 65 mls/hr Melatonin (Melatonin) 3 mg PO BEDTIME [facility] Last Admin: 04/27/19 20:33 Dose: Not Given Multi-Ingredient Mouthwash/Gargle (Magic M W2 Tarik/Maal/Nyst/Lido*) 5 ml SWISH SWAL QID [facility] Last Admin: 04/27/19 20:32 Dose: 5 ml Naproxen (Naprosyn Tab*) 500 mg PO Q12H PRN PRN Reason: PAIN - MILD Ondansetron HCl (Zofran Inj*) 4 mg IV Q6H PRN PRN Reason: NAUSEA Last Admin: 04/21/19 17:28 Dose: 4 mg Pantoprazole Sodium (Protonix Tab*) 40 mg PO BID [facility] Last Admin: 04/27/19 20:32 Dose: 40 mg Raltegravir (Isentress*) 400 mg PO BID [facility]; Protocol Last Admin: 04/27/19 20:32 Dose: 400 mg Sodium Chloride (Sodium Chloride 0.65% Nasal [place]*) 1 spray BOTH NARES Q4H PRN PRN Reason: CONGESTION Last Admin: 04/25/19 08:43 Dose: 1 spray Vital Signs - 8 hr 04/27/19 04/28/19 04/28/19 23:53 02:03 02:45 Temperature 97.7 F 97.7 F Pulse Rate 96 90 Respiratory 18 16 19 Rate Blood Pressure 128/64 110/58 (mmHg) O2 Sat by Pulse 100 95 Oximetry 04/28/19 04/28/19 03:00 06:13 Temperature 97.7 F Pulse Rate 87 Respiratory 15 19 Rate Blood Pressure 123/74 (mmHg) O2 Sat by Pulse 98 Oximetry Oxygen Devices in Use Now: None Appearance: Thin man in NAD, temporal wasting Eyes: No Scleral Icterus, PERRLA Ears/Nose/Mouth/Throat: Mucous Membranes Moist Neck: Trachea Midline Respiratory: Symmetrical Chest Expansion and Respiratory Effort, Clear to Auscultation Cardiovascular: NL Sounds; No Murmurs; No JVD, RRR Abdominal: NL Sounds; No Tenderness; No Distention, No Hepatosplenomegaly, - - Scaphoid Lymphatic: No Cervical Adenopathy Extremities: No Edema Skin: No Rash or Ulcers Neurological: Alert and Oriented x 3 - Nutrition: Malnutrition Diagnosis/Plan Malnutrition Assessment by Registered Dietitian: Malnutrition Assessment Clinical Characteristics Chronic,Severe Malnutrition Assessment: Muscle Wasting - Temporal muscle wasting ( severe Criteria ) Fat Pad Wasting - Buccal fat pad wasting ( severe ) Inadequate Oral Intake - Pt reports poor appetite w/ odynophagia 2/2 thrush x1 mo - anticipate meeting <75% nutrient needs x1 mo Unintentional Weight Loss - Pt reports a 20lb wt loss x1 mo; current wt 99lb, prev wt 116lb x1 mo. ago - 14.6% loss x1 mo (severe) Underweight - BMI 13.9 Malnutrition Assessment: Nutritional Supplementals/Nourishments - Will Interventions continue to send [place] Ensure Enlive ( 350kcal, 20g prot/serv) x5 daily to optimize kcal/prot intake and promote wt gain; will monitor continued acceptance. GI Related - Will monitor GI s/sx for impact on intake. Labs - Will monitor labs closely given pt's risk for dumping/refeeding and make recommendations as indicated. Malnutrition Assessment: Goals 1) Pt will tolerate least restrictive dietary textures w/o further difficulty chewing/ swallowing w/ resolution of thrush 2) Adequate po intake to replete lean body mass , support wt gain and hydration status 3) Improve fluid/electrolyte balance w/ adequate po intake and repletion PRN w/o dumping/ refeeding 4) Maintain bowel regularity w/ adequate po intake and antidiarrheals PRN w/o exac of diarrhea/development of constipation Result Diagrams: 04/28/19 06:54 04/28/19 06:54 Assess/Plan/Problems-Billing Assessment: 53 M PMH HIV c/b AIDS CD4 277 up from 31 after HAART initiation (VL 36) with PCP PNA, 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 - Patient Problems (1) Esophagitis Current Visit: Yes Status: Acute Code(s): K20.9 - ESOPHAGITIS, UNSPECIFIED SNOMED Code(s): 73900514 Comment: - Continue anidulafungin x 1 week (last day to complete Saturday 04/28 then stop if improved) - was treated inpatient, discharged then returned with worsening odynophagia - Recurrent oroesophageal thrush 2/2 opportunistic infection - EGD biopsies without any evidence of viral or fungal organisms - Soft diet if tolerated, continue Ensures and comfort foods - ID service following - Consulted KEY OPERATOR for patient's c/o weakness in chewing, likely due to muscle wasting (2) AIDS Current Visit: Yes Status: Acute Comment: - CD4 improved to 277 from 31 after initiation of HAART - Viral load declined to 36 from >1000 a month ago. - Continue Truvada, Isentress (3) Anemia Current Visit: Yes Status: Acute Code(s): D64.9 - ANEMIA, UNSPECIFIED SNOMED Code(s): 237627753 Comment: - In the setting, NSAID, known gastric ulcer and esophagitis - Hgb stable - Continue protonix BID - Avoid NSAIDs (4) Back pain Current Visit: Yes Status: Acute Code(s): M54.9 - DORSALGIA, UNSPECIFIED SNOMED Code(s): 570951665 Comment: - Stop dilauded today, concern for some seeking behavior - Briefly on fent patch in this hospitlization d/c on 04/26 - Lumbar and thoracic spine CTs without acute abnormalities. - Flexeril, trial low dose Duloxtine, tylenol 3 PRN - Naproxen BID (5) Diarrhea Current Visit: Yes Status: Acute Code(s): R19.7 - DIARRHEA, UNSPECIFIED SNOMED Code(s): 29996931 Comment: -Though to be HIV related, neg OI on stool studies (6) Malnutrition Current Visit: No Status: Acute Code(s): E46 - UNSPECIFIED PROTEIN-CALORIE MALNUTRITION SNOMED Code(s): 68267011 Comment: - Nutrition consulted; tolerating ensure well (7) DVT prophylaxis Current Visit: Yes Status: Acute Code(s): Z29.9 - ENCOUNTER FOR PROPHYLACTIC MEASURES, UNSPECIFIED SNOMED Code(s): 733939970 Comment: - Lovenox (8) DNR (do not resuscitate) Current Visit: Yes Status: Acute Comment: Status and Disposition: Inpatient for continued care. Dispo TBD, case management and SW following. Now has section 8 housing and food stamps. Was offered 3 weeks free respite care on discharge by [facility] organization which he is currently considering but has not yet accepted ([facility]). Discharge after course of IV antifungals
[2019-04-28 07:02] LABS: Hematocrit 25 % (42-52); Hemoglobin 8.5 g/dL (14.0-18.0); Mean Corpuscular HGB Conc 34 g/dL (31-36); Mean Corpuscular Hemoglobin 29 pg (27-31); Mean Corpuscular Volume 85 fL (80-94); Mean Platelet Volume 8.2 fL (7.4-10.4); Platelet Count 570 10^3/uL (150-450); Red Blood Count 2.91 10^6 /uL (4.18-5.48); Red Cell Distribution Width 16 % (10-15); White Blood Count 10.4 10^3/uL (3.5-10.8)
[2019-04-28 07:15] LABS: Calcium 7.1 mg/dL (8.6-10.3); Potassium 3.2 mmol/L (3.5-5.0)
[2019-04-28 07:21] LABS: BUN/Creatinine Ratio 35.3 (8-20); EGFR African American 328.4 (>60); EGFR Non-African American 271.4 (>60)
[2019-04-28] MEDS: Acetaminophen / Codeine* #3 (300 MG/30 MG) TAB PO PRN ×3 (08:47→20:33)
[2019-04-28] MEDS: DULoxetine DR CAP* 20 MG CAP.DR PO SCH (08:48)
[2019-04-28] MEDS: Pantoprazole TAB * 40 MG TAB PO SCH ×2 (08:49→20:33)
[2019-04-28] MEDS: Raltegravir* 400 MG TAB PO SCH ×2 (08:51→20:33)
[2019-04-28] MEDS: Dronabinol CAP* 2.5 MG PO SCH ×3 (08:52→20:33)
[2019-04-28] MEDS: Magic M W2 Ben/Maal/Nyst/Lido* 240 ML MOUTHWASH (alt formulation) SWISH SWAL SCH ×4 (08:53→20:32)
[2019-04-28] MEDS: Clotrimazole 1% CREAM* 45 GM TOPICAL SCH ×2 (08:59→20:23)
[2019-04-28] MEDS: Anidulafungin* 100 MG in NS 0.9% 100 ML* 100 ML IVPB SCH (09:04)
[2019-04-28] MEDS: Diphenoxylat/Atrop 2.5-0.025M* 1 TAB PO PRN (10:38)
[2019-04-28] MEDS: Naproxen TAB* 250 MG PO PRN (11:30)
[2019-04-28] MEDS: Loperamide LIQ* 2 MG/10 ML UDC PO PRN (11:31)
[2019-04-28] MEDS: Enoxaparin(*) 40 MG/0.4 ML SYR SUBCUT SCH (12:29)
[2019-04-28] MEDS: Melatonin 3 MG TAB PO SCH (20:23)
[2019-04-28] MEDS: Tenofovir/Emtricitab 200/300 * TAB PO SCH (20:33)
[2019-04-29] MEDS: Naproxen TAB* 250 MG PO PRN ×2 (00:18→12:57)
--- NOTE | 2019-04-29 07:47 | PN ---
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 Overnight no acute events, VSS Labs: None today This morning: Pleasant and well, looking forward to leaving, tolerating pain, less depressed. Still some tailbone pain but manageable, weighing his dispo options and SW involved. Family History: Unchanged from Admission Social History: Unchanged from Admission Past Medical History: Unchanged from Admission Objective Active Medications: Acetaminophen (Tylenol Tab*) 650 mg PO Q4H PRN PRN Reason: MILD PAIN or TEMP > 100.4 Last Admin: 04/28/19 01:15 Dose: 650 mg Acetaminophen/Codeine Phosphate (Tylenol/Codeine 30 Mg Tab*) 1 tab PO Q6H PRN PRN Reason: PAIN - SEVERE Last Admin: 04/28/19 20:33 Dose: 1 tab Clotrimazole (Clotrimazole 1%*) 1 applic TOPICAL BID [facility] Last Admin: 04/28/19 20:23 Dose: Not Given Cyclobenzaprine HCl (Flexeril Tab*) 10 mg PO TID PRN PRN Reason: SPASMS - BACK Last Admin: 04/25/19 13:31 Dose: 10 mg Diphenoxylate HCl/Atropine (Lomotil Tab*) 1 tab PO BID PRN PRN Reason: DIARRHEA Last Admin: 04/28/19 10:38 Dose: 1 tab Dronabinol (Marinol Cap*) 5 mg PO TID [facility] Last Admin: 04/28/19 20:33 Dose: 5 mg Duloxetine HCl (Cymbalta Cap*) 20 mg PO DAILY [facility] Last Admin: 04/28/19 08:48 Dose: 20 mg Emtricitabine/Tenofovir (Truvada 200/300 Mg*) 1 tab PO BEDTIME [facility]; Protocol Last Admin: 04/28/19 20:33 Dose: 1 tab Enoxaparin Sodium (Lovenox(*)) 40 mg SUBCUT Q24H [facility] Last Admin: 04/28/19 12:29 Dose: Not Given Anidulafungin 100 mg/ Sodium (Chloride) 130 mls @ 65 mls/hr IVPB Q24H [facility] Last Admin: 04/28/19 09:04 Dose: 65 mls/hr Loperamide HCl (Imodium Liq*) 2 mg PO .SEE ORDER PRN PRN Reason: DIARRHEA Last Admin: 04/28/19 11:31 Dose: 2 mg Melatonin (Melatonin) 3 mg PO BEDTIME [facility] Last Admin: 04/28/19 20:23 Dose: Not Given Multi-Ingredient Mouthwash/Gargle (Magic M W2 Tarik/Maal/Nyst/Lido*) 5 ml SWISH SWAL QID [facility] Last Admin: 04/28/19 20:32 Dose: 5 ml Naproxen (Naprosyn Tab*) 500 mg PO Q12H PRN PRN Reason: PAIN - MILD Last Admin: 04/29/19 00:18 Dose: 500 mg Ondansetron HCl (Zofran Inj*) 4 mg IV Q6H PRN PRN Reason: NAUSEA Last Admin: 04/21/19 17:28 Dose: 4 mg Pantoprazole Sodium (Protonix Tab*) 40 mg PO BID [facility] Last Admin: 04/28/19 20:33 Dose: 40 mg Raltegravir (Isentress*) 400 mg PO BID [facility]; Protocol Last Admin: 04/28/19 20:33 Dose: 400 mg Sodium Chloride (Sodium Chloride 0.65% Nasal [place]*) 1 spray BOTH NARES Q4H PRN PRN Reason: CONGESTION Last Admin: 04/25/19 08:43 Dose: 1 spray Vital Signs - 8 hr 04/29/19 04/29/19 04:11 07:15 Temperature 97.6 F 97.7 F Pulse Rate 84 83 Respiratory 19 16 Rate Blood Pressure 143/70 121/61 (mmHg) O2 Sat by Pulse 96 99 Oximetry Oxygen Devices in Use Now: None Appearance: thin man with temp wasting, pleasant Eyes: No Scleral Icterus Neck: NL Appearance and Movements; NL JVP Respiratory: Symmetrical Chest Expansion and Respiratory Effort, Clear to Auscultation, - - GEOLOGICAL SURVEY FIELD ASSISTANT shunt papable in chest wall Cardiovascular: NL Sounds; No Murmurs; No JVD, RRR Abdominal: - - Scaphoid Lymphatic: No Cervical Adenopathy, - - MIld reducible scrotal hernia Extremities: No Edema Skin: No Rash or Ulcers Neurological: Alert and Oriented x 3 Result Diagrams: 04/28/19 06:54 04/28/19 06:54 Assess/Plan/Problems-Billing Assessment: 53 M PMH HIV c/b AIDS CD4 277 up from 31 after HAART initiation (VL 36) with PCP PNA, 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 - Patient Problems (1) Esophagitis Current Visit: Yes Status: Acute Code(s): K20.9 - ESOPHAGITIS, UNSPECIFIED SNOMED Code(s): 60493178 Comment: - Continue anidulafungin x 1 week (last day today Saturday 04/28) - was treated inpatient, discharged then returned with worsening odynophagia - Recurrent oroesophageal thrush 2/2 opportunistic infection - EGD biopsies without any evidence of viral or fungal organisms - Soft diet if tolerated, continue Ensures and comfort foods - ID service following - Consulted RAW SAMPLER for patient's c/o weakness in chewing, likely due to muscle wasting (2) AIDS Current Visit: Yes Status: Acute Comment: - CD4 improved to 277 from 31 after initiation of HAART - Viral load declined to 36 from >1000 a month ago. - Continue Truvada, Isentress (3) Anemia Current Visit: Yes Status: Acute Code(s): D64.9 - ANEMIA, UNSPECIFIED SNOMED Code(s): 230589703 Comment: - In the setting, NSAID, known gastric ulcer and esophagitis - Hgb stable - Continue protonix BID - Avoid NSAIDs (4) Back pain Current Visit: Yes Status: Acute Code(s): M54.9 - DORSALGIA, UNSPECIFIED SNOMED Code(s): 013434392 Comment: - Stop dilauded today, concern for some seeking behavior - Briefly on fent patch in this hospitlization d/c on 04/26 - Lumbar and thoracic spine CTs without acute abnormalities. - Flexeril, trial low dose Duloxtine, tylenol 3 PRN, doing well today - Naproxen BID (5) Diarrhea Current Visit: Yes Status: Acute Code(s): R19.7 - DIARRHEA, UNSPECIFIED SNOMED Code(s): 90159164 Comment: -Though to be HIV related, neg OI on stool studies (6) Malnutrition Current Visit: No Status: Acute Code(s): E46 - UNSPECIFIED PROTEIN-CALORIE MALNUTRITION SNOMED Code(s): 63182311 Comment: - Nutrition consulted; tolerating ensure well (7) DVT prophylaxis Current Visit: Yes Status: Acute Code(s): Z29.9 - ENCOUNTER FOR PROPHYLACTIC MEASURES, UNSPECIFIED SNOMED Code(s): 179115944 Comment: - Lovenox (8) DNR (do not resuscitate) Current Visit: Yes Status: Acute Comment: Status and Disposition: Inpatient for continued care. Dispo TBD, case management and SW following. Now has section 8 housing and food stamps. Was offered 3 weeks free respite care on discharge by [facility] organization which he is currently considering and could go next week ([facility]). Discharge pending respite vs home, if home could go 04/30, if respite would be delayed until 05/04
[2019-04-29] MEDS ORDERED: NS 0.9% 100 ML* 100 ML ONE (09:52)
[2019-04-29] MEDS: DULoxetine DR CAP* 20 MG CAP.DR PO SCH (10:00)
[2019-04-29] MEDS: Dronabinol CAP* 2.5 MG PO SCH ×3 (10:00→20:33)
[2019-04-29] MEDS: Raltegravir* 400 MG TAB PO SCH ×2 (10:00→20:33)
[2019-04-29] MEDS: Acetaminophen / Codeine* #3 (300 MG/30 MG) TAB PO PRN ×3 (10:01→22:18)
[2019-04-29] MEDS: Magic M W2 Ben/Maal/Nyst/Lido* 240 ML MOUTHWASH (alt formulation) SWISH SWAL SCH ×4 (10:01→20:31)
[2019-04-29] MEDS: Pantoprazole TAB * 40 MG TAB PO SCH ×2 (10:01→20:33)
[2019-04-29] MEDS: Clotrimazole 1% CREAM* 45 GM TOPICAL SCH ×2 (10:03→20:27)
[2019-04-29] MEDS: Anidulafungin* 100 MG in NS 0.9% 100 ML* 100 ML IVPB SCH (11:03)
[2019-04-29] MEDS: Enoxaparin(*) 40 MG/0.4 ML SYR SUBCUT SCH (12:57)
[2019-04-29] MEDS: Melatonin 3 MG TAB PO SCH (20:28)
[2019-04-29] MEDS: Tenofovir/Emtricitab 200/300 * TAB PO SCH (20:32)
--- NOTE | 2019-04-30 00:12 | DS ---
CC: [facility]; Dr. Gil Maldonado * DISCHARGE SUMMARY: DATE OF ADMISSION: 04/08/19 DATE OF DISCHARGE ANTICIPATED: 05/01/19 PRIMARY CARE PROVIDER: Mago Herndon. INFECTIOUS DISEASE PROVIDER: Dr. Gil Maldonado. DISPOSITION AT THE TIME OF DISCHARGE: Fair to return to home. PRIMARY DIAGNOSES: 1. Acquired immunodeficiency syndrome, CD4 since improved to 277 2. Joseph infection of oropharynx consistent with age-related opportunistic infections. 3. Severe malnutrition. 4. Gastric ulcer. 5. Erosive esophagitis. SECONDARY DIAGNOSES: 1. Longstanding poorly controlled HIV, complicated by acquired immunodeficiency syndrome with CD4 count in Mar 2019 of 277, up from 31 on presentation with viral load of 36 which is down from presentation after introducing ART. 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 2. Also longstanding erosive esophagitis, which on this hospitalization he was readmitted for. MEDICATIONS: Medications at the time of discharge: 1. Acetaminophen/codeine 30 mg 1 tab p.o. q.8 hours p.r.n. for an additional 8 days status post discharge. 2. Acetaminophen 650 mg p.o. q.6 hours p.r.n., to take no more than 2 times a day if also taking acetaminophen/codeine. 3. Cyclobenzaprine 10 mg p.o. t.i.d. 4. Duloxetine 20 mg p.o. daily. 5. Loperamide liquid 2 mg/10 mg 2 mg p.o. b.i.d. p.r.n. for severe diarrhea. 6. Magic mouthwash 5 mL swish and swallow 4 times a day p.r.n. for pain. 7. Melatonin 3 mg p.o. q.h.s. 8. Pantoprazole 40 mg p.o. b.i.d. 9. Raltegravir 400 mg p.o. b.i.d. (Isnentress) 10. Emtricitabine/tenofovir 200 mg/25 mg 1 tab p.o. daily. (Descovy) Medication changes on this hospitalization include the addition of pain medications: 1. Tylenol No.3 for an additional 8 days status post discharge. 2. Cyclobenzaprine for an additional 10 days status post discharge. 3. Marinol as needed for an additional 15 days status post discharge. 4. Duloxetine for pain 20 mg status post discharge. 5. Loperamide. 6. Magic mouthwash. Home medications were continued, include: 1. Emtricitabine/tenofovir, also known as Descovy. 2. Also reinstituted the patient's raltegravir or Isentress consistent with his ART medication. HISTORY OF PRESENT ILLNESS AND HOSPITAL COURSE: Of note, hospital course is a total of 23 days. The patient initially presented to the emergency room on after he had been recently discharged on 03/08/19. The patient had initially been admitted for opportunistic infection in the setting of AIDS and we had reinitiated his therapy in February 2019. He was discharged home and initially did not follow up with his ART therapy, followed up with ID in the clinic and his medications were changed and he again started compliance with his ART therapy on 04/01/19, but reported that since he started his medications , he had been losing weight, feeling worse, and felt the thrush was getting worse at home and he was unable to manage his symptoms of odynophagia and inability to swallow solid food. He had been essentially living off of Ensure and finally decided to re-present to the emergency room. In the emergency room , he was extremely cachectic but his vital signs are stable. His labs are notable for ALT elevation at 335 and mild leukocytosis but otherwise unremarkable and ultimately the patient was admitted to the hospital for nutritional support and treatment directed at controlling the complications of his acquired immunodeficiency syndrome, which is from longstanding HIV with intermittent compliance to ART therapy. His hospital course by problem is as follows: 1. HIV with known noncompliance of ART therapy complicated by AIDS and opportunistic infection of oral candidiasis. On admission, the patient complained of diarrhea, odynophagia. When he was admitted, his CD4 count is at 277 which is up from 31 in February 2019. His HIV viral load was 36, which is down from when he was initially met in February 2019, showing that there was some intermittent compliance with integrase inhibitor as well as possibly Truvada. He does have evidence of opportunistic infections with oral esophageal thrush. Stool testing for opportunistic infection and diarrhea was done which did not show any infectious disease in diarrhea and was thought to be secondary to just HIV viral load decreasing. He was restarted on Truvada and Isentress and he will be discharged on Isentress and Descovy, work closely with social work to ensure that he has access to ART therapy on discharge. In terms of disposition , the patient is considering respite care with nonprofit associated with rehabilitation and helping in patients with advanced AIDS. 2. Oral esophageal candidiasis, complicated by odynophagia. The patient had EGD on 04/10/19 where he was noted to have significant erosive esophagitis. He was started on anidulafungin IV on 04/10/19 and completed a course on 04/30/19. His symptoms slowly improved. He was able to tolerate liquids and then soft foods. Gradually, he was started on PPI, which also helped. In the case of his candidiasis, his treatment is considered complete, although he may still need symptomatic pain control with magic mouthwash and PPI. 3. Malnutrition. The patient was admitted at a weight of 96 pounds. On , weight is up to 112 pounds, showing significant improvement and roughly a 20 -pound weight gain over the course of about 1 month. 4. Diarrhea. The patient was having ongoing diarrhea, was thought to be HIV related with negative opportunistic infection on stool studies and biopsies done on EGD. He started having more solid bowel movements in the last week of his hospitalization and his symptoms are responsive to loperamide to be discharged on. 5. Back pain. The patient had chronic back pain. Because of his esophagitis, NSAIDs were avoided and initially Tylenol was not used secondary to his transaminitis. Eventually, his transaminitis improved and his numbers trended down to normal by 04/24/19 and he was able to transition from IV pain medications with opiates to Tylenol 3 and regular Tylenol which he tolerated well. He also was optimized on cyclobenzaprine. He used Marinol which is synthetic marijuana with some good effect and he was also started on duloxetine 20 mg which would help with chronic pain from musculoskeletal source with decent control. He will need continued, likely physical therapy and care as his nutrition continues to improve. 6. Anemia. The patient has hemoglobin at baseline of 8.5. This is likely a combination of anemia of chronic disease as well as some acute blood loss anemia from his esophagitis when he first presented. We will continue to monitor this with outpatient labs. There is no indication for transfusion at this time. 7. Elevated LFTs: Noted on admission, and thought to possibly be from oral fluconazole that he was taking prior to admission. This was d/c in favor of IV antifungals and LFTS since normalized early in hospitlization. 8. Scrotal hernia. The patient has a longstanding scrotal hernia, which he reports causing some significant amount of pain. This was examined. He has no evidence of incarceration. Because of his malnutrition state, Surgery was curbsided who felt that it was more appropriate to be managed as an outpatient when the patient feels more stable in terms of his nutritional status and overall wellness. A consult to [facility] Surgery can be happily made when the patient is ready to have a successful elective surgery for inguinal non- incarcerated hernia, and signs and symptoms of incarceration were explained to him. 9. Social support. The patient initially presented to the hospital from his apartment, [address], where he was living before. He was isolated and had a difficult time caring for himself given his state of malnutrition and his difficulty getting medications. Social work was heavily involved during this hospitalization and arranged for the patient to get connected with nonprofit groups. He does have a healthcare advocate who is a good friend of his, Becky was also involved in many of these conversations. Ultimately, the patient elected to be discharged to home and social work arranged for him to have a ride to a nonprofit called [facility] in [place] who could help with respite care in his case and he can be transported by Medicaid on or around the week of 05/04/19. He feels comfortable with the plan on day of discharge. On day of discharge, the patient is ambulating. He is tolerating liquid diet. He will be sent home with [facility] and he has a fair support system, although this is a high-risk discharge given his chronically wasted state and his overwhelming illness. He certainly has improved over the course of his 22-day hospitalization and his esophagitis seems to have resolved, although his success is dependent on him maintaining access and remaining compliant with ART medication which is emphasized multiple times. LABS AND STUDIES DONE DURING THIS HOSPITALIZATION: On 04/08/19, a lumbar spine x- ray was done which showed no fracture. A liver ultrasound was done on , which showed no evidence of cholelithiasis or biliary duct dilatation or pathology. An EGD was done on 04/10/19, which showed severe erosive esophagitis. Thoracic spine and lumbar spine CTs were done on 04/18/19 for the patient's back pain, which showed no acute pathology. Labs last done on 04/28/19 showed white blood cell count of 10.4, hemoglobin 8.5 , hematocrit 25, and platelets 570,000. Sodium is 133, potassium 3.2, chloride 102, carbon dioxide 27, BUN 12, creatinine 0.34. Calcium 7.1. LFTs last done on 04/24/19 show AST of 21, ALT of 45, and alkaline phosphatase 235. CONSULTANTS DURING THIS HOSPITALIZATION: Included GI and Infectious Disease. ITEMS TO FOLLOW UP ON STATUS POST DISCHARGE: 1. HIV complicated by AIDS, now with improving CD4 count to 277, drawn in late March 2019. He will need repeat CD4 count and can follow up with ID. Viral load is now at 36 increased from February 2019. We will continue him on Descovy and Isentress with close ID followup on discharge. 2. Erosive esophagitis complicated by malnutrition. The patient will be receiving respite care at nonprofit with the help of social work as well as the patient's advocate. 3. Diarrhea. Ensure as the patient's diet varies that his symptoms of diarrhea improve. Overall, this patient had a prolonged stay secondary to his need for IV antifungals in this case of severe erosive esophagitis from oral joseph and he also had a complicated array of social problems and although ultimately he improved remarkably over the course of his stay and on day of discharge, his plan is to be discharged to home with a short arrangement with respite care. 4. Scrotal hernia: Outpt mgmt, may refer to surgery when he is medically more stable 5. Elevated LFTs: Improved by time of d/c may follow as outpatient. This summary is a distillation of a 23-day hospital stay and for more specifics , you can please reference the chart directly. Furthermore, if there are any questions about the care given to this patient during his hospitalization, please do not hesitate to reach out and contact me directly, myself Minna Young MD, at [phone]. Plan of care was discussed with the patient, his advocate, and social work, who are all in agreeance with the plan and know when to return to the emergency room if needed. TIME SPENT: Forty five minutes were spent on the planning of this discharge with over half of that spent directly at the bedside of the patient providing direct patient care. [id number]/[facility] #: [id number] PABLO
[2019-04-30] MEDS: Acetaminophen / Codeine* #3 (300 MG/30 MG) TAB PO PRN ×3 (06:03→18:01)
--- NOTE | 2019-04-30 07:08 | PN ---
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 Overnight no acute events, VSS Labs: None today This morning: Pleasant and well, looking forward to leaving, tolerating pain, less depressed. Still some tailbone pain but manageable on current oral meds Family History: Unchanged from Admission Social History: Unchanged from Admission Past Medical History: Unchanged from Admission Objective Active Medications: Acetaminophen (Tylenol Tab*) 650 mg PO Q4H PRN PRN Reason: MILD PAIN or TEMP > 100.4 Last Admin: 04/28/19 01:15 Dose: 650 mg Acetaminophen/Codeine Phosphate (Tylenol/Codeine 30 Mg Tab*) 1 tab PO Q6H PRN PRN Reason: PAIN - SEVERE Last Admin: 04/30/19 06:03 Dose: 1 tab Clotrimazole (Clotrimazole 1%*) 1 applic TOPICAL BID [facility] Last Admin: 04/29/19 20:27 Dose: Not Given Cyclobenzaprine HCl (Flexeril Tab*) 10 mg PO TID PRN PRN Reason: SPASMS - BACK Last Admin: 04/25/19 13:31 Dose: 10 mg Diphenoxylate HCl/Atropine (Lomotil Tab*) 1 tab PO BID PRN PRN Reason: DIARRHEA Last Admin: 04/28/19 10:38 Dose: 1 tab Dronabinol (Marinol Cap*) 5 mg PO TID [facility] Last Admin: 04/29/19 20:33 Dose: 5 mg Duloxetine HCl (Cymbalta Cap*) 20 mg PO DAILY [facility] Last Admin: 04/29/19 10:00 Dose: 20 mg Emtricitabine/Tenofovir (Truvada 200/300 Mg*) 1 tab PO BEDTIME [facility]; Protocol Last Admin: 04/29/19 20:32 Dose: 1 tab Enoxaparin Sodium (Lovenox(*)) 40 mg SUBCUT Q24H [facility] Last Admin: 04/29/19 12:57 Dose: Not Given Anidulafungin 100 mg/ Sodium (Chloride) 130 mls @ 65 mls/hr IVPB Q24H [facility] Stop: 04/30/19 10:00 Last Admin: 04/29/19 11:03 Dose: 65 mls/hr Loperamide HCl (Imodium Liq*) 2 mg PO .SEE ORDER PRN PRN Reason: DIARRHEA Last Admin: 04/28/19 11:31 Dose: 2 mg Melatonin (Melatonin) 3 mg PO BEDTIME [facility] Last Admin: 04/29/19 20:28 Dose: Not Given Multi-Ingredient Mouthwash/Gargle (Magic M W2 Tarik/Maal/Nyst/Lido*) 5 ml SWISH SWAL QID [facility] Last Admin: 04/29/19 20:31 Dose: 5 ml Ondansetron HCl (Zofran Inj*) 4 mg IV Q6H PRN PRN Reason: NAUSEA Last Admin: 04/21/19 17:28 Dose: 4 mg Pantoprazole Sodium (Protonix Tab*) 40 mg PO BID [facility] Last Admin: 04/29/19 20:33 Dose: 40 mg Raltegravir (Isentress*) 400 mg PO BID [facility]; Protocol Last Admin: 04/29/19 20:33 Dose: 400 mg Sodium Chloride (Sodium Chloride 0.65% Nasal [place]*) 1 spray BOTH NARES Q4H PRN PRN Reason: CONGESTION Last Admin: 04/25/19 08:43 Dose: 1 spray Vital Signs - 8 hr 04/30/19 04/30/19 04/30/19 00:18 03:06 06:03 Temperature 97.3 F Pulse Rate 82 Respiratory 16 16 16 Rate Blood Pressure 113/62 (mmHg) O2 Sat by Pulse 96 Oximetry Oxygen Devices in Use Now: None Appearance: Cachetic man Eyes: No Scleral Icterus Ears/Nose/Mouth/Throat: Mucous Membranes Moist Neck: NL Appearance and Movements; NL JVP, Trachea Midline Respiratory: Symmetrical Chest Expansion and Respiratory Effort, Clear to Auscultation Cardiovascular: RRR Abdominal: NL Sounds; No Tenderness; No Distention Lymphatic: No Cervical Adenopathy Extremities: No Edema Skin: No Rash or Ulcers Neurological: Alert and Oriented x 3 - Nutrition: Malnutrition Diagnosis/Plan Malnutrition Assessment by Registered Dietitian: Malnutrition Assessment Clinical Characteristics Chronic,Severe Malnutrition Assessment: Muscle Wasting - Temporal muscle wasting ( severe Criteria ) Fat Pad Wasting - Buccal fat pad wasting ( severe ) Inadequate Oral Intake - Pt reports poor appetite w/ odynophagia 2/2 thrush x1 mo - anticipate meeting <75% nutrient needs x1 mo Unintentional Weight Loss - Pt reports a 20lb wt loss x1 mo; current wt 99lb, prev wt 116lb x1 mo. ago - 14.6% loss x1 mo (severe) Underweight - BMI 13.9 Malnutrition Assessment: Nutritional Supplementals/Nourishments - Will Interventions continue to send [place] Ensure Enlive ( 350kcal, 20g prot/serv) x5 daily to optimize kcal/prot intake and promote wt gain; will monitor continued acceptance. GI Related - Will monitor GI s/sx for impact on intake. Labs - Will monitor labs closely given pt's risk for dumping/refeeding and make recommendations as indicated. Malnutrition Assessment: Goals 1) Pt will tolerate least restrictive dietary textures w/o further difficulty chewing/ swallowing w/ resolution of thrush 2) Adequate po intake to replete lean body mass , support wt gain and hydration status 3) Improve fluid/electrolyte balance w/ adequate po intake and repletion PRN w/o dumping/ refeeding 4) Maintain bowel regularity w/ adequate po intake and antidiarrheals PRN w/o exac of diarrhea/development of constipation Result Diagrams: 04/28/19 06:54 04/28/19 06:54 Assess/Plan/Problems-Billing Assessment: 53 M PMH HIV c/b AIDS CD4 277 up from 31 after HAART initiation (VL 36) with PCP PNA, crytopcoccus meningitis (w ELECTRICAL INTERN shunt) in the past presented with candidal esophagitis and malnutrition/FTT, chronic pain, on anidulafungin IV. - Patient Problems (1) Esophagitis Current Visit: Yes Status: Acute Code(s): K20.9 - ESOPHAGITIS, UNSPECIFIED SNOMED Code(s): 42465993 Comment: - anidulafungin completed, total of 22 days - VL and CD4 improving, less risk for OI - EGD biopsies without any evidence of viral or fungal organisms - Soft diet if tolerated, continue Ensures and comfort foods (2) AIDS Current Visit: Yes Status: Acute Comment: - CD4 improved to 277 from 31 after initiation of HAART - Viral load declined to 36 from >1000 a month ago. - Continue Truvada, Isentress-d/c on Norma Gomez (3) Anemia Current Visit: Yes Status: Acute Code(s): D64.9 - ANEMIA, UNSPECIFIED SNOMED Code(s): 583991022 Comment: - In the setting of recent NSAID, known gastric ulcer and esophagitis - Hgb stable - Continue protonix BID - Avoid daily NSAIDs (4) Back pain Current Visit: Yes Status: Acute Code(s): M54.9 - DORSALGIA, UNSPECIFIED SNOMED Code(s): 507195047 Comment: - DC all IV pain meds, mgd fair on Tylenol 3 - Briefly on fent patch in this hospitlization d/c on 04/26 - Lumbar and thoracic spine CTs without acute abnormalities. - Flexeril, trial low dose Duloxtine, tylenol 3 PRN, doing well today - Naproxen BID (5) Diarrhea Current Visit: Yes Status: Acute Code(s): R19.7 - DIARRHEA, UNSPECIFIED SNOMED Code(s): 34982903 Comment: -Though to be HIV related, neg OI on stool studies (6) DVT prophylaxis Current Visit: Yes Status: Acute Code(s): Z29.9 - ENCOUNTER FOR PROPHYLACTIC MEASURES, UNSPECIFIED SNOMED Code(s): 640989532 Comment: - Lovenox (7) DNR (do not resuscitate) Current Visit: Yes Status: Acute Comment: Status and Disposition: Inpatient for continued care. Dispo TBD, case management and SW following. Now has section 8 housing and food stamps. Was offered 3 weeks free respite care on discharge by [facility] organization which he is currently considering and could go next week ([facility]). Discharge pending respite vs home, if home could go as early as tomorrow 05/01
[2019-04-30] MEDS: DULoxetine DR CAP* 20 MG CAP.DR PO SCH (09:44)
[2019-04-30] MEDS: Dronabinol CAP* 2.5 MG PO SCH (09:44)
[2019-04-30] MEDS: Raltegravir* 400 MG TAB PO SCH ×2 (09:44→21:15)
[2019-04-30] MEDS: Magic M W2 Ben/Maal/Nyst/Lido* 240 ML MOUTHWASH (alt formulation) SWISH SWAL SCH ×4 (09:45→21:18)
[2019-04-30] MEDS: Pantoprazole TAB * 40 MG TAB PO SCH ×2 (09:45→21:15)
[2019-04-30] MEDS: Clotrimazole 1% CREAM* 45 GM TOPICAL SCH ×2 (09:47→21:13)
[2019-04-30] MEDS: Anidulafungin* 100 MG in NS 0.9% 100 ML* 100 ML IVPB SCH (09:53)
[2019-04-30] MEDS ORDERED: Naproxen TAB* 250 MG PO ONE (10:34)
[2019-04-30] MEDS: Loperamide LIQ* 2 MG/10 ML UDC PO PRN (11:42)
[2019-04-30] MEDS: Enoxaparin(*) 40 MG/0.4 ML SYR SUBCUT SCH (14:52)
[2019-04-30] MEDS: Melatonin 3 MG TAB PO SCH (21:14)
[2019-04-30] MEDS: Tenofovir/Emtricitab 200/300 * TAB PO SCH (21:15)
[2019-04-30] MEDS: Ondansetron INJ* 2 MG/ML VIAL IV PRN (21:22)
[2019-05-01] MEDS: Acetaminophen / Codeine* #3 (300 MG/30 MG) TAB PO PRN (00:59)
--- NOTE | 2019-05-01 07:16 | PN ---
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 Overnight no acute events, VSS Labs: None today This morning: Dispo plan for today is to return to home, he has questions about laundry and meds, but no other issues or concerns. Family History: Unchanged from Admission Social History: Unchanged from Admission Past Medical History: Unchanged from Admission Objective Active Medications: Acetaminophen (Tylenol Tab*) 650 mg PO Q4H PRN PRN Reason: MILD PAIN or TEMP > 100.4 Last Admin: 04/28/19 01:15 Dose: 650 mg Acetaminophen/Codeine Phosphate (Tylenol/Codeine 30 Mg Tab*) 1 tab PO Q6H PRN PRN Reason: PAIN - SEVERE Last Admin: 05/01/19 00:59 Dose: 1 tab Clotrimazole (Clotrimazole 1%*) 1 applic TOPICAL BID [facility] Last Admin: 04/30/19 21:13 Dose: Not Given Cyclobenzaprine HCl (Flexeril Tab*) 10 mg PO TID PRN PRN Reason: SPASMS - BACK Last Admin: 04/25/19 13:31 Dose: 10 mg Diphenoxylate HCl/Atropine (Lomotil Tab*) 1 tab PO BID PRN PRN Reason: DIARRHEA Last Admin: 04/28/19 10:38 Dose: 1 tab Duloxetine HCl (Cymbalta Cap*) 20 mg PO DAILY [facility] Last Admin: 04/30/19 09:44 Dose: 20 mg Emtricitabine/Tenofovir (Truvada 200/300 Mg*) 1 tab PO BEDTIME [facility]; Protocol Last Admin: 04/30/19 21:15 Dose: 1 tab Enoxaparin Sodium (Lovenox(*)) 40 mg SUBCUT Q24H [facility] Last Admin: 04/30/19 14:52 Dose: Not Given Loperamide HCl (Imodium Liq*) 2 mg PO .SEE ORDER PRN PRN Reason: DIARRHEA Last Admin: 04/30/19 11:42 Dose: 2 mg Melatonin (Melatonin) 3 mg PO BEDTIME [facility] Last Admin: 04/30/19 21:14 Dose: Not Given Multi-Ingredient Mouthwash/Gargle (Magic M W2 Tarik/Maal/Nyst/Lido*) 5 ml SWISH SWAL QID [facility] Last Admin: 04/30/19 21:18 Dose: 5 ml Ondansetron HCl (Zofran Inj*) 4 mg IV Q6H PRN PRN Reason: NAUSEA Last Admin: 04/30/19 21:22 Dose: 4 mg Pantoprazole Sodium (Protonix Tab*) 40 mg PO BID [facility] Last Admin: 04/30/19 21:15 Dose: 40 mg Raltegravir (Isentress*) 400 mg PO BID [facility]; Protocol Last Admin: 04/30/19 21:15 Dose: 400 mg Sodium Chloride (Sodium Chloride 0.65% Nasal [place]*) 1 spray BOTH NARES Q4H PRN PRN Reason: CONGESTION Last Admin: 04/25/19 08:43 Dose: 1 spray Vital Signs - 8 hr 05/01/19 05/01/19 05/01/19 00:15 00:59 02:59 Temperature 98.4 F 97.8 F Pulse Rate 95 88 Respiratory 19 16 20 Rate Blood Pressure 120/65 129/67 (mmHg) O2 Sat by Pulse 94 96 Oximetry 05/01/19 03:56 Temperature Pulse Rate Respiratory 16 Rate Blood Pressure (mmHg) O2 Sat by Pulse Oximetry Oxygen Devices in Use Now: None Appearance: Thin man in NAD Ears/Nose/Mouth/Throat: Mucous Membranes Moist Respiratory: Clear to Auscultation Cardiovascular: RRR Abdominal: NL Sounds; No Tenderness; No Distention Extremities: No Edema Skin: No Rash or Ulcers Neurological: Alert and Oriented x 3 - Nutrition: Malnutrition Diagnosis/Plan Malnutrition Assessment by Registered Dietitian: Malnutrition Assessment Clinical Characteristics Chronic,Severe Malnutrition Assessment: Muscle Wasting - Temporal muscle wasting ( severe Criteria ) Fat Pad Wasting - Buccal fat pad wasting ( severe ) Inadequate Oral Intake - Pt reports poor appetite w/ odynophagia 2/2 thrush x1 mo - anticipate meeting <75% nutrient needs x1 mo Unintentional Weight Loss - Pt reports a 20lb wt loss x1 mo; current wt 99lb, prev wt 116lb x1 mo. ago - 14.6% loss x1 mo (severe) Underweight - BMI 13.9 Malnutrition Assessment: Nutritional Supplementals/Nourishments - Will Interventions continue to send [place] Ensure Enlive ( 350kcal, 20g prot/serv) x5 daily to optimize kcal/prot intake and promote wt gain; will monitor continued acceptance. GI Related - Will monitor GI s/sx for impact on intake. Labs - Will monitor labs closely given pt's risk for dumping/refeeding and make recommendations as indicated. Malnutrition Assessment: Goals 1) Pt will tolerate least restrictive dietary textures w/o further difficulty chewing/ swallowing w/ resolution of thrush 2) Adequate po intake to replete lean body mass , support wt gain and hydration status 3) Improve fluid/electrolyte balance w/ adequate po intake and repletion PRN w/o dumping/ refeeding 4) Maintain bowel regularity w/ adequate po intake and antidiarrheals PRN w/o exac of diarrhea/development of constipation Result Diagrams: 04/28/19 06:54 04/28/19 06:54 Assess/Plan/Problems-Billing Assessment: 53 M PMH HIV c/b AIDS CD4 277 up from 31 after HAART initiation (VL 36) with PCP PNA, 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 - Patient Problems (1) Esophagitis Current Visit: Yes Status: Acute Code(s): K20.9 - ESOPHAGITIS, UNSPECIFIED SNOMED Code(s): 85528937 Comment: - anidulafungin completed, total of 22 days - VL and CD4 improving, less risk for OI - EGD biopsies without any evidence of viral or fungal organisms - Soft diet if tolerated, continue Ensures and comfort foods (2) AIDS Current Visit: Yes Status: Acute Comment: - CD4 improved to 277 from 31 after initiation of HAART - Viral load declined to 36 from >1000 a month ago. - Continue Truvada, Isentress-d/c on Norma Gomez (3) Anemia Current Visit: Yes Status: Acute Code(s): D64.9 - ANEMIA, UNSPECIFIED SNOMED Code(s): 487435442 Comment: - In the setting of recent NSAID, known gastric ulcer and esophagitis - Hgb stable - Continue protonix BID - Avoid daily NSAIDs (4) Back pain Current Visit: Yes Status: Acute Code(s): M54.9 - DORSALGIA, UNSPECIFIED SNOMED Code(s): 637032800 Comment: - DC all IV pain meds, mgd fair on Tylenol 3 - Briefly on fent patch in this hospitlization d/c on 04/26 - Lumbar and thoracic spine CTs without acute abnormalities. - Flexeril, trial low dose Duloxtine, tylenol 3 PRN, doing well today - Naproxen BID (5) Diarrhea Current Visit: Yes Status: Acute Code(s): R19.7 - DIARRHEA, UNSPECIFIED SNOMED Code(s): 22014069 Comment: -Though to be HIV related, neg OI on stool studies (6) DVT prophylaxis Current Visit: Yes Status: Acute Code(s): Z29.9 - ENCOUNTER FOR PROPHYLACTIC MEASURES, UNSPECIFIED SNOMED Code(s): 367743252 Comment: - Lovenox (7) DNR (do not resuscitate) Current Visit: Yes Status: Acute Comment: Status and Disposition: DC to home today
[2019-05-01] MEDS: Magic M W2 Ben/Maal/Nyst/Lido* 240 ML MOUTHWASH (alt formulation) SWISH SWAL SCH (08:58)
[2019-05-01] MEDS: Diphenoxylat/Atrop 2.5-0.025M* 1 TAB PO PRN (08:59)
[2019-05-01] MEDS: Pantoprazole TAB * 40 MG TAB PO SCH (09:00)
[2019-05-01] MEDS: DULoxetine DR CAP* 20 MG CAP.DR PO SCH (09:00)
[2019-05-01] MEDS: Raltegravir* 400 MG TAB PO SCH (09:00)
[2019-05-01] MEDS: Clotrimazole 1% CREAM* 45 GM TOPICAL SCH (09:01)
--- NOTE | 2019-05-01 10:08 | PN ---
Progress Note - Progress Note Date of Service: 05/01/19 SOAP: Subjective: CC: AIDS HPI: Ms. ruvalcaba is a 53 year old man with longstanding HIV. Denies fever, chills , nausea, vomiting, or pain when swallowing. He is mostly taking in liquids. Reports intermittent diarrhea, no abd pain. He feels like his scrotal hernia is starting to go back in. Objective: Vital Signs - 8 hr 05/01/19 05/01/19 05/01/19 02:59 03:56 08:59 Temperature 97.8 F Pulse Rate 88 Respiratory 20 16 16 Rate Blood Pressure 129/67 (mmHg) O2 Sat by Pulse 96 Oximetry Physical Exam: General: NAD, laying in bed Neurological: Alert and Oriented HEENT: Moist MM Cardiovascular: Heart rate regular Respiratory: Lung sounds clear Abdominal: Bowel sounds present; ABD soft, non tender and non distended Skin: No rash Laboratory Last Values WBC 10.4 10^3/uL (3.5-10.8) 04/28/19 06:54 RBC 2.91 10^6 /uL (4.18-5.48) L 04/28/19 06:54 Hgb 8.5 g/dL (14.0-18.0) L 04/28/19 06:54 Hct 25 % (42-52) L 04/28/19 06:54 MCV 85 fL (80-94) 04/28/19 06:54 MCH 29 pg (27-31) 04/28/19 06:54 MCHC 34 g/dL (31-36) 04/28/19 06:54 RDW 16 % (10-15) H 04/28/19 06:54 Plt Count 570 10^3/uL (150-450) H D 04/28/19 06:54 MPV 8.2 fL (7.4-10.4) 04/28/19 06:54 Neut % (Auto) 83.2 % 04/24/19 08:15 Lymph % (Auto) 11.3 % 04/24/19 08:15 [place] % (Auto) 5.0 % 04/24/19 08:15 Eos % (Auto) 0.2 % 04/24/19 08:15 Baso % (Auto) 0.3 % 04/24/19 08:15 Absolute Neuts (auto) 6.7 10^3/ul (1.5-7.7) 04/24/19 08:15 Absolute Lymphs (auto) 0.9 10^3/ul (1.0-4.8) L 04/24/19 08:15 Absolute Monos (auto) 0.4 10^3/ul (0-0.8) 04/24/19 08:15 Absolute Eos (auto) 0.0 10^3/ul (0-0.6) 04/24/19 08:15 Absolute Basos (auto) 0.0 10^3/ul (0-0.2) 04/24/19 08:15 Absolute Nucleated RBC 0.0 10^3/ul 04/24/19 08:15 Neutrophils % 83.0 % 04/16/19 05:21 Lymphocytes % 14.0 % 04/16/19 05:21 Monocytes % 2.0 % 04/16/19 05:21 Eosinophils % 1.0 % 04/16/19 05:21 Nucleated RBC % 0.0 04/24/19 08:15 Platelet Morphology Large 04/16/19 05:21 Normal RBC Morphology Normal (Normal) 04/16/19 05:21 INR (Anticoag Therapy) 1.16 (0.82-1.09) H 04/10/19 04:27 Sodium 133 mmol/L (135-145) L 04/28/19 06:54 Potassium 3.2 mmol/L (3.5-5.0) L 04/28/19 06:54 Chloride 102 mmol/L (101-111) 04/28/19 06:54 Carbon Dioxide 27 mmol/L (22-32) 04/28/19 06:54 Anion Gap 4 mmol/L (2-11) 04/28/19 06:54 BUN 12 mg/dL (6-24) 04/28/19 06:54 Creatinine 0.34 mg/dL (0.67-1.17) L 04/28/19 06:54 Est GFR ( Amer) 328.4 (>60) 04/28/19 06:54 Est GFR (Non-Af Amer) 271.4 (>60) 04/28/19 06:54 BUN/Creatinine Ratio 35.3 (8-20) H 04/28/19 06:54 Glucose 94 mg/dL (70-100) 04/28/19 06:54 POC Glucose (mg/dL) 117 mg/dL (70-100) H 04/10/19 14:16 Lactic Acid 2.0 mmol/L (0.5-2.0) 04/08/19 11:34 Calcium 7.1 mg/dL (8.6-10.3) L 04/28/19 06:54 Phosphorus 2.3 mg/dL (2.5-5.0) L 04/09/19 05:28 Magnesium 1.9 mg/dL (1.9-2.7) 04/21/19 08:27 Total Bilirubin 0.40 mg/dL (0.2-1.0) 04/24/19 08:15 Direct Bilirubin 0.20 mg/dL (0.03-0.18) H 04/24/19 08:15 Indirect Bilirubin 0.2 mg/dL (0.3-1.0) L 04/24/19 08:15 AST 21 U/L (13-39) 04/24/19 08:15 ALT 41 U/L (7-52) 04/24/19 08:15 Alkaline Phosphatase 235 U/L (34-104) H 04/24/19 08:15 C-Reactive Protein 48.95 mg/L (<8.01) H 04/08/19 11:34 Total Protein 4.5 g/dL (6.4-8.9) L 04/24/19 08:15 Albumin 1.7 g/dL (3.2-5.2) L 04/24/19 08:15 Globulin 2.8 g/dL (2-4) 04/24/19 08:15 Albumin/Globulin Ratio 0.6 (1-3) L 04/24/19 08:15 Lipase 82 U/L (11.0-82.0) 04/08/19 11:34 Urine Color Yellow 04/08/19 16:25 Urine Appearance Clear 04/08/19 16:25 Urine pH 6.0 (5-9) 04/08/19 16:25 Ur Specific [place] 1.018 (1.010-1.030) 04/08/19 16:25 Urine Protein Negative (Negative) 04/08/19 16:25 Urine Ketones Negative (Negative) 04/08/19 16:25 Urine Blood Negative (Negative) 04/08/19 16:25 Urine Nitrate Negative (Negative) 04/08/19 16:25 Urine Bilirubin Negative (Negative) 04/08/19 16:25 Urine Urobilinogen Negative (Negative) 04/08/19 16:25 Ur Leukocyte Esterase Negative (Negative) 04/08/19 16:25 Urine Glucose Negative (Negative) 04/08/19 16:25 % CD3 Cells 92 % (58-86) H 04/08/19 11:34 Absolute CD3 Count 729 cells/mcL (550-2202) 04/08/19 11:34 % CD4 Cells 35 % (32-64) 04/08/19 11:34 Absolute CD4 Count 277 cells/mcL (365-1437) L 04/08/19 11:34 CD4/CD3 Ratio 0.5 (>=0.9) L 04/08/19 11:34 % CD8 Cells 64 % (11-40) H 04/08/19 11:34 Absolute CD8 Count 508 cells/mcL (117-846) 04/08/19 11:34 Absolute CD45 Count 0.79 thou/mcL (0.82-2.84) L 04/08/19 11:34 CMV Qnt PCR IU/mL <35 IU/mL (Undetected) A 04/10/19 04:27 Hepatitis A IgM Ab Negative (Negative) 04/08/19 11:34 Hep Bs Antigen Negative (Negative) 04/08/19 11:34 Hep B Core IgM Ab Nonreactive (Nonreactive) 04/08/19 11:34 Hepatitis C Antibody Negative (Negative) 04/08/19 11:34 Hepatitis C Ab Index 0.07 s/c 04/08/19 11:34 HSV IgM Ab Screen Reactive (Negative) 04/09/19 05:26 HSV IgM Ab (IFA) Negative (Negative) 04/09/19 05:26 HSV I IgG Ab Positive (Negative) 04/09/19 05:26 HSV II IgG Negative (Negative) 04/09/19 05:26 HIV-1 RNA (PCR) 36 copies/mL (Undetected) A 04/10/19 04:27 HIV-1 Int Raltegravir Not Reportable 04/10/19 04:27 HIV-1 Int Elvitegravir Not Reportable 04/10/19 04:27 HIV Dolutegravir Resist Not Reportable 04/10/19 04:27 HIV-1 Last Viral Load Dt Not Reportable 04/10/19 04:27 HIV-1 Last Viral Load TNP 04/10/19 04:27 Assessment: 1. AIDS with diarrhea. Workup negative, diarrhea improving. 04/08 - Viral load 36 , and CD4 count 277. 2. Oroesophageal candidiasis. Improving, received IV antifungal for 3 weeks. 3. Malnutrition with hypoalbuminemia. Tolerating ensure and liquids. 4. Gastric ulcers. Seen on EGD. Plan: Discharge on Descovy and raltegravir, and PPI. Followup with ID outpatient after discharge, has an appointment on May 20 at 1:30. []
[2019-05-01 10:50] VITALS: BP 114/64
== END 2019-05-01 14:55 | disposition home health service (06) | DRG 893 ==
LOC: ED 10:56 → MED 14:15
PROVIDERS: ADMIT Hospitalist; ATTEND Internal Medicine
PROC: 0DB98ZX Excision of Duodenum, Via Natural or Artificial Opening Endoscopic, Diagnostic (ICD-10-PCS; 2019-04-10)
PROC: 0DB68ZX Excision of Stomach, Via Natural or Artificial Opening Endoscopic, Diagnostic (ICD-10-PCS; 2019-04-10)
PROC: 0DB58ZX Excision of Esophagus, Via Natural or Artificial Opening Endoscopic, Diagnostic (ICD-10-PCS; 2019-04-10)
PROC: 0W3P8ZZ Control Bleeding in Gastrointestinal Tract, Via Natural or Artificial Opening Endoscopic (ICD-10-PCS; principal; 2019-04-10 13:00)
DX: B20 Human immunodeficiency virus [HIV] disease (principal); E43 Unspecified severe protein-calorie malnutrition; B37.81 Candidal esophagitis; B37.0 Candidal stomatitis; R64 Cachexia; K22.10 Ulcer of esophagus without bleeding; Z68.1 Body mass index [BMI] 19.9 or less, adult; K44.9 Diaphragmatic hernia without obstruction or gangrene; K25.9 Gastric ulcer, unspecified as acute or chronic, without hemorrhage or perforation; R74.0 Nonspecific elevation of levels of transaminase and lactic acid dehydrogenase [LDH]; R13.10 Dysphagia, unspecified; Z66 Do not resuscitate; D64.9 Anemia, unspecified; M54.9 Dorsalgia, unspecified; E88.09 Other disorders of plasma-protein metabolism, not elsewhere classified; K40.90 Unilateral inguinal hernia, without obstruction or gangrene, not specified as recurrent; G89.29 Other chronic pain; R62.7 Adult failure to thrive; Z83.3 Family history of diabetes mellitus; Z82.49 Family history of ischemic heart disease and other diseases of the circulatory system; Z91.14 Patient's other noncompliance with medication regimen
CPT/HCPCS: 36415; 72110; 72128; 72131; 76705; 80048; 80053; 80074; 80076; 81003; 83605; 83690; 83735; 84100; 85014; 85018; 85025; 85027; 85610; 86140; 86359; 86360; 86694; 86695; 86696; 87497; 87536; 87906; 88305; 88312; 88342; 99284; 99406; A9270-GY; G8987-GO-CJ; G8988-GO-CH; J0330; J0348; J1100; J1170; J1450; J1644; J1650; J1885; J2250; J2405; J2704; J3010; J3420; J3475; J3480